=== PATIENT | male | born 1940 | race Caucasian/White ===

== ENCOUNTER 2024-06-29 11:49 | Outpatient (RCR) | payer OTHER, SELFPAY | END 2024-06-29 23:59 | disposition home or self-care (01) | LOC: RPT 11:49 | PROVIDERS: ATTENDING PHYSICIAN Internal Medicine | DX: M54.9 Dorsalgia, unspecified (principal); Z73.6 Limitation of activities due to disability | CPT/HCPCS: 97110; 97112; 97162; 97530 ==

== ENCOUNTER 2024-07-20 11:55 | Outpatient (RCR) | payer OTHER, SELFPAY | END 2024-07-20 14:14 | disposition home or self-care (01) | LOC: RPT 11:55 | PROVIDERS: ATTENDING PHYSICIAN Internal Medicine | DX: M54.9 Dorsalgia, unspecified (principal); Z73.6 Limitation of activities due to disability | CPT/HCPCS: 97110; 97112 ==

== ENCOUNTER 2024-11-04 08:10 | Inpatient (IN) | payer OTHER, SELFPAY ==
[2024-11-03 12:38] VITALS: BP 182/68
[2024-11-03 12:42] LABS: Glucose - Point of Care 331 mg/dl (70-99)
[2024-11-03 12:55] LABS: % Basophils 0.3 % (0-2); % Eosinophils 1.7 % (0-6); % Immature Granulocytes 0.5 % (0-0.5); % Neutrophils 80.5 % (42.2-75.2); Absolute Eosinophils 0.2 10^3/uL (0-0.7); Absolute Immature Granulocytes 0.1 10^3/uL (0-0.05); Absolute Monocytes 0.7 10^3/uL (0.1-0.6); Absolute Neutrophils 8.3 10^3/uL (1.4-6.5); Hematocrit 42.2 % (39.0-52.0); Hemoglobin 14.2 g/dL (13.0-18.0); Mean Corp Hgb Conc. 33.6 g/dL (33.0-37.0); Mean Corpuscular Hgb 32.9 pg (27.0-31.0); Mean Corpuscular Volume 97.9 fL (80.0-94.0); Mean Platelet Volume 11.5 fL (7.4-10.4); Nucleated Red Blood Cells % 0 % (-); Platelet Count 167 10^3/uL (130-400); Red Blood Cell Count 4.31 10^6/uL (4.70-6.10); Red Cell Dist. Width 12.8 % (11.5-14.5); White Blood Cell Count 10.3 10^3/uL (4.8-10.8)
[2024-11-03 13:07] LABS: ALT (SGPT) 20 U/L (0-50); AST (SGOT) 21 U/L (17-59); Albumin 4.2 g/dl (3.5-5.0); Alkaline Phosphatase 97 U/L (38-126); Blood Urea Nitrogen 32 mg/dl (9-20); Carbon Dioxide 27 mmol/L (22-30); Chloride 99 mmol/L (98-107); Glucose 303 mg/dl (70-99); Sodium 136 mmol/L (135-145); Total Bilirubin 1.1 mg/dl (0.2-1.3); Total Protein 6.8 g/dl (6.3-8.2); eGFR > 60.00
[2024-11-03 14:05] VITALS: BMI 28.8
--- NOTE | 2024-11-03 14:10 | ED.GENMED ---
History of Present Illness
General
Chief Complaint: Change in Mental Status
Source: patient and spouse
Exam Limitations: none
Time Seen by Provider: 11/03/24 14:04
History of Present Illness
History of Present Illness:
See MDM
Past History
Past History
ED Past Medical History: Arrthythmia, Cancer (Squamous cell skin cancer abdominal wall), CHF, GERD, HTN, Hypercholesterolemia, IDDM and Other (Gallstone pancreatitis April 2018)
ED Past Surgical History: Cardiac (Heart valve replacement 1992), Cholecystectomy (Laparoscopic cholecystectomy 04/14/2018.), Orthopedic and Other (Squamous cell skin cancer removal right upper abdominal wall May 18 2018)
Social History
Tobacco: Non-smoker
Alcohol: None (Rare)
Drug: None
Personal:
Living: with family
Family History
Family History: Other (Noncontributory)
Phy Exam
Physical Exam
Physical Exam:
See MDM
Scores
NIH Stroke Score
Level of Consciousness: 0 - Alert
LOC Questions: 0-Answers both correctly
LOC Commands: 0-Performs both correctly
Best Horizontal Gaze: 0-Normal
Visual Estrada: 0=Normal, no visual loss
Facial Palsy: 0=Normal, symmetrical
Motor - Right Arm: 0=No drift 10 seconds
Motor - Left Arm: 0=No drift 10 seconds
Motor - Right Le-No drift 5 seconds
Motor - Left Le-No drift 5 seconds
Limb Ataxia: 0-Absent
Sensation: 0-Normal
Best Language: 0-No aphasia
Dysarthria: 0-Normal
Extinction and Inattention: 0-No abnormality
Total Score:: 0
Course
Orders/Labs/Results
Orders:
Orders
11/03/24 12:[address] [CT Head W/o Iv Contrast] Urgent
Comment:
Reason For Exam: confusion for days
11/03/24 12:47
Complete Blood Count/With Diff Urgent
Comprehensive Metabolic Panel Urgent
11/03/24 14:08
0.9% Sodium Chloride 1000 ml [Nss] 1,000 ml IV BOLUS
Insulin Aspart [NOVOLOG vial] 5 units SC NOW STA
11/03/24 14:28
Urinalysis Reflex To Culture Urgent
Date Specimen was Collected: 11/03/24
Time Specimen was Collected: 14:14
Urine Microscopic Reflex Cult Urgent
Abnormal Lab Results
11/03/24 11/03/24 11/03/24
12:40 12:47 14:28
RBC 4.31 L 10^6/uL
(4.70-6.10)
MCV 97.9 H fL
(80.0-94.0)
MCH 32.9 H pg
(27.0-31.0)
MPV 11.5 H fL
(7.4-10.4)
Abs Immat Gran (auto) 0.1 H 10^3/uL
(0-0.05)
Absolute Neuts (auto) 8.3 H 10^3/uL
(1.4-6.5)
Absolute Lymphs (auto) 1.0 L 10^3/uL
(1.2-3.4)
Absolute Monos (auto) 0.7 H 10^3/uL
(0.1-0.6)
Neutrophils % 80.5 H %
(42.2-75.2)
Lymphocytes % 10.0 L %
(20.5-51.1)
BUN 32 H mg/dl
(9-20)
Glucose 303 H mg/dl
(70-99)
Ur Occult Blood Reflex 1+ A
(Negative)
Urine Glucose 1+ A
(Negative)
Urine Albumin (Reflex) 3+ A
(Neg - Trace)
POC Glucose 331 H mg/dl
(70-99)
11/03/24 12:47
11/03/24 12:47
Vital Signs
Initial and Last Documented VS:
Initial Vital Signs
Temp Pulse Resp BP Pulse Ox
98.5 F 63 18 182/68 98
11/03/24 12:38 11/03/24 12:38 11/03/24 12:38 11/03/24 12:38 11/03/24 12:38
Last Documented Vital Signs
Temp Pulse Resp BP Pulse Ox
98.5 F 63 18 182/68 98
11/03/24 12:38 11/03/24 12:38 11/03/24 12:38 11/03/24 12:38 11/03/24 12:38
MDM/Problems Addressed
Differential Diagnosis Includes:
HPI and MDM Narrative:
83-year-old male presenting for evaluation of confusion. His significant other is at bedside. Patient states he forgot how to take his insulin. Because of this, he has not had any insulin over the past 2 days. He does complain of increased
urination. Denies headache, chest pain or fevers. On exam, he is clinically dry. Will ultimately have to admit based on the fact that he is unable to reliably take his insulin. Blood work done prior to my evaluation. He is hyperglycemic but no
evidence of DKA. Urinalysis pending. IV fluids started. Since on exam
Physical exam
General: Lying in bed comfortably
HEENT: protecting airway. Dry mucous membranes
Neck: appears supple
CV: No evidence of cyanosis. Regular rate and rhythm
Resp: No accessory muscle use
Abd: Non-distended
Extremities: No deformities. Distal legs neurovascularly intact
Neuro: alert. Moving all 4 extremities without difficulty. No focal neurodeficits.
Psych: Normal affect
Skin: Intact
Problems Addressed including Acute and Chronic Conditions affecting care:
1. Confusion
Acuity: acute
Prognosis: stable
Details: CT head and urinalysis pending.
2. Hyperglycemia
Acuity: acute
Prognosis: stable
Details: In the setting of patient's inability to remember how to take his insulin. Will give dose of subcu insulin
Updates
Urinalysis negative for infection. CT negative for acute abnormality. Will admit for further IV fluids and diabetic teaching
Differential Diagnosis (but not limited to): Stroke, DKA, UTI
Testing considered: EKG
Drug therapy (if applicable): OTC meds, please see d/c instruction regarding Rx drugs
Amount and/or Complexity of Data Reviewed
Clinical info obtained from: Patient
External data reviewed: N/A
Labs I independently reviewed (but not limited to): Hyperglycemia
Radiology: The CT scan was personally and independently reviewed. In addition, official CT report reviewed.
Pulse Ox: not hypoxic
EKG independently reviewed: N/A
Security Management Specialist: Sinus rhythm
Critical Care: N/A
Risk of Complication:
Social Determinants of health: Good social support
Discussed with other providers: Hospitalist
Escalation of Care includes Admit/Obs: Given the confusion and inability to administer his own insulin, will admit for diabetic teaching and fluids
Occasional wrong word or 'sound a like' substitutions may have occurred due to the inherent limitations of voice recognition software. Read the chart carefully and recognize, using context, where substitutions have occurred.
*Critical Care Note
Total Time (30-74mins, 75-104mins- exclusive of procedures): Not Applicable
ED Attending Note
-
Portions of this chart may have been created with voice recognition software.� Occasional wrong word or��sound alike� substitutions may have occurred due to the inherent limitations of voice recognition software.
Discharge Plan
Departure
Patient Disposition: Admit
Date of Disposition: 11/03/24
Time of Disposition: 14:54
Admit to: Med/Surg
Presentation/result/management discussed w/ accepting MD/DO: Hospitalist
Discharge Problem:
Acute confusion, Acute hyperglycemia
Prescriptions:
No Action
multivitamin Tablet
1 tab PO DAILY
latanoprost 0.005 % Drops
1 drp OPHTHALMIC (EYE) QPM
carvedilol 25 mg Tablet
25 mg PO BID
atorvastatin 20 mg Tablet
20 mg PO DAILY
amiodarone 200 mg Tablet
100 mg PO MOWEFR
amiodarone 200 mg Tablet
200 mg PO SUTUTHSA
psyllium Packet
1 packet PO DAILYPRN PRN (Reason: constipation)
nitroglycerin [Nitrostat] 0.4 mg Tablet, Sublingual
0.4 mg SUBLINGUAL [id number] PRN (Reason: chest pain)
Systane (PF) 0.4-0.3 % Dropperette
1 drp ophthalmic (eye) PRN PRN (Reason: dry eye)
coenzyme Q10 [Co Q-10] 200 mg Capsule
200 mg PO DAILY
omega 0-vzk-idv-fish oil [Fish Oil] 1,000 mg (120 mg-180 mg) Capsule
1 cap PO BID
Anoro Ellipta 62.5-25 mcg/actuation Blister With Device
1 inh INHALATION R DAILY
furosemide 40 mg Tablet
40 mg PO BID@0800,1600
aspirin 81 mg Tablet,Delayed Release (Dr/Ec)
81 mg PO DAILY
methimazole 5 mg tablet
2.5 mg PO DAILY
albuterol sulfate 90 mcg/actuation Hfa Aerosol Inhaler
2 puff INHALATION R Q4HPRN PRN (Reason: sob/wheezing)
fluticasone propionate [Flonase] 50 mcg/actuation [place],Suspension
1 spray INTRANASAL DAILY
repaglinide 1 mg tablet
1 mg PO AC
insulin glargine [Lantus Solostar U-100 Insulin] 100 unit/mL (3 mL) insulin pen
18 unit SC HS
Referrals:
Patrick Garcia DO [Family Provider] -
Interventions
Interventions:
*Risk Screen - Suicide Last Done: 11/03/24 12:38
*General Assessment Last Done: 11/03/24 12:38
*Neglect/Abuse Screening Last Done: 11/03/24 12:38
*ED COVID-19 Vaccine History Last Done: 11/03/24 12:38
Discharge Date and Time
Print Language: DANISH
[2024-11-03] MEDS: NOVOLOG vial 5 UNITS SC (14:18)
[2024-11-03] MEDS: NSS 1000 IV (14:20)
[2024-11-03 14:38] LABS: Urine Albumin 3+ (Neg - Trace); Urine Bilirubin Negative (Negative); Urine Character Clear (Clear); Urine Color Yellow; Urine Glucose 1+ (Negative); Urine Ketone Negative (Negative); Urine Leukocyte Negative (Negative); Urine Nitrite Negative (Negative); Urine Occult Blood 1+ (Negative); Urine Urobilinogen Negative (Neg - 1+)
--- NOTE | 2024-11-03 14:40 | PHANOTE ---
Addendum entered by Bhavani Sanchez 11/04/24 08:22:
following up on a med rec, patient does not know his medication, spouse did not bring in med list. called home phone on file, spouse picked up and read me the medication bottles but did not have the answer to all my questions
Original Note:
Med Rec Note:
Pt does not know medications off hand, pt's states list was left at home and medications are not known. Home med compiled from [facility] and Dr Miller. Left unconfirmed.
[2024-11-03 15:39] LABS: Urine Bacteria Few (Negative); Urine Mucus Moderate; Urine White Cell 0-2 /HPF (0-5)
--- NOTE | 2024-11-03 15:42 | HPS.HSE ---
Addendum entered and electronically signed by Travon Huynh MD 11/03/24 23:23:
Patient became short of breath later. Chest x-ray showed mild congestive heart failure. 40 IV Lasix given. Cardiology consulted.
Addendum entered and electronically signed by Travon Huynh MD 11/03/24 18:24:
Patient had 26 beats of Vtach asymptomatic.
Original Note:
Family Physician
-
Family Physician: Patrick Garcia
Chief Complaint
-
memory loss
History of Present Illness
55-year-old male past medical history of aortic stenosis status post bioprosthetic AVR, atrial fibrillation, sick sinus syndrome with permanent pacemaker, hypertension, diabetes, presenting with forgetting how to take his insulin over the past 2
days. As per he told the that he forgot how to take the insulin and she brought him to the emergency room due to concern for hyperglycemia. She did not check his blood sugar at home.
She states that she did not notice any other memory impairment. He has been feeling well and remembering everything else. No headache, blurry vision. His speech is is chronically a little bit slurred but she noticed that he was having a bit more
difficulty. He was also having difficulty ambulating and sort of shuffling over the past 2 days. But she denies any tendency towards 1 side.
No fevers or chills, upper respiratory symptoms, nausea vomiting or diarrhea. For the past month he has been having sudden urges to urinate but no dysuria. No history of enlarged prostate.
Patient is supposed to have MRI of the spine to evaluate ongoing back pain but they could not get an appointment until February.
He does not smoke or drink alcohol.
Medical History
Past Medical History
Past Medical History: Reports Other (aortic stenosis status post bioprosthetic AVR, atrial fibrillation, sick sinus syndrome with permanent pacemaker, hypertension, diabetes)
Past Surgical History: Reports Other ( Cardiac (Heart valve replacement 1992), Cholecystectomy (Laparoscopic cholecystectomy 04/14/2018.), Orthopedic and Other (Squamous cell skin cancer removal right upper abdominal wall May 18 2018))
Social History
Tobacco: Non-smoker
Alcohol: None
Drug: None
Family History
Family History: Not pertinent
Allergies / Home Medications
Allergies reflects when Allergies were last updated in [facility].
Home Medications with original date entered in [facility]
Allergy/Medication List:
Allergies
Allergy/AdvReac Type Severity Reaction Status Date / Time
merbromin Allergy TOPICAL-JUANIS Verified 05/20/23 10:42
[From Mercurochrome] H
Home Medications
amiodarone 200 mg tablet 100 mg PO MOWEFR Arrhythmia 05/18/22
amiodarone 200 mg tablet 200 mg PO SUTUTHSA Arrhythmia 05/18/22
atorvastatin 20 mg tablet 20 mg PO DAILY High cholesterol 05/18/22
carvedilol 25 mg tablet 25 mg PO BID Blood pressure 05/18/22
coenzyme Q10 200 mg capsule (Co Q-10) 200 mg PO DAILY Supplement 05/18/22
latanoprost 0.005 % eye drops 1 drp ophthalmic (eye) QPM Eye condition 05/18/22
multivitamin 1 tab PO DAILY Supplement 05/18/22
nitroglycerin 0.4 mg sublingual tablet (Nitrostat) 0.4 mg sublingual [id number] PRN chest pain 05/18/22
omega 2-ibi-xaf-fish oil 1,000 mg (120 mg-180 mg) capsule (Fish Oil) 1 cap PO BID Supplement 05/18/22
peg 400-propylene glycol (PF) 0.4 %-0.3 % eye drops in a dropperette (Systane (PF)) 1 drp ophthalmic (eye) PRN PRN dry eye 05/18/22
psyllium 1 packet PO DAILYPRN PRN constipation 05/18/22
umeclidinium 62.5 mcg-vilanterol 25 mcg/actuation powdr for inhalation (Anoro Ellipta) 1 inh inhalation R DAILY Lung/breathing issues 05/18/22
albuterol sulfate 90 mcg/actuation aerosol inhaler 2 puff inhalation R Q4HPRN PRN sob/wheezing 11/03/24
aspirin 81 mg tablet,delayed release 81 mg PO DAILY 11/03/24
fluticasone propionate 50 mcg/actuation nasal spray,suspension 1 spray intranasal DAILY 11/03/24
furosemide 40 mg tablet 40 mg PO BID@0800,1600 11/03/24
insulin glargine 100 unit/mL (3 mL) subcutaneous pen (Lantus Solostar U-100 Insulin) 18 unit SC HS 11/03/24
methimazole 5 mg tablet 2.5 mg PO DAILY 11/03/24
repaglinide 1 mg tablet 1 mg PO AC 11/03/24
Review of Systems
-
History Source: Patient
A 12 point ROS was completed and negative except as noted: Yes
Constitutional: Reports No Symptoms
EENT: Reports No Symptoms
Respiratory: Reports No Symptoms
Cardiac: Reports No Symptoms
Abdomen/GI: Reports No Symptoms
: Reports No Symptoms
Musculoskeletal: Reports No Symptoms
Skin: Reports No Symptoms
Neurological: Reports No Symptoms
Endocrine: Reports No Symptoms
Hematologic/Lymphatic: Reports No Symptoms
Psych: Reports No Symptoms
Physical Exam
Vital Signs
Vital Signs
Temp Pulse Resp BP Pulse Ox
98.5 F 63 18 182/68 98
11/03/24 12:38 11/03/24 12:38 11/03/24 12:38 11/03/24 12:38 11/03/24 12:38
Physical Exam
General: Well Developed, Well Nourished and No Apparent Distress
HEENT: NormoCephalic, Moist mucous membranes and Atraumatic
Respiratory: Clear
Cardiac: S1/S2 and Regular Rhythm; No Murmur or Rub
GI: Soft, Non Tender, Non Distended and Normal Bowel Sounds; No Organomegaly
Rectal: Deferred by Provider
Musculoskeletal: No Clubbing, No Cyanosis and No Edema
Skin: No Rash
Neuro: Nonfocal/grossly intact
Laboratory Results
-
11/03/24 12:47
11/03/24 12:47
Laboratory Results
Total Bilirubin 1.1 mg/dl (0.2-1.3) 11/03/24 12:47
AST 21 U/L (17-59) 11/03/24 12:47
ALT 20 U/L (0-50) 11/03/24 12:47
Alkaline Phosphatase 97 U/L (38-126) 11/03/24 12:47
Data Reviewed
-
Lab Data: Labs Reviewed by me
Old Records: Reviewed
Impression/Plan
-
IMPRESSION:
PLAN:
# Hyperglycemia secondary to Lantus noncompliant for 2 days due to memory impairment
Type 2 diabetes
-Currently on Lantus 15 units at night
-IV fluids given
-Given 5 of NovoLog
-Blood sugar 300s
-Resume Lantus 15 units
-Insulin sliding scale
# Acute memory loss
-There was some nystagmus with leftward gaze
-Apart from some mild speech difficulty no other focal neurological deficits so feel this is more metabolic in nature perhaps superimposed on developing dementia
-Urinalysis unremarkable
-Check TSH, B12
-Check MRI brain
#Uncontrolled hypertension
#Essential hypertension
-As needed hydralazine
#Chronic back pain
-Patient scheduled for MRI of spine in February
Aortic stenosis status post bioprosthetic AVR
Atrial fibrillation
-Continue amiodarone
Sick sinus syndrome with permanent pacemaker
Full code
DVT prophylaxis�SCDs
Diabetic diet
[2024-11-03 15:56] LABS: Glucose - Point of Care 161 mg/dl (70-99)
[2024-11-03 16:04] VITALS: BP 153/70
[2024-11-03 16:58] VITALS: BP 172/78
[2024-11-03 17:00] VITALS: BMI 31.2
[2024-11-03 17:05] LABS: Glucose - Point of Care 117 mg/dl (70-99)
[2024-11-03] MEDS: NOVOLOG FLEXPEN-LOW RESISTANCE SC (17:07)
[2024-11-03 17:53] LABS: TSH Reflex To Free T4 2.33 uIU/ml (0.47-4.68)
--- NOTE | 2024-11-03 18:09 | TRANSFER ---
Pt admitted to 4W from ED, ambulated from stretcher to bed with x1 assist and walker. Pt AAOx3, denying any complaints at this time. Plan of care reviewed, call guzman within reach.
[2024-11-03 18:13] LABS: Vitamin B12 676 pg/ml (239-931)
[2024-11-03] MEDS: APRESOLINE 5 MG IV (18:32)
--- NOTE | 2024-11-03 18:39 | PTCARENOTE ---
Pt with 26-beat run of vtach, denies symptoms. BP 170/77, PRN hydralazine administered. notified. No further orders at this time.
[2024-11-03 19:05] VITALS: BP 134/81
[2024-11-03] MEDS: XOPENEX 1.25 MG INHALANT SOLUTION INH (19:57)
--- NOTE | 2024-11-03 20:02 | W.PN.UPDATE ---
Update Note
Progress Note Update
Patient is confused not able to conform his med list and is not able to confirm as well per nursing staff. Pharmacy confirmed some of the meds by the refill history through outpatient pharmacy.Meds reviewed with the admitted physician.
Pro BNP
chest x-ray
lasix
cardiology consult
[2024-11-03 20:12] LABS: Blood Urea Nitrogen 30 mg/dl (9-20); Calcium 9.9 mg/dl (8.4-10.2); Carbon Dioxide 24 mmol/L (22-30); Chloride 103 mmol/L (98-107); Estimated Creatinine Clearance 51 ml/min; Glucose 195 mg/dl (70-99); Magnesium 1.8 mg/dl (1.6-2.3); Potassium 4.8 mmol/L (3.5-5.1); Sodium 135 mmol/L (135-145); eGFR > 60.00
[2024-11-03] MEDS: COREG 25 MG PO (20:39)
[2024-11-03] MEDS: LIPITOR 20 MG PO (20:40)
[2024-11-03 20:49] LABS: NT-proBNP 26700 pg/ml
[2024-11-03 21:11] LABS: Glucose - Point of Care 219 mg/dl (70-99)
[2024-11-03] MEDS: LANTUS 0.18 UNITS SC (22:00)
[2024-11-03] MEDS: LASIX 40 MG IV (22:00)
[2024-11-03 23:03] VITALS: BP 136/52
[2024-11-04] VITALS (8 sets, daily range): BP systolic 120–163; BP diastolic 65–91; PULSE 61; O2SAT 96; BMI 30.5
[2024-11-04 07:44] LABS: Glucose - Point of Care 157 mg/dl (70-99)
--- NOTE | 2024-11-04 08:10 | CON.CAR ---
Addendum entered and electronically signed by Valentin Buck MD 11/04/24 09:46:
Patient seen and examined in collaboration with [employer]; agree with below.
-83-year-old male with chronic nonischemic cardiomyopathy (EF 40-45%), paroxysmal atrial fibrillation (not on systemic anticoagulation secondary to fall/bleeding risk), bioprosthetic AVR, permanent pacemaker implantation, chronic LBBB, COPD, and
diabetes admitted with change in mental status and was found to be in acute on chronic CHF exacerbation. Uncertain as to what patient's medication compliance is at home.
-The patient is still little confused, but lucid.
-Recommend Lasix 40 mg IV BID for now.
-Update echocardiogram.
-Interrogate pacemaker; has underlying LBBB cannot completely exclude slow VT (conservative management).
-Will resume amiodarone (uncertain as to whether patient is taking it at home).
-Continue Coreg 25 mg BID.
-Continue child monitor.
Original Note:
Consultation
Consultation Request
Date/Time Consultation Requested: 11/04/24314
Date/Time Consultation Performed: 11/04/24 0810
Requesting Provider: Amber Tracy NP
Performing Provider: Ingrid HOLLIS for Dr. Buck
Reason for Consultation: CHF
Medical History
-
Chief Complaint: confusion
History of Present Illness:
83 y/o male (follows with Dr. Gamez) with hypertension, PAF (not on OAC due to falls and bleeding), severe s/p bio AVR, severe pulmonary hypertension, SSS s/p pacemaker, JAVON on CPAP, dyslipidemia, obesity, GERD, NICM EF 40-45%, COPD, LBBB
and DM2 who is here for evaluation after he was noted to have confusion- forgot how to use his insulin per chart. We are consulted since he had SOB and CXR and BMP showed evidence for CHF- he was given IV lasix. Otherwise, he has episodes of
tachycardia with LBBB (known) - I suspect atrial tachycardia. He is no symptomatic with that rhythm and BP is stable. He is still confused to my assessment, though follows commands and answers questions. SVENO x 2. It is not clear to me that he has
been taking his medications- he tells me he only takes Lasix a few times a week. At last OV, he was on amiodarone and now he is not- he is not sure why. He does report worsened [place] over the past week, as well as LE edema.
Past Medical History
Past Medical History: Arrhythmias, CHF, COPD, GERD, HTN, Hypercholesterolemia, NIDDM and Valvular Disease
Social History
Living: Other (lives with significant other)
Family History
Family History: Reviewed & Not Pertinent
Allergies / Home Medications
Allergy/AdvReac Type Severity Reaction Status Date / Time
merbromin Allergy TOPICAL-JUANIS Verified 05/20/23 10:42
[From Mercurochrome] H
�Medication �Instructions �Recorded �Confirmed �Type
amiodarone 200 mg tablet 100 mg PO MOWEFR Arrhythmia 05/18/22 05/18/22 History
amiodarone 200 mg tablet 200 mg PO SUTUTHSA Arrhythmia 05/18/22 05/18/22 History
atorvastatin 20 mg tablet 20 mg PO DAILY High cholesterol 05/18/22 05/18/22 History
carvedilol 25 mg tablet 25 mg PO BID Blood pressure 05/18/22 05/18/22 History
coenzyme Q10 200 mg capsule (Co 200 mg PO DAILY Supplement 05/18/22 05/18/22 History
Q-10)
latanoprost 0.005 % eye drops 1 drp ophthalmic (eye) QPM Eye 05/18/22 05/18/22 History
condition
multivitamin 1 tab PO DAILY Supplement 05/18/22 05/18/22 History
nitroglycerin 0.4 mg sublingual 0.4 mg sublingual [id number] PRN 05/18/22 05/18/22 History
tablet (Nitrostat) chest pain
omega 2-tdp-irg-fish oil 1,000 mg 1 cap PO BID Supplement 05/18/22 05/18/22 History
(120 mg-180 mg) capsule (Fish Oil)
peg 400-propylene glycol (PF) 0.4 1 drp ophthalmic (eye) PRN PRN dry 05/18/22 05/18/22 History
%-0.3 % eye drops in a dropperette eye
(Systane (PF))
psyllium 1 packet PO DAILYPRN PRN 05/18/22 05/18/22 History
constipation
umeclidinium 62.5 mcg-vilanterol 1 inh inhalation R DAILY 05/18/22 05/18/22 History
25 mcg/actuation powdr for Lung/breathing issues
inhalation (Anoro Ellipta)
albuterol sulfate 90 mcg/actuation 2 puff inhalation R Q4HPRN PRN 11/03/24 History
aerosol inhaler sob/wheezing
aspirin 81 mg tablet,delayed 81 mg PO DAILY 11/03/24 History
release
fluticasone propionate 50 1 spray intranasal DAILY 11/03/24 History
mcg/actuation nasal
spray,suspension
furosemide 40 mg tablet 40 mg PO BID@0800,1600 11/03/24 History
insulin glargine 100 unit/mL (3 18 unit SC HS 11/03/24 History
mL) subcutaneous pen (Lantus
Solostar U-100 Insulin)
methimazole 5 mg tablet 2.5 mg PO DAILY 11/03/24 History
repaglinide 1 mg tablet 1 mg PO AC 11/03/24 History
Review of Systems
-
History Source: Patient and Other (and chart)
Constitutional: Other (confusion)
Respiratory: Trouble Breathing
Musculoskeletal: Edema
Physical Exam
Vital Signs
Temp Pulse Resp BP Pulse Ox
98.4 F 61 18 163/69 95
11/04/24 07:27 11/04/24 07:27 11/04/24 07:27 11/04/24 07:27 11/04/24 07:27
Lab Results
Troponin I 0.030 ng/ml 11/03/24 19:49
Gke-R-Yxmacltvhvf Pept 90668 pg/ml 11/03/24 19:49
Physical Exam
General: Well Developed, Well Nourished and No Apparent Distress
HEENT: Normocephalic and Anicteric
Respiratory: Crackles (b/l bases)
Cardiac: Regular Rhythm and Peripheral Edema (mild BLE edema)
Skin: Warm and Dry
Neuro: Awake, Alert and Oriented (x 2)
Psych: Calm
Impression / Plan
-
Confusion:
-work-up and management per primary team
Vifwr-lj-jmtivxo HFmEF:
-most recent echo as noted with EF 40-45% and severe pulm HTN (2021)- will update today
-patient with BNP 26,700, CXR with CHF, LE edema, rales to b/l lung bases, and [place] over past week. It sounds like he only takes lasix 40 mg a few times per week.
-IV Lasix, which requires intensive monitoring
-CHF education
-sodium/fluid restriction
-on Coreg as OP. Not on ACEI/MRA due to hyperkalemia and hx renal insufficiency. Jardiance listed on OP meds at last OV, but not here?
Bio AVR:
-update echo
PAF:
-was on amiodarone by previous OV, but not currently listed as a medicine- patient is not sure why he is not on this
-interrogate device
-continue Coreg
-not on OAC due to GIB and falls with injury per note, and he declined watchman w/u as OP
Tachycardia:
-in and out of tachycardia around 100 BPM. Patient with known LBBB. Likely AT.
-continue Coreg and monitor
-interrogate device- [employer] rep contacted
Pacemaker:
-stable on monitor- [employer] to interrogate
Data Reviewed
-
EKG: Tracing Personally Visualized and interpreted (WCT 112 BPM- will obtain repeat)
Radiology: Report Reviewed by me (CXR: Mild congestive heart failure.)
Medical Tests (Nuc Med, Echo etc): Report Reviewed by me (Echo 05/20/22: EF 40-45%, Global hypokinesis. Stage II DD. Mild mitral stenosis. Well seated, bioprosthetic aortic valve replacement. Mild aortic regurgitation. Severe pulmonary hypertension.)
Labs: Labs Reviewed by me
[2024-11-04] MEDS: TAPAZOLE 2.5 MG PO (08:21)
[2024-11-04] MEDS: COREG 25 MG PO (08:21)
[2024-11-04] MEDS: PRANDIN 1 MG PO ×3 (08:22→16:50)
[2024-11-04] MEDS: NOVOLOG FLEXPEN-LOW RESISTANCE 1 UNITS SC ×2 (08:43→12:04)
[2024-11-04 09:41] LABS: % Basophils 0.3 % (0-2); % Eosinophils 1.5 % (0-6); % Immature Granulocytes 0.5 % (0-0.5); % Lymphocytes 12.6 % (20.5-51.1); % Monocytes 7.8 % (1.7-9.3); % Neutrophils 77.3 % (42.2-75.2); Absolute Eosinophils 0.2 10^3/uL (0-0.7); Absolute Immature Granulocytes 0.1 10^3/uL (0-0.05); Absolute Lymphocytes 1.3 10^3/uL (1.2-3.4); Absolute Monocytes 0.8 10^3/uL (0.1-0.6); Absolute Neutrophils 7.7 10^3/uL (1.4-6.5); Hematocrit 41.6 % (39.0-52.0); Hemoglobin 13.7 g/dL (13.0-18.0); Mean Corp Hgb Conc. 32.9 g/dL (33.0-37.0); Mean Corpuscular Hgb 31.9 pg (27.0-31.0); Mean Platelet Volume 12.2 fL (7.4-10.4); Nucleated Red Blood Cells % 0 % (-); Platelet Count 183 10^3/uL (130-400); Red Blood Cell Count 4.29 10^6/uL (4.70-6.10); Red Cell Dist. Width 13.1 % (11.5-14.5); White Blood Cell Count 9.9 10^3/uL (4.8-10.8)
[2024-11-04] MEDS: LASIX 40 MG IV ×2 (09:47→16:50)
[2024-11-04] MEDS: PACERONE 400 MG PO (09:47)
[2024-11-04 10:21] LABS: ALT (SGPT) 19 U/L (0-50); AST (SGOT) 23 U/L (17-59); Alkaline Phosphatase 103 U/L (38-126); Blood Urea Nitrogen 33 mg/dl (9-20); Calcium 9.8 mg/dl (8.4-10.2); Carbon Dioxide 24 mmol/L (22-30); Chloride 102 mmol/L (98-107); Estimated Creatinine Clearance 46 ml/min; Glucose 145 mg/dl (70-99); Potassium 4.1 mmol/L (3.5-5.1); Sodium 136 mmol/L (135-145); Total Bilirubin 1.2 mg/dl (0.2-1.3); Total Protein 6.4 g/dl (6.3-8.2); eGFR > 60.00
[2024-11-04 11:31] LABS: Glucose - Point of Care 193 mg/dl (70-99)
[2024-11-04 13:50] LABS: Glycohemoglobin (HgbA1c) 7.2 % (4.0-5.6)
--- NOTE | 2024-11-04 14:11 | W.PN.HOSP.TC ---
Today's Communication/Plan
-
see outlined plan
Assessment / Plan
Assessment / Plan
Assessment:
TME
- likely in setting of acute CHF, hyperglycemia
- CT head negative. MRI Brain pending
- no infectious etiology found
- TSH, B12 normal
- monitor mental status for improvement
Acute on chronic HFmEF
- await updated Echo
- patient with BNP 26,700 and volume overload on exam/CXR
- continue IV Lasix BID - requires intensive monitoring of I/Os, weights, lytes
- Na/OFR
- continue Coreg. Not on ALANNAH/ARB due to hyperkalemia/renal insufficiency
Type 2 DM, uncontrolled due to noncompliance while confused
- continue Lantus 18 units + SSI
- hold Prandin
- A1c: 7.2%
Hx of Aortic stenosis status post bioprosthetic AVR
PAF
hx of SSS s/p PPM
Hx of LBBB
- interrogation
- continue Coreg/Amiodarone
Essential HTN
- continue Coreg
Chronic back pain
- Patient scheduled for MRI of spine in February
DVT ppx: SCDs
Code: Full
Anticipated Discharge: > 48 hours
Subjective/Interval History
-
Date of Service: November 04, 2024
resting comfortably
remains confused but less so per
no focal symptoms reported by patient/nursing
Objective Data
-
Labs:
Laboratory Results
11/04/24
06:40
WBC 9.9
Hgb 13.7
Hct 41.6
Plt Count 183
Sodium 136
Potassium 4.1
Chloride 102
Carbon Dioxide 24
BUN 33 H
Creatinine 1.1
Glucose 145 H
Calcium 9.8
Total Bilirubin 1.2
AST 23
ALT 19
Alkaline Phosphatase 103
Vital Signs:
Vital Signs
Temp Pulse Resp BP Pulse Ox
98.4 F 63 20 146/65 97
11/04/24 11:19 11/04/24 11:19 11/04/24 11:19 11/04/24 11:19 11/04/24 11:19
I&O
11/03/24 11/04/24 11/05/24
06:59 06:59 06:59
Intake Total 640 / 640
Output Total 1850 / 1850
Balance -1210 / -1210
Physical Exam
-
General: No Apparent Distress
HEENT: Normocephalic and Atraumatic
Respiratory: Crackles; Negative Wheezes
Cardiac: Regular Rhythm and S1/S2
Genito-urinary: No Costovertebral Tender
Musculoskeletal: Edema, Right Lower Extrem and Edema, Left Lower Extrem
Neuro: AO x 3
Psych: Calm and Confused (intermittently)
Data Reviewed
-
Total Time Spent with Patient (in minutes): 52
Labs: Labs Reviewed by me
--- NOTE | 2024-11-04 16:12 | CARDSERVLU ---
Echocardiogram with [facility] completed after protocol screening completed. Allergies verified.
Patent IV site: _Right wrist site clear (in patient)____
IV site flushed with 0.9% NaCl pre and post administration.
Diluted bolus method utilized to enhance visualization of ventricular brown.
Total volume given: _3___ mL
Patient tolerated all procedures well without complications.
--- NOTE | 2024-11-04 16:18 | CM ---
Pt seen bedside w/ significant other. Initial assessment completed. Pt admitted for memory loss.
Pt reports that he lives w/ significant other in a [facility]- 3 steps to enter from the front and 1 step to enter from garage.
No SNF/VN/PT hx
PT/OT recommending SNF at this time, pt unable to provide facilities at this time. CM to follow up and assist in SNF facilities and send referrals
Will need prior insurance auth
Plan: SNF; pending accepting facility and auth approval
[2024-11-04 16:41] LABS: Glucose - Point of Care 213 mg/dl (70-99)
[2024-11-04] MEDS: NOVOLOG FLEXPEN-LOW RESISTANCE 2 UNITS SC (16:51)
[2024-11-04] MEDS: LIPITOR 20 MG PO (16:52)
--- NOTE | 2024-11-04 20:42 | W.PN.UPDATE ---
Update Note
Progress Note Update
Code purple called.
Patient noted to be standing unsteady, agitated, at the door and not willing to go back to the room. RN reports patient was cursing and swinging at the staff. Verbally addressed to go back to bed as he is at risk of fall, patient cursed and stood
remain. Security and staff escorted patient to the floor. Patient continued to fight off the staff, restraints placed, Zyprexa IM 5mg ordered and given.
Zyprexa ineffective, patient continued to thrash and curse and trying to get out of bed. Patient denies any pain, voiding without difficulty.
HR 115-120 RR. BP 129/90, patient refused to take any PO medications. Metoprolol 2.5mg IV given now
Ativan o.5mg IV given now.
HR 70's BP 120/70's resting in bed at present.
[2024-11-04] MEDS: ZYPREXA 5 MG IM (20:49)
[2024-11-04] MEDS: STERILE WATER FOR INJECTION 2.1 ML IM (20:52)
[2024-11-04 21:07] LABS: Glucose - Point of Care 200 mg/dl (70-99)
[2024-11-04] MEDS: LANTUS 0.18 UNITS SC (21:09)
[2024-11-04] MEDS: PACERONE PO (22:36)
[2024-11-04] MEDS: COREG PO (22:36)
[2024-11-05] MEDS: ATIVAN 0.5 MG IV (00:02)
[2024-11-05] MEDS: NSS (PRESERVATIVE FREE) 0.25 ML IV (00:03)
[2024-11-05] MEDS: LOPRESSOR 2.5 MG IV ×4 (00:06→23:19)
--- NOTE | 2024-11-05 00:15 | PTCARENOTE ---
Pt restless, ambulated into doorway. Pt becoming combative towards staff. Code purple called. Security X3 assisted patient back to bed. SALES REPRESENTATIVE ADDING MACHINES at bedside, orders for restraints obtained and applied. Patient in bed yelling, kicking, and spitting. IM
Zyprexa ordered and administered. Pt remained agitated and combative, IV Ativan administered. Pt less agitated, HR sustaining in the 110s-120s. IV Lopressor ordered and administered. Pt resting in bed, no further agitated noted. Will continue with
current plan.
--- NOTE | 2024-11-05 00:26 | VATNOTE ---
UNABLE TO REMOVE LEAKING IV BENEATH R WRIST RESTRAINT. PT IN 4 PT RESTRAINTS AND SCREAMING OBSCENITIES, JERKING ALL EXTREMITES AND TOTALLY OUT OF CONTROL. WILL ATTEMPT TO REMOVE LEAKING IV AT A TIME PT IS MORE COOPERATIVE.PCN AWARE OF INTERVENTION
AND OUTCOME.
[2024-11-05 03:00] VITALS: BP 105/71
[2024-11-05 05:53] VITALS: BMI 30.2
[2024-11-05 07:36] VITALS: BP 165/72
[2024-11-05 08:06] LABS: Glucose - Point of Care 64 mg/dl (70-99)
[2024-11-05] MEDS: NOVOLOG FLEXPEN-LOW RESISTANCE SC ×2 (08:16→11:05)
[2024-11-05] MEDS: DEXTROSE 50% SYRINGE 12.5 GRAMS IV (08:23)
[2024-11-05] MEDS: PRANDIN PO ×2 (08:33→11:06)
[2024-11-05 08:46] LABS: Hemoglobin 14.4 g/dL (13.0-18.0); Mean Corp Hgb Conc. 34.3 g/dL (33.0-37.0); Mean Corpuscular Hgb 32.7 pg (27.0-31.0); Mean Corpuscular Volume 95.5 fL (80.0-94.0); Mean Platelet Volume 11.4 fL (7.4-10.4); Platelet Count 190 10^3/uL (130-400); White Blood Cell Count 10.3 10^3/uL (4.8-10.8)
[2024-11-05 08:51] LABS: Glucose - Point of Care 149 mg/dl (70-99)
[2024-11-05] MEDS: LASIX 40 MG IV ×2 (09:35→15:53)
[2024-11-05 09:57] LABS: Blood Urea Nitrogen 47 mg/dl (9-20); Calcium 9.7 mg/dl (8.4-10.2); Carbon Dioxide 26 mmol/L (22-30); Chloride 103 mmol/L (98-107); Estimated Creatinine Clearance 36 ml/min; Glucose 64 mg/dl (70-99); Potassium 3.8 mmol/L (3.5-5.1); Sodium 140 mmol/L (135-145); eGFR 50.18
--- NOTE | 2024-11-05 10:37 | W.PN.CD ---
Addendum entered and electronically signed by Valentin Buck MD 11/05/24 14:28:
Chart correction
The patient has:
Acute on chronic HFrEF.
Original Note:
Today's Communication / Plan
-
-Patient is in restraints and obtunded this a.m.; did not open eyes, unable to follow any commands.
-Patient will be managed conservatively from a cardiac standpoint; unable to take PO medications due to inability to follow commands.
-Will place on standing dose of Lasix 40 mg IV daily for now; transition to 40 mg PO daily (which should be his home regimen) once he is tolerating PO intake appropriately.
-Will place patient on a standing dose of IV Lopressor 2.5 mg Q6 (with hold parameters of heart rate less than 60 or SBP less than 100 mmHg); resume Coreg once tolerating PO intake.
-Cardiology will remain available on an as-needed basis.
Impression / Plan
-
Confusion:
-Patient was combative/agitated last evening; code purple called.
-Patient is in restraints and obtunded this a.m.; did not open eyes, unable to follow any commands.
-Continue work-up and management per primary team.
Shpdr-iw-dckgqnr HFmEF:
-Decline in EF to 25-30% (previously 40-45%).
-Patient will be managed conservatively from a cardiac standpoint; unable to take PO medications due to inability to follow commands.
-Will place on standing dose of Lasix 40 mg IV daily for now; transition to 40 mg PO daily (which should be his home regimen) once he is tolerating PO intake appropriately.
-Will place patient on a standing dose of IV Lopressor 2.5 mg Q6 (with hold parameters of heart rate less than 60 or SBP less than 100 mmHg); resume Coreg once tolerating PO intake.
-Further GDMT limited by renal sufficiency and patient noncompliance (was noncompliant with medications at home).
Bio AVR:
-Stable on echocardiogram.
PAF:
-Resume Amiodarone when tolerating PO intake.
-Management with beta-kimmy as above.
-Not on OAC due to GIB and falls with injury per note; declined watchman w/u as OP previously.
Tachycardia:
-in and out of tachycardia around 100 BPM. Patient with known LBBB. Likely AT.
-Management with beta-kimmy as above.
-interrogate device- [employer] rep contacted
Pacemaker:
-Stable device function on interrogation.
Physical Exam
Vital Signs/Labs
Vital Signs
Temp Pulse Resp BP Pulse Ox
98.5 F 61 18 165/72 95
11/05/24 07:36 11/05/24 07:36 11/05/24 07:36 11/05/24 07:36 11/05/24 07:36
11/04/24 11/05/24 11/06/24
06:59 06:59 06:59
Actual Weight 75.466 kg 74.928 kg
11/05/24 08:26
11/05/24 08:26
Magnesium 1.8 mg/dl (1.6-2.3) 11/03/24 19:42
11/03/24
19:49
Wjl-K-Xssbiwxwzdr Pept [id number]
LAB Results
11/03/24
19:49
Troponin I 0.030
Physical Exam
Constitutional: No acute distress and Confusion (Obtunded)
Cardiovascular: Pedal edema is absent, Rhythm/rate is irregular, Systolic murmur present (11/08) and S1S2 is normal
Respiratory: Respiratory effort normal and Rhonchi Present (Mild bibasilar)
GI: Soft
Neuro/Psych: Other (Obtunded)
Other: Skin (Warm, dry)
Data Reviewed
-
Date of Service: November 05, 2024
Labs: Labs Reviewed by me
[2024-11-05 11:05] VITALS: BP 179/73
[2024-11-05 11:05] LABS: Glucose - Point of Care 80 mg/dl (70-99)
--- NOTE | 2024-11-05 12:04 | W.PN.UPDATE ---
Update Note
Progress Note Update
attempted to see patient but he was sleeping. spoke to nursing reviewed chart. amiodarone cn cause agitation confusion. it was just started yesterday and the code purple occurred subsequently. texted to dr bedoya. will return to see patient later
today.
[2024-11-05 12:09] LABS: Glucose - Point of Care 89 mg/dl (70-99)
--- NOTE | 2024-11-05 12:55 | W.PN.HOSP.TC ---
Today's Communication/Plan
-
prn risperdal per psych
continue IV Lasix
monitor sugars
SNF when stable
Assessment / Plan
Assessment / Plan
Echo: Severely reduced left ventricular systolic function. Left ventricular ejection
fraction is 25-30% by Jimenez's method.
Global hypokinesis.
Stage III diastolic dysfunction suggestive of restrictive filling pattern and
increased filling pressures.
Dilated right ventricle with reduced systolic function.
Well-seated bioprosthetic aortic valve with mild to moderate valvular
regurgitation. Stable transvalvular gradients.
Compared to the prior echo on 05/20/2022, left ventricular systolic function has
declined from 40 to 45% to 25 to 30% on today's study. The right ventricle is
now dilated and hypokinetic. Mild to moderate valvular aortic regurgitation is
seen. PASP has decreased from 70 mmHg to 53 mmHg.
Assessment:
TME with agitation, sundowning with aggressive behaviors
Possible underlying dementia, possibly vascular dementia variant given CV history
- CT: Moderate diffuse cerebral and cerebellar volume loss. Moderate white matter leukoaraiosis in the frontal and parietal lobes.
- MRI pending.
- likely in setting of acute CHF, hyperglycemia, sundowning although chronic component possible
- no infectious etiology found
- TSH, B12 normal
- prn Risperdal per psych; avoid Haldol with prolonged QTcs
Acute on chronic HFrEF
- Echo as above
- patient with BNP 26,700 and volume overload on exam/CXR
- continue IV Lasix BID - requires intensive monitoring of I/Os, weights, lytes
- Na/OFR
- continue Coreg. Not on ALANNAH/ARB due to hyperkalemia/renal insufficiency
Type 2 DM, uncontrolled due to noncompliance while confused
- continue Lantus 18 units + SSI
- hold Prandin
- A1c: 7.2%
Hx of Aortic stenosis status post bioprosthetic AVR
PAF
hx of SSS s/p PPM
Hx of LBBB
- interrogation
- continue Coreg/Amiodarone
Essential HTN
- continue Coreg
Chronic back pain
- Patient scheduled for MRI of spine in February
DVT ppx: SCDs
Code: Full
Anticipated Discharge: > 48 hours
Subjective/Interval History
-
Date of Service: November 05, 2024
agitated behaviors overnight, requiring chemical/mechanical restraints
Objective Data
-
Labs:
Laboratory Results
11/05/24
08:26
WBC 10.3
Hgb 14.4
Hct 42.0
Plt Count 190
Sodium 140
Potassium 3.8
Chloride 103
Carbon Dioxide 26
BUN 47 H
Creatinine 1.4 H
Glucose 64 L
Calcium 9.7
Vital Signs:
Vital Signs
Temp Pulse Resp BP Pulse Ox
98.1 F 63 18 179/73 96
11/05/24 11:05 11/05/24 11:05 11/05/24 11:05 11/05/24 11:05 11/05/24 11:05
I&O
11/04/24 11/05/24 11/06/24
06:59 06:59 06:59
Intake Total 640 / 640 1080 / 1080
Output Total 1850 / 1850 375 / 375
Balance -1210 / -1210 705 / 705
Physical Exam
-
General: No Apparent Distress
HEENT: Normocephalic and Atraumatic
Respiratory: Negative Wheezes
Cardiac: Regular Rhythm and S1/S2
GI: Soft
Neuro: Awake
Psych: Calm and Confused
Data Reviewed
-
Total Time Spent with Patient (in minutes): 51
Labs: Labs Reviewed by me
--- NOTE | 2024-11-05 13:19 | PN.CDI ---
CDI
- -
CDI:
Physician Documentation Request
Admit Date: 11/04/24 08:10
Dear Cardiology,
Please review the following and provide your response in the progress notes.
Clinical Indicators:
- 1/3 Cardiology 'Eeuhe-zg-tulwqvq HFmEF'
- 'Decline in EF to 25-30% (previously 40-45%)'
- 1/2 Echo EF 25-30%
- Severely reduced left ventricular systolic function
- Stage III diastolic dysfunction
Please provide further specificity regarding the most likely type and acuity of CHF you are evaluating, treating or monitoring.
Acute on chronic HFrEF
Acute on chronic HFmrEF
Other (please specify)
Use of terms such as suspected, likely, concern for, or probable (associated with a specific diagnosis that is being evaluated, monitored, or treated as if it exists) are acceptable and can be coded in the inpatient setting, when documented at the
time of discharge.
Thank you,
Brandon Rajput RN
CDI Specialist
Please use your independent medical judgment in providing your response.
--- NOTE | 2024-11-05 13:28 | CON.MD ---
Consultation - Medical
-
patient seen chart reviewed discussed with nursing. the patient is an 83 year old male admitted with acute confusion. son and signficant other at bedside. son says about a week ago patient was in his usual state and son asked him some mental status
questions which he handled well. sig other reports he started to go downhill later in the week which she attributed to his blood sugar. he is at this moment a poor hisotorian. i had come to see him earlier today and could not rouse him. he is awake
now and answered a few questions but kept falling back asleep. i asked him if he recalled episode of agitation and he said essentially that people were upsetting him. he is oriented only to person. told me he was at home and it was 2021. he did tell
me xmas had just passed. the patient found to be in chf. blood sugar elevated at admit. of note patient was prescribed amiodarone yesterday which can albeit infrequently cause agitation in elderly. patient has no hx of psych illness or dementia.
past psych hx none
medical hx patient w many medical morbidities including chf niddm a fib he has a pacer hx bph ascvd gallbladder calculus s/p cholecystectomy aortic valve replacement rt endarterectomy oa hx thyrotoxicosis takes ptu gerd gout glaucoma sq cell
ca hld chronic back pain tsh b12 nl bun cr elevated at admit (?dehydration) head ct without acute changes cxr mild chf glucose this am low at 64 qtc 494
fh denied
substance abuse denied
social resides w supportive family
mse patient was sleepy. he could be roused by would drift off to sleep. oriented to person only. no evidence of psychosis unable to assess re affective illness insight judgment at this moment impaired
dx tme secondary to underlying medical illness likely some degree of dementia underlying
recommendations patient currently calm and cooperating. family aware of the code purple. recommended use of risperdal in tiny doses o.25 mg to start for severe agitation. explained black box warning to famliy and they are okay w its use. psych will
follow.. check folate. given high qtc would avoid iv haldol or other meds which prolong qtc.
[2024-11-05] MEDS: TAPAZOLE 2.5 MG PO (14:21)
[2024-11-05] MEDS: COREG 25 MG PO ×2 (14:21→21:14)
[2024-11-05] MEDS: PACERONE 400 MG PO ×2 (14:22→21:14)
--- NOTE | 2024-11-05 15:11 | CM ---
Chart reviewed for d/c planning. Pt has acute confusion and is presenting aggressive behaviors.
PT/OT recommending SNF at this time. Pt unable to provide options at this time due to confusion, will review w/ family.
Code purple called yesterday and today due to verbal and physical aggression. Pt currently on 4 pt restraints at this time for safety measures.
Psych following
Plan: SNF when medically stable
CM will cont to follow for d/c planning
[2024-11-05 15:18] VITALS: BP 148/63
[2024-11-05 16:14] LABS: Glucose - Point of Care 154 mg/dl (70-99)
[2024-11-05] MEDS: PRANDIN 1 MG PO (16:43)
[2024-11-05] MEDS: NOVOLOG FLEXPEN-LOW RESISTANCE 1 UNITS SC (16:43)
[2024-11-05] MEDS: LIPITOR 20 MG PO (17:15)
[2024-11-05 20:13] VITALS: BP 157/83
[2024-11-05 21:09] LABS: Glucose - Point of Care 172 mg/dl (70-99)
[2024-11-05] MEDS: RISPERDAL M-TAB (ORALLY DISINTEGRATING) 0.25 MG PO (21:15)
[2024-11-05] MEDS: LANTUS 0.18 UNITS SC (21:15)
[2024-11-05 22:55] VITALS: BP 168/82
[2024-11-06 03:10] LABS: Glucose - Point of Care 88 mg/dl (70-99)
[2024-11-06 03:54] VITALS: BP 149/79
[2024-11-06 04:49] VITALS: BMI 29.5
[2024-11-06] MEDS: LOPRESSOR 2.5 MG IV ×3 (06:05→18:17)
[2024-11-06 07:15] LABS: Glucose - Point of Care 67 mg/dl (70-99)
[2024-11-06 07:20] VITALS: BP 166/77
[2024-11-06] MEDS: NOVOLOG FLEXPEN-LOW RESISTANCE SC ×3 (07:25→18:16)
[2024-11-06 07:39] LABS: Glucose - Point of Care 88 mg/dl (70-99)
[2024-11-06 08:30] LABS: Hematocrit 48.2 % (39.0-52.0); Hemoglobin 16.1 g/dL (13.0-18.0); Mean Corp Hgb Conc. 33.4 g/dL (33.0-37.0); Mean Corpuscular Hgb 32.3 pg (27.0-31.0); Mean Corpuscular Volume 96.6 fL (80.0-94.0); Mean Platelet Volume 11.9 fL (7.4-10.4); Platelet Count 197 10^3/uL (130-400); Red Blood Cell Count 4.99 10^6/uL (4.70-6.10); Red Cell Dist. Width 13.1 % (11.5-14.5); White Blood Cell Count 10.7 10^3/uL (4.8-10.8)
[2024-11-06 08:42] LABS: Blood Urea Nitrogen 49 mg/dl (9-20); Calcium 9.4 mg/dl (8.4-10.2); Carbon Dioxide 30 mmol/L (22-30); Chloride 100 mmol/L (98-107); Estimated Creatinine Clearance 36 ml/min; Glucose 64 mg/dl (70-99); Potassium 3.6 mmol/L (3.5-5.1); Sodium 140 mmol/L (135-145); eGFR 50.18
[2024-11-06] MEDS: PRANDIN PO (08:44)
[2024-11-06] MEDS: PACERONE 400 MG PO ×2 (08:54→20:33)
[2024-11-06] MEDS: TAPAZOLE 2.5 MG PO (08:56)
[2024-11-06] MEDS: COREG 25 MG PO ×2 (08:57→20:33)
[2024-11-06] MEDS: LASIX 40 MG IV ×2 (08:57→16:17)
[2024-11-06 09:48] LABS: Folate > 20.0 ng/ml (2.76-20)
[2024-11-06 11:07] LABS: Glucose - Point of Care 111 mg/dl (70-99)
[2024-11-06 11:10] VITALS: BP 142/64
[2024-11-06] MEDS: PRANDIN 1 MG PO ×2 (11:49→18:16)
--- NOTE | 2024-11-06 12:31 | W.PN.HOSP.TC ---
Today's Communication/Plan
-
continue IV Lasix BID
Assessment / Plan
Assessment / Plan
Echo: Severely reduced left ventricular systolic function. Left ventricular ejection
fraction is 25-30% by Jimenez's method.
Global hypokinesis.
Stage III diastolic dysfunction suggestive of restrictive filling pattern and
increased filling pressures.
Dilated right ventricle with reduced systolic function.
Well-seated bioprosthetic aortic valve with mild to moderate valvular
regurgitation. Stable transvalvular gradients.
Compared to the prior echo on 05/20/2022, left ventricular systolic function has
declined from 40 to 45% to 25 to 30% on today's study. The right ventricle is
now dilated and hypokinetic. Mild to moderate valvular aortic regurgitation is
seen. PASP has decreased from 70 mmHg to 53 mmHg.
Assessment:
TME with agitation, sundowning with aggressive behaviors
Possible underlying dementia, possibly vascular dementia variant given CV history
- CT: Moderate diffuse cerebral and cerebellar volume loss. Moderate white matter leukoaraiosis in the frontal and parietal lobes.
- MRI pending.
- likely in setting of acute CHF, hyperglycemia, sundowning although chronic component possible
- no infectious etiology found
- TSH, B12 normal
- prn Risperdal per psych; avoid Haldol with prolonged QTcs
Acute on chronic HFrEF
- Echo as above
- patient with BNP 26,700 and volume overload on exam/CXR
- continue IV Lasix BID - requires intensive monitoring of I/Os, weights, lytes
- Na/OFR
- continue Coreg. Not on ALANNAH/ARB due to hyperkalemia/renal insufficiency
- CBC cards following
Type 2 DM, uncontrolled due to noncompliance while confused
- continue Lantus, decrease to 14 units + SSI
- hold Prandin
- A1c: 7.2%
Hx of Aortic stenosis status post bioprosthetic AVR
PAF
hx of SSS s/p PPM
Hx of LBBB
- continue Coreg/Amiodarone
Essential HTN
- continue Coreg
Chronic back pain
- Patient scheduled for MRI of spine in February
DVT ppx: SCDs
Code: Full
Anticipated Discharge: > 48 hours
Subjective/Interval History
-
Date of Service: November 06, 2024
denies any new complaints
Objective Data
-
Labs:
Laboratory Results
11/06/24
06:57
WBC 10.7
Hgb 16.1
Hct 48.2
Plt Count 197
Sodium 140
Potassium 3.6
Chloride 100
Carbon Dioxide 30
BUN 49 H
Creatinine 1.4 H
Glucose 64 L
Calcium 9.4
Vital Signs:
Vital Signs
Temp Pulse Resp BP Pulse Ox
98.2 F 61 22 142/64 95
11/06/24 11:10 11/06/24 11:10 11/06/24 11:10 11/06/24 11:10 11/06/24 11:10
I&O
11/05/24 11/06/24 11/07/24
06:59 06:59 06:59
Intake Total 1080 / 1080 840 / 840
Output Total 375 / 375
Balance 705 / 705 840 / 840
Physical Exam
-
General: No Apparent Distress
HEENT: Normocephalic and Atraumatic
Respiratory: Negative Wheezes
Cardiac: Regular Rhythm and S1/S2
GI: Soft
Genito-urinary: No Costovertebral Tender
Neuro: AO x 3
Hematologic / Lymphatic: No Lymphadenopathy
Psych: Calm
Data Reviewed
-
Total Time Spent with Patient (in minutes): 52
Labs: Labs Reviewed by me
[2024-11-06 15:15] VITALS: BP 152/70
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
[2024-11-06 17:53] LABS: Glucose - Point of Care 98 mg/dl (70-99)
[2024-11-06] MEDS: LIPITOR 20 MG PO (18:16)
[2024-11-06 19:00] VITALS: BP 143/59
[2024-11-06 21:50] LABS: Glucose - Point of Care 179 mg/dl (70-99)
[2024-11-06] MEDS: LANTUS 0.14 UNITS SC (22:05)
[2024-11-06 23:00] VITALS: BP 90/72
[2024-11-06] MEDS: LOPRESSOR IV (23:45)
[2024-11-07 02:55] LABS: Glucose - Point of Care 127 mg/dl (70-99)
[2024-11-07 03:00] VITALS: BP 154/60
[2024-11-07 06:00] VITALS: BMI 28.9
[2024-11-07] MEDS: LOPRESSOR 2.5 MG IV ×3 (06:07→23:05)
[2024-11-07 07:02] VITALS: BP 156/66
[2024-11-07 07:57] LABS: Glucose - Point of Care 106 mg/dl (70-99)
[2024-11-07 08:07] LABS: Hematocrit 47.6 % (39.0-52.0); Hemoglobin 15.9 g/dL (13.0-18.0); Mean Corp Hgb Conc. 33.4 g/dL (33.0-37.0); Mean Corpuscular Hgb 32.7 pg (27.0-31.0); Mean Corpuscular Volume 97.9 fL (80.0-94.0); Mean Platelet Volume 11.6 fL (7.4-10.4); Platelet Count 225 10^3/uL (130-400); Red Blood Cell Count 4.86 10^6/uL (4.70-6.10); White Blood Cell Count 13.6 10^3/uL (4.8-10.8)
[2024-11-07 08:39] LABS: Blood Urea Nitrogen 60 mg/dl (9-20); Calcium 9.4 mg/dl (8.4-10.2); Carbon Dioxide 30 mmol/L (22-30); Chloride 97 mmol/L (98-107); Estimated Creatinine Clearance 31 ml/min; Glucose 101 mg/dl (70-99); Magnesium 1.9 mg/dl (1.6-2.3); Potassium 3.8 mmol/L (3.5-5.1); Sodium 139 mmol/L (135-145); eGFR 42.75
[2024-11-07] MEDS: NOVOLOG FLEXPEN-LOW RESISTANCE SC ×3 (08:47→17:40)
[2024-11-07] MEDS: TAPAZOLE 2.5 MG PO (08:48)
[2024-11-07] MEDS: COREG 25 MG PO (08:49)
[2024-11-07] MEDS: PRANDIN 1 MG PO ×2 (08:49→12:55)
[2024-11-07] MEDS: PACERONE 400 MG PO (08:50)
[2024-11-07] MEDS: LASIX 40 MG IV (08:50)
--- NOTE | 2024-11-07 10:36 | CM ---
Chart reviewed. Pt presenting better and more cooperative. Pt w/ mild dementia per chart
Pt is off restraints at this time
PT/OT prev recommended SNF at d/c. Need updated PT evaluation
Spoke w/ pt and son, Pillo, at bedside. Discussed SNF recommendation, both agreeable. Per son, prefer [facility]. CM encouraged to explore more facilities to have more options if preferred does not have any availability. CM can
offer SNF list if needed. Pillo stated, he will discuss other facilities w/ his sister.
Referral to [facility] completed, await determination
Will need prior insurance auth
Plan: SNF; if cont to be therapy recommendation. Pending accepting facility and auth approval
[2024-11-07 11:05] VITALS: BP 136/53
[2024-11-07 12:33] LABS: Glucose - Point of Care 215 mg/dl (70-99)
[2024-11-07] MEDS: NOVOLOG FLEXPEN-LOW RESISTANCE 2 UNITS SC (12:56)
--- NOTE | 2024-11-07 13:24 | W.PN.HOSP.TC ---
Today's Communication/Plan
-
s/p AM diuretic, hold evening dose and monitor AM BMP
Assessment / Plan
Assessment / Plan
Echo: Severely reduced left ventricular systolic function. Left ventricular ejection fraction is 25-30% by Jimenez's method. Global hypokinesis. Stage III diastolic dysfunction suggestive of restrictive filling pattern and increased filling
pressures. Dilated right ventricle with reduced systolic function.
Well-seated bioprosthetic aortic valve with mild to moderate valvular regurgitation. Stable transvalvular gradients. Compared to the prior echo on 05/20/2022, left ventricular systolic function has declined from 40 to 45% to 25 to 30% on today's
study. The right ventricle is now dilated and hypokinetic. Mild to moderate valvular aortic regurgitation is seen. PASP has decreased from 70 mmHg to 53 mmHg.
Assessment:
TME with agitation, sundowning with aggressive behaviors
Possible underlying dementia, possibly vascular dementia variant given CV history
- CT: Moderate diffuse cerebral and cerebellar volume loss. Moderate white matter leukoaraiosis in the frontal and parietal lobes.
- MRI pending.
- likely in setting of acute CHF, hyperglycemia, sundowning although chronic component possible
- no infectious etiology found
- TSH, B12 normal
- prn Risperdal per psych; avoid Haldol with prolonged QTcs
Acute on chronic HFrEF
- Echo as above
- patient with BNP 26,700 and volume overload on exam/CXR
- s/p IV Lasix course; hold further doses pending AM BMP
- Na/OFR
- continue Coreg. Not on ALANNAH/ARB due to hyperkalemia/renal insufficiency
- CBC cards following
DYANA
- s/p IV Lasix course; hold further doses pending AM BMP
Type 2 DM, uncontrolled due to noncompliance while confused
- continue Lantus, decrease to 14 units + SSI
- hold Prandin
- A1c: 7.2%
Hx of Aortic stenosis status post bioprosthetic AVR
PAF
hx of SSS s/p PPM
Hx of LBBB
- continue Coreg/Amiodarone
Essential HTN
- continue Coreg
Chronic back pain
- Patient scheduled for MRI of spine in February
DVT ppx: SCDs
Code: Full
Anticipated Discharge: > 48 hours
Subjective/Interval History
-
Date of Service: November 07, 2024
periods of agitation overnight, slightly confused at times this morning
no other complaints
Objective Data
-
Labs:
Laboratory Results
11/07/24
06:18
WBC 13.6 H
Hgb 15.9
Hct 47.6
Plt Count 225
Sodium 139
Potassium 3.8
Chloride 97 L
Carbon Dioxide 30
BUN 60 H
Creatinine 1.6 H
Glucose 101 H
Calcium 9.4
Vital Signs:
Vital Signs
Temp Pulse Resp BP Pulse Ox
97.6 F 61 16 136/53 93
11/07/24 11:05 11/07/24 11:05 11/07/24 11:05 11/07/24 11:05 11/07/24 11:05
I&O
11/06/24 11/07/24 11/08/24
06:59 06:59 06:59
Intake Total 840 / 840 1440 / 1440
Balance 840 / 840 1440 / 1440
Physical Exam
-
General: No Apparent Distress
HEENT: Normocephalic and Atraumatic
Respiratory: Negative Wheezes
Cardiac: Regular Rhythm and S1/S2
GI: Soft
Genito-urinary: No Costovertebral Tender
Musculoskeletal: No Edema
Neuro: AO x 3
Hematologic / Lymphatic: No Lymphadenopathy
Psych: Calm
Data Reviewed
-
Total Time Spent with Patient (in minutes): 51
Labs: Labs Reviewed by me
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
[2024-11-07 15:04] VITALS: BP 140/69
[2024-11-07 15:11] LABS: Glucose - Point of Care 302 mg/dl (70-99)
[2024-11-07] MEDS: LIPITOR 20 MG PO (16:59)
[2024-11-07] MEDS: PRANDIN PO ×2 (16:59→17:40)
[2024-11-07] MEDS: LOPRESSOR IV (17:40)
--- NOTE | 2024-11-07 17:42 | PTCARENOTE ---
pt refusing all evening meds including insulin and iv lopressor. Pt's daughter at bedside and tried talking to him about taking them and is still refusing. Dr Combs made aware.
[2024-11-07 19:00] VITALS: BP 168/75
[2024-11-07] MEDS: PACERONE PO (20:29)
[2024-11-07] MEDS: COREG PO (20:29)
[2024-11-07 22:03] LABS: Glucose - Point of Care 178 mg/dl (70-99)
--- NOTE | 2024-11-07 22:14 | PTCARENOTE ---
Patient agitated and combative.. ripping off telemonitor and threatening to throw it. Cursing at staff. Attempting to get out of bed on own completely naked. redirection from multiple staff members not working. Order for bilateral wrist restraints
and 4 rails ordered applied. Able to fit two full fingers between patients arm and restraint. Patient refusing any oral medications. Offered oral beverage but declines most times.
[2024-11-07 22:45] VITALS: BP 145/55
[2024-11-07] MEDS: LANTUS 0.14 UNITS SC (23:04)
[2024-11-07] MEDS: TYLENOL 650 MG PO (23:16)
[2024-11-08] VITALS (7 sets, daily range): BP systolic 116–157; BP diastolic 47–71; BMI 29.1
[2024-11-08 00:06] LABS: Urine Albumin 2+ (Neg - Trace); Urine Bilirubin Negative (Negative); Urine Character Clear (Clear); Urine Color Yellow; Urine Glucose Negative (Negative); Urine Ketone Negative (Negative); Urine Leukocyte Negative (Negative); Urine Nitrite Negative (Negative); Urine Occult Blood Negative (Negative); Urine Urobilinogen Negative (Neg - 1+)
[2024-11-08 01:58] LABS: Urine Amorphous Seen; Urine Bacteria Few (Negative); Urine Red Blood Cell 0-2 /HPF (0-2); Urine White Cell 0-2 /HPF (0-5)
[2024-11-08 01:59] LABS: Urine Hyaline Cast 0-2 /LPF (0-2); Urine Squamous Cell 16-20 /LPF (Few)
--- NOTE | 2024-11-08 02:19 | PTCARENOTE ---
Patient continues with agitation and aggressive behavior and yelling at staff. Patient refusing all meds except tylenol for back pain. Attempting to bite staff when other meds attempted.
[2024-11-08] MEDS: LOPRESSOR 2.5 MG IV (06:18)
--- NOTE | 2024-11-08 06:35 | PTCARENOTE ---
Skin tear measuring 1.5 cm x .5 cm scant bloody drainage noted to left wrist upon q 2 hour restraint checks. Skin tear cleaned with NSS, clean dry dressing applied and wrist padded for protection. Limb restraint reapplied over padding. patient
tolerating placement of restraint well. patient educated on not pulling arms while in restraints to help prevent skin tears or injury. Patent ignored RN education.
[2024-11-08 07:25] LABS: Glucose - Point of Care 148 mg/dl (70-99)
[2024-11-08] MEDS: NOVOLOG FLEXPEN-LOW RESISTANCE SC ×3 (07:27→17:17)
[2024-11-08 08:40] LABS: Hematocrit 47.6 % (39.0-52.0); Hemoglobin 15.7 g/dL (13.0-18.0); Mean Corpuscular Hgb 32.6 pg (27.0-31.0); Mean Platelet Volume 11.6 fL (7.4-10.4); Platelet Count 222 10^3/uL (130-400); Red Blood Cell Count 4.81 10^6/uL (4.70-6.10)
[2024-11-08 09:06] LABS: Blood Urea Nitrogen 62 mg/dl (9-20); Calcium 9.6 mg/dl (8.4-10.2); Carbon Dioxide 35 mmol/L (22-30); Chloride 98 mmol/L (98-107); Estimated Creatinine Clearance 31 ml/min; Glucose 110 mg/dl (70-99); Potassium 3.9 mmol/L (3.5-5.1); Sodium 141 mmol/L (135-145); eGFR 42.75
[2024-11-08] MEDS: TAPAZOLE 2.5 MG PO (09:25)
[2024-11-08] MEDS: PACERONE 400 MG PO (09:25)
[2024-11-08] MEDS: PRANDIN 1 MG PO ×3 (09:27→17:17)
[2024-11-08] MEDS: COREG 25 MG PO ×2 (09:27→20:14)
--- NOTE | 2024-11-08 09:42 | W.PN.CD ---
Today's Communication / Plan
-
lasix on hold due to DYANA
-if Cr improved tomorrow, will resume lasix 40mg PO daily (was not taking previously)
Impression / Plan
-
Jogoq-ld-jevztwc HFrEF:
-Decline in EF to 25-30% (previously 40-45%). Medication non-compliance is an issue, and discussed with patient.
-Patient will be managed conservatively from a cardiac standpoint
-coreg 25mg bid has been resumed
-Further GDMT limited by renal sufficiency and patient noncompliance (not taking meds at home)
-lasix on hold due to DYANA
-if Cr improved tomorrow, will resume lasix 40mg PO daily (was not taking previously)
Bio AVR:
-Stable on echocardiogram.
Parox AFib:
-Resumed Amiodarone, AV paced on tele
-Not on OAC due to GIB and falls with injury per note; declined watchman w/u as OP previously.
Tachycardia:
-in and out of tachycardia around 100 BPM. Patient with known LBBB. Likely AT.
-none in last 24 hrs
Pacemaker:
-Stable device function on interrogation.
Physical Exam
Vital Signs/Labs
Vital Signs
Temp Pulse Resp BP Pulse Ox
97.4 F 61 18 151/53 95
11/08/24 07:15 11/08/24 07:15 11/08/24 07:15 11/08/24 09:25 11/08/24 07:15
11/07/24 11/08/24 11/09/24
06:59 06:59 06:59
Actual Weight 71.577 kg 72.15 kg
11/08/24 07:27
11/08/24 07:27
Magnesium 1.9 mg/dl (1.6-2.3) 11/07/24 06:18
11/03/24
19:49
Ait-B-Wbljwtudear Pept [id number]
Physical Exam
Constitutional: No acute distress and Comfortable
EENT: Moist mucous membranes
Cardiovascular: Rhythm & rate is regular, Pedal edema is absent, JVD pressure is normal and Systolic murmur present
Respiratory: Respiratory effort normal and Lungs clear to auscul.
Neuro/Psych: AO x 3
Data Reviewed
-
Date of Service: November 08, 2024
EKG: Other (Tele: AV paced 60)
Labs: Labs Reviewed by me
--- NOTE | 2024-11-08 10:18 | PTCARENOTE ---
took b/l wrist restraints off so pt could go to the bathroom at 0730. Pt doing well without restraints with family at bedside.
--- NOTE | 2024-11-08 10:46 | W.PN.HOSP.TC ---
Today's Communication/Plan
-
holding Lasix and monitor AM BMP
Amiodarone reduced
follow QTC with prn Risperdal
MRI brain
Assessment / Plan
Assessment / Plan
Echo: Severely reduced left ventricular systolic function. Left ventricular ejection fraction is 25-30% by Jimenez's method. Global hypokinesis. Stage III diastolic dysfunction suggestive of restrictive filling pattern and increased filling
pressures. Dilated right ventricle with reduced systolic function.
Well-seated bioprosthetic aortic valve with mild to moderate valvular regurgitation. Stable transvalvular gradients. Compared to the prior echo on 05/20/2022, left ventricular systolic function has declined from 40 to 45% to 25 to 30% on today's
study. The right ventricle is now dilated and hypokinetic. Mild to moderate valvular aortic regurgitation is seen. PASP has decreased from 70 mmHg to 53 mmHg.
Assessment:
TME with agitation, sundowning with aggressive behaviors
Possible underlying dementia, possibly vascular dementia variant given CV history
- CT: Moderate diffuse cerebral and cerebellar volume loss. Moderate white matter leukoaraiosis in the frontal and parietal lobes.
- MRI pending.
- likely in setting of acute CHF, hyperglycemia, sundowning although chronic component possible
- no infectious etiology found
- TSH, B12 normal
- prn Risperdal per psych; avoid Haldol with prolonged QTcs. follow EKGs. Encouraged nursing to evaluate for prn dose in 4-6pm window to prevent agitation in evening.
Acute on chronic HFrEF
- Echo as above
- patient with BNP 26,700 and volume overload on exam/CXR
- s/p IV Lasix course; follow BMP And consider PO diuretics tomorrow
- Na/OFR
- continue Coreg. Not on ALANNAH/ARB due to hyperkalemia/renal insufficiency
- CBC cards following
DYANA
- s/p IV Lasix course; hold further doses pending AM BMP
Type 2 DM, uncontrolled due to noncompliance while confused
- continue Lantus, decrease to 14 units + SSI
- hold Prandin
- A1c: 7.2%
Hx of Aortic stenosis status post bioprosthetic AVR
PAF
hx of SSS s/p PPM
Hx of LBBB
- continue Coreg/Amiodarone
Essential HTN
- continue Coreg
Chronic back pain
- Patient scheduled for MRI of spine in February
DVT ppx: SCDs
Code: Full
Anticipated Discharge: 24 - 48 hours
Subjective/Interval History
-
Date of Service: November 08, 2024
sun-downed last evening requiring restraints
denies any new complaints
Objective Data
-
Labs:
Laboratory Results
11/08/24
07:27
WBC 11.0 H
Hgb 15.7
Hct 47.6
Plt Count 222
Sodium 141
Potassium 3.9
Chloride 98
Carbon Dioxide 35 H
BUN 62 H
Creatinine 1.6 H
Glucose 110 H
Calcium 9.6
Vital Signs:
Vital Signs
Temp Pulse Resp BP Pulse Ox
97.4 F 61 18 151/53 95
11/08/24 07:15 11/08/24 07:15 11/08/24 07:15 11/08/24 09:25 11/08/24 07:15
I&O
11/07/24 11/08/24 11/09/24
06:59 06:59 06:59
Intake Total 1440 / 1440 600 / 600
Output Total 250 / 250
Balance 1440 / 1440 350 / 350
Physical Exam
-
General: No Apparent Distress
HEENT: Normocephalic and Atraumatic
Respiratory: Negative Wheezes
Cardiac: Regular Rhythm and S1/S2
GI: Soft
Musculoskeletal: No Edema
Neuro: AO x 3
Psych: Calm and Confused
Data Reviewed
-
Total Time Spent with Patient (in minutes): 41
Labs: Labs Reviewed by me
[2024-11-08 11:48] LABS: Glucose - Point of Care 139 mg/dl (70-99)
[2024-11-08] MEDS: TYLENOL 650 MG PO ×2 (12:22→21:28)
--- NOTE | 2024-11-08 14:28 | CM ---
CM spoke w/ son at bedside regarding SNF. Family's preferred ([facility]) does not have any available beds at this time. Family would like for [facility] to still be the first option. Additional options were shared. CM sent additional referrals to
[facility], and [facility]. CM will await responses
Will need insurance auth
Plan: SNF; pending accepting facility and auth
[2024-11-08] MEDS: RISPERDAL M-TAB (ORALLY DISINTEGRATING) 0.25 MG PO (14:34)
[2024-11-08] MEDS: LIPITOR 20 MG PO (17:17)
[2024-11-08 17:34] LABS: Glucose - Point of Care 212 mg/dl (70-99)
[2024-11-08 21:26] LABS: Glucose - Point of Care 252 mg/dl (70-99)
[2024-11-08] MEDS: LANTUS 0.14 UNITS SC (21:28)
[2024-11-09 03:32] VITALS: BP 138/55
[2024-11-09 06:00] VITALS: BMI 30.3
[2024-11-09 07:35] VITALS: BP 180/82
--- NOTE | 2024-11-09 07:49 | W.PN.CD ---
Today's Communication / Plan
-
resume lasix 40mg po daily if creatinine improved
discharge planning
Impression / Plan
-
Primary Cardiology: [facility]
Vqtcz-xq-pvejvqg HFrEF:
-Decline in EF to 25-30% (previously 40-45%). Medication non-compliance is an issue, and discussed with patient.
-Patient will be managed conservatively from a cardiac standpoint
-coreg 25mg bid has been resumed
-Further GDMT limited by renal sufficiency and patient noncompliance (not taking meds at home)
-on follow up I can hopefully add at least a low dose arb or acei, would first allow for renal recovery
-lasix on hold due to DYANA, but will need to be on a standing dose on discharge, he cannot be compliant with prn dosing
-if Cr improved today, resume lasix 40mg PO daily
-Let's call this his 'dry wt' 74.98 kg
Bio AVR:
-Stable on echocardiogram.
Parox AFib:
-Resumed Amiodarone, AV paced on tele
-Not on OAC due to GIB and falls with injury per note; declined watchman w/u as OP previously.
Tachycardia:
-in and out of tachycardia around 100 BPM. Patient with known LBBB. Likely AT.
-none further
Pacemaker:
-Stable device function on interrogation.
Subjective:
he denies sob, dizziness or cp.
Physical Exam
Vital Signs/Labs
Vital Signs
Temp Pulse Resp BP Pulse Ox
97.5 F 62 14 138/55 95
11/09/24 03:32 11/09/24 03:32 11/09/24 03:32 11/09/24 03:32 11/09/24 03:32
11/08/24 11/09/24 11/10/24
06:59 06:59 06:59
Actual Weight 72.15 kg 74.984 kg
11/08/24 07:27
Magnesium 1.9 mg/dl (1.6-2.3) 11/07/24 06:18
11/03/24
19:49
Hcl-V-Tqiupoiqmzj Pept [id number]
Physical Exam
Constitutional: No acute distress
Cardiovascular: Rhythm & rate is regular, Pedal edema is absent, JVD pressure is normal, Systolic murmur absent and Diastolic murmur absent
Respiratory: Respiratory effort normal, Lungs clear to auscul., Wheeze Absent, Crackles Absent and Rhonchi Absent
Neuro/Psych: AO x 3
Data Reviewed
-
Date of Service: November 09, 2024
Medical Decision Making: Review of Case with other Provider (Dr bedoya resume po lasix when cr stable, d/c planning)
[2024-11-09 07:58] LABS: Glucose - Point of Care 125 mg/dl (70-99)
[2024-11-09] MEDS: NOVOLOG FLEXPEN-LOW RESISTANCE SC (08:00)
[2024-11-09] MEDS: PACERONE 200 MG PO (08:09)
[2024-11-09] MEDS: COREG 25 MG PO ×2 (08:09→21:05)
[2024-11-09] MEDS: PRANDIN 1 MG PO ×3 (08:09→17:13)
[2024-11-09] MEDS: TAPAZOLE 2.5 MG PO (08:09)
[2024-11-09 09:30] LABS: Blood Urea Nitrogen 73 mg/dl (9-20); Calcium 9.7 mg/dl (8.4-10.2); Carbon Dioxide 29 mmol/L (22-30); Chloride 97 mmol/L (98-107); Estimated Creatinine Clearance 32 ml/min; Glucose 131 mg/dl (70-99); Potassium 4.1 mmol/L (3.5-5.1); Sodium 137 mmol/L (135-145); eGFR 42.75
[2024-11-09 11:44] LABS: Glucose - Point of Care 199 mg/dl (70-99)
[2024-11-09 11:51] VITALS: BP 149/53
[2024-11-09] MEDS: NOVOLOG FLEXPEN-LOW RESISTANCE 1 UNITS SC (12:08)
--- NOTE | 2024-11-09 13:14 | W.PN.HOSP.TC ---
Today's Communication/Plan
-
resume oral Lasix in 24 hours and monitor BMP
prn Risperdal, evaluate for dose between 6-8pm
Assessment / Plan
Assessment / Plan
Echo: Severely reduced left ventricular systolic function. Left ventricular ejection fraction is 25-30% by Jimenez's method. Global hypokinesis. Stage III diastolic dysfunction suggestive of restrictive filling pattern and increased filling
pressures. Dilated right ventricle with reduced systolic function.
Well-seated bioprosthetic aortic valve with mild to moderate valvular regurgitation. Stable transvalvular gradients. Compared to the prior echo on 05/20/2022, left ventricular systolic function has declined from 40 to 45% to 25 to 30% on today's
study. The right ventricle is now dilated and hypokinetic. Mild to moderate valvular aortic regurgitation is seen. PASP has decreased from 70 mmHg to 53 mmHg.
Assessment:
TME with agitation, sundowning with aggressive behaviors
Possible underlying dementia, possibly vascular dementia variant given CV history
- CT: Moderate diffuse cerebral and cerebellar volume loss. Moderate white matter leukoaraiosis in the frontal and parietal lobes.
- MRI: No evidence for acute to subacute infarction. No evidence for hemorrhage. Moderate atrophy. Mild to moderate T2 and FLAIR white matter hyperintensity, commonly seen with aging and usually attributed to small vessel ischemic disease.
- likely in setting of acute CHF, hyperglycemia, sundowning although chronic component possible
- no infectious etiology found
- TSH, B12 normal
- prn Risperdal per psych; avoid Haldol with prolonged QTcs. follow EKGs. Encouraged nursing to evaluate for prn dose in 6-8pm window to prevent agitation in evening.
Acute on chronic HFrEF
- Echo as above
- patient with BNP 26,700 and volume overload on exam/CXR
- s/p IV Lasix course; cr 1.6 stable x 3 days, d/w Cardiology and resume oral Lasix 40mg daily in AM. monitor BMP.
- Na/OFR
- continue Coreg. Not on ALANNAH/ARB due to hyperkalemia/renal insufficiency
- CBC cards following
DYANA
- s/p IV Lasix course; monitor BMP as oral Lasix resumes
Type 2 DM, uncontrolled due to noncompliance while confused
- continue Lantus, decrease to 14 units
- add Aspart 4 units
- SSI low dose
- hold Prandin
- A1c: 7.2%
Hx of Aortic stenosis status post bioprosthetic AVR
PAF
hx of SSS s/p PPM
Hx of LBBB
- continue Coreg/Amiodarone
Essential HTN
- continue Coreg
Chronic back pain
- Patient scheduled for MRI of spine in February
DVT ppx: SC Heparin
Code: Full
Anticipated Discharge: 24 - 48 hours
Subjective/Interval History
-
Date of Service: November 09, 2024
no acute overnight events, patient states he did not sleep from 11pm to 2am
Objective Data
-
Labs:
Laboratory Results
11/09/24
08:06
Sodium 137
Potassium 4.1
Chloride 97 L
Carbon Dioxide 29
BUN 73 H
Creatinine 1.6 H
Glucose 131 H
Calcium 9.7
Vital Signs:
Vital Signs
Temp Pulse Resp BP Pulse Ox
97.6 F 61 20 149/53 94
11/09/24 11:51 11/09/24 11:51 11/09/24 11:51 11/09/24 11:51 11/09/24 11:51
I&O
11/08/24 11/09/24 11/10/24
06:59 06:59 06:59
Intake Total 600 / 600 840 / 840
Output Total 250 / 250
Balance 350 / 350 840 / 840
Physical Exam
-
General: No Apparent Distress
HEENT: Normocephalic and Atraumatic
Respiratory: Negative Wheezes
Cardiac: Regular Rhythm and S1/S2
GI: Soft and Nontender
Genito-urinary: No Costovertebral Tender
Musculoskeletal: No Edema
Neuro: AO x 3
Psych: Calm
Data Reviewed
-
Total Time Spent with Patient (in minutes): 42
Labs: Labs Reviewed by me
--- NOTE | 2024-11-09 14:44 | CM ---
CM reviewed chart, spoke with [facility] unable to accept patient. [facility] to [facility]. Voicemail left for [facility] at [facility], awaiting response from [facility], will need insurance auth once facility found. CM
will continue to follow for all discharge planning needs.
Plan; SNF once facility found, will need insurance auth.
[2024-11-09 15:23] VITALS: BP 142/59
[2024-11-09 16:46] LABS: Glucose - Point of Care 222 mg/dl (70-99)
[2024-11-09] MEDS: LIPITOR 20 MG PO (17:13)
[2024-11-09] MEDS: NOVOLOG FLEXPEN-LOW RESISTANCE 2 UNITS SC (17:14)
[2024-11-09] MEDS: NOVOLOG FLEXPEN 4 UNITS SC (17:14)
[2024-11-09 19:30] VITALS: BP 143/62
[2024-11-09] MEDS: HEPARIN 5000 UNITS SC (21:06)
[2024-11-09] MEDS: TYLENOL 650 MG PO (21:07)
[2024-11-09] MEDS: RISPERDAL M-TAB (ORALLY DISINTEGRATING) 0.25 MG PO (21:14)
[2024-11-09 21:42] LABS: Glucose - Point of Care 217 mg/dl (70-99)
[2024-11-09] MEDS: LANTUS 0.14 UNITS SC (22:28)
[2024-11-09 23:29] VITALS: BP 144/59
[2024-11-10] VITALS (7 sets, daily range): BP systolic 135–178; BP diastolic 57–81; PULSE 61; O2SAT 95; BMI 29.6
[2024-11-10 07:19] LABS: Glucose - Point of Care 111 mg/dl (70-99)
[2024-11-10] MEDS: NOVOLOG FLEXPEN-LOW RESISTANCE SC ×2 (07:38→12:03)
[2024-11-10] MEDS: PRANDIN 1 MG PO ×3 (08:00→16:56)
[2024-11-10] MEDS: NOVOLOG FLEXPEN 4 UNITS SC ×3 (08:00→16:56)
[2024-11-10] MEDS: COREG 25 MG PO ×2 (08:00→20:24)
[2024-11-10] MEDS: TAPAZOLE 2.5 MG PO (08:00)
[2024-11-10] MEDS: PACERONE 200 MG PO (08:01)
[2024-11-10] MEDS: LASIX 40 MG PO (08:01)
[2024-11-10] MEDS: HEPARIN 5000 UNITS SC ×2 (08:01→20:24)
--- NOTE | 2024-11-10 08:24 | W.PN.CD ---
Today's Communication / Plan
-
awit am labs
if DYANA improved then resume oral lasix as outlined
will need follow up lasb as an outpatient
Impression / Plan
-
Primary Cardiology: [facility]
Eoglr-wr-dpgopox HFrEF:
-Decline in EF to 25-30% (previously 40-45%). Medication non-compliance is an issue, that has been noted in chart
-Patient will be managed conservatively from a cardiac standpoint
-coreg 25mg bid has been resumed
-Further GDMT limited by renal sufficiency and patient noncompliance (not taking meds at home)
-on follow up, primary cardiologists hopees to add at least a low dose arb or acei, would first allow for renal recovery
-lasix on hold due to DYANA, but will need to be on a standing dose on discharge, he cannot be compliant with prn dosing
-Awaiting AM labs . if Cr improved today, resume lasix 40mg PO daily
-Plan is to call 75kg dry weight
Bio AVR:
-Stable on echocardiogram.
Parox AFib:
-Resumed Amiodarone, AV paced on tele
-Not on OAC due to GIB and falls with injury per note; declined watchman w/u as OP previously.
Tachycardia:
-in and out of tachycardia around 100 BPM. Patient with known LBBB. Likely AT.
-none further
Pacemaker:
-Stable device function on interrogation.
Subjective:
he denies sob, dizziness or cp.
Physical Exam
Vital Signs/Labs
Vital Signs
Temp Pulse Resp BP Pulse Ox
97.9 F 61 18 168/73 95
11/10/24 07:30 11/10/24 07:30 11/10/24 07:30 11/10/24 07:30 11/10/24 07:30
11/09/24 11/10/24 11/11/24
06:59 06:59 06:59
Actual Weight 74.984 kg 73.255 kg
11/08/24 07:27
Magnesium 1.9 mg/dl (1.6-2.3) 11/07/24 06:18
11/03/24
19:49
Wwg-O-Ltwihhgxbkv Pept [id number]
Physical Exam
Constitutional: No acute distress
Cardiovascular: Rhythm & rate is regular
Respiratory: Wheeze Absent and Rhonchi Absent
GI: Soft
Neuro/Psych: Alert
Data Reviewed
-
Date of Service: November 10, 2024
Medical Decision Making: Reviewed Test Results
X-Ray/CT/US/MRI/NUC/PET: Report Reviewed by me
Medical Tests (PFT, Pathology etc): Report Reviewed by me
Labs: Labs Reviewed by me
[2024-11-10 08:35] LABS: Blood Urea Nitrogen 68 mg/dl (9-20); Calcium 9.7 mg/dl (8.4-10.2); Carbon Dioxide 28 mmol/L (22-30); Chloride 101 mmol/L (98-107); Estimated Creatinine Clearance 31 ml/min; Glucose 100 mg/dl (70-99); Sodium 138 mmol/L (135-145); eGFR 42.75
--- NOTE | 2024-11-10 11:40 | W.PN.HOSP.TC ---
Today's Communication/Plan
-
Discharge planning
Assessment / Plan
Assessment / Plan
Gen-AAOx3, NAD
HEENT-NC, AT, anicteric, clear oral mm
Neck-supple
CV-reg, no M, +S1/S2
Lungs-clear B/L
Abd-soft, NT, ND
Ext-no edema
Musculoskeletal-no cyanosis, clubbing
Skin-warm and dry
Neuro-grossly non-focal
Psych-calm, cooperative
Acute TME with agitation, sundowning with aggressive behaviors
Possible underlying dementia, possibly vascular dementia variant given CV history
- CT: Moderate diffuse cerebral and cerebellar volume loss. Moderate white matter leukoaraiosis in the frontal and parietal lobes.
- MRI: No evidence for acute to subacute infarction. No evidence for hemorrhage. Moderate atrophy. Mild to moderate T2 and FLAIR white matter hyperintensity, commonly seen with aging and usually attributed to small vessel ischemic disease.
- likely in setting of acute CHF, hyperglycemia, sundowning although chronic component possible
- no infectious etiology found
- TSH, B12 normal
- prn Risperdal per psych; avoid Haldol with prolonged QTcs. follow EKGs. Encouraged nursing to evaluate for prn dose in 6-8pm window to prevent agitation in evening.
Acute on chronic HFrEF
- Echo as above
- patient with BNP 26,700 and volume overload on exam/CXR
- s/p IV Lasix course; cr 1.6 stable x 3 days, d/w Cardiology and resume oral Lasix 40mg daily in AM. monitor BMP.
- Na/OFR
- continue Coreg. Not on LAANNAH/ARB due to hyperkalemia/renal insufficiency
- CBC cards following
DYANA
- s/p IV Lasix course; monitor BMP as oral Lasix resumes. Creatinine stable at 1.6. Received a dose of oral Lasix this morning but now on hold per cardiology.
Type 2 DM, uncontrolled due to noncompliance while confused. Glucoses improving. 100 this morning.
- continue Lantus, decrease to 14 units
- add Aspart 4 units
- SSI low dose
- hold Prandin
- A1c: 7.2%
Hx of Aortic stenosis status post bioprosthetic AVR
PAF
hx of SSS s/p PPM
Hx of LBBB
- continue Coreg/Amiodarone
Essential HTN
- continue Coreg
Chronic back pain
- Patient scheduled for MRI of spine in February
DVT ppx: SC Heparin
Code: Full
Dispo -awaiting SNF placement.
Anticipated Discharge: Within 24 hours
Subjective/Interval History
-
Date of Service: November 10, 2024
Patient seen and examined. No complaints.
Objective Data
-
Labs:
Laboratory Results
11/10/24
06:59
Sodium 138
Potassium 4.0
Chloride 101
Carbon Dioxide 28
BUN 68 H
Creatinine 1.6 H
Glucose 100 H
Calcium 9.7
Vital Signs:
Vital Signs
Temp Pulse Resp BP Pulse Ox
97.9 F 61 18 168/73 95
11/10/24 07:30 11/10/24 07:30 11/10/24 07:30 11/10/24 07:30 11/10/24 07:30
I&O
11/09/24 11/10/24 11/11/24
06:59 06:59 06:59
Intake Total 840 / 840 1200 / 1200
Output Total 350 / 350
Balance 840 / 840 850 / 850
Review of Systems
-
History Source: Patient
All other systems: Reviewed and negative
[2024-11-10 11:55] LABS: Glucose - Point of Care 132 mg/dl (70-99)
--- NOTE | 2024-11-10 13:07 | CM ---
Addendum entered by Neville Landeros 11/10/24 16:09:
Spoke w/ pt's daughter who identified [facility] as additional SNF to explore. CM sent referral via [facility], awaiting determination
Per [facility], will review referral and let CM know if pt can be accepted and/or if there are available beds for poss tomorrow.
Addendum entered by Neville Landeros 11/10/24 16:03:
Spoke w/ pt's spouse who stated she is also pt's POA. Spouse says she can bring in POA paperwork. Pt shared she hasn't been in the planning process as pt's children are primarily discussing d/c plan. CM discussed at this time, pt is being
recommended for skilled rehab and his children have been exploring facilities. Spouse agreeable to rehab and is also asking about alf planning as pt needs more support in the home. CM discussed the option of having some caregivers in the home
or some aides to assist in the home during the week. Spouse stated a more longer term plan is for her and pt to move into a facility. CM encouraged spouse to discuss alf planning w/ pt's children.
At this time, CM stated the d/c plan from the hospital is rehab once an accepting facility is found. CM encouraged spouse to speak w/ pt's children about home support (caregivers/aides) prior to pt d/c from rehab. CM stated there is a SW at rehab to
further assist.
Original Note:
CM spoke w/ pt's daughter in continuation to locate SNF facility. CM discussed prev referred facilities [facility] are unable to accept.
[facility] not made a determination at this time. CM discussed exploring more options w/ daughter. Daughter agreeable to explore facilities in [facility]. As requested, CM sent SNF list to daughter to review. CM will await more
options from family to send additional referrals.
Pt has been calm and no longer needing restraints per chart and nursing.
Will need insurance auth
Plan: SNF; pending accepting facility and auth
[2024-11-10] MEDS: NSS 250 IV (15:11)
[2024-11-10 16:54] LABS: Glucose - Point of Care 255 mg/dl (70-99)
[2024-11-10] MEDS: LIPITOR 20 MG PO (16:56)
[2024-11-10] MEDS: NOVOLOG FLEXPEN-LOW RESISTANCE 3 UNITS SC (16:57)
[2024-11-10] MEDS: RISPERDAL M-TAB (ORALLY DISINTEGRATING) 0.25 MG PO (18:23)
[2024-11-10] MEDS: TYLENOL 650 MG PO (20:25)
[2024-11-10 22:17] LABS: Glucose - Point of Care 214 mg/dl (70-99)
[2024-11-10] MEDS: LANTUS 0.14 UNITS SC (22:24)
[2024-11-11] VITALS (9 sets, daily range): BP systolic 136–175; BP diastolic 52–85; BMI 29.7
[2024-11-11] MEDS: COREG 25 MG PO ×2 (07:43→19:44)
[2024-11-11] MEDS: PRANDIN 1 MG PO ×3 (07:43→17:20)
[2024-11-11] MEDS: HEPARIN 5000 UNITS SC ×2 (07:44→19:45)
[2024-11-11] MEDS: TAPAZOLE 2.5 MG PO (07:44)
[2024-11-11] MEDS: PACERONE 200 MG PO (07:44)
[2024-11-11] MEDS: NOVOLOG FLEXPEN-LOW RESISTANCE SC ×2 (07:46→11:42)
[2024-11-11] MEDS: NOVOLOG FLEXPEN 4 UNITS SC ×3 (07:47→17:25)
[2024-11-11 07:48] LABS: Glucose - Point of Care 116 mg/dl (70-99)
--- NOTE | 2024-11-11 08:47 | W.PN.CD ---
Today's Communication / Plan
-
ok for discharge
resume furosemid if cr improved or wt 75kg. Start 40mg daily
Impression / Plan
-
LATE ENTRY, PATIENT SEEN AND EXAMINED AT 9:05AM ON 11/11/24
Primary Cardiology: [facility]
Fpsqe-nt-mjepaqs HFrEF:
-Decline in EF to 25-30% (previously 40-45%). Medication non-compliance is an issue, that has been noted in chart
-Patient will be managed conservatively from a cardiac standpoint
-coreg 25mg bid has been resumed
-Further GDMT limited by renal sufficiency and patient noncompliance (not taking meds at home)
-on follow up, primary cardiologists hopees to add at least a low dose arb or acei, would first allow for renal recovery
-will need to be on a standing dose on discharge, he cannot be compliant with prn dosing
-will likely need to accept some azotemia for euvolemia
-Awaiting AM labs . if Cr improved today, resume lasix 40mg PO daily.
-Plan is to call 75kg dry weight--resume lasix at this weight at SNF if still 1.6
Bio AVR:
-Stable on echocardiogram.
Parox AFib:
-Resumed Amiodarone, AV paced on tele
-Not on OAC due to GIB and falls with injury per note; declined watchman w/u as OP previously.
Tachycardia:
-in and out of tachycardia around 100 BPM. Patient with known LBBB. Likely AT.
-none further
Pacemaker:
-Stable device function on interrogation.
Subjective:
he denies sob, dizziness or cp.
Physical Exam
Vital Signs/Labs
Vital Signs
Temp Pulse Resp BP Pulse Ox
97.3 F 61 18 163/70 96
11/11/24 03:25 11/11/24 07:44 11/11/24 03:25 11/11/24 07:44 11/11/24 03:25
11/10/24 11/11/24 11/12/24
06:59 06:59 06:59
Actual Weight 73.255 kg 73.652 kg
11/08/24 07:27
Magnesium 1.9 mg/dl (1.6-2.3) 11/07/24 06:18
11/03/24
19:49
Yph-Z-Ocqwefhogwy Pept [id number]
Physical Exam
Constitutional: No acute distress
Cardiovascular: Rhythm & rate is regular, Pedal edema is absent, JVD pressure is normal and Systolic murmur absent
Respiratory: Respiratory effort normal, Lungs clear to auscul., Wheeze Absent and Crackles Absent
Data Reviewed
-
Date of Service: November 11, 2024
Medical Decision Making: Review of Case with other Provider (d/w Dr Powell plan for furosemide)
[2024-11-11 09:08] LABS: Blood Urea Nitrogen 69 mg/dl (9-20); Carbon Dioxide 29 mmol/L (22-30); Chloride 100 mmol/L (98-107); Estimated Creatinine Clearance 31 ml/min; Glucose 135 mg/dl (70-99); Potassium 4.3 mmol/L (3.5-5.1); Sodium 138 mmol/L (135-145); eGFR 42.75
--- NOTE | 2024-11-11 11:03 | W.PN.HOSP.TC ---
Today's Communication/Plan
-
Resume Lasix
Discharge planning
Assessment / Plan
Assessment / Plan
Gen-AAOx3, NAD
HEENT-NC, AT, anicteric, clear oral mm
Neck-supple
CV-reg, no M, +S1/S2
Lungs-clear B/L
Abd-soft, NT, ND
Ext-no edema
Musculoskeletal-no cyanosis, clubbing
Skin-warm and dry
Neuro-grossly non-focal
Psych-calm, cooperative
Acute TME with agitation, sundowning with aggressive behaviors
Possible underlying dementia, possibly vascular dementia variant given CV history
- CT: Moderate diffuse cerebral and cerebellar volume loss. Moderate white matter leukoaraiosis in the frontal and parietal lobes.
- MRI: No evidence for acute to subacute infarction. No evidence for hemorrhage. Moderate atrophy. Mild to moderate T2 and FLAIR white matter hyperintensity, commonly seen with aging and usually attributed to small vessel ischemic disease.
- likely in setting of acute CHF, hyperglycemia, sundowning although chronic component possible
- no infectious etiology found
- TSH, B12 normal
- prn Risperdal per psych; avoid Haldol with prolonged QTcs. follow EKGs. Encouraged nursing to evaluate for prn dose in 6-8pm window to prevent agitation in evening.
Acute on chronic HFrEF
- Echo as above
- patient with BNP 26,700 and volume overload on exam/CXR
-Resume Lasix today.
- Na/OFR
- continue Coreg. Not on ALANNAH/ARB due to hyperkalemia/renal insufficiency
- CBC cards following
DYANA
- s/p IV Lasix course; monitor BMP as oral Lasix resumes. Creatinine stable at 1.6. Can resume Lasix today, discussed with cardiology. Monitor renal function as outpatient.
Type 2 DM, uncontrolled due to noncompliance while confused. Glucoses improving. 116 this morning.
- continue Lantus, decrease to 14 units
- add Aspart 4 units
- SSI low dose
- hold Prandin
- A1c: 7.2%
Hx of Aortic stenosis status post bioprosthetic AVR
PAF
hx of SSS s/p PPM
Hx of LBBB
- continue Coreg/Amiodarone
Essential HTN
- continue Coreg
Chronic back pain
- Patient scheduled for MRI of spine in February
DVT ppx: SC Heparin
Code: Full
Dispo -awaiting SNF placement. Medically stable for discharge. Updated daughter at the bedside.
Anticipated Discharge: Today
Subjective/Interval History
-
Date of Service: November 11, 2024
Patient seen and examined. No complaints.
Objective Data
-
Labs:
Laboratory Results
11/11/24
07:04
Sodium 138
Potassium 4.3
Chloride 100
Carbon Dioxide 29
BUN 69 H
Creatinine 1.6 H
Glucose 135 H
Calcium 10.0
Vital Signs:
Vital Signs
Temp Pulse Resp BP Pulse Ox
97.3 F 61 18 163/70 96
11/11/24 03:25 11/11/24 07:44 11/11/24 03:25 11/11/24 07:44 11/11/24 03:25
I&O
11/10/24 11/11/24 11/12/24
06:59 06:59 06:59
Intake Total 1200 / 1200 960 / 960
Output Total 350 / 350 330 / 330
Balance 850 / 850 630 / 630
Review of Systems
-
History Source: Patient
All other systems: Reviewed and negative
[2024-11-11 11:43] LABS: Glucose - Point of Care 117 mg/dl (70-99)
--- NOTE | 2024-11-11 12:14 | CM ---
[facility] to assess pt for poss admission today. Family agreeable to [facility] if can offer pt a bed.
CM received email from pt's spouse w/ POA paperwork. CM forwarded documents to Temi Quinteros to scan into pt's chart.
CM spoke w/ pt's daughter regarding fpc planning w/ spouse as concerns were raised about pt's children not including her in plans for pt.
Per daughter, pt's spouse has been well informed of planning for pt. Pt's son talks to her every day and goes to her home she shares w/ pt to check on her. Daughter stated it has been months of she, her brother and spouse exploring and touring
assisted living facilities for them both. Daughter stated there is underlying dementia w/ spouse so she will not recall conversations or decisions discussed as a family. Daughter stated spouse is forgetful and she and pt are unable to care for
themselves let alone each other at this point. Daughter is a hospice nurse and have been present in d/c planning for pt and fpc planning for pt and spouse.
Plan: SNF; [facility] to assess for poss admission. Will need auth
[2024-11-11] MEDS: LIPITOR 20 MG PO (17:20)
[2024-11-11] MEDS: NOVOLOG FLEXPEN-LOW RESISTANCE 3 UNITS SC (17:26)
[2024-11-11 17:28] LABS: Glucose - Point of Care 274 mg/dl (70-99)
[2024-11-11] MEDS: RISPERDAL M-TAB (ORALLY DISINTEGRATING) 0.25 MG PO (19:48)
[2024-11-11 20:59] LABS: Glucose - Point of Care 169 mg/dl (70-99)
[2024-11-11] MEDS: LANTUS 0.14 UNITS SC (21:38)
[2024-11-12 03:27] VITALS: BP 140/53
[2024-11-12 06:00] VITALS: BMI 29.6
[2024-11-12 07:42] LABS: Glucose - Point of Care 83 mg/dl (70-99)
[2024-11-12] MEDS: NOVOLOG FLEXPEN-LOW RESISTANCE SC ×2 (08:00→12:11)
[2024-11-12] MEDS: NOVOLOG FLEXPEN 4 UNITS SC ×2 (08:04→12:12)
[2024-11-12] MEDS: PRANDIN 1 MG PO (08:06)
[2024-11-12] MEDS: LASIX 40 MG PO (08:06)
[2024-11-12] MEDS: TAPAZOLE 2.5 MG PO (08:07)
[2024-11-12] MEDS: PACERONE 200 MG PO (08:07)
[2024-11-12] MEDS: COREG 25 MG PO (08:07)
[2024-11-12 08:10] VITALS: BP 149/61
[2024-11-12] MEDS: HEPARIN 5000 UNITS SC (08:12)
[2024-11-12 09:06] LABS: Blood Urea Nitrogen 58 mg/dl (9-20); Calcium 9.6 mg/dl (8.4-10.2); Carbon Dioxide 28 mmol/L (22-30); Chloride 101 mmol/L (98-107); Estimated Creatinine Clearance 33 ml/min; Glucose 78 mg/dl (70-99); Potassium 4.3 mmol/L (3.5-5.1); Sodium 139 mmol/L (135-145); eGFR 46.19
--- NOTE | 2024-11-12 10:35 | W.DS.TRANS ---
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
-
Discharge Instructions:
Discharge Diagnosis/Procedures Congestive heart failure, acute kidney injury,
acute TME
Diet Diabetic, Carb Controlled,2 Gram Sodium,Restrict
fluids to 48 oz
Activity As tolerated,With assistance
Driving Restrictions No driving
Bathing Restrictions None
Blood Work BMP in 1 week
Instructions:
Stand-Alone Forms:
Changes to Home Medications: No
Discharge Medications:
DC Medications w/original date entered in [employer]
atorvastatin 20 mg tablet 20 mg PO DAILY High cholesterol 05/18/22
carvedilol 25 mg tablet 25 mg PO BID Blood pressure 05/18/22
latanoprost 0.005 % eye drops 1 drp ophthalmic (eye) QPM Eye condition 05/18/22
umeclidinium 62.5 mcg-vilanterol 25 mcg/actuation powdr for inhalation (Anoro Ellipta) 1 inh inhalation R DAILY Lung/breathing issues 05/18/22
aspirin 81 mg tablet,delayed release 81 mg PO DAILY Blood Clot Prevention/Tx 11/03/24
methimazole 5 mg tablet 2.5 mg PO DAILY Thyroid 11/03/24
repaglinide 1 mg tablet 1 mg PO AC Diabetes 11/03/24
Insulin Glargine Lantus [Lantus] 14 units As Directed mls/hr SC HS 11/12/24
amiodarone 200 mg tablet 200 mg PO DAILY #0 tabs 11/12/24
furosemide 40 mg tablet 40 mg PO DAILY #0 tabs 11/12/24
insulin aspart U-100 100 unit/mL (3 mL) subcutaneous pen 4 unit (0.04 mL) SC AC #0 mL 11/12/24
nitroglycerin 0.4 mg sublingual tablet 0.4 mg sublingual [id number] PRN chest pain #0 tabs 11/12/24
risperidone 0.5 mg disintegrating tablet 0.25 mg (1/2 x 0.5 mg) PO [id number] PRN agitation severe #0 tabs 11/12/24
Home Medication Changes
Pending Results: No
--- NOTE | 2024-11-12 10:44 | W.PN.HOSP.TC ---
Today's Communication/Plan
-
Discharge
Assessment / Plan
Assessment / Plan
Gen-AAOx3, NAD
HEENT-NC, AT, anicteric, clear oral mm
Neck-supple
CV-reg, no M, +S1/S2
Lungs-clear B/L
Abd-soft, NT, ND
Ext-no edema
Musculoskeletal-no cyanosis, clubbing
Skin-warm and dry
Neuro-grossly non-focal
Psych-calm, cooperative
Acute TME with agitation, sundowning with aggressive behaviors
Possible underlying dementia, possibly vascular dementia variant given CV history
- CT: Moderate diffuse cerebral and cerebellar volume loss. Moderate white matter leukoaraiosis in the frontal and parietal lobes.
- MRI: No evidence for acute to subacute infarction. No evidence for hemorrhage. Moderate atrophy. Mild to moderate T2 and FLAIR white matter hyperintensity, commonly seen with aging and usually attributed to small vessel ischemic disease.
- likely in setting of acute CHF, hyperglycemia, sundowning although chronic component possible
- no infectious etiology found
- TSH, B12 normal
- prn Risperdal per psych; avoid Haldol with prolonged QTcs. follow EKGs. Encouraged nursing to evaluate for prn dose in 6-8pm window to prevent agitation in evening.
Acute on chronic HFrEF
- Echo as above
- patient with BNP 26,700 and volume overload on exam/CXR
-Resume Lasix today.
- Na/OFR
- continue Coreg. Not on ALANNAH/ARB due to hyperkalemia/renal insufficiency
- CBC cards following
DYANA - Creatinine stable at 1.5. Continue Lasix. Monitor renal function as outpatient.
Type 2 DM, uncontrolled due to noncompliance while confused. Glucoses improving. 78 this morning.
- continue Lantus, aspart
- SSI low dose
- hold Prandin
- A1c: 7.2%
Hx of Aortic stenosis status post bioprosthetic AVR
PAF
hx of SSS s/p PPM
Hx of LBBB
- continue Coreg/Amiodarone
Essential HTN
- continue Coreg
Chronic back pain
- Patient scheduled for MRI of spine in February
DVT ppx: SC Heparin
Code: Full
Dispo -awaiting SNF placement today.
32 minutes spent in discharge process.
Anticipated Discharge: Today
Subjective/Interval History
-
Date of Service: November 12, 2024
Patient seen and examined. No complaints.
Objective Data
-
Labs:
Laboratory Results
11/12/24
06:54
Sodium 139
Potassium 4.3
Chloride 101
Carbon Dioxide 28
BUN 58 H
Creatinine 1.5 H
Glucose 78
Calcium 9.6
Vital Signs:
Vital Signs
Temp Pulse Resp BP Pulse Ox
97.5 F 60 16 149/61 96
11/12/24 08:10 11/12/24 08:10 11/12/24 08:10 11/12/24 08:10 11/12/24 08:10
I&O
11/11/24 11/12/24 11/13/24
06:59 06:59 06:59
Intake Total 960 / 960
Output Total 330 / 330 400 / 400
Balance 630 / 630 -400 / -400
Review of Systems
-
History Source: Patient
All other systems: Reviewed and negative
[2024-11-12 11:00] VITALS: BP 118/58
[2024-11-12 11:01] VITALS: BP 148/58
--- NOTE | 2024-11-12 11:14 | CM ---
[facility] able to accept pt today. Hospitalist agreeable to d/c.
CM called [id number], initiated auth w/ Jero.
Auth approved beginning today, 11/12 w/ NRD 11/16. Facility to call [phone] for review.
Auth ref # [id number]. Updated Matt/admissions w/ auth info
Per pt's daughter, family will transport pt to facility at d/c
IMM reviewed, copy in chart
[facility]
Report: [phone]

Plan: [facility]. Family will transport
[2024-11-12 12:10] LABS: Glucose - Point of Care 134 mg/dl (70-99)
[2024-11-12] MEDS: TYLENOL 650 MG PO (12:15)
[2024-11-12 12:19] VITALS: BP 118/58
== END 2024-11-12 13:39 | DRG 291 ==
LOC: 4 WEST ACU 08:10
PROVIDERS: Emergency Medicine; Internal Medicine; Nurse Practitioner Family; ADMITTING PHYSICIAN Hospitalist; ATTENDING PHYSICIAN Hospitalist; EMERGENCY PHYSICIAN Student in an Organized Health Care Education/Training Program; FAMILY PHYSICIAN Internal Medicine; OTHER PHYSICIAN Internal Medicine; OTHER PHYSICIAN Psychiatry & Neurology Psychiatry
PROC: 4A02XFZ Measurement of Cardiac Rhythm, External Approach (ICD-10-PCS; 2024-11-04)
DX: I11.0 Hypertensive heart disease with heart failure (principal); G92.8 Other toxic encephalopathy; I50.23 Acute on chronic systolic (congestive) heart failure; I47.20 Ventricular tachycardia, unspecified; F05 Delirium due to known physiological condition; N17.9 Acute kidney failure, unspecified; I42.8 Other cardiomyopathies; E11.65 Type 2 diabetes mellitus with hyperglycemia; E78.00 Pure hypercholesterolemia, unspecified; K21.9 Gastro-esophageal reflux disease without esophagitis; R41.3 Other amnesia; I48.0 Paroxysmal atrial fibrillation; R47.81 Slurred speech; R26.2 Difficulty in walking, not elsewhere classified; H55.00 Unspecified nystagmus; I44.7 Left bundle-branch block, unspecified; J44.9 Chronic obstructive pulmonary disease, unspecified; I27.20 Pulmonary hypertension, unspecified; F01.A0 Vascular dementia, mild, without behavioral disturbance, psychotic disturbance, mood disturbance, and anxiety; I35.1 Nonrheumatic aortic (valve) insufficiency; G89.29 Other chronic pain; M54.9 Dorsalgia, unspecified; Z90.49 Acquired absence of other specified parts of digestive tract; Z79.82 Long term (current) use of aspirin; Z79.51 Long term (current) use of inhaled steroids; Z79.4 Long term (current) use of insulin; Z85.828 Personal history of other malignant neoplasm of skin; Z95.3 Presence of xenogenic heart valve; Z95.0 Presence of cardiac pacemaker; Z88.8 Allergy status to other drugs, medicaments and biological substances; Z91.148 Patient's other noncompliance with medication regimen for other reason; Z79.84 Long term (current) use of oral hypoglycemic drugs; Z78.1 Physical restraint status
CPT/HCPCS: 70450; 70551; 71045; 80048; 80053; 81003; 81015; 82607; 82746; 82962; 83036; 83735; 83880; 84443; 84484; 85025; 85027; 93005; 93306; 94640; 96360; 96361; 96372; 97110; 97116; 97163; 97167; 97530; 99284; J2358; Q9950

== ENCOUNTER 2025-08-11 04:30 | Inpatient (IN) | payer OTHER, SELFPAY ==
[2025-08-10 21:16] VITALS: BP 97/49
[2025-08-10 21:50] LABS: Hematocrit 43.8 % (39.0-52.0); Hemoglobin 13.9 g/dL (13.0-18.0); Mean Corp Hgb Conc. 31.7 g/dL (33.0-37.0); Mean Corpuscular Volume 94.2 fL (80.0-94.0); Nucleated Red Blood Cells % 0 % (-); Platelet Count 167 10^3/uL (130-400); Red Cell Dist. Width 15.4 % (11.5-14.5)
[2025-08-10 22:10] LABS: ALT (SGPT) 138 U/L (0-50); AST (SGOT) 155 U/L (17-59); Albumin 4.0 g/dl (3.5-5.0); Alkaline Phosphatase 116 U/L (38-126); Blood Urea Nitrogen 58 mg/dl (9-20); Calcium 10.1 mg/dl (8.4-10.2); Carbon Dioxide 33 mmol/L (22-30); Chloride 99 mmol/L (98-107); Glucose 180 mg/dl (70-99); Potassium 4.5 mmol/L (3.5-5.1); Sodium 136 mmol/L (135-145); Total Protein 7.0 g/dl (6.3-8.2); eGFR 26.12
[2025-08-11] VITALS (19 sets, daily range): BP systolic 97–134; BP diastolic 47–107; BMI 24.2; BMI 23.2
--- NOTE | 2025-08-11 02:54 | ED.GENMED ---
History of Present Illness
General
Chief Complaint: Skin Problem
Source: patient, family (Daughter at bedside) and previous hospital records (Hospitalization November 2024 for similar complaint of acute confusion. Treated for acute CHF. Toxic metabolic encephalopathy.)
Exam Limitations: clinical condition and dementia
Time Seen by Provider: 08/11/25 01:10
Nursing documentation reviewed up to this point in time: agreed with
History of Present Illness
History of Present Illness:
This is an 84-year-old gentleman with a history of CHF, A-fib, hypertension, hyperlipidemia, pacemaker, bioprosthetic aortic valve replacement, GERD, diabetes, chronic kidney disease and COPD.
He presents with his family who are concerned with acute confusion as well as concern with chronic right lateral foot wound that initially began in April of this year., Worsening over the past week. Started on Bactrim 4 to 5 days ago, no
improvement with worsening pain, redness and onset of confusion which family states is generally accompanied with an infectious process.
He was previously hospitalized here in November with confusion related to acute on chronic CHF. Medications were adjusted. A neurology assessment and MRI ruled out a stroke and there was indication for potential onset of dementia.
In April he suffered a fall with right femur fracture required surgical intervention at [facility]. During that hospitalization he experienced acute kidney failure, initially contemplated dialysis but later recovered.
1 month ago, he had an episode of confusion and was evaluated at [facility] and found to have urinary retention, necessitating Montejo catheter placement. There was no sign of pneumonia nor urinary tract infection based on cultures.
Catheter was removed and he was started on Flomax. Daughter states he has had no difficulty urinating since then.
He remains at home, currently receiving home care nursing services.
Acute confusion today, similar episodes as in the past but he has not had a fever. Son noted very mild brief cough today.
His appetite has been fair. No nausea nor vomiting. He has had no chest pain or abdominal pain. No diarrhea or constipation.
Unclear as to patient's baseline creatinine since hospitalization in April but daughter believes creatinine generally runs around 2.
He has history of diabetes, had been insulin requiring as well as oral medications. All of his diabetes medications have since been discontinued. Currently diet controlled.
Past History
Past History
ED Past Medical History: Arrthythmia (Atrial fibrillation), Cancer (Squamous cell skin cancer abdominal wall), CHF, GERD, HTN, Hypercholesterolemia, NIDDM, Renal failure and Other (Gallstone pancreatitis April 2018)
ED Past Surgical History: Cardiac (Bioprosthetic aortic heart valve replacement 1992; pacemaker), Cholecystectomy (Laparoscopic cholecystectomy 04/14/2018.), Orthopedic (Right femur fracture repair April 2025, left knee surgery) and Other (Squamous
cell skin cancer removal right upper abdominal wall May 18 2018)
Social History
Tobacco: Non-smoker
Alcohol: None (Rare)
Drug: None
Personal:
Living: with family
Employment: Retired
Family History
Family History: Other (Noncontributory)
Phy Exam
Physical Exam
Physical Exam:
GENERAL: 84-year-old gentleman appears his stated age, awake, minimally drowsy, oriented x 1. Follows simple commands. Overall appears in no acute distress. No cough appreciated during exam.
EYE: pupils equal and reactive. anicteric
NECK: Supple, nontender, no meningismus, no significant adenopathy.
ENT: posterior pharynx is clear, oral mucosa is mildly dry. No rhinorrhea.
CARDIAC: Regular rate and rhythm. no murmur.
LUNGS: no acute respiratory distress, fine bibasilar rales otherwise clear to auscultation.
ABDOMEN: Soft, nondistended, without focal tenderness, no r/g, no cvat. normoactive BS.
NEUROLOGICAL: Awake, minimally drowsy, oriented x 1, no focal neuro deficits.
SKIN: Warm and dry, normal color, fair turgor. There is a 2.5 cm circular superficial ulcerated wound right lateral foot with scant yellowish drainage, moderate local surrounding erythema and moderate local tenderness to palpation. No lymphangitis.
MUSCULOSKELETAL: No C/C/E. peripheral pulses are full and equal b/l.
PSYCH: Normal and appropriate interaction.
Sepsis
Sepsis Screening
Sepsis Assessment: Sepsis Ruled Out
Sepsis Screen
Sepsis Screen: Sepsis Ruled Out
Date: 08/11/25
Time: 03:13
Course
Orders/Labs/Results
Orders:
Orders
08/10/25 21:20
Electrocardiogram (*1) Urgent
Reason for Study: Other
Other Reason for Exam: Possible Sepsis
EKG- Treatment ONCE
08/10/25 21:41
Complete Blood Count/With Diff Urgent
Comprehensive Metabolic Panel Urgent
Lactic Acid Urgent
NT-proBNP Urgent
Comment: ADD ON/RUN ON SERUM
Blood Culture Urgent
RONALD Source: Blood/Venous
Specimen Description:
08/11/25 01:32
Foot, Right 3 View [CR Foot - Right Min 3 Views] Urgent
Comment:
Reason For Exam: chronic wound R lat foot-now painful, red
08/11/25 01:33
CT Head W/o Iv Contrast Urgent
Comment:
Reason For Exam: acute confusion, hx similar sporadic episodes
08/11/25 01:34
Bladder Scan- Treatment ONCE
Urinalysis Reflex To Culture Urgent
CR Chest - 2 Views Urgent
Comment:
Reason For Exam: [place], confusion, occasional cough today
08/11/25 01:36
Add On- LAB Urgent
Tests Added?: BNP
08/11/25 02:03
Wound Culture [Wound/Abscess/Other Culture] Urgent
RONALD Source: Foot
Specimen Description: Right
Date Specimen was Collected: 08/11/25
Time Specimen was Collected: 01:46
Comment: Ulcerated wound right lateral foot
Abnormal Lab Results
08/10/25
21:41
RBC 4.65 L 10^6/uL
(4.70-6.10)
MCV 94.2 H fL
(80.0-94.0)
MCHC 31.7 L g/dL
(33.0-37.0)
RDW 15.4 H %
(11.5-14.5)
MPV 10.9 H fL
(7.4-10.4)
Abs Immat Gran (auto) 0.1 H 10^3/uL
(0-0.05)
Absolute Lymphs (auto) 1.1 L 10^3/uL
(1.2-3.4)
Absolute Monos (auto) 0.7 H 10^3/uL
(0.1-0.6)
Immature Gran % 0.6 H %
(0-0.5)
Lymphocytes % 13.8 L %
(20.5-51.1)
Carbon Dioxide 33 H mmol/L
(22-30)
BUN 58 H mg/dl
(9-20)
Creatinine 2.4 H mg/dL
(0.7-1.3)
Glucose 180 H mg/dl
(70-99)
AST 155 H U/L
(17-59)
ALT 138 H U/L
(0-50)
08/10/25 21:41
08/10/25 21:41
Vital Signs
Initial and Last Documented VS:
Initial Vital Signs
Temp Pulse Resp BP Pulse Ox
98.2 F 63 16 97/49 95
08/10/25 21:16 08/10/25 21:16 08/10/25 21:16 08/10/25 21:16 08/10/25 21:16
Last Documented Vital Signs
Temp Pulse Resp BP Pulse Ox
98.2 F 63 16 97/49 95
08/10/25 21:16 08/10/25 21:16 08/10/25 21:16 08/10/25 21:16 08/10/25 21:16
MDM/Problems Addressed
Differential Diagnosis Includes:
Differential diagnosis includes, in no particular order and is not limited to:
Wound infection
Heart failure exacerbation
Urinary tract infection
Renal impairment/acute on chronic kidney disease
Progression of dementia
Drug-induced confusion
Respiratory infection
Stroke or TIA
Electrolyte abnormality
Depression or psychiatric condition affecting cognition
MDM/Problems Addressed:
Worsening foot wound
Increased confusion
New onset cough
Elevated creatinine levels
Urinary retention with recent catheterization April of this year
Patient is afebrile and no reported fever.
Labs thus far reveal normal CBC, normal lactic acid.
Creatinine elevated at 2.4, has trended up from previous in November of 1.5. BUN of 58, similar to previous. At this point unclear as to his new baseline since hospitalization in April.
LFTs are moderately elevated with normal T. bili, normal alkaline phosphatase. Concern for potential passive congestion of the liver, potential CHF. Abdomen is soft without appreciable tenderness thus common bile duct stone/cholangitis are
unlikely.
Will check x-ray right foot, wound culture right foot, will check BNP as well as chest x-ray
Will check CT of the head.
With acute confusion, worsening right foot pain and redness despite outpatient antibiotics, patient has failed outpatient antibiotic treatment and thus will require acute hospitalization for IV antibiotics and further evaluation of confusion, kidney
failure, respiratory/cardiac status�potential for acute on chronic CHF.
At this point no indication of sepsis.
Chronic conditions affecting care: DM, HTN, Cardiomyopathy, Neurological disorder (Prior episodes of toxic metabolic encephalopathy), Kidney disease and Other (History of femur fracture, chronic wound right lateral foot)
*Radiology
Radiology exam reviewed: preliminary read by ED provider (Right foot x-ray shows superficial ulcer lateral right foot, lateral to the proximal fifth metatarsal. No evidence of osteomyelitis. Chest x-ray shows cardiomegaly, mild interstitial
fullness somewhat more pronounced than previous film November 2024)
*Pulse Oximetry
SaO2: 95
Oxygen Mode of Delivery: Room air
Patient hypoxic: no
*EKG
Interpreted by ED Provider?: Yes
Comparison EKG: no changes (Unchanged from previous November 2024)
Heart Rate: 60
Rate: normal
Rhythm: ventricular paced
*Embedded Software Programmer Interpretation
Rate: normal
Rhythm: ventricular paced
*Critical Care Note
Total Time (30-74mins, 75-104mins- exclusive of procedures): Not Applicable
Update Note
Update Note:
03:15
Right foot x-ray shows no definitive evidence of osteomyelitis.
Chest x-ray shows cardiomegaly, mild increased interstitial markings bilaterally, somewhat more pronounced than previous film in November.
BNP is markedly elevated at 17,700. But this is actually improved from previous in November at 26,[address] of the head.
Will initiate IV antibiotics and admit to hospitalist service.
ED Attending Note
-
Portions of this chart may have been created with voice recognition software.� Occasional wrong word or��sound alike� substitutions may have occurred due to the inherent limitations of voice recognition software.
Discharge Plan
Departure
Patient Disposition: Admit
Date of Disposition: 08/11/25
Time of Disposition: 03:15
Admit to: Med/Surg
Admit to doctor: Xavi
Presentation/result/management discussed w/ accepting MD/DO: Hospitalist
Condition: Fair
Discharge Problem:
Diabetic right foot wound with celluliti, Acute kidney injury superimposed on chronic kidney disease, Toxic metabolic encephalopathy, Hypertensive heart disease with heart failure
Prescriptions:
No Action
latanoprost 0.005 % Drops
1 drp OPHTHALMIC (EYE) QPM
carvedilol 25 mg Tablet
25 mg PO BID
atorvastatin 20 mg Tablet
20 mg PO DAILY
umeclidinium-vilanterol [Anoro Ellipta] 62.5-25 mcg/actuation Blister With Device
1 inh INHALATION R DAILY
aspirin 81 mg Tablet,Delayed Release (Dr/Ec)
81 mg PO DAILY
methimazole 5 mg tablet
2.5 mg PO DAILY
furosemide 40 mg Tablet
40 mg PO DAILY Qty: 0 0RF
amiodarone 200 mg Tablet
200 mg PO DAILY Qty: 0 0RF
nitroglycerin 0.4 mg Tablet, Sublingual
0.4 mg sublingual [id number] PRN (Reason: chest pain) Qty: 0 0RF
risperidone 0.5 mg Tablet,Disintegrating
0.25 mg PO [id number] PRN (Reason: agitation severe) Qty: 0 0RF
tamsulosin [Flomax] 0.4 mg Capsule
0.4 mg PO DAILY
gabapentin 100 mg Capsule
200 mg PO TID
Referrals:
Antoine Naylor DPM [Family Provider, Podiatry]
Interventions
Interventions:
*Risk Screen - Suicide Last Done: 08/10/25 21:16
*General Assessment Last Done: 08/11/25 00:51
*Neglect/Abuse Screening Last Done: 08/10/25 21:16
*ED- Fall Risk Assessment Last Done: 08/11/25 00:51
*ED COVID-19 Vaccine History Last Done: 08/11/25 00:51
*ED Influenza Vaccine History Last Done: 08/11/25 00:51
ED-Skin Assessment Last Done: 08/11/25 00:52
Discharge Date and Time
Print Language: AMHARIC
--- NOTE | 2025-08-11 03:25 | HPS.HSE ---
Family Physician
-
Family Physician: Antoine Naylor
Chief Complaint
-
Foot pain
History of Present Illness
This is a 84-year-old male with past medical history significant for hypertension, paroxysmal atrial fibrillation, CKD stage III, aortic stenosis s/p bioprosthetic AVR, CHFrEF, BPH, dementia, who presents to the emergency department with worsening
wound over the lateral aspect of the right foot.
Family reported that patient has had the wound for several months now. They have been treating it with dressings at home. However since Friday the patient developed increasing redness and drainage from that site. They were seen by a physician
and they started Bactrim. They brought the patient in today because he had increasing drainage and pain at the site. He has had no fevers or chills. He also had become more confused compared to baseline. They report that he has had usual oral
intake up until prior to just come to the emergency department where he had nothing to eat all day. Patient reports decreased appetite and increased somnolence the day of admission. Urinalysis abnormal output. He denies any increased lower
extremity edema. He denies any orthopnea or PND. Family reports that he has a slight increased wheezing compared to his baseline and he has been on his usual diuretic regimen.
In the Emergency Department, patient was afebrile, blood pressure was 97/49 with a pulse rate of 63, oxygen saturation of 95% on room air. ECG shows AV paced rhythm at a rate of 60.
CBC was complete unremarkable. Electrolytes was stable. BUN/creatinine shows elevation in creatinine to 2.4 from baseline of 1.5, glucose was 180. BNP was elevated at 17,700.
CT of the head shows no acute interval changes. Chest x-ray shows mild interstitial pulmonary edema. X-ray of the foot shows no foreign objects, fluid or gas collection.
Medical History
Past Medical History
Past Medical History: Reports Other (aortic stenosis status post bioprosthetic AVR, atrial fibrillation, sick sinus syndrome with permanent pacemaker, hypertension, diabetes)
Past Surgical History: Reports Other ( Cardiac (Heart valve replacement 1992), Cholecystectomy (Laparoscopic cholecystectomy 04/14/2018.), Orthopedic and Other (Squamous cell skin cancer removal right upper abdominal wall May 18 2018))
Social History
Tobacco: Former Smoker
Alcohol: Occasional (rarely)
Drug: None
Living: With Family
Family History
Family History: Not pertinent
Allergies / Home Medications
Allergies reflects when Allergies were last updated in [facility].
Home Medications with original date entered in [facility]
Allergy/Medication List:
Allergies
Allergy/AdvReac Type Severity Reaction Status Date / Time
merbromin (From Allergy TOPICAL-JUANIS Verified 08/10/25 21:16
Mercurochrome) H
Home Medications
atorvastatin 20 mg tablet 20 mg PO DAILY High cholesterol 05/18/22
carvedilol 25 mg tablet 25 mg PO BID Blood pressure 05/18/22
latanoprost 0.005 % eye drops 1 drp ophthalmic (eye) QPM Eye condition 05/18/22
umeclidinium 62.5 mcg-vilanterol 25 mcg/actuation powdr for inhalation (Anoro Ellipta) 1 inh inhalation R DAILY Lung/breathing issues 05/18/22
aspirin 81 mg tablet,delayed release 81 mg PO DAILY Blood Clot Prevention/Tx 11/03/24
methimazole 5 mg tablet 2.5 mg PO DAILY Thyroid 11/03/24
amiodarone 200 mg tablet 200 mg PO DAILY #0 tabs 11/12/24
furosemide 40 mg tablet 40 mg PO DAILY #0 tabs 11/12/24
nitroglycerin 0.4 mg sublingual tablet 0.4 mg sublingual [id number] PRN chest pain #0 tabs 11/12/24
risperidone 0.5 mg disintegrating tablet 0.25 mg (1/2 x 0.5 mg) PO [id number] PRN agitation severe #0 tabs 11/12/24
gabapentin 100 mg capsule 200 mg PO TID 08/11/25
tamsulosin 0.4 mg capsule (Flomax) 0.4 mg PO DAILY 08/11/25
Review of Systems
-
History Source: Patient and Family
A 12 point ROS was completed and negative except as noted: Yes
Constitutional: Reports No Symptoms
EENT: Reports No Symptoms
Respiratory: Reports Other (occasional wheezing)
Cardiac: Reports No Symptoms
Abdomen/GI: Reports No Symptoms
: Reports No Symptoms
Musculoskeletal: Reports Other (foot pain)
Skin: Reports No Symptoms
Neurological: Reports No Symptoms
Endocrine: Reports No Symptoms
Hematologic/Lymphatic: Reports No Symptoms
Psych: Reports No Symptoms
Physical Exam
Vital Signs
Vital Signs
Temp Pulse Resp BP Pulse Ox
98.2 F 63 16 97/49 95
08/10/25 21:16 08/10/25 21:16 08/10/25 21:16 08/10/25 21:16 08/11/25 02:57
Physical Exam
General: Well Developed, Well Nourished and No Apparent Distress
HEENT: NormoCephalic, Atraumatic, PERRLA, [place] Conjunctivae and Other (dry MM)
Respiratory: Clear
Cardiac: S1/S2 and Regular Rhythm; No Murmur or Rub
GI: Soft, Non Tender, Non Distended and Normal Bowel Sounds; No Organomegaly
Rectal: Deferred by Provider
Musculoskeletal: No Clubbing, No Cyanosis and Edema, Right Lower Extremity (trace pedal edema)
Skin: Lesions (ulceration on the lateral aspect of the right foot, no drainage. There is trace surrounding edema and mild erythema. Slightly tender to palpation)
Neuro: Nonfocal/grossly intact and Tremors; No Slurred Speech or Facial Droop
Hematologic/Lymphatic: No Lymphadenopathy
Psych: Calm
Laboratory Results
-
08/10/25 21:41
08/10/25 21:41
Laboratory Results
Lactic Acid 0.9 mmol/L (0.7-2.0) 08/10/25 21:41
Total Bilirubin 0.8 mg/dl (0.2-1.3) 08/10/25 21:41
AST 155 U/L (17-59) H 08/10/25 21:41
ALT 138 U/L (0-50) H 08/10/25 21:41
Alkaline Phosphatase 116 U/L (38-126) 08/10/25 21:41
Data Reviewed
-
Diagnostic Radiology: Image Personally Visualized and interpreted
Medical Tests (Nuc Med, Echo, EKG etc): Image Personally Visualized and interpreted
Lab Data: Labs Reviewed by me
Old Records: Reviewed
Impression/Plan
-
IMPRESSION:
85-year-old past medical history significant for CHFrEF of 30%, s/p bioprosthetic aortic valve, paroxysmal atrial fibrillation, status post pacemaker, BPH, hypertension, hyperlipidemia, emphysema, buz-cgnaxqt-zotctjdoi diabetes presenting with
worsening right lower extremity foot wound, toxic metabolic encephalopathy and DYANA with possibly mild CHF exacerbation
PLAN:
Wound infection - Diabetic foot ulcer. Failed outpatient abx. Unlikely vascular. Wet but no current exudate. No signficant surrounding cellulitis. WBC normal. No fever. No other signs of systemic infection except mild confusion.
- admit to inpatient telemetry for now
- blood culture
- wound culture sent
- check esr, msra screen
- IV vancomycin for now
- ID consult
- podiatry consult
Confusion - Acute on chronic dementia thought secondary to wound infection but no systemic signs. Similar presentation in november with CHF exacerbation.
- check covid, u/a
- treat infection as above
DYANA - Cr 2.4. Bl 1.5. has 250 ml in bladder before void. Denies urinary symptoms. Recently on bactrim x 4 days. Appears euvolemic but BP seems lower than usual baseline.
- possible interstitial nephritis - bactrim held
- hold iv fluids for now
- check urine Na, creatinine and u/a
- treat infection
- renal u/s
- nephrology consult
CHF - haziness to chest xray. 95% on RA with no crackles or wheezes. Trace pedal/ankle edema on the right foot only. Dry MM. Weight 66Kg down from 73 on last discharge. Besides xray and chronically elevated BNP, no evidence of volume overload.
BNP reduced compared to november.
- hold lasix for now
- hold fluids
- continued GDMT as tolerated with carvedilol, continue aspirin/statin
- cardiology consult
- daily weights and i/os
- diet as tolerated for now
AFIB
- continue carrvedilol
- not on ac
Hypertheryoid
- check tsh
- continue methimazole
DM II - Not currenlty requiring any therapy
- diabetic diet and monitor daily chemistries for now
DVT PPX - heparin sq
Code status - Full Code
[2025-08-11] MEDS: UNASYN IV (04:06)
[2025-08-11] MEDS: VANCOCIN 530 MG IV (04:07)
[2025-08-11 05:30] LABS: COVID-19 Antigen Negative (Negative)
[2025-08-11 06:37] LABS: Hematocrit 37.1 % (39.0-52.0); Hemoglobin 11.8 g/dL (13.0-18.0); Mean Corp Hgb Conc. 31.8 g/dL (33.0-37.0); Mean Corpuscular Volume 94.2 fL (80.0-94.0); Platelet Count 162 10^3/uL (130-400); Red Cell Dist. Width 15.4 % (11.5-14.5)
[2025-08-11 07:07] LABS: Blood Urea Nitrogen 62 mg/dl (9-20); Calcium 9.8 mg/dl (8.4-10.2); Carbon Dioxide 30 mmol/L (22-30); Chloride 102 mmol/L (98-107); Estimated Creatinine Clearance 22 ml/min; Glucose 94 mg/dl (70-99); Magnesium 1.9 mg/dl (1.6-2.3); Potassium 4.2 mmol/L (3.5-5.1); Sodium 138 mmol/L (135-145); eGFR 28.99
[2025-08-11 07:08] LABS: C-Reactive Protein < 5.00 mg/L (0.0-10.00)
[2025-08-11] MEDS: ASPIR LOW (ENTERIC COATED) 81 MG PO (09:05)
[2025-08-11] MEDS: FLOMAX 0.4 MG PO (09:06)
[2025-08-11] MEDS: NEURONTIN 200 MG PO (09:06)
[2025-08-11] MEDS: LIPITOR 20 MG PO (09:06)
[2025-08-11] MEDS: TAPAZOLE 2.5 MG PO (09:07)
[2025-08-11] MEDS: HEPARIN 5000 UNITS SC ×2 (09:10→20:54)
[2025-08-11] MEDS: PACERONE 200 MG PO (09:11)
[2025-08-11] MEDS: COREG 25 MG PO ×2 (09:12→20:54)
--- NOTE | 2025-08-11 09:24 | CON.ID ---
Consultation
-
Date/Time Consultation Requested: August 11, 2025 [id number]
Date/Time Consultation Performed: August 11, [id number]
Requesting Provider: Dr. Hurley
Performing Provider: Dr. Carolina Cavazos
Reason for Consultation: Foot wound
Chief Complaint / Past History
Chief Complaint
Worsening foot wound and pain
History of Present Illness
84-year-old male with history of diabetes mellitus, CKD 3, atrial fibrillation, pacemaker placement, bio�AVR, heart failure with reduced EF who presented to the ED on August 10 due to worsening right foot pain. He reports he developed the right
foot wound several months ago. He is unsure how the wound developed while he had been taking care of it. He has not seen podiatry. However over the past few days, foot became more swollen, with redness. The wound also has been getting larger.
Patient complains of significant right foot pain for the past 3 days. No fevers or chills. Appetite poor. Positive nonproductive cough. No chest pain. No nausea vomiting abdominal pain or diarrhea. No urine symptoms. By report, In ED Foot
XRAY: Possible cortical destruction at the base of the fifth metatarsal.
Past History
Additional Past Medical History:
Diabetes mellitus
Hypertension
Dementia
COPD
CKD 3
Paroxysmal atrial fibrillation
Aortic stenosis status post bioprosthetic aortic valve replacement
Pacemaker placement (2019)
HFrEF
BPH
Cholecystectomy
Squamous cell carcinoma excision from right upper abdominal wall
R CEA
Allergy History:
merbromin (From Mercurochrome) Allergy (Verified 08/10/25 21:16)
TOPICAL-RASH
Medications Reviewed: Yes
Current Antibiotics:
Vancomycin
Social History
Tobacco: Former Smoker
Alcohol: None
Drug: None
Living: With Family
Family History
Family History: Not Pertinent
Review of Systems
Review of Systems
General: Change in Appetite; Negative Fever or Chills
HEENT: Negative Sinus Problems or Headache
Cardiovascular: Negative Chest Pain
Respiratory: Cough; Negative Sputum Production
Gasteroenterology: Negative Nausea, Vomiting or Diarrhea
Genital / Urological: Negative Dysuria or Flank Pain
Endocrine: Weakness
All systems: All other systems were reviewed and were negative
Vital Signs
Temp Pulse Resp BP Pulse Ox
98.2 F 64 16 123/61 94
08/10/25 21:16 08/11/25 09:12 08/10/25 21:16 08/11/25 09:12 08/11/25 04:03
Physical Exam
Physical Exam
Constitutional: Chronically Ill
Eyes: No Conjunctival Hemorrhage and Sclera Anicteric
Cardiovascular: Regular Rate, S1/S2 and Other (LCW PPM no erythema)
Pulmonary: Clear
Gastrointestinal: Soft, Non Tender, Non Distended and Normal Bowel Sounds
Extremities: Edema (R foot pedal edema), Erythema (Right forefoot minimal erythema with warm) and Pulses (nonpalpable B foot)
Wound: Other (Right foot lateral 5th metatarsal approx 0.6 cm wound with dry eschar, tender)
Neurological: Awake
Lab / Diagnostic Study Results
08/11/25 06:15
08/11/25 06:15
Abs Immat Gran (auto) 0.1 10^3/uL (0-0.05) H 08/10/25 21:41
Absolute Neuts (auto) 6.0 10^3/uL (1.4-6.5) 08/10/25 21:41
Absolute Lymphs (auto) 1.1 10^3/uL (1.2-3.4) L 08/10/25 21:41
Absolute Monos (auto) 0.7 10^3/uL (0.1-0.6) H 08/10/25 21:41
Absolute Basos (auto) 0.0 10^3/uL (0-0.2) 08/10/25 21:41
Immature Gran % 0.6 % (0-0.5) H 08/10/25 21:41
Neutrophils % 74.2 % (42.2-75.2) 08/10/25 21:41
Lymphocytes % 13.8 % (20.5-51.1) L 08/10/25 21:41
Monocytes % 8.4 % (1.7-9.3) 08/10/25 21:41
Eosinophils % 2.5 % (0-6) 08/10/25 21:41
Basophils % 0.5 % (0-2) 08/10/25 21:41
ESR 13 mm/hour (0-20) 08/11/25 06:15
Lactic Acid 0.9 mmol/L (0.7-2.0) 08/10/25 21:41
C-Reactive Protein < 5.00 mg/L (0.0-10.00) 08/11/25 06:15
Microbiology Results
Micro:
08/11/25 02:03 Wound Culture - Pending
Foot - Right Gram Stain - Pending
08/10/25 21:41 Blood Culture - Pending
Blood/Venous
08/11/25 CXR: Mild cardiomegaly. Mild pulmonary edema. Linear opacity at the posterior lung base, suggestive of scarring or subsegmental atelectasis.
08/11/25 Foot XRAY: Possible cortical destruction at the base of the fifth metatarsal, with overlying soft tissue wound. Findings are suggestive of osteomyelitis, although MRI would be a more sensitive and specific test
Assessment / Plan
# Right foot cellulitis
# Right foot non-healing wound
# DYANA on CKD3
# DM
-Foot xray suspicious for osteo
- Ordered BLE arterial duplex with KATIE
- Recommend MRI if PPM compatible
- Podiatry eval pending.
- DC Vancomycin
- Start cefazolin.
Conditions present on admission:
Diabetes mellitus
Hypertension
Dementia
COPD
CKD 3
Paroxysmal atrial fibrillation
Aortic stenosis status post bioprosthetic aortic valve replacement
Pacemaker placement (2019)
HFrEF
BPH
Cholecystectomy
Squamous cell carcinoma excision from right upper abdominal wall
R CEA
[2025-08-11] MEDS: STRIVERDI RESPIMAT 2 PUFF INH (10:19)
[2025-08-11] MEDS: SPIRIVA RESPIMAT 2.5 MCG 2 PUFF INH (10:20)
--- NOTE | 2025-08-11 11:32 | W.PN.HOSP.TC ---
Today's Communication/Plan
-
Antibiotics. ID and podiatry eval.
Assessment / Plan
Assessment / Plan
Physical exam:
General: Acutely on chronically ill
HEENT: Normocephalic, Atraumatic and Moist Mucous Membranes
Respiratory: Clear to Auscultation; Negative Wheezes, Rales or Rhonchi
Cardiac: Regular Rhythm and S1/S2
GI: Soft, Nontender and Nondistended
Musculoskeletal: Right foot lateral wound with dry eschar and erythema present. No Clubbing, No Cyanosis and No Edema
Neuro: Lethargic but arousable to verbal stimuli
A/P:
Wound infection - Diabetic foot ulcer. Failed outpatient abx. Unlikely vascular. Wet but no current exudate. No signficant surrounding cellulitis. WBC normal. No fever. No other signs of systemic infection except mild confusion.
- admit to inpatient telemetry for now
- blood culture
- wound culture sent
- check esr, msra screen
- IV vancomycin changed to IV cefazolin
- ID consult
- podiatry consult
Confusion - Acute on chronic dementia thought secondary to wound infection but no systemic signs. Similar presentation in november with CHF exacerbation.
- check covid, u/a
- treat infection as above
DYANA - Cr 2.4. Bl 1.5. has 250 ml in bladder before void. Denies urinary symptoms. Recently on bactrim x 4 days. Appears euvolemic but BP seems lower than usual baseline.
- possible interstitial nephritis - bactrim held
- hold iv fluids for now
- check urine Na, creatinine and u/a
- treat infection
- renal u/s
- nephrology consult
CHF - haziness to chest xray. 95% on RA with no crackles or wheezes. Trace pedal/ankle edema on the right foot only. Dry MM. Weight 66Kg down from 73 on last discharge. Besides xray and chronically elevated BNP, no evidence of volume overload.
BNP reduced compared to november.
- hold lasix for now
- hold fluids
- continued GDMT as tolerated with carvedilol, continue aspirin/statin
- daily weights and i/os
- diet as tolerated for now
AFIB
- continue carrvedilol
- not on ac
Hypertheryoid
- check tsh
- continue methimazole
DM II - Not currenlty requiring any therapy
- diabetic diet and monitor daily chemistries for now
DVT PPX - heparin sq
Code status - Full Code
Anticipated Discharge: > 48 hours
Subjective/Interval History
-
Date of Service: August 11, 2025
Afebrile. No new complaint
Objective Data
-
Labs:
Laboratory Results
08/11/25
06:15
WBC 7.9
Hgb 11.8 L
Hct 37.1 L
Plt Count 162
Sodium 138
Potassium 4.2
Chloride 102
Carbon Dioxide 30
BUN 62 H
Creatinine 2.2 H
Glucose 94
Calcium 9.8
Vital Signs:
Vital Signs
Temp Pulse Resp BP Pulse Ox
98.2 F 60 16 123/61 92
08/10/25 21:16 08/11/25 10:21 08/11/25 10:21 08/11/25 09:12 08/11/25 10:21
--- NOTE | 2025-08-11 11:48 | CARDSERVLU ---
Echocardiogram with Lumason completed after protocol screening completed. Allergies verified.
Patent IV site: __left AC___
IV site flushed with 0.9% NaCl pre and post administration.
Diluted bolus method utilized to enhance visualization of ventricular brown.
Total volume given: __3.5__ mL
Patient tolerated all procedures well without complications.
--- NOTE | 2025-08-11 13:56 | W.CON.NEPH ---
Consultation
-
Date/Time Consultation Requested: 08/11/25 0539
Date/Time Consultation Performed: 08/11/25 1430
Requesting Provider: Jose Hurley MD
Performing Provider: Jeannie Leung
Reason for Consultation: DYANA
Medical History
-
Chief Complaint: Foot pain
History of Present Illness:
84-year-old male with past medical history significant for hypertension on coreg, hyperthyroidism on Methimazole, paroxysmal atrial fibrillation, CKD stage III baseline cr 1.5, aortic stenosis s/p bioprosthetic AVR, CHFrEF on lasix, BPH on flomax,
dementia, who presents to the emergency department with worsening wound over the lateral aspect of the right foot on 08/11. Family noted patient has had the wound for several months now. since Friday the patient developed increasing redness and
drainage and started on Bactrim by his doctor. Family brought patient in last night because he had increasing drainage and pain at the site. He had no fevers or chills. He also had become more confused compared to baseline. Hispo intake has been
poor for last 2days.
In ER he noted soft BP in 90s. creatinine high at 2.4 from baseline of 1.5. BNP was elevated at 17,700. Chest x-ray shows mild interstitial pulmonary edema. Foot Xray shows possible OM 5th metatarsal. Nephrology consulted for DYANA.
According to the daughter pt had recent admit at [facility] 1m ago and his cr peak was at 2.8 and improved to 2 at d/c. He is very lethargic todya and unable to provide history. Most of the history is through from chart and daughter.
Past Medical History
aortic stenosis status post bioprosthetic AVR, atrial fibrillation, sick sinus syndrome with permanent pacemaker, hypertension, diabetes
Past Surgical History: Other (Cardiac (Heart valve replacement 1992), Cholecystectomy (Laparoscopic cholecystectomy 04/14/2018.), (Squamous cell skin cancer removal right upper abdominal wall May 18 2018))
Social History
Tobacco: Former Smoker
Alcohol: Occasional
Drug: None
Living: With Family
Family History
Family History: Not Pertinent
Allergies / Home Medications
Allergy/AdvReac Type Severity Reaction Status Date / Time
merbromin (From Allergy TOPICAL-JUANIS Verified 08/10/25 21:16
Mercurochrome) H
�Medication �Instructions �Recorded �Confirmed �Type
atorvastatin 20 mg tablet 20 mg PO DAILY High cholesterol 05/18/22 08/11/25 History
carvedilol 25 mg tablet 25 mg PO BID Blood pressure 05/18/22 08/11/25 History
latanoprost 0.005 % eye drops 1 drp ophthalmic (eye) QPM Eye 05/18/22 08/11/25 History
condition
umeclidinium 62.5 mcg-vilanterol 1 inh inhalation R DAILY 05/18/22 08/11/25 History
25 mcg/actuation powdr for Lung/breathing issues
inhalation (Anoro Ellipta)
aspirin 81 mg tablet,delayed 81 mg PO DAILY Blood Clot 11/03/24 08/11/25 History
release Prevention/Tx
methimazole 5 mg tablet 2.5 mg PO DAILY Thyroid 11/03/24 08/11/25 History
amiodarone 200 mg tablet 200 mg PO DAILY #0 tabs 11/12/24 08/11/25 Rx
furosemide 40 mg tablet 40 mg PO DAILY #0 tabs 11/12/24 08/11/25 Rx
nitroglycerin 0.4 mg sublingual 0.4 mg sublingual [id number] PRN 11/12/24 08/11/25 Rx
tablet chest pain #0 tabs
risperidone 0.5 mg disintegrating 0.25 mg (1/2 x 0.5 mg) PO [id number] 11/12/24 08/11/25 Rx
tablet PRN agitation severe #0 tabs
gabapentin 100 mg capsule 200 mg PO TID 08/11/25 08/11/25 History
tamsulosin 0.4 mg capsule (Flomax) 0.4 mg PO DAILY 08/11/25 08/11/25 History
Review of Systems
-
Unable to obtain full review of systems at this time due to: Dementia and Acuity
Physical Exam
Vital Signs
Vital Signs
Temp Pulse Resp BP Pulse Ox
98.2 F 61 16 121/52 92
08/10/25 21:16 08/11/25 12:15 08/11/25 10:21 08/11/25 12:00 08/11/25 12:00
Lab Results
WBC 7.9 10^3/uL (4.8-10.8) 08/11/25 06:15
RBC 3.94 10^6/uL (4.70-6.10) L 08/11/25 06:15
Hgb 11.8 g/dL (13.0-18.0) L 08/11/25 06:15
Hct 37.1 % (39.0-52.0) L 08/11/25 06:15
Plt Count 162 10^3/uL (130-400) 08/11/25 06:15
Sodium 138 mmol/L (135-145) 08/11/25 06:15
Potassium 4.2 mmol/L (3.5-5.1) 08/11/25 06:15
Chloride 102 mmol/L (98-107) 08/11/25 06:15
Carbon Dioxide 30 mmol/L (22-30) 08/11/25 06:15
BUN 62 mg/dl (9-20) H 08/11/25 06:15
Creatinine 2.2 mg/dL (0.7-1.3) H 08/11/25 06:15
eGFR 28.99 08/11/25 06:15
Glucose 94 mg/dl (70-99) 08/11/25 06:15
Calcium 9.8 mg/dl (8.4-10.2) 08/11/25 06:15
Xmt-B-Nidgheecrcy Pept 09714 pg/ml 08/10/25 21:41
Albumin 4.0 g/dl (3.5-5.0) 08/10/25 21:41
Physical Exam
General: No Distress and Nontoxic
HEENT: Anicteric and Facial Symmetry
Respiratory: Normal Excursion, Nonlabored Respirations and Other (coarse BS)
Cardiac: S1/S2 and Regular Rate/Rhythm
Breast: Deferred by me
Abdomen: Soft, Nontender and Nondistended
Musculoskeletal: Edema (right leg, small wound lateral foot with erythema)
Skin: No Rash
Neuro: Nonfocal/Grossly Intact (unable to assess with AMS)
Psych: Other (unable to assess with AMS)
Data Reviewed
-
Labs: Labs Reviewed by me, Discussed with Nurse and Discussed with Family
Assessment/Plan
-
IMP:
Right foot cellulitis, possible OM right 5th toe
Confusion -TME possible
DYANA with CKD 3-baseline cr1.5-1.6
CHF
AFIB
Hyperthyroid
DM II
BPH
Plan:
A/w foot wound concern of infection, was on bactrim [employer]
DYANA-possible med effect and prerenal, note recent DYANA 1m ago cr was ~2
check urine studies, bladder scan 264cc
renal US non acute, monitor UOP
BP stable
avoid nephrotoxins and hypotension
ok to hold lasix as he seem to be stable resp status
BNP is high and CXR noted
abx per ID, likely need MRI
d/w daughter at bedside
d/w nursing
[2025-08-11] MEDS: ANCEF 5 IV ×2 (14:22→22:55)
--- NOTE | 2025-08-11 17:24 | CM ---
CM reviewed chart and spoke with pat and his dtr Kimi at bedside in ED
Moved to a new house in January 2025
Address : [address] [facility] [address]
ED Registra updated his address
phone number updated
pt cell [phone]
Kimi dtr cell [phone]
Lives with 2 sons at home in a [address] ramp installed
1st floor set up with BR access
DME: w/c walker, shower chair, commode, raised toilet, grapbars
right foot lateral ulcer for 6 months with worsening symptoms last 2 weeks
Prior level of function: Pt needs assistance with all ADLs
Able to pivot with walker and assistance
Dtr spends most of her time with pt and lives a few blocks away
PCP: Patrick Carter ED Registra updated
Pharmacy [facility] ED Registra updated
Has RX plan
Was current with [facility] prior to admission and the liaison spoke with EODUARD Motley
Hx of SNF
11/2024 [facility]
04/2025 s/p right hip fx [facility] home
07/28 [facility] inpt for UTI and urinary retention
CM will follow up for any dcp needs
[2025-08-11] MEDS: XALATAN OPHTHALMIC SOLUTION 1 DROP BOTH EYES (17:34)
--- NOTE | 2025-08-11 18:37 | CON.MD ---
Consultation - Medical
-
CC: Worsening right foot wound and pain
History of Present Illness:
This is an 84-year-old male with history of diabetes mellitus, CKD 3, atrial fibrillation, pacemaker placement, bio�AVR, heart failure with reduced EF who presented to the ED with worsening right foot pain. His daughter is an RN and presents with
him and states the right foot wound developed during a hospitalization several months ago. He has not seen podiatry or any wound care specialists. His daughter states over the past few days foot became more swollen and red with increased odor.
The wound also has been getting larger. Patient complains of significant right foot pain for the past 3 days. No fevers or chills. Overall, appetite poor. No nausea, vomiting or diarrhea.
Past History
Additional Past Medical History:
Diabetes mellitus
Hypertension
Dementia
COPD
CKD 3
Paroxysmal atrial fibrillation
Aortic stenosis status post bioprosthetic aortic valve replacement
Pacemaker placement (2019)
HFrEF
BPH
Cholecystectomy
Squamous cell carcinoma excision from right upper abdominal wall
R CEA
Allergy History:
merbromin (From Portapure) Allergy (Verified 08/10/25 21:16)
Medications Reviewed: Yes
Current Antibiotics:
Vancomycin
Social History
Tobacco: Former Smoker
Alcohol: None
Drug: None
Living: With Family
Family History
Family History: Not Pertinent
Review of Systems
Review of Systems
General: Change in Appetite; Negative Fever or Chills
HEENT: Negative Sinus Problems or Headache
Cardiovascular: Negative Chest Pain
Respiratory: Cough; Negative Sputum Production
Gasteroenterology: Negative Nausea, Vomiting or Diarrhea
Genital / Urological: Negative Dysuria or Flank Pain
Endocrine: Weakness
All systems: All other systems were reviewed and were negative
Vital Signs
Temp Pulse Resp BP Pulse Ox
98.2 F 64 16 123/61 94
08/10/25 21:16 08/11/25 09:12 08/10/25 21:16 08/11/25 09:12 08/11/25 04:03
Physical Exam
Physical Exam
General Appearance: Chronically Ill, pleasantly confused and forgetful
LE focused exam:
Vascular DPA 2/4, [employer] feeble but palpable + rubor to toes, feet warm and dry, absent digital hair, poor skin texture and turgor
Derm: Necrotic, unstageable wound right 5th met tuberosity with scant drainage expressed, +local erythema and edema to the periwound + malodor, no ascending cellulitis or lymphangitis to the RLE. No bone is exposed.
MSK: Hammertoes 1-5 B/L, pes cavus NWB B/L asif other gross deformity, +pain right lateral foot
Neuro: ambulatory dysfunction, confused/forgetful, protective sensation diminished but not absent
Lab / Diagnostic Study Results:
08/11/25 06:15
Abs Immat Gran (auto) 0.1 10^3/uL (0-0.05) H 08/10/25 21:41
Absolute Neuts (auto) 6.0 10^3/uL (1.4-6.5) 08/10/25 21:41
Absolute Lymphs (auto) 1.1 10^3/uL (1.2-3.4) L 08/10/25 21:41
Absolute Monos (auto) 0.7 10^3/uL (0.1-0.6) H 08/10/25 21:41
Absolute Basos (auto) 0.0 10^3/uL (0-0.2) 08/10/25 21:41
Immature Gran % 0.6 % (0-0.5) H 08/10/25 21:41
Neutrophils % 74.2 % (42.2-75.2) 08/10/25 21:41
Lymphocytes % 13.8 % (20.5-51.1) L 08/10/25 21:41
Monocytes % 8.4 % (1.7-9.3) 08/10/25 21:41
Eosinophils % 2.5 % (0-6) 08/10/25 21:41
Basophils % 0.5 % (0-2) 08/10/25 21:41
ESR 13 mm/hour (0-20) 08/11/25 06:15
Lactic Acid 0.9 mmol/L (0.7-2.0) 08/10/25 21:41
C-Reactive Protein < 5.00 mg/L (0.0-10.00) 08/11/25 06:15
Microbiology Results
Micro:
08/11/25 02:03 Wound Culture - Pending
Foot - Right Gram Stain - Pending
08/10/25 21:41 Blood Culture - Pending
Blood/Venous
08/11/25 CXR: Mild cardiomegaly. Mild pulmonary edema. Linear opacity at the posterior lung base, suggestive of scarring or subsegmental atelectasis.
08/11/25 Foot XRAY: Possible cortical destruction at the base of the fifth metatarsal, with overlying soft tissue wound. Findings are suggestive of osteomyelitis, although MRI would be a more sensitive and specific test
Assessment / Plan:
# 1 Right foot cellulitis-IV ABT per ID
# 2 Unstageable chronic Right foot wound
-Begin local wound care. Orders on chart
# 3 DM2 with PAD- arterial studies pending
# 4 Possible OM right 5th metatarsal base
-Foot xray suspicious for osteo, MRI w/o contrast if unable to have w/contrast as result of DYANA/CKD 3
- If + OM recommend IV abt penitentiary as opposed to surgical cure as result of location and liklihood of resultant clubfoot deformity if PB tendon is detached from tubercle (tendon transfer likely to fail as result of osteopenic changes to
bone)
Will follow with you
Consultation
-
Date/Time Consultation Requested: 08/11/2025 @1008
Date/Time Consultation Performed: 08/11/2025 @6181
Requesting Provider: Dr. Hurley
Performing Provider: GEORGE Hansen DPM
Reason for Consultation: RIght foot infection/ possible OM
--- NOTE | 2025-08-11 22:00 | PTCARENOTE ---
Recieved Pt. from ED. Pt. pulled over to bed. Bed Alarm in place. Pt. oriented to unit and call guzman within reach. Pt. care ongoing
[2025-08-11 22:19] LABS: Glucose - Point of Care 133 mg/dl (70-99)
[2025-08-11] MEDS: BACTROBAN 2% OINTMENT 1 APPLIC TOPICAL (22:54)
[2025-08-12 03:16] VITALS: BP 125/82
[2025-08-12] MEDS: ANCEF 5 IV ×3 (05:04→22:02)
[2025-08-12 06:00] VITALS: BMI 24.3
[2025-08-12 07:21] LABS: Glucose - Point of Care 89 mg/dl (70-99)
[2025-08-12 07:30] VITALS: BP 132/53
[2025-08-12] MEDS: SPIRIVA RESPIMAT 2.5 MCG 2 PUFF INH (08:08)
[2025-08-12] MEDS: STRIVERDI RESPIMAT 2 PUFF INH (08:08)
[2025-08-12 08:24] LABS: Hematocrit 39.6 % (39.0-52.0); Hemoglobin 12.6 g/dL (13.0-18.0); Mean Corp Hgb Conc. 31.8 g/dL (33.0-37.0); Mean Corpuscular Volume 96.8 fL (80.0-94.0); Nucleated Red Blood Cells % 0 % (-); Platelet Count 153 10^3/uL (130-400); Red Cell Dist. Width 15.4 % (11.5-14.5)
[2025-08-12 08:55] LABS: Blood Urea Nitrogen 54 mg/dl (9-20); Calcium 10.0 mg/dl (8.4-10.2); Carbon Dioxide 30 mmol/L (22-30); Chloride 103 mmol/L (98-107); Estimated Creatinine Clearance 24 ml/min; Glucose 90 mg/dl (70-99); Potassium 4.4 mmol/L (3.5-5.1); Sodium 139 mmol/L (135-145); eGFR 32.51
[2025-08-12 08:58] LABS: C-Reactive Protein 9.20 mg/L (0.0-10.00)
[2025-08-12] MEDS: LIPITOR 20 MG PO (10:00)
[2025-08-12] MEDS: COREG 25 MG PO ×2 (10:00→19:38)
[2025-08-12] MEDS: TAPAZOLE 2.5 MG PO (10:01)
[2025-08-12] MEDS: NEURONTIN 200 MG PO (10:01)
[2025-08-12] MEDS: ASPIR LOW (ENTERIC COATED) 81 MG PO (10:01)
[2025-08-12] MEDS: PACERONE 200 MG PO (10:02)
[2025-08-12] MEDS: FLOMAX 0.4 MG PO (10:02)
[2025-08-12] MEDS: HEPARIN 5000 UNITS SC ×2 (10:03→19:39)
[2025-08-12] MEDS: BACTROBAN 2% OINTMENT 1 APPLIC TOPICAL ×2 (10:19→19:38)
[2025-08-12 11:21] VITALS: BP 137/46
[2025-08-12 11:53] LABS: Glucose - Point of Care 134 mg/dl (70-99)
--- NOTE | 2025-08-12 12:26 | W.PN.HOSP.TC ---
Addendum entered and electronically signed by Jeramie Wilson MD 08/12/25 18:22:
Metabolic encephalopathy due to wound infection.
Original Note:
Today's Communication/Plan
-
Antibiotics. Vascular surgery eval. MRI foot
Assessment / Plan
Assessment / Plan
Physical exam:
General: Acutely on chronically ill
HEENT: Normocephalic, Atraumatic and Moist Mucous Membranes
Respiratory: Clear to Auscultation; Negative Wheezes, Rales or Rhonchi
Cardiac: Regular Rhythm and S1/S2
GI: Soft, Nontender and Nondistended
Musculoskeletal: Right foot lateral wound with dry eschar and erythema present. No Clubbing, No Cyanosis and No Edema
Neuro: Alert and awake, disoriented, no neurological deficits but generalized weakness
A/P:
Wound infection - Diabetic foot ulcer. Failed outpatient abx. Cellulitis of right foot with necrotic wound on the right lateral foot.
- Podiatry input appreciated and as a result of Achilles tightness podiatry recommend close observance of heels and recommended Prevalon boots but no surgical intervention due to location close to the tendon.
-Plan for MRI of foot for further evaluation
-Vascular surgery evaluation per ID recommendation given abnormal arterial Dopplers.
- Follow-up blood culture and wound culture
- Continue IV cefazolin
- ID on consult and appreciated input
- Discussed with daughter today, Kimi--> updated plan of care and evaluations pending as vascular surgeon needs to see him and also MRI and monitoring labs. We also broached the subject of CODE STATUS and she understand his prognosis is guarded but
they want to pursue continued aggressive medical treatment and wants to remain full code.
Confusion - Acute on chronic dementia thought secondary to wound infection but no systemic signs. Similar presentation in november with CHF exacerbation.
- Family does states that he has been diagnosed with dementia. Family thinks it is 'vascular dementia'. With this hospitalization understandably his mentation might get worse so we will monitor closely.
- treat infection as above
DYANA - Cr 2.4. Bl 1.5. has 250 ml in bladder before void. Denies urinary symptoms. Recently on bactrim x 4 days. Appears euvolemic but BP seems lower than usual baseline.
- possible interstitial nephritis - bactrim held
- hold iv fluids for now
- check urine Na, creatinine and u/a
- treat infection
- renal u/s
- nephrology consult
CHF - haziness to chest xray. 95% on RA with no crackles or wheezes. Trace pedal/ankle edema on the right foot only. Dry MM. Weight 66Kg down from 73 on last discharge. Besides xray and chronically elevated BNP, no evidence of volume overload.
BNP reduced compared to november.
- hold lasix for now
- hold fluids
- continued GDMT as tolerated with carvedilol, continue aspirin/statin
- daily weights and i/os
- diet as tolerated for now
AFIB
- continue carrvedilol
- not on ac
Hypertheryoid
- check tsh
- continue methimazole
DM II - Not currenlty requiring any therapy
- diabetic diet and monitor daily chemistries for now
DVT PPX - heparin sq
Code status - Full Code
Total time spent on today's encounter was 52 minutes which included time spent in counseling the patient/family regarding diagnosis and treatment plan as listed above, goals of care, and symptom management. Case was discussed with nursing staff,
specialists, and care coordinators/case management. All labs and imaging personally reviewed by me. Remainder the time spent in detailed review of previous records, lab data, imaging, and other medical provider documentation.
Anticipated Discharge: > 48 hours
Subjective/Interval History
-
Date of Service: August 12, 2025
Patient denies nausea vomiting or diarrhea. No chest pain or shortness of breath. Afebrile
Objective Data
-
Labs:
Laboratory Results
08/12/25 08/12/25
07:45 07:46
WBC 7.3
Hgb 12.6 L
Hct 39.6
Plt Count 153
Sodium 139
Potassium 4.4
Chloride 103
Carbon Dioxide 30
BUN 54 H
Creatinine 2.0 H
Glucose 90
Calcium 10.0
Vital Signs:
Vital Signs
Temp Pulse Resp BP Pulse Ox
97.8 F 61 18 137/46 97
08/12/25 11:21 08/12/25 11:21 08/12/25 11:21 08/12/25 11:21 08/12/25 11:21
--- NOTE | 2025-08-12 12:35 | W.PN.NEPH.PH ---
Today's Communication / Plan
-
follow BMP
Assessment/Plan
-
IMP:
Right foot cellulitis, possible OM right 5th toe
Confusion -TME possible
DYANA with CKD 3-baseline cr1.5-1.6
CHF
AFIB
Hyperthyroid
DM II
BPH
Plan:
follow BMP
hold on urine studies to avoid straight cath
follow bladder scan
holding lasix for now
-
-
Date of Service: August 12, 2025
CC / HPI / ROS
-
Chief Complaint:
DYANA
History of Present Illness:
DYANA/Cr down to 2
BP stable
on ancef for R foot cellulitis
Review of Systems:
no CP/SOB
Labs
-
Labs:
WBC 7.3 10^3/uL (4.8-10.8) 08/12/25 07:46
RBC 4.09 10^6/uL (4.70-6.10) L 08/12/25 07:46
Hgb 12.6 g/dL (13.0-18.0) L 08/12/25 07:46
Hct 39.6 % (39.0-52.0) 08/12/25 07:46
Plt Count 153 10^3/uL (130-400) 08/12/25 07:46
Sodium 139 mmol/L (135-145) 08/12/25 07:45
Potassium 4.4 mmol/L (3.5-5.1) 08/12/25 07:45
Chloride 103 mmol/L (98-107) 08/12/25 07:45
Carbon Dioxide 30 mmol/L (22-30) 08/12/25 07:45
BUN 54 mg/dl (9-20) H 08/12/25 07:45
Creatinine 2.0 mg/dL (0.7-1.3) H 08/12/25 07:45
eGFR 32.51 08/12/25 07:45
Glucose 90 mg/dl (70-99) 08/12/25 07:45
Calcium 10.0 mg/dl (8.4-10.2) 08/12/25 07:45
Ahz-I-Yrqsgtujyyu Pept 63414 pg/ml 08/12/25 07:46
Albumin 4.0 g/dl (3.5-5.0) 08/10/25 21:41
Physical Exam
-
Vital Signs:
Vital Signs
Temp Pulse Resp BP Pulse Ox
97.8 F 61 18 137/46 97
08/12/25 11:21 08/12/25 11:21 08/12/25 11:21 08/12/25 11:21 08/12/25 11:21
Cardiovascular:: Regular rate and rhythm
Respiratory:: Bilateral: CTA
Lung Excursion:: Normal
Abdomen:: Nontender and Soft
Bowel Sounds:: Normal
Extremity Edema:: None: Bilateral:
--- NOTE | 2025-08-12 13:55 | CM ---
Chart reviewed and patient would benefit from PT/OT to assist with discharge planning, patient is current with [facility]. Referral sent in [facility].
[facility]
[phone]
--- NOTE | 2025-08-12 14:01 | W.PN.ID1 ---
Date of Service
Date of Service: August 12, 2025
Today's Communication
Consult Vascular.
Continue cefazolin.
Assessment / Plan
# Right foot cellulitis, improving
# Right foot non-healing wound
# DYANA on CKD3
# DM
-Arterial duplex: Popliteal artery velocity elevation and velocity ratio suggestive of >75% stenosis.
-Foot xray suspicious for osteo.
-MRI pending
- Podiatry does not recommend surgical intervention due to location of wound.
- Consult placed to Vascular or PAD.
- Continue cefazolin (d2).
Conditions present on admission:
Diabetes mellitus
Hypertension
Dementia
COPD
CKD 3
Paroxysmal atrial fibrillation
Aortic stenosis status post bioprosthetic aortic valve replacement
Pacemaker placement (2018)
HFrEF
BPH
Cholecystectomy
Squamous cell carcinoma excision from right upper abdominal wall
R CEA
Chief Complaint
-: Cellulitis and Other (foot wound)
Subjective / Review of Systems
Foot still painful
Vital Signs / Physical Exam
Vital Signs
Vital Signs
Temp Pulse Resp BP Pulse Ox
97.8 F 61 18 137/46 97
08/12/25 11:21 08/12/25 11:21 08/12/25 11:21 08/12/25 11:21 08/12/25 11:21
Physical Exam
Constitutional: Chronically Ill
Cardiovascular: Regular Rate and S1/S2
Pulmonary: Clear
Gastrointestinal: Soft, Non Tender, Non Distended and Normal Bowel Sounds
Extremities: Edema (Right foot edema resolving) and Erythema (Right forefoot erythema decreased)
Objective Data
Lab Data
Lab Results
08/12/25 07:46
08/12/25 07:45
ESR 17 mm/hour (0-20) 08/12/25 07:46
Estimated Creat Clear 24 ml/min 08/12/25 07:45
Lactic Acid 0.9 mmol/L (0.7-2.0) 08/10/25 21:41
Total Bilirubin 0.8 mg/dl (0.2-1.3) 08/10/25 21:41
AST 155 U/L (17-59) H 08/10/25 21:41
ALT 138 U/L (0-50) H 08/10/25 21:41
Alkaline Phosphatase 116 U/L (38-126) 08/10/25 21:41
C-Reactive Protein 9.20 mg/L (0.0-10.00) 08/12/25 07:46
Most recent labs reviewed.
Micro Results:
08/11/25 02:03 Wound Culture - Preliminary
Foot - Right Gram negative bacilli
Staphylococcus aureus
Gram Stain - Preliminary
08/10/25 21:41 Blood Culture - Preliminary
Blood/Venous No Growth in 24 hours- Final report to follow
08/11/25 CXR: Mild cardiomegaly. Mild pulmonary edema. Linear opacity at the posterior lung base, suggestive of scarring or subsegmental atelectasis.
08/11/25 Foot XRAY: Possible cortical destruction at the base of the fifth metatarsal, with overlying soft tissue wound. Findings are suggestive of osteomyelitis, although MRI would be a more sensitive and specific test
--- NOTE | 2025-08-12 14:49 | PN.CDI ---
CDI
- -
CDI:
Physician Documentation Request
Admit Date: 08/11/25 04:30
Dear Doctor Steve,
Patient admitted with diabetic foot ulcer.
08/11 PN, 'Confusion - Acute on chronic dementia thought secondary to wound infection but no systemic signs.... treat infection as above.'
Based on the above, could you clarify in the Progress Notes and Discharge Summary which, if any of the following, is the most likely etiology of the confusion:
Metabolic encephalopathy due to wound infection
Toxic metabolic encephalopathy due to wound infection
Acute on chronic dementia only
Other
Use of terms such as suspected, likely, concern for, or probable (associated with a specific diagnosis that is being evaluated, monitored, or treated as if it exists) are acceptable and can be coded in the inpatient setting, when documented at the
time of discharge.
Thank you,
Magdalena OLIVERAN,RN,CCDS
CDI Specialist
Available via [place]
Please use your independent medical judgment in providing your response.
--- NOTE | 2025-08-12 15:42 | W.PN.POD ---
Today's Communication
Today's Communication
Wound was re evaluated. As result of achilles tightness I recommend close observance of heels. Also rec Prevalon boots B/L. Pt states he has, but does not want to wear them.
RE osteomyelitis: MRI pending today
--> Wound will likely require ST debridement (and bone cx if MRI + OM), however, is not a candidate for resection of infected bone as result of location and tendon attachment and we will await vascular surgery input regarding PAD (>75%
stenosis Pop artery) RLE
Following closely
Assessment / Plan
-
DM2 with PAD- PAD w.arteriocclusive disease
Gait dysfunction
Necrotic, unstageable wound right lateral foot (5th met tubercle)
Cellulitis right foot- improving on IVABT
Osteomyelitis right foot - .
Subjective
Chief Complaint
Right foot wound and infection
Subjective
Pt seen with legs hanging off of bed (he is about to go to MRI soon) he sates the foot is 'touchy'
Objective
Temp Pulse Resp BP Pulse Ox
97.8 F 61 18 137/46 97
08/12/25 11:21 08/12/25 11:21 08/12/25 11:21 08/12/25 11:21 08/12/25 11:21
08/12/25 07:46
08/12/25 07:45
Vital Signs and Lab results were reviewed.
Arterial study: IMPRESSION:
1. Technically limited study secondary to patient motion and inability to remain still. Ankle and toe brachial indices, therefore, unable to be measured.
2. Right lower extremity: Multiphasic waveforms in the common femoral, profunda femoral, and proximal superficial femoral arteries. Transition to monophasic waveforms in the mid superficial femoral artery. Mild velocity elevation in mid
superficial femoral artery, but velocity ratio suggestive of less than 50% stenosis. Popliteal artery velocity elevation and velocity ratio suggestive of >75% stenosis.
3. Left lower extremity: Monophasic waveforms throughout lower extremity arteries suggestive of aorto-iliac (inflow) disease. No velocity elevation to suggest any significant stenosis in the infrainguinal arteries.
Inspection: Cellulitis (decreased), Inflammation (present right foot) and Ulcer (right lateral foot with malodor and necrosis)
Review of Systems
Review of Systems
Review of Systems: No Fever (denies), No Chills (denies) and No Nausea
Physical Exam
Physical Exam
General: No Apparent Distress, Conversant and Other (confused/forgetful- pleasant)
Musculoskeletal: No Clubbing and Other (contracted/tight achilles/posterior calves B/L with cavus foot deformity and digital deformities B/L feet)
Skin: Pressure Ulcer - Stage IV (Necrotic/unstageable)
Neuro: Protective Sensation Diminished and Other
Vascular: Pedal Hair Absent, Skin Temperature Warm to Cool and Other (+rubor to toes)
Dorsalis Pedis: Diminished
Posterior Tibialis: Absent
[2025-08-12 15:47] VITALS: BP 151/57
[2025-08-12 17:34] LABS: Glucose - Point of Care 148 mg/dl (70-99)
[2025-08-12] MEDS: XALATAN OPHTHALMIC SOLUTION 1 DROP BOTH EYES (18:10)
[2025-08-12 19:00] VITALS: BP 139/52
--- NOTE | 2025-08-12 19:02 | CON.VAS ---
Consultation
Consultation Request
Requesting Provider: Propato/Hospitalist
Performing Provider: Nikia
Reason for Consultation: PAD/CLTI
Medical History
-
Chief Complaint: CLTI
History of Present Illness:
Asked to see this 84-year-old male for right lateral foot wound
84 years old
Multiple medical problems
Developed a right lateral foot wound and small toe ulcer on the right
Evaluated by podiatry
Vascular studies performed which I personally reviewed.
Patient also with CKD and acute kidney injury. Nephrology is following
Allergies / Home Medications
Allergy/AdvReac Type Severity Reaction Status Date / Time
merbromin (From Allergy TOPICAL-JUANIS Verified 08/10/25 21:16
Mercurochrome) H
�Medication �Instructions �Recorded �Confirmed �Type
atorvastatin 20 mg tablet 20 mg PO DAILY High cholesterol 05/18/22 08/11/25 History
carvedilol 25 mg tablet 25 mg PO BID Blood pressure 05/18/22 08/11/25 History
latanoprost 0.005 % eye drops 1 drp ophthalmic (eye) QPM Eye 05/18/22 08/11/25 History
condition
umeclidinium 62.5 mcg-vilanterol 1 inh inhalation R DAILY 05/18/22 08/11/25 History
25 mcg/actuation powdr for Lung/breathing issues
inhalation (Anoro Ellipta)
aspirin 81 mg tablet,delayed 81 mg PO DAILY Blood Clot 11/03/24 08/11/25 History
release Prevention/Tx
methimazole 5 mg tablet 2.5 mg PO DAILY Thyroid 11/03/24 08/11/25 History
amiodarone 200 mg tablet 200 mg PO DAILY #0 tabs 11/12/24 08/11/25 Rx
furosemide 40 mg tablet 40 mg PO DAILY #0 tabs 11/12/24 08/11/25 Rx
nitroglycerin 0.4 mg sublingual 0.4 mg sublingual [id number] PRN 11/12/24 08/11/25 Rx
tablet chest pain #0 tabs
risperidone 0.5 mg disintegrating 0.25 mg (1/2 x 0.5 mg) PO [id number] 11/12/24 08/11/25 Rx
tablet PRN agitation severe #0 tabs
gabapentin 100 mg capsule 200 mg PO TID Neurological 08/11/25 08/11/25 History
Condition
tamsulosin 0.4 mg capsule (Flomax) 0.4 mg PO DAILY Urinary Issue 08/11/25 08/11/25 History
Physical Exam
Vital Signs
Temp Pulse Resp BP Pulse Ox
97.3 F 62 18 151/57 95
08/12/25 15:47 08/12/25 15:47 08/12/25 15:47 08/12/25 15:47 08/12/25 15:47
Lab Results
08/12/25 07:46
08/12/25 07:45
Uxl-K-Avavfpjdtsx Pept 82920 pg/ml 08/12/25 07:46
Physical Exam
General: Other (NAD, frail elderly male. Non labored breathing. Alert. Non palp right pedal pulses. Palp fem pulse. Right lateral foot wound along 5th metatarsal. Dry eschar covering. No drainage or odor. Small toe ulcer. )
Assessment / Plan
-
Chronic limb threatening ischemia manifested by nonhealing right lateral foot wound. Abnormal vascular lab studies. Acute kidney injury superimposed on chronic kidney disease.
I am recommending a lower extremity arteriogram with possible endovascular intervention. Timing of this will depend on discussion with family, clinical trajectory and improvement in kidney function. Technical aspects of the procedure were
discussed with him. Benefits and rationale for this approach were discussed with him. Operative risks were discussed with him including but not limited to arterial access site injury, bleeding, contrast nephropathy, infection, distal embolization,
inability to successfully complete the endovascular intervention and the need for additional procedures. Will follow along with you. Angio hopefully at some point next week. I will discuss this with his daughter Kimi who is POA.
Call with questions/concerns
[id number]
[facility]
Data Reviewed
-
Ultrasound: Image Personally Visualized and interpreted, Report Reviewed by me, Discussed with Physician and Discussed with Patient
Labs: Labs Reviewed by me
[2025-08-12] MEDS: DILAUDID 0.25 MG IV (20:19)
[2025-08-12 21:27] LABS: Glucose - Point of Care 159 mg/dl (70-99)
[2025-08-12 23:00] VITALS: BP 136/55
[2025-08-13 03:00] VITALS: BP 130/50
[2025-08-13] MEDS: ANCEF 5 IV (05:08)
[2025-08-13 06:00] VITALS: BMI 23.3
[2025-08-13 07:00] VITALS: BP 149/53
[2025-08-13 07:33] LABS: Hematocrit 39.1 % (39.0-52.0); Hemoglobin 12.5 g/dL (13.0-18.0); Mean Corp Hgb Conc. 32.0 g/dL (33.0-37.0); Mean Corpuscular Volume 94.4 fL (80.0-94.0); Platelet Count 156 10^3/uL (130-400); Red Cell Dist. Width 15.8 % (11.5-14.5)
[2025-08-13] MEDS: STRIVERDI RESPIMAT 2 PUFF INH (07:51)
[2025-08-13] MEDS: SPIRIVA RESPIMAT 2.5 MCG 2 PUFF INH (07:51)
[2025-08-13 08:01] LABS: Blood Urea Nitrogen 46 mg/dl (9-20); Calcium 10.2 mg/dl (8.4-10.2); Carbon Dioxide 28 mmol/L (22-30); Chloride 106 mmol/L (98-107); Estimated Creatinine Clearance 30 ml/min; Glucose 99 mg/dl (70-99); Potassium 4.1 mmol/L (3.5-5.1); Sodium 140 mmol/L (135-145); eGFR 42.49
[2025-08-13] MEDS: COREG 25 MG PO ×2 (08:53→20:06)
[2025-08-13] MEDS: LIPITOR 20 MG PO (08:53)
[2025-08-13] MEDS: ASPIR LOW (ENTERIC COATED) 81 MG PO (08:53)
[2025-08-13] MEDS: NEURONTIN 200 MG PO (08:53)
[2025-08-13] MEDS: FLOMAX 0.4 MG PO (08:53)
[2025-08-13] MEDS: PACERONE 200 MG PO (08:53)
[2025-08-13] MEDS: HEPARIN 5000 UNITS SC ×2 (08:53→20:07)
[2025-08-13] MEDS: TAPAZOLE 2.5 MG PO (08:53)
[2025-08-13] MEDS: BACTROBAN 2% OINTMENT 1 APPLIC TOPICAL (08:54)
[2025-08-13 11:00] VITALS: BP 130/47
--- NOTE | 2025-08-13 11:20 | W.PN.HOSP.TC ---
Today's Communication/Plan
-
Arteriogram planning. Cardio eval. ID and podiatry reeval
Assessment / Plan
Assessment / Plan
Physical exam:
General: Acutely on chronically ill
HEENT: Normocephalic, Atraumatic and Moist Mucous Membranes
Respiratory: Clear to Auscultation; Negative Wheezes, Rales or Rhonchi
Cardiac: Regular Rhythm and S1/S2
GI: Soft, Nontender and Nondistended
Musculoskeletal: Right foot lateral wound with dry eschar and erythema present. No Clubbing, No Cyanosis and No Edema
Neuro: Alert and awake, disoriented, no neurological deficits but generalized weakness
A/P:
Wound infection - Diabetic foot ulcer. Failed outpatient abx. Cellulitis of right foot with necrotic wound on the right lateral foot.
- Podiatry input appreciated and as a result of Achilles tightness podiatry recommend close observance of heels and recommended Prevalon boots but no surgical intervention due to location close to the tendon.
-Plan for MRI of foot for further evaluation
-Vascular surgery evaluation per ID recommendation given abnormal arterial Dopplers.
- Follow-up blood culture and wound culture
- Continue IV cefazolin
- ID on consult and appreciated input
- Discussed with daughter today, Kimi--> updated plan of care and evaluations pending as vascular surgeon needs to see him and also MRI and monitoring labs. We also broached the subject of CODE STATUS and she understand his prognosis is guarded but
they want to pursue continued aggressive medical treatment and wants to remain full code.
08/13:
ID recommends to hold off on antibiotics to increase yield on cultures intraoperatively
MRI suspicion for osteomyelitis
Superficial cultures growing Staph aureus MSSA and gram-negative bacilli but that would not be as accurate as bone cultures.
Blood cultures sterile so far
Discussed with daughter yesterday
Cardiology consulted for preop and heart failure eval
Podiatry and vascular following
Vascular planning to do arteriogram this upcoming week
Confusion - Acute on chronic dementia thought secondary to wound infection but no systemic signs. Similar presentation in november with CHF exacerbation.
- Family does states that he has been diagnosed with dementia. Family thinks it is 'vascular dementia'. With this hospitalization understandably his mentation might get worse so we will monitor closely.
- treat infection as above
08/13:
Appears to be close to his baseline
Continue to monitor mental status
DYANA - Cr 2.4. Bl 1.5. has 250 ml in bladder before void. Denies urinary symptoms. Recently on bactrim x 4 days. Appears euvolemic but BP seems lower than usual baseline.
- possible interstitial nephritis - bactrim held
- hold iv fluids for now
- check urine Na, creatinine and u/a
- treat infection
- renal u/s
- nephrology consult
08/13:
Creatinine improving
Today creatinine 1.6 down from 2.0 yesterday and 2.4 peak previously
CHF - haziness to chest xray. 95% on RA with no crackles or wheezes. Trace pedal/ankle edema on the right foot only. Dry MM. Weight 66Kg down from 73 on last discharge. Besides xray and chronically elevated BNP, no evidence of volume overload.
BNP reduced compared to november.
- hold lasix for now
- hold fluids
- continued GDMT as tolerated with carvedilol, continue aspirin/statin
- daily weights and i/os
- diet as tolerated for now
08/13:
Cardio eval
Continue holding diuretics
AFIB
- continue carrvedilol
- not on ac
Hypertheryoid
- check tsh
- continue methimazole
DM II - Not currenlty requiring any therapy
- diabetic diet and monitor daily chemistries for now
DVT PPX - heparin sq
Code status - Full Code
Total time spent on today's encounter was 52 minutes which included time spent in counseling the patient/family regarding diagnosis and treatment plan as listed above, goals of care, and symptom management. Case was discussed with nursing staff,
specialists, and care coordinators/case management. All labs and imaging personally reviewed by me. Remainder the time spent in detailed review of previous records, lab data, imaging, and other medical provider documentation.
Anticipated Discharge: > 48 hours
Subjective/Interval History
-
Date of Service: August 13, 2025
No chest pain or shortness of breath. Afebrile
Objective Data
-
Labs:
Laboratory Results
08/13/25
06:34
WBC 8.0
Hgb 12.5 L
Hct 39.1
Plt Count 156
Sodium 140
Potassium 4.1
Chloride 106
Carbon Dioxide 28
BUN 46 H
Creatinine 1.6 H
Glucose 99
Calcium 10.2
Vital Signs:
Vital Signs
Temp Pulse Resp BP Pulse Ox
98.6 F 16 16 149/53 96
08/13/25 07:00 08/13/25 07:55 08/13/25 07:00 08/13/25 07:00 08/13/25 07:00
I&O
08/12/25 08/13/25 08/14/25
06:59 06:59 06:59
Intake Total 600 / 600
Output Total 400 / 400
Balance 200 / 200
--- NOTE | 2025-08-13 11:32 | W.PN.ID1 ---
Date of Service
Date of Service: August 13, 2025
Today's Communication
Hold abx cefazolin to increase intra-op cx yield
Assessment / Plan
# Right foot osteo, 5th metatarsal
# Right foot non-healing wound, 5th metatarsal
# PAD
# DYANA on CKD3
# DM
-MRI + osteo
- Podiatry planning for wound debridement, bone cx
- Vascular planning for arteriogram.
- Pt hemodynamically stable, hold abx cefazolin (d3) to increase intra-op cx yield.
Conditions present on admission:
Diabetes mellitus
Hypertension
Dementia
COPD
CKD 3
Paroxysmal atrial fibrillation
Aortic stenosis status post bioprosthetic aortic valve replacement
Pacemaker placement (2018)
HFrEF
BPH
Cholecystectomy
Squamous cell carcinoma excision from right upper abdominal wall
R CEA
Chief Complaint
-: Cellulitis and Other (foot wound)
Subjective / Review of Systems
Foot pain same.
Vital Signs / Physical Exam
Vital Signs
Vital Signs
Temp Pulse Resp BP Pulse Ox
98.6 F 16 16 149/53 96
08/13/25 07:00 08/13/25 07:55 08/13/25 07:00 08/13/25 07:00 08/13/25 07:00
Physical Exam
Constitutional: Chronically Ill
Cardiovascular: Regular Rate and S1/S2
Pulmonary: Clear
Gastrointestinal: Soft, Non Tender, Non Distended and Normal Bowel Sounds
Extremities: Negative Edema (Right foot edema resolving) or Erythema (Right forefoot erythema decreased)
Wound: Other (right lateral foot wound necrosis)
Neurological: AO x 3
Objective Data
Lab Data
Lab Results
08/13/25 06:34
08/13/25 06:34
ESR 17 mm/hour (0-20) 08/12/25 07:46
Estimated Creat Clear 30 ml/min 08/13/25 06:34
Lactic Acid 0.9 mmol/L (0.7-2.0) 08/10/25 21:41
Total Bilirubin 0.8 mg/dl (0.2-1.3) 08/10/25 21:41
AST 155 U/L (17-59) H 08/10/25 21:41
ALT 138 U/L (0-50) H 08/10/25 21:41
Alkaline Phosphatase 116 U/L (38-126) 08/10/25 21:41
C-Reactive Protein 9.20 mg/L (0.0-10.00) 08/12/25 07:46
Most recent labs reviewed.
Micro Results:
08/11/25 02:03 Wound Culture - Preliminary
Foot - Right S aureus-Methicillin Sensitive
Gram negative bacilli
Gram Stain - Preliminary
08/10/25 21:41 Blood Culture - Preliminary
Blood/Venous No Growth in 48 hours- Final report to follow
08/12/25 MRI R foot: Nonenhancing soft tissue tract extending off the plantar and lateral aspect of the base of the fifth metatarsal bone, compatible with the given history of necrotic wound in this region. There is mild enhancement of the marrow of
the base of the fifth metatarsal bone adjacent to this soft tissue tract, suspicious for osteomyelitis.
08/11/25 CXR: Mild cardiomegaly. Mild pulmonary edema. Linear opacity at the posterior lung base, suggestive of scarring or subsegmental atelectasis.
08/11/25 Foot XRAY: Possible cortical destruction at the base of the fifth metatarsal, with overlying soft tissue wound. Findings are suggestive of osteomyelitis, although MRI would be a more sensitive and specific test
MRI: Report Reviewed
--- NOTE | 2025-08-13 11:32 | W.PN.POD ---
Today's Communication
Today's Communication
Osteomyelitis right foot - MRI suspicious for OM, will continue IV abt and wound care- new orders written, will begin santyl ointment.
Continue to offload and protect. After Agram will determin need for debridement of the wound as well as bone cx
Assessment / Plan
-
DM2 with PAD- PAD w/arteriocclusive disease -Dr Montejo following, recommends Agram once renal status improved
Gait dysfunction
Necrotic, unstageable wound right lateral foot (5th met tubercle)
Cellulitis right foot- improving on IV ABT
Osteomyelitis right foot - MRI suspicious for OM, will continue IV abt and wound care- new orders written. Continue to offload and protect.
Subjective
Chief Complaint
right foot wound/cellulitis
Objective
Temp Pulse Resp BP Pulse Ox
98.6 F 16 16 149/53 96
08/13/25 07:00 08/13/25 07:55 08/13/25 07:00 08/13/25 07:00 08/13/25 07:00
08/13/25 06:34
08/13/25 06:34
Vital Signs and Lab results were reviewed.
MRI 08/12/2025
IMPRESSION: Nonenhancing soft tissue tract extending off the plantar and lateral aspect of the base of the fifth metatarsal bone, compatible with the given history of necrotic wound in this region.
There is mild enhancement of the marrow of the base of the fifth metatarsal bone adjacent to this soft tissue tract, suspicious for osteomyelitis.
No evidence for abscess.
Review of Systems
Review of Systems
Review of Systems: No Fever, No Chills and No Nausea
Physical Exam
Physical Exam
General: No Apparent Distress
Skin: Pressure Ulcer - Stage IV and Necrotic (unstageable + malodor cellulitis improved)
Neuro: Protective Sensation Diminished and Other (confused/forgetful)
Vascular: Pedal Hair Absent and Skin Temperature Warm to Cool
Dorsalis Pedis: Diminished
Posterior Tibialis: Absent
--- NOTE | 2025-08-13 11:54 | CM ---
manager land reached out to patient's daughter, Kimi and offered her skilled placement and she declines skilled placement per Kimi patient's daughter she wants home with visiting nurses.
James
[phone]
--- NOTE | 2025-08-13 12:30 | W.PN.NEPH.PH ---
Today's Communication / Plan
-
follow BMP
Assessment/Plan
-
IMP:
Right foot cellulitis, possible OM right 5th toe
Confusion -TME possible
DYANA with CKD 3-baseline cr1.5-1.6
CHF
AFIB
Hyperthyroid
DM II
BPH
Plan:
follow BMP
holding lasix for now, can restart on dc
continue intermittent PVR
-
-
Date of Service: August 13, 2025
CC / HPI / ROS
-
Chief Complaint:
DYANA
History of Present Illness:
DYANA/Cr down to 1.6
BP stable
on ancef for R foot cellulitis
Review of Systems:
no CP/SOB
Labs
-
Labs:
WBC 8.0 10^3/uL (4.8-10.8) 08/13/25 06:34
RBC 4.14 10^6/uL (4.70-6.10) L 08/13/25 06:34
Hgb 12.5 g/dL (13.0-18.0) L 08/13/25 06:34
Hct 39.1 % (39.0-52.0) 08/13/25 06:34
Plt Count 156 10^3/uL (130-400) 08/13/25 06:34
Sodium 140 mmol/L (135-145) 08/13/25 06:34
Potassium 4.1 mmol/L (3.5-5.1) 08/13/25 06:34
Chloride 106 mmol/L (98-107) 08/13/25 06:34
Carbon Dioxide 28 mmol/L (22-30) 08/13/25 06:34
BUN 46 mg/dl (9-20) H 08/13/25 06:34
Creatinine 1.6 mg/dL (0.7-1.3) H 08/13/25 06:34
eGFR 42.49 08/13/25 06:34
Glucose 99 mg/dl (70-99) 08/13/25 06:34
Calcium 10.2 mg/dl (8.4-10.2) 08/13/25 06:34
Ksw-H-Omnoighbwfs Pept 52246 pg/ml 08/12/25 07:46
Albumin 4.0 g/dl (3.5-5.0) 08/10/25 21:41
Physical Exam
-
Vital Signs:
Vital Signs
Temp Pulse Resp BP Pulse Ox
98.6 F 62 18 130/47 93
08/13/25 11:00 08/13/25 11:00 08/13/25 11:00 08/13/25 11:00 08/13/25 11:00
Cardiovascular:: Regular rate and rhythm
Respiratory:: Bilateral: Coarse
Lung Excursion:: Normal
Abdomen:: Nontender and Soft
Bowel Sounds:: Normal
Extremity Edema:: None: Bilateral:
[2025-08-13 15:00] VITALS: BP 140/65
--- NOTE | 2025-08-13 16:17 | CON.CAR ---
Consultation
Consultation Request
Date/Time Consultation Requested: 08/13/25
Date/Time Consultation Performed: 08/13/25
Requesting Provider: Dr Wilson
Performing Provider: Dr Gamez
Reason for Consultation: preop ?chf
Medical History
-
Chief Complaint: preop
History of Present Illness:
84 y/o male (follows with Dr. Gamez) with hypertension, PAF (not on OAC due to falls and bleeding, refuses Watchman), severe s/p bio AVR, severe pulmonary hypertension, SSS s/p pacemaker, JAVON on CPAP, dyslipidemia, obesity, GERD, NICM EF
40-45%, COPD, LBBB and DM2 and fall in April with a comminuted displaced right intertrochanter femoral fracture and is now fully dependant and in wheelchair. He lives with family. He has also had brief decline in EF to 25-30% then up to 40-45%.
He presented for evaluation of nonhealing wounds. Now, there is concern for poor wound healing and OM.
Of note, his son Scottie is at the bedside and adds to the history. I noted his weight loss and he reports his father eats very little. He is laying flat in the bed without any complaint of chest pain or sob. LE edema is improved.
Past Medical History
Past Medical History: Arrhythmias, CHF, COPD, GERD, HTN, Hypercholesterolemia, NIDDM and Valvular Disease
Social History
Tobacco: Non-Smoker
Alcohol: None
Drug: None
Living: Other (lives with family)
Family History
Family History: Reviewed & Not Pertinent
Allergies / Home Medications
Allergy/AdvReac Type Severity Reaction Status Date / Time
merbromin (From Allergy TOPICAL-JUANIS Verified 08/10/25 21:16
Mercurochrome) H
�Medication �Instructions �Recorded �Confirmed �Type
atorvastatin 20 mg tablet 20 mg PO DAILY High cholesterol 05/18/22 08/11/25 History
carvedilol 25 mg tablet 25 mg PO BID Blood pressure 05/18/22 08/11/25 History
latanoprost 0.005 % eye drops 1 drp ophthalmic (eye) QPM Eye 05/18/22 08/11/25 History
condition
umeclidinium 62.5 mcg-vilanterol 1 inh inhalation R DAILY 05/18/22 08/11/25 History
25 mcg/actuation powdr for Lung/breathing issues
inhalation (Anoro Ellipta)
aspirin 81 mg tablet,delayed 81 mg PO DAILY Blood Clot 11/03/24 08/11/25 History
release Prevention/Tx
methimazole 5 mg tablet 2.5 mg PO DAILY Thyroid 11/03/24 08/11/25 History
amiodarone 200 mg tablet 200 mg PO DAILY #0 tabs 11/12/24 08/11/25 Rx
furosemide 40 mg tablet 40 mg PO DAILY #0 tabs 11/12/24 08/11/25 Rx
nitroglycerin 0.4 mg sublingual 0.4 mg sublingual [id number] PRN 11/12/24 08/11/25 Rx
tablet chest pain #0 tabs
risperidone 0.5 mg disintegrating 0.25 mg (1/2 x 0.5 mg) PO [id number] 11/12/24 08/11/25 Rx
tablet PRN agitation severe #0 tabs
gabapentin 100 mg capsule 200 mg PO TID Neurological 08/11/25 08/11/25 History
Condition
tamsulosin 0.4 mg capsule (Flomax) 0.4 mg PO DAILY Urinary Issue 08/11/25 08/11/25 History
Review of Systems
-
All other systems: Negative unless noted
Physical Exam
Vital Signs
Temp Pulse Resp BP Pulse Ox
97.8 F 66 18 140/65 93
08/13/25 15:00 08/13/25 15:00 08/13/25 15:00 08/13/25 15:00 08/13/25 15:00
Lab Results
08/13/25 06:34
08/13/25 06:34
Sni-V-Rgacywqnlzz Pept 49595 pg/ml 08/12/25 07:46
Physical Exam
General: Well Developed and Well Nourished
HEENT: Normocephalic
Respiratory: Clear; Negative Wheezes, Crackles or Rhonchi
Cardiac: S1/S2, Regular Rhythm and Irregular Rhythm; Negative Murmur, Rub or Peripheral Edema
Neuro: AO x 3
Impression / Plan
-
Chronic limb threatening ischemia manifested by nonhealing right lateral foot wound
-He is euvolemic, cr improved. He has poor functional status and would be elevated but not prohibitive risk for any/all procedures.
-vascular planning arteriogram and possible intervention
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
-Podiatry and ID followin on IV Abx
-plan for possible debridement and bone cx after vascular eval
DYANA:
--He is euvolemic, cr improved. He has poor functional status and would be elevated but not prohibitive risk for any/all procedures.
-creatinine high at 2.4 from baseline of 1.5.
-Despite elevated BNP was elevated at 17,700. Chest x-ray shows mild interstitial pulmonary edema, this improved with holding diuretic
-nephrology following
HFmrEF:chronic
wt down 21 lbs since November
-echo improved this hospitalization to recovered EF, RV normalized
GDMT:
bb:Coreg 25 bid
SGLT2i He felt dizzy on Jardiance.�
ACEI/ARB/ARNI: as opHyperkalemia despite retrial of ACEI.�
MRA: will avoid with dyana can reconsider in the future
Atrial fibrillation is paroxysmal: In NSR on Amiodarone and bb
-no DOAC due to GIB and falls, not interested in watchman
Biprosthectic AVR: moderate ar
HLD: tolerating daily�
COPD: follows with Dr Proctor
TTE 08/11/25
1. Normal biventricular size and systolic function. LVEF 55% by visual assessment.
2. Well-seated bioprosthetic aortic valve with a mean gradient of 5 mmHg. Moderate aortic regurgitation seen.
3. Mild mitral stenosis.
4. Compared to the prior on 11/04/24, the LVEF has improved from 25 to 30% to normal on today's study. Right ventricular size and function after being dilated and hypokinetic.
Data Reviewed
-
EKG: Tracing Personally Visualized and interpreted (av pacing)
[2025-08-13] MEDS: XALATAN OPHTHALMIC SOLUTION 1 DROP BOTH EYES (18:14)
[2025-08-13] MEDS: SANTYL OINTMENT 1 APPLIC TOPICAL (18:14)
[2025-08-13 23:37] VITALS: BP 98/50
[2025-08-14 05:23] VITALS: BMI 22.5
[2025-08-14 07:00] VITALS: BP 155/61
[2025-08-14] MEDS: STRIVERDI RESPIMAT 2 PUFF INH (07:36)
[2025-08-14] MEDS: SPIRIVA RESPIMAT 2.5 MCG 2 PUFF INH (07:37)
[2025-08-14 08:22] LABS: Hematocrit 39.4 % (39.0-52.0); Hemoglobin 12.5 g/dL (13.0-18.0); Mean Corp Hgb Conc. 31.7 g/dL (33.0-37.0); Mean Corpuscular Volume 94.9 fL (80.0-94.0); Nucleated Red Blood Cells % 0 % (-); Platelet Count 158 10^3/uL (130-400); Red Cell Dist. Width 15.9 % (11.5-14.5)
[2025-08-14] MEDS: SANTYL OINTMENT 1 APPLIC TOPICAL (08:41)
[2025-08-14] MEDS: HEPARIN 5000 UNITS SC ×2 (08:42→20:03)
[2025-08-14] MEDS: NEURONTIN 200 MG PO (08:42)
[2025-08-14] MEDS: TAPAZOLE 2.5 MG PO (08:42)
[2025-08-14] MEDS: LIPITOR 20 MG PO (08:42)
[2025-08-14] MEDS: PACERONE 200 MG PO (08:42)
[2025-08-14] MEDS: ASPIR LOW (ENTERIC COATED) 81 MG PO (08:42)
[2025-08-14] MEDS: COREG 25 MG PO ×2 (08:43→20:04)
[2025-08-14] MEDS: FLOMAX 0.4 MG PO (08:43)
[2025-08-14 08:49] LABS: Blood Urea Nitrogen 40 mg/dl (9-20); Calcium 10.2 mg/dl (8.4-10.2); Carbon Dioxide 28 mmol/L (22-30); Chloride 108 mmol/L (98-107); Estimated Creatinine Clearance 32 ml/min; Glucose 78 mg/dl (70-99); Potassium 3.7 mmol/L (3.5-5.1); Sodium 142 mmol/L (135-145); eGFR 45.91
--- NOTE | 2025-08-14 10:05 | W.PN.POD ---
Today's Communication
Today's Communication
Will continue santyl ointment to the right foot wound daily. Once revasc performed will reassess. There is possibility he needs a wound debridement w/bone cx and vac placement post revasc. Will continue to follow
Assessment / Plan
-
DM2 with PAD- PAD w/arteriocclusive disease -Dr Montejo following, recommends Agram once renal status improved
Gait dysfunction
Necrotic, unstageable wound right lateral foot (5th met tubercle)
Cellulitis right foot- improving on IV ABT
Osteomyelitis right foot - MRI suspicious for OM, will continue IV abt and wound care- new orders written. Continue to offload and protect.
Subjective
Chief Complaint
right foot cellulitis/poss OM 5th met tuberosity
Subjective
Pt resting comfortable this am
Objective
Temp Pulse Resp BP Pulse Ox
98 F 60 16 155/61 94
08/14/25 07:00 08/14/25 08:50 08/14/25 08:50 08/14/25 07:00 08/14/25 08:50
08/14/25 06:20
08/14/25 06:20
Vital Signs and Lab results were reviewed.
Inspection: Cellulitis (improved), Inflammation (persists but is improved), Ulcer (now 50/50 fibronecrotic) and Infection
Review of Systems
Review of Systems
Review of Systems: No Fever, No Chills and No Nausea
Physical Exam
Physical Exam
General: Comfortable
Musculoskeletal: No Cyanosis
Skin: Pressure Ulcer - Stage IV and Necrotic (less necrotic today, stringy fibrinous tissue to wound bed and less malodor)
Neuro: Protective Sensation Diminished
Vascular: Skin Temperature Warm to Cool
Dorsalis Pedis: Diminished
Posterior Tibialis: Diminished
[2025-08-14 11:00] VITALS: BP 146/59
--- NOTE | 2025-08-14 14:04 | W.PN.NEPH.PH ---
Today's Communication / Plan
-
follow BMP
Assessment/Plan
-
IMP:
Right foot cellulitis, possible OM right 5th toe
Confusion -TME possible
DYANA with CKD 3-baseline cr1.5-1.6
CHF
AFIB
Hyperthyroid
DM II
BPH
Plan:
follow BMP
holding lasix for now, can restart on dc
continue intermittent PVR
increase flomax
-
-
Date of Service: August 14, 2025
CC / HPI / ROS
-
Chief Complaint:
DYANA
History of Present Illness:
DYANA/Cr down to 1.5
BP stable high
on ancef for R foot cellulitis
requries straight cath for retention
Review of Systems:
no CP/SOB
Labs
-
Labs:
WBC 6.9 10^3/uL (4.8-10.8) 08/14/25 06:20
RBC 4.15 10^6/uL (4.70-6.10) L 08/14/25 06:20
Hgb 12.5 g/dL (13.0-18.0) L 08/14/25 06:20
Hct 39.4 % (39.0-52.0) 08/14/25 06:20
Plt Count 158 10^3/uL (130-400) 08/14/25 06:20
Sodium 142 mmol/L (135-145) 08/14/25 06:20
Potassium 3.7 mmol/L (3.5-5.1) 08/14/25 06:20
Chloride 108 mmol/L (98-107) H 08/14/25 06:20
Carbon Dioxide 28 mmol/L (22-30) 08/14/25 06:20
BUN 40 mg/dl (9-20) H 08/14/25 06:20
Creatinine 1.5 mg/dL (0.7-1.3) H 08/14/25 06:20
eGFR 45.91 08/14/25 06:20
Glucose 78 mg/dl (70-99) 08/14/25 06:20
Calcium 10.2 mg/dl (8.4-10.2) 08/14/25 06:20
Qfx-I-Qxfpqhbtbof Pept 68501 pg/ml 08/12/25 07:46
Albumin 4.0 g/dl (3.5-5.0) 08/10/25 21:41
Physical Exam
-
Vital Signs:
Vital Signs
Temp Pulse Resp BP Pulse Ox
98 F 88 18 146/59 95
08/14/25 11:00 08/14/25 11:00 08/14/25 11:00 08/14/25 11:00 08/14/25 11:00
Cardiovascular:: Regular rate and rhythm
Respiratory:: Bilateral: Coarse
Lung Excursion:: Normal
Abdomen:: Nontender and Soft
Bowel Sounds:: Normal
Extremity Edema:: None: Bilateral:
--- NOTE | 2025-08-14 14:39 | W.PN.HOSP.TC ---
Today's Communication/Plan
-
Plan for arteriogram.
Assessment / Plan
Assessment / Plan
Physical exam:
General: Acutely on chronically ill
HEENT: Normocephalic, Atraumatic and Moist Mucous Membranes
Respiratory: Clear to Auscultation; Negative Wheezes, Rales or Rhonchi
Cardiac: Regular Rhythm and S1/S2
GI: Soft, Nontender and Nondistended
Musculoskeletal: Right foot lateral wound with dry eschar and erythema present. No Clubbing, No Cyanosis and No Edema
Neuro: Alert and awake, disoriented, no neurological deficits but generalized weakness
A/P:
Right foot cellulitis, concerns for osteomyelitis right fifth metatarsal:
Holding on antibiotics to increase yield on bone cultures if able to obtain and then will restart antibiotics.
ID input appreciated
Podiatry following
Reviewed MRI foot
Vascular surgery planning to do arteriogram this coming week with possible endovascular intervention if required.
Appreciated cardiology consult for preop eval and they are okay with procedure/surgery as indicated.
Updated daughter prior, Kimi
Acute confusional state:
Multifactorial with primarily delirium and underlying dementia
CT head unremarkable for acute findings upon admission
Continue to monitor mental status
DYANA:
Creatinine improving, today creatinine 1.5
Holding diuretics and can restart down the road
Avoid nephrotoxic
Nephrology on consult
Continue to monitor renal function in a.m.
COPD:
Not bronchospasm
Continue on Spiriva and Striverdi
Chronic HFrEF:
Continue GDMT with beta-blockers
Holding diuretics and cardiology okay for now
Paroxysmal A-fib:
Continue rate control, carvedilol 25 mg p.o. twice a day
Continue antiarrhythmics, amiodarone 200 mg p.o. daily
Not on anticoagulation due to GI bleed and falls and patient and family apparently not interested in Watchman procedure
Continue cardiac monitoring
Cardiology input appreciated
Diabetes mellitus type 2:
Diabetic diet
Insulin sliding scale
Aortic regurgitation, moderate:
History of bioprosthetic AVR
Hyperlipidemia:
Continue home statin, atorvastatin 20 m p.o. daily
Hypothyroidism:
Continue methimazole 2.5 mg p.o. daily
BPH:
Continue Flomax 0.8 mg p.o. daily
DVT prophylaxis:
Heparin SQ
CODE STATUS:
Full code
Total time spent on today's encounter was 52 minutes which included time spent in counseling the patient/family regarding diagnosis and treatment plan as listed above, goals of care, and symptom management. Case was discussed with nursing staff,
specialists, and care coordinators/case management. All labs and imaging personally reviewed by me. Remainder the time spent in detailed review of previous records, lab data, imaging, and other medical provider documentation.
Anticipated Discharge: > 48 hours
Subjective/Interval History
-
Date of Service: August 14, 2025
Patient denies any chest pain or shortness of breath. Afebrile
Objective Data
-
Labs:
Laboratory Results
08/14/25
06:20
WBC 6.9
Hgb 12.5 L
Hct 39.4
Plt Count 158
Sodium 142
Potassium 3.7
Chloride 108 H
Carbon Dioxide 28
BUN 40 H
Creatinine 1.5 H
Glucose 78
Calcium 10.2
Vital Signs:
Vital Signs
Temp Pulse Resp BP Pulse Ox
98 F 88 18 146/59 95
08/14/25 11:00 08/14/25 11:00 08/14/25 11:00 08/14/25 11:00 08/14/25 11:00
I&O
08/13/25 08/14/25 08/15/25
06:59 06:59 06:59
Intake Total 600 / 600
Output Total 400 / 400 500 / 500
Balance 200 / 200 -500 / -500
--- NOTE | 2025-08-14 16:21 | W.PN.CD ---
Today's Communication / Plan
-
continue current medications
will follow peripherally
Impression / Plan
-
Chronic limb threatening ischemia manifested by nonhealing right lateral foot wound
-He is euvolemic, cr improved. He has poor functional status and would be elevated but not prohibitive risk for any/all procedures.
-vascular planning arteriogram and possible intervention
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
-Podiatry and ID followin on IV Abx
-plan for possible debridement and bone cx after vascular eval
DYANA:
--He is euvolemic, cr improved. He has poor functional status and would be elevated but not prohibitive risk for any/all procedures.
-creatinine high at 2.4 from baseline of 1.5 holding steady
-Despite elevated BNP was elevated at 17,700. Chest x-ray shows mild interstitial pulmonary edema, this improved with holding diuretic
-nephrology following
HFmrEF:chronic
wt down 21 lbs since November
-echo improved this hospitalization to recovered EF, RV normalized
GDMT:
bb:Coreg 25 bid
SGLT2i He felt dizzy on Jardiance.�
ACEI/ARB/ARNI: as opHyperkalemia despite retrial of ACEI.�
MRA: will avoid with dyana can reconsider in the future
Atrial fibrillation is paroxysmal: In NSR on Amiodarone and bb
-no DOAC due to GIB and falls, not interested in watchman
Biprosthectic AVR: moderate ar
HLD: tolerating daily�
COPD: follows with Dr Proctor
TTE 08/11/25
1. Normal biventricular size and systolic function. LVEF 55% by visual assessment.
2. Well-seated bioprosthetic aortic valve with a mean gradient of 5 mmHg. Moderate aortic regurgitation seen.
3. Mild mitral stenosis.
4. Compared to the prior on 11/04/24, the LVEF has improved from 25 to 30% to normal on today's study. Right ventricular size and function after being dilated and hypokinetic.
Physical Exam
Vital Signs/Labs
Vital Signs
Temp Pulse Resp BP Pulse Ox
98 F 88 18 146/59 95
08/14/25 11:00 08/14/25 11:00 08/14/25 11:00 08/14/25 11:00 08/14/25 11:00
08/13/25 08/14/25 08/15/25
06:59 06:59 06:59
Actual Weight 140 lb 5 oz 135 lb 2 oz
08/14/25 06:20
08/14/25 06:20
Magnesium 1.9 mg/dl (1.6-2.3) 08/11/25 06:15
08/10/25 08/12/25
21:41 07:46
Umq-Z-Cjukbgzirvx Pept [id number]
Physical Exam
Constitutional: No acute distress
Cardiovascular: Rhythm & rate is regular, Pedal edema is absent, JVD pressure is normal, Systolic murmur absent and Diastolic murmur absent
Respiratory: Respiratory effort normal, Lungs clear to auscul., Wheeze Absent, Crackles Absent and Rhonchi Absent
Neuro/Psych: AO x 3
Data Reviewed
-
Date of Service: August 14, 2025
[2025-08-14 16:31] LABS: Glucose - Point of Care 179 mg/dl (70-99)
[2025-08-14] MEDS: NOVOLOG FLEXPEN-LOW RESISTANCE 1 UNITS SC (16:51)
[2025-08-14] MEDS: XALATAN OPHTHALMIC SOLUTION 1 DROP BOTH EYES (16:52)
[2025-08-14 20:59] LABS: Glucose - Point of Care 159 mg/dl (70-99)
[2025-08-14 23:30] VITALS: BP 138/54
[2025-08-15 05:26] VITALS: BMI 22.8
[2025-08-15 06:59] LABS: Hematocrit 39.8 % (39.0-52.0); Hemoglobin 12.9 g/dL (13.0-18.0); Mean Corp Hgb Conc. 32.4 g/dL (33.0-37.0); Mean Corpuscular Volume 96.4 fL (80.0-94.0); Platelet Count 154 10^3/uL (130-400); Red Cell Dist. Width 15.6 % (11.5-14.5)
[2025-08-15 07:00] VITALS: BP 135/56
[2025-08-15 07:05] LABS: Glucose - Point of Care 108 mg/dl (70-99)
[2025-08-15 07:08] LABS: Blood Urea Nitrogen 37 mg/dl (9-20); Calcium 10.0 mg/dl (8.4-10.2); Carbon Dioxide 28 mmol/L (22-30); Chloride 107 mmol/L (98-107); Estimated Creatinine Clearance 37 ml/min; Glucose 109 mg/dl (70-99); Potassium 3.7 mmol/L (3.5-5.1); Sodium 138 mmol/L (135-145); eGFR 54.51
[2025-08-15] MEDS: SPIRIVA RESPIMAT 2.5 MCG 2 PUFF INH (07:52)
[2025-08-15] MEDS: STRIVERDI RESPIMAT 2 PUFF INH (07:52)
[2025-08-15] MEDS: NOVOLOG FLEXPEN-LOW RESISTANCE SC (07:54)
[2025-08-15] MEDS: LIPITOR 20 MG PO (07:55)
[2025-08-15] MEDS: NEURONTIN 200 MG PO (07:55)
[2025-08-15] MEDS: ASPIR LOW (ENTERIC COATED) 81 MG PO (07:55)
[2025-08-15] MEDS: PACERONE 200 MG PO (07:56)
[2025-08-15] MEDS: TAPAZOLE 2.5 MG PO (07:56)
[2025-08-15] MEDS: COREG 25 MG PO ×2 (07:56→20:20)
[2025-08-15] MEDS: SANTYL OINTMENT 1 APPLIC TOPICAL (07:57)
[2025-08-15] MEDS: FLOMAX 0.8 MG PO (07:57)
[2025-08-15] MEDS: HEPARIN 5000 UNITS SC ×2 (07:58→20:20)
[2025-08-15 11:41] LABS: Glucose - Point of Care 158 mg/dl (70-99)
[2025-08-15] MEDS: NOVOLOG FLEXPEN-LOW RESISTANCE 1 UNITS SC (12:17)
--- NOTE | 2025-08-15 12:28 | W.PN.ID1 ---
Date of Service
Date of Service: August 15, 2025
Today's Communication
hold abx to increase intra-op cx yield.
Assessment / Plan
# Right foot osteo, 5th metatarsal
# Right foot non-healing wound, 5th metatarsal
# PAD
# DYANA on CKD3, improving
# DM
-MRI + osteo
- Vascular planning for arteriogram.
- Podiatry planning for wound debridement, bone cx after vascular intervention
- Vascular planning for arteriogram.
- Pt hemodynamically stable, hold abx to increase intra-op cx yield.
Conditions present on admission:
Diabetes mellitus
Hypertension
Dementia
COPD
CKD 3
Paroxysmal atrial fibrillation
Aortic stenosis status post bioprosthetic aortic valve replacement
Pacemaker placement (2018)
HFrEF
BPH
Cholecystectomy
Squamous cell carcinoma excision from right upper abdominal wall
R CEA
Chief Complaint
-: Cellulitis and Other (foot wound)
Subjective / Review of Systems
Foot pain better.
Vital Signs / Physical Exam
Vital Signs
Vital Signs
Temp Pulse Resp BP Pulse Ox
98.0 F 60 14 135/56 97
08/15/25 07:00 08/15/25 07:55 08/15/25 07:55 08/15/25 07:00 08/15/25 07:55
Physical Exam
Constitutional: Chronically Ill
Cardiovascular: Regular Rate and S1/S2
Pulmonary: Clear
Gastrointestinal: Soft, Non Tender, Non Distended and Normal Bowel Sounds
Extremities: Negative Edema (Right foot edema resolving) or Erythema (Right forefoot erythema decreased)
Wound: Other (right lateral foot wound necrosis)
Neurological: AO x 3
Objective Data
Lab Data
Lab Results
08/15/25 06:20
08/15/25 06:20
ESR 17 mm/hour (0-20) 08/12/25 07:46
Estimated Creat Clear 37 ml/min 08/15/25 06:20
Lactic Acid 0.9 mmol/L (0.7-2.0) 08/10/25 21:41
Total Bilirubin 0.8 mg/dl (0.2-1.3) 08/10/25 21:41
AST 155 U/L (17-59) H 08/10/25 21:41
ALT 138 U/L (0-50) H 08/10/25 21:41
Alkaline Phosphatase 116 U/L (38-126) 08/10/25 21:41
C-Reactive Protein 9.20 mg/L (0.0-10.00) 08/12/25 07:46
Most recent labs reviewed.
Micro Results:
08/10/25 21:41 Blood Culture - Preliminary
Blood/Venous No Growth in 4 days- Final report to follow
08/11/25 02:03 Wound Culture - Final
Foot - Right Klebsiella pneumoniae-ESBL
S aureus-Methicillin Sensitive
Enterococcus faecalis
Gram Stain - Final
08/12/25 MRI R foot: Nonenhancing soft tissue tract extending off the plantar and lateral aspect of the base of the fifth metatarsal bone, compatible with the given history of necrotic wound in this region. There is mild enhancement of the marrow of
the base of the fifth metatarsal bone adjacent to this soft tissue tract, suspicious for osteomyelitis.
08/11/25 CXR: Mild cardiomegaly. Mild pulmonary edema. Linear opacity at the posterior lung base, suggestive of scarring or subsegmental atelectasis.
08/11/25 Foot XRAY: Possible cortical destruction at the base of the fifth metatarsal, with overlying soft tissue wound. Findings are suggestive of osteomyelitis, although MRI would be a more sensitive and specific test
--- NOTE | 2025-08-15 13:02 | CM ---
CM reviewed chart, patient seen bedside.
Plan for arteriogram.
Podiatry following.
Patient decline SNF- plan home with [facility].
CM will continue to follow for all d/c planning needs.
Plan; home with [facility] once stable, family support
[place]
--- NOTE | 2025-08-15 13:07 | W.PN.HOSP.TC ---
Today's Communication/Plan
-
Continue with the current treatments
PT OT consult
Continue with wound care
For arteriogram tomorrow likely
Assessment / Plan
Assessment / Plan
A/P:
Right foot cellulitis, concerns for osteomyelitis right fifth metatarsal:
Holding on antibiotics to increase yield on bone cultures if able to obtain and then will restart antibiotics.
MRI of the foot reviewed.
ID, podiatry, vascular surgery following
Vascular surgery planning to do arteriogram this coming week with possible endovascular intervention if required.
Appreciated cardiology consult for preop eval and they are okay with procedure/surgery as indicated.
Acute confusional state:
Multifactorial with primarily delirium and underlying dementia
Resolved
CT head unremarkable for acute findings upon admission
Continue to monitor mental status
DYANA on chronic kidney disease stage III:
Creatinine improving, today creatinine 1.3. Baseline creatinine 1.5-1.6
Holding diuretics and can restart down the road
Avoid nephrotoxic
Nephrology following
Continue to monitor renal function
COPD:
Not bronchospasm
Continue on Spiriva and Striverdi
Chronic HFrEF:
Continue GDMT with beta-blockers
Holding diuretics and cardiology following
Paroxysmal A-fib:
Continue rate control, carvedilol 25 mg p.o. twice a day
Continue antiarrhythmics, amiodarone 200 mg p.o. daily
Not on anticoagulation due to GI bleed and falls and patient and family apparently not interested in Watchman procedure
Continue cardiac monitoring
Cardiology input appreciated
Diabetes mellitus type 2:
Diabetic diet
Insulin sliding scale
Aortic regurgitation, moderate:
History of bioprosthetic AVR
Hyperlipidemia:
Continue home statin, atorvastatin 20 m p.o. daily
Hypothyroidism:
Continue methimazole 2.5 mg p.o. daily
BPH:
Continue Flomax 0.8 mg p.o. daily
DVT prophylaxis:
Heparin SQ
CODE STATUS:
Full code
Discussed with vascular-plan for arteriogram tomorrow noted. Cleared by nephrology
Total time spent on today's encounter was 52 minutes which included time spent in counseling the patient/family regarding diagnosis and treatment plan as listed above, goals of care, and symptom management. Case was discussed with nursing staff,
specialists, and care coordinators/case management. All labs and imaging personally reviewed by me. Remainder the time spent in detailed review of previous records, lab data, imaging, and other medical provider documentation.
Anticipated Discharge: > 48 hours
Subjective/Interval History
-
Date of Service: August 15, 2025
Pain from right foot is okay.
No fever or chills.
Denies any nausea vomiting.
Denies any shortness of breath. No chest pain.
Objective Data
-
Labs:
Laboratory Results
08/15/25
06:20
WBC 6.8
Hgb 12.9 L
Hct 39.8
Plt Count 154
Sodium 138
Potassium 3.7
Chloride 107
Carbon Dioxide 28
BUN 37 H
Creatinine 1.3
Glucose 109 H
Calcium 10.0
Vital Signs:
Vital Signs
Temp Pulse Resp BP Pulse Ox
98.0 F 60 14 135/56 97
08/15/25 07:00 08/15/25 07:55 08/15/25 07:55 08/15/25 07:00 08/15/25 07:55
I&O
08/14/25 08/15/25 08/16/25
06:59 06:59 06:59
Intake Total 300 / 300
Output Total 500 / 500
Balance -500 / -500 300 / 300
Physical Exam
-
General: Comfortable
HEENT: Moist Mucous Membranes
Respiratory: Clear to Auscultation and Non Labored Respirations; Negative Accessory Resp Muscle Use
Cardiac: Regular Rhythm and S1/S2; Negative Tachycardic
GI: Soft and Nontender
Neuro: AO x 3
Data Reviewed
-
Labs: Labs Reviewed by me
--- NOTE | 2025-08-15 14:53 | W.PN.NEPH.PH ---
Today's Communication / Plan
-
AM labs
Okay to proceed with angio
Assessment/Plan
-
IMP:
Right foot cellulitis, possible OM right 5th toe
Confusion -TME possible
DYANA with CKD 3-baseline cr1.5-1.6
CHF
AFIB
Hyperthyroid
DM II
BPH
Plan:
follow BMP
holding lasix for now, can restart on dc
continue intermittent PVR
flomax
Creatinine down to 1.3.
Okay to proceed with angio discussed with son at bedside
-
-
Date of Service: August 15, 2025
CC / HPI / ROS
-
Chief Complaint:
DYANA
History of Present Illness:
DYANA/Cr down to 1.5
BP stable high
on ancef for R foot cellulitis
requries straight cath for retention
Review of Systems:
no CP/SOB
Labs
-
Labs:
WBC 6.8 10^3/uL (4.8-10.8) 08/15/25 06:20
RBC 4.13 10^6/uL (4.70-6.10) L 08/15/25 06:20
Hgb 12.9 g/dL (13.0-18.0) L 08/15/25 06:20
Hct 39.8 % (39.0-52.0) 08/15/25 06:20
Plt Count 154 10^3/uL (130-400) 08/15/25 06:20
Sodium 138 mmol/L (135-145) 08/15/25 06:20
Potassium 3.7 mmol/L (3.5-5.1) 08/15/25 06:20
Chloride 107 mmol/L (98-107) 08/15/25 06:20
Carbon Dioxide 28 mmol/L (22-30) 08/15/25 06:20
BUN 37 mg/dl (9-20) H 08/15/25 06:20
Creatinine 1.3 mg/dL (0.7-1.3) 08/15/25 06:20
eGFR 54.51 08/15/25 06:20
Glucose 109 mg/dl (70-99) H 08/15/25 06:20
Calcium 10.0 mg/dl (8.4-10.2) 08/15/25 06:20
Xfc-B-Syarivmumhd Pept [id number] pg/ml 08/12/25 07:46
Albumin 4.0 g/dl (3.5-5.0) 08/10/25 21:41
Physical Exam
-
Vital Signs:
Vital Signs
Temp Pulse Resp BP Pulse Ox
98.0 F 60 14 135/56 97
08/15/25 07:00 08/15/25 07:55 08/15/25 07:55 08/15/25 07:00 08/15/25 07:55
Cardiovascular:: Regular rate and rhythm
Respiratory:: Bilateral: Coarse
Lung Excursion:: Normal
Abdomen:: Nontender and Soft
Bowel Sounds:: Normal
Extremity Edema:: None: Bilateral:
[2025-08-15 15:13] VITALS: BP 124/51
[2025-08-15 16:24] VITALS: BP 123/53; BP 131/60; PULSE 60; O2SAT 96
[2025-08-15 16:53] LABS: Glucose - Point of Care 295 mg/dl (70-99)
[2025-08-15] MEDS: NOVOLOG FLEXPEN-LOW RESISTANCE 3 UNITS SC (17:06)
[2025-08-15] MEDS: XALATAN OPHTHALMIC SOLUTION 1 DROP BOTH EYES (17:30)
--- NOTE | 2025-08-15 17:30 | W.PN.POD ---
Today's Communication
Today's Communication
Continue offloading right foot and heels B/L
Will add vashe compress to wound care orders
Continue santyl oint daily
Following for possible need for surgical debridement and bone cultures
Assessment / Plan
-
DM2 with PAD- PAD w/arteriocclusive disease -Dr Montejo following, Agram possible tomorrow
Necrotic, unstageable wound right lateral foot (5th met tubercle)
Cellulitis right foot- improving on IV ABT
Osteomyelitis right foot - MRI suspicious for OM, will continue IV abt and wound care-w/santyl ointment to the wound Continue to offload and protect.
Subjective
Chief Complaint
right foot cellulitis/poss OM 5th met tuberosity
Subjective
Pt sitting up in chair in NAD
Objective
Temp Pulse Resp BP Pulse Ox
98.2 F 61 20 124/51 95
08/15/25 15:13 08/15/25 15:13 08/15/25 15:13 08/15/25 15:13 08/15/25 15:13
08/15/25 06:20
08/15/25 06:20
Vital Signs and Lab results were reviewed.
Inspection: Cellulitis (improved), Inflammation (persists but is improved), Ulcer (now 50/50 fibronecrotic) and Infection (+malodor right lateral foot wound)
Review of Systems
Review of Systems
Review of Systems: No Fever, No Chills and No Headache
Physical Exam
Physical Exam
General: No Apparent Distress
Musculoskeletal: No Clubbing
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
Neuro: Awake, Alert and Protective Sensation Diminished
Vascular: Capillary Refill Delayed, Pedal Hair Absent and Skin Temperature Warm to Cool
Dorsalis Pedis: Diminished
Posterior Tibialis: Absent
[2025-08-15 21:21] LABS: Glucose - Point of Care 226 mg/dl (70-99)
[2025-08-15 23:30] VITALS: BP 131/51
[2025-08-16 05:13] VITALS: BMI 23.0
[2025-08-16 06:05] LABS: Glucose - Point of Care 106 mg/dl (70-99)
[2025-08-16] MEDS: NOVOLOG FLEXPEN-LOW RESISTANCE SC ×3 (06:46→17:19)
[2025-08-16] MEDS: SANTYL OINTMENT 1 APPLIC TOPICAL (06:47)
[2025-08-16 07:10] VITALS: BP 139/61
[2025-08-16 07:49] VITALS: BMI 23.0
[2025-08-16] MEDS: COREG 25 MG PO ×2 (08:00→20:31)
[2025-08-16] MEDS: HEPARIN 5000 UNITS SC ×2 (08:00→20:32)
[2025-08-16] MEDS: ASPIR LOW (ENTERIC COATED) 81 MG PO (08:00)
[2025-08-16] MEDS: NEURONTIN 200 MG PO (08:00)
[2025-08-16] MEDS: FLOMAX 0.8 MG PO (08:00)
[2025-08-16] MEDS: PACERONE 200 MG PO (08:00)
[2025-08-16] MEDS: TAPAZOLE 2.5 MG PO (08:01)
[2025-08-16] MEDS: LIPITOR 20 MG PO (08:02)
[2025-08-16 08:57] LABS: Blood Urea Nitrogen 36 mg/dl (9-20); Calcium 9.7 mg/dl (8.4-10.2); Carbon Dioxide 28 mmol/L (22-30); Chloride 104 mmol/L (98-107); Estimated Creatinine Clearance 35 ml/min; Glucose 109 mg/dl (70-99); Potassium 3.8 mmol/L (3.5-5.1); Sodium 135 mmol/L (135-145); eGFR 49.87
--- NOTE | 2025-08-16 10:48 | W.PN.ID1 ---
Date of Service
Date of Service: August 16, 2025
Today's Communication
Awaiting arteriogram.
Observe off abx.
Assessment / Plan
# Right foot osteo, 5th metatarsal
# Right foot non-healing wound, 5th metatarsal
# PAD
# DYANA on CKD3, improving
# DM
-MRI + osteo
- Vascular planning for arteriogram.
- Podiatry planning for wound debridement, bone cx after vascular intervention
- Pt hemodynamically stable, holding abx to increase intra-op cx yield.
Conditions present on admission:
Diabetes mellitus
Hypertension
Dementia
COPD
CKD 3
Paroxysmal atrial fibrillation
Aortic stenosis status post bioprosthetic aortic valve replacement
Pacemaker placement (2018)
HFrEF
BPH
Cholecystectomy
Squamous cell carcinoma excision from right upper abdominal wall
R CEA
Chief Complaint
-: Cellulitis and Other (foot wound)
Subjective / Review of Systems
Foot pain stable.
Vital Signs / Physical Exam
Vital Signs
Vital Signs
Temp Pulse Resp BP Pulse Ox
97.9 F 61 18 139/61 97
08/16/25 07:10 08/16/25 07:10 08/16/25 07:10 08/16/25 07:10 08/16/25 07:55
Physical Exam
Constitutional: Chronically Ill
Cardiovascular: Regular Rate and S1/S2
Pulmonary: Clear
Gastrointestinal: Soft, Non Tender, Non Distended and Normal Bowel Sounds
Extremities: Negative Edema (Right foot edema resolving) or Erythema (Right forefoot erythema decreased)
Wound: Other (right lateral foot wound necrosis)
Neurological: AO x 3
Objective Data
Lab Data
Lab Results
08/15/25 06:20
08/16/25 07:18
ESR 17 mm/hour (0-20) 08/12/25 07:46
Estimated Creat Clear 35 ml/min 08/16/25 07:18
Lactic Acid 0.9 mmol/L (0.7-2.0) 08/10/25 21:41
Total Bilirubin 0.8 mg/dl (0.2-1.3) 08/10/25 21:41
AST 155 U/L (17-59) H 08/10/25 21:41
ALT 138 U/L (0-50) H 08/10/25 21:41
Alkaline Phosphatase 116 U/L (38-126) 08/10/25 21:41
C-Reactive Protein 9.20 mg/L (0.0-10.00) 08/12/25 07:46
Most recent labs reviewed.
Micro Results:
08/10/25 21:41 Blood Culture - Final
Blood/Venous No Growth - Final Report
08/11/25 02:03 Wound Culture - Final
Foot - Right Klebsiella pneumoniae-ESBL
S aureus-Methicillin Sensitive
Enterococcus faecalis
Gram Stain - Final
08/12/25 MRI R foot: Nonenhancing soft tissue tract extending off the plantar and lateral aspect of the base of the fifth metatarsal bone, compatible with the given history of necrotic wound in this region. There is mild enhancement of the marrow of
the base of the fifth metatarsal bone adjacent to this soft tissue tract, suspicious for osteomyelitis.
08/11/25 CXR: Mild cardiomegaly. Mild pulmonary edema. Linear opacity at the posterior lung base, suggestive of scarring or subsegmental atelectasis.
08/11/25 Foot XRAY: Possible cortical destruction at the base of the fifth metatarsal, with overlying soft tissue wound. Findings are suggestive of osteomyelitis, although MRI would be a more sensitive and specific test
[2025-08-16] MEDS: SPIRIVA RESPIMAT 2.5 MCG 2 PUFF INH (11:17)
[2025-08-16] MEDS: STRIVERDI RESPIMAT 2 PUFF INH (11:17)
--- NOTE | 2025-08-16 11:57 | W.PN.HOSP.TC ---
Today's Communication/Plan
-
Await arteriogram
CW wound care of right foot ulcer
Assessment / Plan
Assessment / Plan
A/P:
Right foot cellulitis, concerns for osteomyelitis right fifth metatarsal:
Holding on antibiotics to increase yield on bone cultures if able to obtain and then will restart antibiotics.
MRI of the foot reviewed.
ID, podiatry, vascular surgery following
Vascular surgery planning to do arteriogram -tentatively plan for this Friday
Appreciated cardiology consult for preop eval and they are okay with procedure/surgery as indicated.
Acute confusional state:
Multifactorial with primarily delirium and underlying dementia
Resolved
CT head unremarkable for acute findings upon admission
Continue to monitor mental status
DYANA on chronic kidney disease stage III:
Creatinine improving, today creatinine 1.4. Baseline creatinine 1.5-1.6
Holding diuretics and can restart down the road
Avoid nephrotoxic
Nephrology following
Continue to monitor renal function
COPD:
Not bronchospasm
Continue on Spiriva and Striverdi
Chronic HFrEF:
Continue GDMT with beta-blockers
Holding diuretics and cardiology following
Paroxysmal A-fib:
Continue rate control, carvedilol 25 mg p.o. twice a day
Continue antiarrhythmics, amiodarone 200 mg p.o. daily
Not on anticoagulation due to GI bleed and falls and patient and family apparently not interested in Watchman procedure
Continue cardiac monitoring
Cardiology input appreciated
Diabetes mellitus type 2:
Diabetic diet
Insulin sliding scale
Aortic regurgitation, moderate:
History of bioprosthetic AVR
Hyperlipidemia:
Continue home statin, atorvastatin 20 m p.o. daily
Hypothyroidism:
Continue methimazole 2.5 mg p.o. daily
BPH:
Continue Flomax 0.8 mg p.o. daily
DVT prophylaxis:
Heparin SQ
CODE STATUS:
Full code
Discussed with vascular team and family at bedside
Anticipated Discharge: > 48 hours
Subjective/Interval History
-
Date of Service: August 16, 2025
Denies pain from the right foot. No fever or chills.
Denies any chest pain or shortness of breath.
Objective Data
-
Labs:
Laboratory Results
08/16/25
07:18
Sodium 135
Potassium 3.8
Chloride 104
Carbon Dioxide 28
BUN 36 H
Creatinine 1.4 H
Glucose 109 H
Calcium 9.7
Vital Signs:
Vital Signs
Temp Pulse Resp BP Pulse Ox
97.9 F 61 18 139/61 97
08/16/25 07:10 08/16/25 07:10 08/16/25 07:10 08/16/25 07:10 08/16/25 07:55
I&O
08/15/25 08/16/25 08/17/25
06:59 06:59 06:59
Intake Total 300 / 300 980 / 980
Balance 300 / 300 980 / 980
Physical Exam
-
General: Comfortable
Respiratory: Non Labored Respirations; Negative Accessory Resp Muscle Use
Cardiac: Regular Rhythm and S1/S2; Negative Tachycardic
Neuro: AO x 3
Psych: Calm; Negative Confused or Agitated
Data Reviewed
-
Labs: Labs Reviewed by me
--- NOTE | 2025-08-16 12:02 | W.PN.NEPH.PH ---
Today's Communication / Plan
-
AM labs
Assessment/Plan
-
IMP:
Right foot cellulitis, possible OM right 5th toe
Confusion -TME possible
DYANA with CKD 3-baseline cr1.5-1.6
CHF
AFIB
Hyperthyroid
DM II
BPH
Plan:
follow BMP
holding lasix for now, can restart on dc
continue intermittent PVR
flomax
Creatinine down to 1.4
Okay to proceed with angio discussed with son at bedside
-
-
Date of Service: August 16, 2025
CC / HPI / ROS
-
Chief Complaint:
DYANA
History of Present Illness:
DYANA/Cr down to 1.5
BP stable high
on ancef for R foot cellulitis
requries straight cath for retention
Review of Systems:
no CP/SOB
Labs
-
Labs:
WBC 6.8 10^3/uL (4.8-10.8) 08/15/25 06:20
RBC 4.13 10^6/uL (4.70-6.10) L 08/15/25 06:20
Hgb 12.9 g/dL (13.0-18.0) L 08/15/25 06:20
Hct 39.8 % (39.0-52.0) 08/15/25 06:20
Plt Count 154 10^3/uL (130-400) 08/15/25 06:20
Sodium 135 mmol/L (135-145) 08/16/25 07:18
Potassium 3.8 mmol/L (3.5-5.1) 08/16/25 07:18
Chloride 104 mmol/L (98-107) 08/16/25 07:18
Carbon Dioxide 28 mmol/L (22-30) 08/16/25 07:18
BUN 36 mg/dl (9-20) H 08/16/25 07:18
Creatinine 1.4 mg/dL (0.7-1.3) H 08/16/25 07:18
eGFR 49.87 08/16/25 07:18
Glucose 109 mg/dl (70-99) H 08/16/25 07:18
Calcium 9.7 mg/dl (8.4-10.2) 08/16/25 07:18
Yib-L-Nxfzeqwbyma Pept 21911 pg/ml 08/12/25 07:46
Albumin 4.0 g/dl (3.5-5.0) 08/10/25 21:41
Physical Exam
-
Vital Signs:
Vital Signs
Temp Pulse Resp BP Pulse Ox
97.9 F 61 18 139/61 97
08/16/25 07:10 08/16/25 07:10 08/16/25 07:10 08/16/25 07:10 08/16/25 07:55
Cardiovascular:: Regular rate and rhythm
Respiratory:: Bilateral: Coarse
Lung Excursion:: Normal
Abdomen:: Nontender and Soft
Bowel Sounds:: Normal
Extremity Edema:: None: Bilateral:
[2025-08-16 12:03] LABS: Glucose - Point of Care 121 mg/dl (70-99)
--- NOTE | 2025-08-16 14:25 | CM ---
CM reviewed chart, patient seen bedside.
Plan for arteriogram, tentative for Friday.
Per ID- observe off antibiotics.
Continue wound care.
Care ongoing.
Plan; home with [facility], family support, when stable
[2025-08-16 15:19] VITALS: BP 133/55; PULSE 62; O2SAT 97
[2025-08-16 15:34] VITALS: BP 133/55
[2025-08-16 17:07] LABS: Glucose - Point of Care 145 mg/dl (70-99)
[2025-08-16] MEDS: XALATAN OPHTHALMIC SOLUTION 1 DROP BOTH EYES (17:21)
[2025-08-16 20:51] LABS: Glucose - Point of Care 218 mg/dl (70-99)
[2025-08-16 23:30] VITALS: BP 129/55
[2025-08-17 06:00] VITALS: BMI 23.5
[2025-08-17 07:05] VITALS: BP 130/54
[2025-08-17 07:13] LABS: Glucose - Point of Care 130 mg/dl (70-99)
[2025-08-17] MEDS: SPIRIVA RESPIMAT 2.5 MCG 2 PUFF INH (07:54)
[2025-08-17] MEDS: STRIVERDI RESPIMAT 2 PUFF INH (07:54)
[2025-08-17] MEDS: NOVOLOG FLEXPEN-LOW RESISTANCE SC (07:58)
[2025-08-17] MEDS: FLOMAX 0.8 MG PO (07:59)
[2025-08-17] MEDS: ASPIR LOW (ENTERIC COATED) 81 MG PO (07:59)
[2025-08-17] MEDS: LIPITOR 20 MG PO (07:59)
[2025-08-17] MEDS: NEURONTIN 200 MG PO (08:00)
[2025-08-17] MEDS: TAPAZOLE 2.5 MG PO (08:00)
[2025-08-17] MEDS: PACERONE 200 MG PO (08:01)
[2025-08-17] MEDS: HEPARIN 5000 UNITS SC ×2 (08:01→21:02)
[2025-08-17] MEDS: SANTYL OINTMENT 1 APPLIC TOPICAL (08:05)
[2025-08-17] MEDS: COREG 25 MG PO ×2 (08:05→21:02)
--- NOTE | 2025-08-17 12:02 | W.PN.HOSP.TC ---
Today's Communication/Plan
-
Arteriogram on Friday
Continue the current medical treatments
Assessment / Plan
Assessment / Plan
A/P:
Right foot cellulitis, concerns for osteomyelitis right fifth metatarsal:
Holding on antibiotics to increase yield on bone cultures if able to obtain and then will restart antibiotics.
MRI of the foot reviewed.
ID, podiatry, vascular surgery following
Vascular surgery planning to do arteriogram -tentatively plan for this Friday
Appreciated cardiology consult for preop eval and they are okay with procedure/surgery as indicated.
Acute confusional state:
Multifactorial with primarily delirium and underlying dementia
Resolved
CT head unremarkable for acute findings upon admission
Continue to monitor mental status
DYANA on chronic kidney disease stage III:
Creatinine improving, creatinine 1.4. Baseline creatinine 1.5-1.6
Holding diuretics and can restart after DC
Avoid nephrotoxic
Nephrology following
Continue to monitor renal function
COPD:
Not bronchospasm
Continue on Spiriva and Striverdi
Chronic HFrEF:
Continue GDMT with beta-blockers
Holding diuretics and cardiology following
Paroxysmal A-fib:
Continue rate control, carvedilol 25 mg p.o. twice a day
Continue antiarrhythmics, amiodarone 200 mg p.o. daily
Not on anticoagulation due to GI bleed and falls and patient and family apparently not interested in Watchman procedure
Continue cardiac monitoring
Cardiology input appreciated
Diabetes mellitus type 2:
Diabetic diet
Insulin sliding scale
Aortic regurgitation, moderate:
History of bioprosthetic AVR
Hyperlipidemia:
Continue home statin, atorvastatin 20 m p.o. daily
Hypothyroidism:
Continue methimazole 2.5 mg p.o. daily
BPH:
Continue Flomax 0.8 mg p.o. daily
DVT prophylaxis:
Heparin SQ
CODE STATUS:
Full code
Anticipated Discharge: > 48 hours
Subjective/Interval History
-
Date of Service: August 17, 2025
Voices no specific complaints.
Pain from the right foot controlled.
Denies any fever or chills.
No nausea vomiting.
Denies any shortness of breath or chest pain.
Objective Data
-
Vital Signs:
Vital Signs
Temp Pulse Resp BP Pulse Ox
97.8 F 64 16 130/54 97
08/17/25 07:05 08/17/25 07:59 08/17/25 07:59 08/17/25 07:05 08/17/25 08:00
I&O
08/16/25 08/17/25 08/18/25
06:59 06:59 06:59
Intake Total 980 / 980
Output Total 200 / 200
Balance 980 / 980 -200 / -200
Physical Exam
-
General: No Apparent Distress
HEENT: Moist Mucous Membranes
Respiratory: Clear to Auscultation and Non Labored Respirations; Negative Accessory Resp Muscle Use
Cardiac: Regular Rhythm and S1/S2; Negative Tachycardic
GI: Soft
Neuro: AO x 3
Psych: Calm
[2025-08-17 12:17] LABS: Glucose - Point of Care 159 mg/dl (70-99)
[2025-08-17] MEDS: NOVOLOG FLEXPEN-LOW RESISTANCE 1 UNITS SC (12:56)
--- NOTE | 2025-08-17 13:57 | W.PN.POD ---
Today's Communication
Today's Communication
Continue offloading and wound care for now, if able I may be able to biopsy and take bone cx Friday (following angio if possible) if not will add on for Fri/friday next week
Wound redressed today. Will follow post angio
Assessment / Plan
-
DM2 with PAD- PAD w/arteriocclusive disease -Dr Montejo following, Agram possibly Friday
Necrotic, unstageable wound right lateral foot (5th met tubercle)
Cellulitis right foot- improving on IV ABT
Osteomyelitis right foot - MRI suspicious for OM, will continue IV abt and wound care-w/santyl ointment to the wound Continue to offload and protect.
Subjective
Chief Complaint
right foot wound,possible OM 5th met base
Subjective
Pt seen sitting up in bed, eating w/assistance
Objective
Temp Pulse Resp BP Pulse Ox
97.8 F 64 16 130/54 97
08/17/25 07:05 08/17/25 07:59 08/17/25 07:59 08/17/25 07:05 08/17/25 08:00
08/15/25 06:20
08/16/25 07:18
Vital Signs and Lab results were reviewed.
Inspection: Cellulitis (improved right foot) and Ulcer (lateral right foot - remains fibronecrotic with no viable tissue noted, no tunneling or undermining, bone is not exposed, decreased malodor, no purulence)
Review of Systems
Review of Systems
Review of Systems: No Fever, No Chills, No Nausea and No Diarrhea
Physical Exam
Physical Exam
General: No Apparent Distress and Appears Chronically Ill
Musculoskeletal: No Clubbing
Skin: Pressure Ulcer - Stage IV (right foot as described above)
Neuro: Awake, Alert and Protective Sensation Diminished
Vascular: Capillary Refill Delayed, Pedal Hair Absent and Skin Temperature Warm to Cool
Dorsalis Pedis: Diminished
Posterior Tibialis: Absent
--- NOTE | 2025-08-17 14:38 | W.PN.NEPH.PH ---
Today's Communication / Plan
-
follow labs
Assessment/Plan
-
IMP:
Right foot cellulitis, possible OM right 5th toe
Confusion -TME possible
DYANA with CKD 3-baseline cr1.5-1.6
CHF
AFIB
Hyperthyroid
DM II
BPH
Plan:
stable renal function at baseline , no labs today
follow BMP
holding lasix for now, can restart on dc
continue intermittent PVR
flomax
Okay to proceed with angio -noted friday
ok for prophylactic iVF
-
-
Date of Service: August 17, 2025
CC / HPI / ROS
-
Chief Complaint:
DYANA
History of Present Illness:
DYANA/Cr down to 1.4, no labs today
BP stable
on ancef for R foot cellulitis
Review of Systems:
no CP/SOB
Labs
-
Labs:
WBC 6.8 10^3/uL (4.8-10.8) 08/15/25 06:20
RBC 4.13 10^6/uL (4.70-6.10) L 08/15/25 06:20
Hgb 12.9 g/dL (13.0-18.0) L 08/15/25 06:20
Hct 39.8 % (39.0-52.0) 08/15/25 06:20
Plt Count 154 10^3/uL (130-400) 08/15/25 06:20
Sodium 135 mmol/L (135-145) 08/16/25 07:18
Potassium 3.8 mmol/L (3.5-5.1) 08/16/25 07:18
Chloride 104 mmol/L (98-107) 08/16/25 07:18
Carbon Dioxide 28 mmol/L (22-30) 08/16/25 07:18
BUN 36 mg/dl (9-20) H 08/16/25 07:18
Creatinine 1.4 mg/dL (0.7-1.3) H 08/16/25 07:18
eGFR 49.87 08/16/25 07:18
Glucose 109 mg/dl (70-99) H 08/16/25 07:18
Calcium 9.7 mg/dl (8.4-10.2) 08/16/25 07:18
Gxs-L-Ftlyhybqjwx Pept 67933 pg/ml 08/12/25 07:46
Albumin 4.0 g/dl (3.5-5.0) 08/10/25 21:41
Physical Exam
-
Vital Signs:
Vital Signs
Temp Pulse Resp BP Pulse Ox
97.8 F 64 16 130/54 97
08/17/25 07:05 08/17/25 07:59 08/17/25 07:59 08/17/25 07:05 08/17/25 08:00
Cardiovascular:: Regular rate and rhythm
Respiratory:: Bilateral: CTA
Lung Excursion:: Normal
Abdomen:: Nontender and Soft
Bowel Sounds:: Normal
Extremity Edema:: None: Bilateral:
Montejo Catheter: No
[2025-08-17 15:00] VITALS: BP 117/51
[2025-08-17 17:22] LABS: Glucose - Point of Care 212 mg/dl (70-99)
[2025-08-17] MEDS: NOVOLOG FLEXPEN-LOW RESISTANCE 2 UNITS SC (17:33)
[2025-08-17] MEDS: XALATAN OPHTHALMIC SOLUTION 1 DROP BOTH EYES (17:34)
[2025-08-17 21:04] LABS: Glucose - Point of Care 186 mg/dl (70-99)
[2025-08-17 23:00] VITALS: BP 138/56
[2025-08-18] MEDS: ULTRAM 25 MG PO (01:52)
[2025-08-18 05:46] VITALS: BMI 23.7
[2025-08-18 07:00] VITALS: BP 143/61
[2025-08-18 07:09] LABS: Glucose - Point of Care 141 mg/dl (70-99)
[2025-08-18] MEDS: SPIRIVA RESPIMAT 2.5 MCG 2 PUFF INH (07:38)
[2025-08-18] MEDS: STRIVERDI RESPIMAT 2 PUFF INH (07:39)
[2025-08-18] MEDS: NOVOLOG FLEXPEN-LOW RESISTANCE SC (07:53)
[2025-08-18] MEDS: SANTYL OINTMENT 1 APPLIC TOPICAL (07:54)
[2025-08-18] MEDS: LIPITOR 20 MG PO (07:55)
[2025-08-18] MEDS: FLOMAX 0.8 MG PO (07:55)
[2025-08-18] MEDS: TAPAZOLE 2.5 MG PO (07:55)
[2025-08-18] MEDS: PACERONE 200 MG PO (07:55)
[2025-08-18] MEDS: ASPIR LOW (ENTERIC COATED) 81 MG PO (07:55)
[2025-08-18] MEDS: NEURONTIN 200 MG PO (07:55)
[2025-08-18] MEDS: COREG 25 MG PO ×2 (07:56→19:35)
[2025-08-18] MEDS: HEPARIN 5000 UNITS SC ×2 (07:56→19:35)
--- NOTE | 2025-08-18 09:39 | CM ---
Addendum entered by Pretty Lai 08/18/25 12:54:
Per ID- patient will require 6 weeks IV antibiotics.
Original Note:
CM reviewed chart, left VM for patients daughter, Kimi, to discuss therapy recommendations of SNF, patient currently Max Ax2.
Plan for Arteriogram tomorrow.
Podiatry following.
Patient current with [facility].
Care ongoing, will continue to follow.
Plan; Arteriogram tomorrow, continue to discuss SNF with family.
[2025-08-18 10:52] LABS: Blood Urea Nitrogen 36 mg/dl (9-20); Calcium 9.5 mg/dl (8.4-10.2); Carbon Dioxide 25 mmol/L (22-30); Chloride 106 mmol/L (98-107); Estimated Creatinine Clearance 32 ml/min; Glucose 128 mg/dl (70-99); Potassium 4.0 mmol/L (3.5-5.1); Sodium 135 mmol/L (135-145); eGFR 45.91
[2025-08-18 11:48] LABS: Glucose - Point of Care 216 mg/dl (70-99)
[2025-08-18] MEDS: NOVOLOG FLEXPEN-LOW RESISTANCE 2 UNITS SC (12:13)
--- NOTE | 2025-08-18 13:03 | W.PN.HOSP.TC ---
Today's Communication/Plan
-
Angiogram Friday with Vascular +/- bone biopsy/cx from Podiatry (vs M/)
Assessment / Plan
Assessment / Plan
Assessment:
RLE cellulitis
RLE ulcer
- MRI: Nonenhancing soft tissue tract extending off the plantar and lateral aspect of the base of the fifth metatarsal bone, compatible with the given history of necrotic wound in this region. There is mild enhancement of the marrow of the base of
the fifth metatarsal bone adjacent to this soft tissue tract, suspicious for osteomyelitis.
- Podiatry following: Continue offloading and wound care for now
- may proceed with bone biopsy/bone culture Friday vs Friday pending OR time
- ID following: observing off Abx
- Vascular following; for angiogram tomorrow
- Cardiac pre-op clearance granted by Cardiology
Acute confusional state
- Multifactorial with primarily delirium and underlying dementia
- CT head unremarkable for acute findings upon admission
- continue to monitor mental status
DYANA on chronic kidney disease stage III:
- Creatinine improving, creatinine 1.4. Baseline creatinine 1.5-1.6
- Holding diuretics and can restart after DC
- Avoid nephrotoxic
- Nephrology following
- continue to monitor renal function
COPD:
- no active flare
- continue on Spiriva and Striverdi
Chronic HFrEF
- continue GDMT with beta-blockers
- holding diuretics and cardiology following
Paroxysmal A-fib:
- continue Amiodarone/Coreg
- not on anticoagulation due to GI bleed and falls and patient and family apparently not interested in Watchman procedure
- continue cardiac monitoring
- cardiology input appreciated
Diabetes mellitus type 2
- continue Diabetic diet
- continue sliding scale
Aortic regurgitation, moderate
History of bioprosthetic AVR
Hyperlipidemia
- statin
Hyperthyroidism
- continue methimazole
BPH
- continue Flomax
DVT prophylaxis: SC Heparin
Code: Full
Anticipated Discharge: > 48 hours
Subjective/Interval History
-
Date of Service: August 18, 2025
resting comfortably, no complaints at present
Objective Data
-
Labs:
Laboratory Results
08/18/25
10:06
Sodium 135
Potassium 4.0
Chloride 106
Carbon Dioxide 25
BUN 36 H
Creatinine 1.5 H
Glucose 128 H
Calcium 9.5
Vital Signs:
Vital Signs
Temp Pulse Resp BP Pulse Ox
97.3 F 60 16 143/61 96
08/18/25 07:00 08/18/25 07:47 08/18/25 07:47 08/18/25 07:00 08/18/25 07:47
I&O
08/17/25 08/18/25 08/19/25
06:59 06:59 06:59
Intake Total 600 / 600
Output Total 200 / 200
Balance 400 / 400
Physical Exam
-
General: No Apparent Distress
HEENT: Normocephalic and Atraumatic
Respiratory: Negative Wheezes
Cardiac: Regular Rhythm and S1/S2
GI: Soft and Nontender
Skin: Other (RLE cellulitis. Necrotic, unstageable wound right lateral foot (5th met tubercle))
Neuro: AO x 3
Psych: Calm
Data Reviewed
-
Total Time Spent with Patient (in minutes): 45
Labs: Labs Reviewed by me
--- NOTE | 2025-08-18 13:54 | W.PN.NEPH.PH ---
Today's Communication / Plan
-
follow labs
IVF for angio
Assessment/Plan
-
IMP:
Right foot cellulitis, possible OM right 5th toe
Confusion -TME possible
DYANA with CKD 3-baseline cr1.5-1.6
CHF
AFIB
Hyperthyroid
DM II
BPH
Plan:
stable renal function at baseline
holding lasix for now, can restart on dc
continue intermittent PVR and flomax
Okay to proceed with angio friday
ok for prophylactic iVF -ordered
-
-
Date of Service: August 18, 2025
CC / HPI / ROS
-
Chief Complaint:
DYANA
History of Present Illness:
DYANA/Cr stable at 1.5,
BP stable
on ancef for R foot cellulitis
Review of Systems:
no CP/SOB
pain in right foot
Labs
-
Labs:
WBC 6.8 10^3/uL (4.8-10.8) 08/15/25 06:20
RBC 4.13 10^6/uL (4.70-6.10) L 08/15/25 06:20
Hgb 12.9 g/dL (13.0-18.0) L 08/15/25 06:20
Hct 39.8 % (39.0-52.0) 08/15/25 06:20
Plt Count 154 10^3/uL (130-400) 08/15/25 06:20
Sodium 135 mmol/L (135-145) 08/18/25 10:06
Potassium 4.0 mmol/L (3.5-5.1) 08/18/25 10:06
Chloride 106 mmol/L (98-107) 08/18/25 10:06
Carbon Dioxide 25 mmol/L (22-30) 08/18/25 10:06
BUN 36 mg/dl (9-20) H 08/18/25 10:06
Creatinine 1.5 mg/dL (0.7-1.3) H 08/18/25 10:06
eGFR 45.91 08/18/25 10:06
Glucose 128 mg/dl (70-99) H 08/18/25 10:06
Calcium 9.5 mg/dl (8.4-10.2) 08/18/25 10:06
Fti-C-Hizczqirrfs Pept 83183 pg/ml 08/12/25 07:46
Albumin 4.0 g/dl (3.5-5.0) 08/10/25 21:41
Physical Exam
-
Vital Signs:
Vital Signs
Temp Pulse Resp BP Pulse Ox
97.3 F 60 16 143/61 96
08/18/25 07:00 08/18/25 07:47 08/18/25 07:47 08/18/25 07:00 08/18/25 07:47
Cardiovascular:: Regular rate and rhythm
Respiratory:: Bilateral: CTA
Lung Excursion:: Normal
Abdomen:: Nontender and Soft
Bowel Sounds:: Normal
Extremity Edema:: None: Bilateral:
Montejo Catheter: No
[2025-08-18 15:37] VITALS: BP 122/54
[2025-08-18 16:37] LABS: Glucose - Point of Care 168 mg/dl (70-99)
[2025-08-18] MEDS: NOVOLOG FLEXPEN-LOW RESISTANCE 1 UNITS SC (17:03)
[2025-08-18] MEDS: XALATAN OPHTHALMIC SOLUTION 1 DROP BOTH EYES (17:03)
--- NOTE | 2025-08-18 17:25 | W.PN.ID1 ---
Date of Service
Date of Service: August 18, 2025
Today's Communication
- When OR cx data available will set up for 6 weeks of IV abx.
Assessment / Plan
# Right foot osteo, 5th metatarsal
# Right foot non-healing wound, 5th metatarsal
# PAD
# DYANA on CKD3, improving
# DM
-MRI + osteo
- for arteriogram on 08/18.
- Podiatry planning for wound debridement, bone/tissue cx either 08/18 or early next week
- Pt hemodynamically stable, observing off abx to increase intra-op cx yield.
- When OR cx data available will set up for 6 weeks of IV abx.
Conditions present on admission:
Diabetes mellitus
Hypertension
Dementia
COPD
CKD 3
Paroxysmal atrial fibrillation
Aortic stenosis status post bioprosthetic aortic valve replacement
Pacemaker placement (2018)
HFrEF
BPH
Cholecystectomy
Squamous cell carcinoma excision from right upper abdominal wall
R CEA
Chief Complaint
-: Cellulitis and Other (foot wound)
Subjective / Review of Systems
Foot pain stable
Vital Signs / Physical Exam
Vital Signs
Vital Signs
Temp Pulse Resp BP Pulse Ox
98.1 F 61 18 122/54 96
08/18/25 15:37 08/18/25 15:37 08/18/25 15:37 08/18/25 15:37 08/18/25 15:37
Physical Exam
Constitutional: Chronically Ill
Cardiovascular: Regular Rate and S1/S2
Pulmonary: Clear
Gastrointestinal: Soft, Non Tender, Non Distended and Normal Bowel Sounds
Extremities: Negative Edema (Right foot edema resolving) or Erythema (Right forefoot erythema decreased)
Wound: Other (right lateral foot wound necrosis)
Neurological: AO x 3
Objective Data
Lab Data
Lab Results
08/15/25 06:20
08/18/25 10:06
ESR 17 mm/hour (0-20) 08/12/25 07:46
Estimated Creat Clear 32 ml/min 08/18/25 10:06
Lactic Acid 0.9 mmol/L (0.7-2.0) 08/10/25 21:41
Total Bilirubin 0.8 mg/dl (0.2-1.3) 08/10/25 21:41
AST 155 U/L (17-59) H 08/10/25 21:41
ALT 138 U/L (0-50) H 08/10/25 21:41
Alkaline Phosphatase 116 U/L (38-126) 08/10/25 21:41
C-Reactive Protein 9.20 mg/L (0.0-10.00) 08/12/25 07:46
Most recent labs reviewed.
Micro Results:
08/10/25 21:41 Blood Culture - Final
Blood/Venous No Growth - Final Report
08/11/25 02:03 Wound Culture - Final
Foot - Right Klebsiella pneumoniae-ESBL
S aureus-Methicillin Sensitive
Enterococcus faecalis
Gram Stain - Final
08/12/25 MRI R foot: Nonenhancing soft tissue tract extending off the plantar and lateral aspect of the base of the fifth metatarsal bone, compatible with the given history of necrotic wound in this region. There is mild enhancement of the marrow of
the base of the fifth metatarsal bone adjacent to this soft tissue tract, suspicious for osteomyelitis.
08/11/25 CXR: Mild cardiomegaly. Mild pulmonary edema. Linear opacity at the posterior lung base, suggestive of scarring or subsegmental atelectasis.
08/11/25 Foot XRAY: Possible cortical destruction at the base of the fifth metatarsal, with overlying soft tissue wound. Findings are suggestive of osteomyelitis, although MRI would be a more sensitive and specific test
[2025-08-18 21:49] LABS: Glucose - Point of Care 224 mg/dl (70-99)
[2025-08-18 23:31] VITALS: BP 178/71
[2025-08-18 23:55] VITALS: BP 141/60
[2025-08-19] VITALS (18 sets, daily range): BP systolic 91–139; BP diastolic 39–62; BMI 23.7
[2025-08-19 07:32] LABS: Hematocrit 38.0 % (39.0-52.0); Hemoglobin 12.2 g/dL (13.0-18.0); Mean Corp Hgb Conc. 32.1 g/dL (33.0-37.0); Mean Corpuscular Volume 96.0 fL (80.0-94.0); Platelet Count 157 10^3/uL (130-400); Red Cell Dist. Width 15.7 % (11.5-14.5)
[2025-08-19] MEDS: SPIRIVA RESPIMAT 2.5 MCG 2 PUFF INH (07:46)
[2025-08-19] MEDS: STRIVERDI RESPIMAT 2 PUFF INH (07:46)
[2025-08-19 07:52] LABS: Blood Urea Nitrogen 35 mg/dl (9-20); Calcium 9.9 mg/dl (8.4-10.2); Carbon Dioxide 27 mmol/L (22-30); Chloride 107 mmol/L (98-107); Estimated Creatinine Clearance 35 ml/min; Glucose 133 mg/dl (70-99); Potassium 4.1 mmol/L (3.5-5.1); Sodium 136 mmol/L (135-145); eGFR 49.87
--- NOTE | 2025-08-19 08:03 | W.PN.CD ---
Today's Communication / Plan
-
elevated but acceptable risk for surgery.
will follow peripherally. please call with questions.
Impression / Plan
-
Chronic limb threatening ischemia manifested by nonhealing right lateral foot wound
-He is euvolemic, cr improved. He has poor functional status and would be elevated but not prohibitive risk for any/all procedures.
-vascular planning arteriogram and possible intervention
-continue ASA and statin
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
-Podiatry and ID following on IV Abx
-plan for possible debridement and bone cx after vascular eval
HFmrEF:chronic
wt down 21 lbs since November
-echo improved this hospitalization to recovered EF, RV normalized
GDMT:
bb:Coreg 25 bid
SGLT2i He felt dizzy on Jardiance.�
ACEI/ARB/ARNI: as op Hyperkalemia despite retrial of ACEI.�
MRA: will avoid with h/o hyperK can reconsider in the future
Atrial fibrillation is paroxysmal: In NSR on Amiodarone and bb
-no DOAC due to GIB and falls, not interested in watchman
CKD
Biprosthectic AVR: moderate ar
HLD: tolerating daily�
COPD: follows with Dr Proctor
TTE 08/11/25
1. Normal biventricular size and systolic function. LVEF 55% by visual assessment.
2. Well-seated bioprosthetic aortic valve with a mean gradient of 5 mmHg. Moderate aortic regurgitation seen.
3. Mild mitral stenosis.
4. Compared to the prior on 11/04/24, the LVEF has improved from 25 to 30% to normal on today's study. Right ventricular size and function after being dilated and hypokinetic.
Physical Exam
Vital Signs/Labs
Vital Signs
Temp Pulse Resp BP Pulse Ox
97.6 F 61 16 141/60 96
08/18/25 23:31 08/19/25 07:49 08/19/25 07:49 08/18/25 23:55 08/19/25 07:49
08/18/25 08/19/25 08/20/25
06:59 06:59 06:59
Actual Weight 142 lb 3 oz 142 lb 7 oz
08/19/25 06:46
08/19/25 06:46
Magnesium 1.9 mg/dl (1.6-2.3) 08/11/25 06:15
08/10/25 08/12/25
21:41 07:46
Kit-B-Jgkgbqkczmk Pept [id number]
Physical Exam
Constitutional: No acute distress and Comfortable
Cardiovascular: Rhythm & rate is regular and Pedal edema is absent
Respiratory: Respiratory effort normal and Lungs clear to auscul.
Data Reviewed
-
Date of Service: August 19, 2025
Medical Decision Making: Reviewed Test Results, Test Interpretation and Review of Case with other Provider
EKG: Tracing Personally Visualized and interpreted
Echo: Report Reviewed by me
Labs: Labs Reviewed by me
[2025-08-19] MEDS: NEURONTIN 200 MG PO (08:08)
[2025-08-19] MEDS: TAPAZOLE 2.5 MG PO (08:08)
[2025-08-19] MEDS: PACERONE 200 MG PO (08:08)
[2025-08-19] MEDS: FLOMAX 0.8 MG PO (08:08)
[2025-08-19] MEDS: ASPIR LOW (ENTERIC COATED) 81 MG PO (08:08)
[2025-08-19] MEDS: LIPITOR 20 MG PO (08:09)
[2025-08-19] MEDS: HEPARIN 5000 UNITS SC ×2 (08:09→21:32)
[2025-08-19] MEDS: COREG 25 MG PO ×2 (08:10→21:02)
[2025-08-19] MEDS: SANTYL OINTMENT 1 APPLIC TOPICAL (08:10)
[2025-08-19 08:12] LABS: Glucose - Point of Care 114 mg/dl (70-99)
[2025-08-19] MEDS: NOVOLOG FLEXPEN-LOW RESISTANCE SC ×3 (08:12→18:38)
--- NOTE | 2025-08-19 11:43 | W.PN.ID1 ---
Date of Service
Date of Service: August 19, 2025
Today's Communication
Continue with local wound care. Await further studies and eventual biopsy.
Assessment / Plan
# Right foot osteo, 5th metatarsal
# Right foot non-healing wound, 5th metatarsal
# PAD
# DYANA on CKD3, improving
# DM
-MRI + osteo
- Await arteriogram.
- Podiatry planning for wound debridement, bone/tissue cx either 08/19 or early next week
- Pt hemodynamically stable, observing off abx to increase intra-op cx yield.
- When OR cx data available will set up for 6 weeks of IV abx.
Conditions present on admission:
Diabetes mellitus
Hypertension
Dementia
COPD
CKD 3
Paroxysmal atrial fibrillation
Aortic stenosis status post bioprosthetic aortic valve replacement
Pacemaker placement (2018)
HFrEF
BPH
Cholecystectomy
Squamous cell carcinoma excision from right upper abdominal wall
R CEA
Chief Complaint
-: Cellulitis and Other (foot wound)
Subjective / Review of Systems
Review of Systems: No Fever and No Chills
Vital Signs / Physical Exam
Vital Signs
Vital Signs
Temp Pulse Resp BP Pulse Ox
97.9 F 61 16 135/57 96
08/19/25 07:29 08/19/25 07:49 08/19/25 07:49 08/19/25 07:29 08/19/25 07:49
Physical Exam
Constitutional: Chronically Ill
Cardiovascular: Regular Rate and S1/S2
Pulmonary: Clear
Gastrointestinal: Soft, Non Tender, Non Distended and Normal Bowel Sounds
Extremities: Negative Edema (Right foot edema resolving) or Erythema (Right forefoot erythema decreased)
Wound: Other (right lateral foot wound with necrosis)
Neurological: AO x 3
Objective Data
Lab Data
Lab Results
08/19/25 06:46
08/19/25 06:46
ESR 17 mm/hour (0-20) 08/12/25 07:46
Estimated Creat Clear 35 ml/min 08/19/25 06:46
Lactic Acid 0.9 mmol/L (0.7-2.0) 08/10/25 21:41
Total Bilirubin 0.8 mg/dl (0.2-1.3) 08/10/25 21:41
AST 155 U/L (17-59) H 08/10/25 21:41
ALT 138 U/L (0-50) H 08/10/25 21:41
Alkaline Phosphatase 116 U/L (38-126) 08/10/25 21:41
C-Reactive Protein 9.20 mg/L (0.0-10.00) 08/12/25 07:46
Most recent labs reviewed.
Micro Results:
08/10/25 21:41 Blood Culture - Final
Blood/Venous No Growth - Final Report
08/11/25 02:03 Wound Culture - Final
Foot - Right Klebsiella pneumoniae-ESBL
S aureus-Methicillin Sensitive
Enterococcus faecalis
Gram Stain - Final
Imaging:
08/12/25 MRI R foot: Nonenhancing soft tissue tract extending off the plantar and lateral aspect of the base of the fifth metatarsal bone, compatible with the given history of necrotic wound in this region. There is mild enhancement of the marrow of
the base of the fifth metatarsal bone adjacent to this soft tissue tract, suspicious for osteomyelitis.
08/11/25 CXR: Mild cardiomegaly. Mild pulmonary edema. Linear opacity at the posterior lung base, suggestive of scarring or subsegmental atelectasis.
08/11/25 Foot XRAY: Possible cortical destruction at the base of the fifth metatarsal, with overlying soft tissue wound. Findings are suggestive of osteomyelitis, although MRI would be a more sensitive and specific test
--- NOTE | 2025-08-19 11:48 | W.PN.NEPH.PH ---
Today's Communication / Plan
-
IV fluids
Assessment/Plan
-
IMP:
Right foot cellulitis, possible OM right 5th toe
Confusion -TME possible
DYANA with CKD 3-baseline cr1.5-1.6
CHF
AFIB
Hyperthyroid
DM II
BPH
Plan:
stable renal function at baseline
holding lasix for now, can restart on dc
continue intermittent PVR and flomax
Pending angiogram
-
-
Date of Service: August 19, 2025
CC / HPI / ROS
-
Chief Complaint:
DYANA
History of Present Illness:
DYANA/Cr stable at 1.5,
BP stable
on ancef for R foot cellulitis
Review of Systems:
no CP/SOB
pain in right foot
Labs
-
Labs:
WBC 6.8 10^3/uL (4.8-10.8) 08/19/25 06:46
RBC 3.96 10^6/uL (4.70-6.10) L 08/19/25 06:46
Hgb 12.2 g/dL (13.0-18.0) L 08/19/25 06:46
Hct 38.0 % (39.0-52.0) L 08/19/25 06:46
Plt Count 157 10^3/uL (130-400) 08/19/25 06:46
Sodium 136 mmol/L (135-145) 08/19/25 06:46
Potassium 4.1 mmol/L (3.5-5.1) 08/19/25 06:46
Chloride 107 mmol/L (98-107) 08/19/25 06:46
Carbon Dioxide 27 mmol/L (22-30) 08/19/25 06:46
BUN 35 mg/dl (9-20) H 08/19/25 06:46
Creatinine 1.4 mg/dL (0.7-1.3) H 08/19/25 06:46
eGFR 49.87 08/19/25 06:46
Glucose 133 mg/dl (70-99) H 08/19/25 06:46
Calcium 9.9 mg/dl (8.4-10.2) 08/19/25 06:46
Upv-C-Vsffbjoujhg Pept 48096 pg/ml 08/12/25 07:46
Albumin 4.0 g/dl (3.5-5.0) 08/10/25 21:41
Physical Exam
-
Vital Signs:
Vital Signs
Temp Pulse Resp BP Pulse Ox
97.9 F 61 16 135/57 96
08/19/25 07:29 08/19/25 07:49 08/19/25 07:49 08/19/25 07:29 08/19/25 07:49
Cardiovascular:: Regular rate and rhythm
Respiratory:: Bilateral: CTA
Lung Excursion:: Normal
Abdomen:: Nontender and Soft
Bowel Sounds:: Normal
Extremity Edema:: None: Bilateral:
Montejo Catheter: No
--- NOTE | 2025-08-19 12:21 | W.SUR.PREOP ---
Pre-Operative Surgical Note
-
I have examined this patient prior to the performance of the scheduled procedure.
The patient's condition is unchanged from the time of the current History and
Physical and the patient is able to undergo the scheduled procedure.
Spoke to his daughter Kimi over the phone
Explained the plan for today's arteriogram and possible endovascular intervention
Technical aspects explained to her
Benefits/rationale for this approach explained to her
Operative risks explained including but not limited to bleeding, access site injury, contrast nephropathy, distal embolization, inability to successfully complete endovascular intervention and the need for additional procedures
She agrees to proceed
[id number]
Vascular Surgery
[2025-08-19 12:26] LABS: Glucose - Point of Care 120 mg/dl (70-99)
--- NOTE | 2025-08-19 12:50 | W.PN.HOSP.TC ---
Today's Communication/Plan
-
Angiogram today with Vascular +/- bone biopsy/cx from Podiatry (vs M/Tu)
Assessment / Plan
Assessment / Plan
Assessment:
RLE cellulitis
RLE ulcer
- MRI: Nonenhancing soft tissue tract extending off the plantar and lateral aspect of the base of the fifth metatarsal bone, compatible with the given history of necrotic wound in this region. There is mild enhancement of the marrow of the base of
the fifth metatarsal bone adjacent to this soft tissue tract, suspicious for osteomyelitis.
- Podiatry following: Continue offloading and wound care for now
- bone biopsy/bone culture Friday vs Friday pending OR time
- ID following: observing off Abx
- Vascular following; for angiogram today
- Cardiac pre-op clearance granted by Cardiology
Acute confusional state
- Multifactorial with primarily delirium and underlying dementia
- CT head unremarkable for acute findings upon admission
- continue to monitor mental status
DYANA on chronic kidney disease stage III:
- Creatinine improving, creatinine 1.4. Baseline creatinine 1.5-1.6
- Holding diuretics and can restart after DC
- Avoid nephrotoxic
- Nephrology following
- continue to monitor renal function
COPD:
- no active flare
- continue on Spiriva and Striverdi
Chronic HFrEF
- continue GDMT with beta-blockers
- holding diuretics and cardiology following
Paroxysmal A-fib:
- continue Amiodarone/Coreg
- not on anticoagulation due to GI bleed and falls and patient and family apparently not interested in Watchman procedure
- continue cardiac monitoring
- cardiology input appreciated
Diabetes mellitus type 2
- continue Diabetic diet
- continue sliding scale
Aortic regurgitation, moderate
History of bioprosthetic AVR
Hyperlipidemia
- statin
Hyperthyroidism
- continue methimazole
BPH
- continue Flomax
DVT prophylaxis: SC Heparin
Code: Full
Anticipated Discharge: > 48 hours
Subjective/Interval History
-
Date of Service: August 19, 2025
no new complaints except R foot pain
Objective Data
-
Labs:
Laboratory Results
08/19/25
06:46
WBC 6.8
Hgb 12.2 L
Hct 38.0 L
Plt Count 157
Sodium 136
Potassium 4.1
Chloride 107
Carbon Dioxide 27
BUN 35 H
Creatinine 1.4 H
Glucose 133 H
Calcium 9.9
Vital Signs:
Vital Signs
Temp Pulse Resp BP Pulse Ox
97.9 F 61 16 135/57 96
08/19/25 07:29 08/19/25 07:49 08/19/25 07:49 08/19/25 07:29 08/19/25 07:49
I&O
08/18/25 08/19/25 08/20/25
06:59 06:59 06:59
Intake Total 600 / 600 240 / 240
Output Total 200 / 200
Balance 400 / 400 240 / 240
Physical Exam
-
General: No Apparent Distress
HEENT: Normocephalic and Atraumatic
Respiratory: Negative Wheezes
Cardiac: Regular Rhythm and S1/S2
GI: Soft and Nontender
Musculoskeletal: No Edema and Other (RLE cellulitis. Necrotic, unstageable wound right lateral foot (5th met tubercle)
Neuro: AO x 3
Psych: Calm
Data Reviewed
-
Total Time Spent with Patient (in minutes): 41
Labs: Labs Reviewed by me
--- NOTE | 2025-08-19 14:04 | PTCARENOTE ---
Pt ordered sodium bicarb to start one hour before procedure. Medication unable to scan in JAN, attempt to call pharmacy. Per pharmacy, ok to start medication following unit protocol. Spoke to nurse in slab tripper, medication ok to start before
procedure. will continue to monitor.
[2025-08-19 16:27] LABS: ACT-LR - POC 274 Seconds (116-155)
--- NOTE | 2025-08-19 16:41 | CM ---
Patient family at bedside. Patient family would like to have [facility] referral if possible when patient is medically appropriate for SNF. CM will continue to follow for discharge planning needs.
Plan; SNF; [facility] if possible
--- NOTE | 2025-08-19 18:30 | W.SUR.POST ---
Surgical Immediate Post Op
Note
Pre Op Diagnosis: Chronic pressure ulcer stage 4 w/possible osteomyelitis right foot
Post Op Diagnosis: same
Procedure Performed: Excisional debridement of the right lateral foot with bone biopsy 5th metatarsal
Primary Surgeon: Cee Vital
Secondary Surgeons: N/A
Anesthesia: GETA
Estimated Blood Loss: 2 mL
Fluids: NA
Drains/Shunts: NA
Specimens/Cultures: Bone 5th metatarsal right foot
Doppler/Duplex/Angio (Y/N): Y performed prior w/Dr Montejo
Complications: None
Operative Findings: see Op note- bone noted to be very soft.
--- NOTE | 2025-08-19 18:34 | OR.RPT ---
Operative Report
Operative Report
Date of Operation: 08/19/2025
Pre Op Diagnosis: Limb threatening ischemia, right lower extremity with nonhealing right lateral foot wound and second toe wound
Post Op Diagnosis: Limb threatening ischemia, right lower extremity with nonhealing right lateral foot wound and second toe wound
Procedure:
1. Intravascular lithotripsy to right popliteal artery and superficial femoral artery (6 mm x 80 mm E8 shockwave)
2. Drug-coated balloon angioplasty of right popliteal and superficial femoral artery (6 mm x 300 mm Lutonix)
3. Balloon angioplasty and stenting of right popliteal artery and distal superficial femoral artery (overlapping Bard life stents-6 mm x 170 mm distal; 6 mm x 150 mm proximal)
4. Diagnostic aortobiiliac arteriogram
5. Diagnostic right lower extremity arteriogram
6. Ultrasound-guided percutaneous access to the left common femoral artery
7. Ultrasound-guided percutaneous retrograde pedal access to the right anterior tibial artery
Surgeon: Patrick Montejo III, MD
Regional Clinical Director: Barrie Carbajal MD PGY2
Anesthesia: Sedation with local
Complications: None
Estimated Blood Loss: 50 cc
History and Indications for Procedure: 84-year-old male with chronic limb threatening ischemia to the right lower extremity manifested by a nonhealing right lateral foot wound and associated infection along with a second toe wound.
Procedure in Detail: Pillo Gomez was correctly identified and placed supine on the operating table. After adequate induction of anesthesia the bilateral groins were prepped and draped in the usual sterile fashion. A timeout was performed with the
nursing and anesthesia staff confirming the patient's identity as well as the nature and laterality of the procedure.
The left common femoral artery was identified under ultrasound guidance. The artery was patent. The superior and inferior aspects of the femoral head were identified with radiographic guidance and marked at the skin level. The proposed puncture site
was infiltrated with local anesthesia. Under ultrasound guidance we accessed the left common femoral artery with a micropuncture needle and upsized to a 5 Fr sheath over a Relative.aison wire. The wire and a [employer] hook flush catheter were advanced into
the distal abdominal aorta and a diagnostic aorto-biiliac arteriogram was performed:
AORTO-ILIAC ARTERIOGRAM:
Aorta: Calcified. Patent. No significant stenosis identified.
Right common iliac artery: Severe tortuosity. Calcified. No signficant stenosis.
Right external iliac artery: Severe tortuosity. Calcified. No signficant stenosis
Left common iliac artery: Severe tortuosity. Calcified. No signficant stenosis
Left external iliac artery: Severe tortuosity. Calcified. No signficant stenosis
Under roadmap guidance using a Glidewire and the [employer] catheter we selected the right common iliac artery followed by the external iliac artery and then the common femoral artery. A catheter was tracked up and over the aortic bifurcation
and placed in the common femoral artery. Due to the extreme tortuosity this was very difficult. A diagnostic right lower extremity arteriogram was then performed which demonstrated the following:
RIGHT LOWER EXTREMITY:
Common femoral artery: Patent no significant stenosis identified
Profunda femoral artery: Patent
Superficial femoral artery: Calcified plaque throughout. Densely calcified occlusive disease identified in the distal superficial femoral and extending into the popliteal artery behind the knee
Popliteal artery: Densely calcified occlusive plaque above and behind the knee. Below knee segment patent
Anterior tibial artery: patent
Tibioperoneal trunk: patent
Peroneal artery: patent
Posterior tibial artery: patent
ENDOVASCULAR INTERVENTION: Systemic heparin was administered. Exchanged out for a 6 Fr 45 cm sheath over a short floppy tip Amplatz wire. Selected the superficial femoral artery under roadmap guidance. The superficial femoral artery was crossed from
up and over with a Quickcross catheter and stiff Glidewire. This was extremely difficult due to the lack of push ability from the aortoiliac tortuosity. We could not make additional progress through the calcified occlusive disease in the distal
superficial femoral artery and popliteal artery. I therefore decided to approach this from a retrograde pedal access approach. The right foot and ankle was prepped and draped. Under ultrasound guidance I identified the posterior tibial artery at
the ankle. This was circumferentially calcified. I made an additional attempt under ultrasound guidance to access the posterior tibial artery however could not obtain needle access to the lumen of the posterior tibial but rather only pushed the
artery away with the needle tip. I then abandon this approach and imaged the anterior tibial artery at the ankle. Under ultrasound guidance I was able to obtain successful retrograde pedal artery access to the anterior tibial artery at the ankle.
A 4 [place] sheath was placed. Radial artery cocktail was administered through the sheath. I confirmed that we were within the anterior tibial artery. I then used a 0.014 Glidewire advantage and 0.014 quick cross catheter to navigate retrograde
through the anterior tibial artery and popliteal artery. I was able to successfully cross the calcified popliteal artery and distal superficial femoral artery occlusive disease with this approach. Using a snare from the up and over sheath I snared
the 0.014 wire and obtained pedal-femoral body floss wire access. I then exchanged out for a grand slam wire. I then predilated the calcified occlusive disease with a 4 mm angioplasty balloon which was advanced retrograde from the pedal artery
access site. I then navigated a intravascular lithotripsy balloon from an up and over approach with great difficulty and treated the disease with this device.
Due to the severely calcified nature of the superficial femoral artery and popliteal artery disease and in an effort to modify the calcium to achieve maximum luminal gain with endovascular intervention I elected to proceed with intravascular
lithotripsy. A 6 mm x 80 mm Shockwave balloon was advanced across the superficial femoral artery and popliteal artery under roadmap guidance. The IVL balloon was positioned behind the knee initially. Alternating rounds of lithotripsy pulse
delivery at sub-nominal pressure and angioplasty at nominal pressure was performed across the stenosis. In between rounds of pulse delivery and angioplasty the balloon was deflated and repositioned under roadmap guidance. The entire length of the
popliteal artery and superficial femoral artery was treated with the Shockwave balloon. All 400 pulses were delivered.
Subsequent arteriogram demonstrated a significant improvement with better flow and obvious luminal gain. Significant bulky calcified disease remained due to the density of the calcified plaque. I then elected to stent this area. I brought into
position a 6 mm x 300 mm Lutonix drug-coated balloon. This was centered on the popliteal artery and superficial femoral artery disease. The area was treated with a drug-coated angioplasty balloon. I then followed this with overlapping bare-metal
stents. Under roadmap guidance I brought the initial stent into position from an up and over approach which was a 6 mm x 170 mm Bard Life Stent. This was positioned and deployed in the desired location. I then extended this proximal with a 6 mm x
150 mm Life Stent. The stents were then profiled with a 6 mm angioplasty balloon.
COMPLETION ARTERIOGRAM: Patent right LINE MAINTAINER SECTION, SFA and popliteal artery with improved flow compared to pre-treatment. Patent stents. Extrinsic compression from densely calcified plaque contributes to some residual stenosis in the popliteal artery and
stent. Patent AT, peroneal and PT. Overall improved compared to pre-treatment.
Satisfied with this result we concluded the procedure. The sheath tip was pulled back into the left external iliac artery. Protamine was administered.
I then turned the case over to Dr. Vital to perform the foot debridement and bone biopsy which will be dictated separately..
At the conclusion of the case the ankle sheath and femoral sheath were pulled and direct manual pressure was held over the puncture sites. Hemostasis was achieved and sterile dressings applied.
The patient tolerated the procedure well and was taken to the recovery area in stable condition.
Attestation: I was present and responsible for the entire procedure.
Signed:
Patrick Montejo III, MD
Vascular Surgery
[facility]
--- NOTE | 2025-08-19 18:36 | W.IMMPOSTOP ---
Surgical Immed Post Op Note
-
Primary Surgeon: Nikia
Pre-op Diagnosis: CLTI
Post-op Diagnosis: CLTI
Procedure Performed: RLE angiogram, IVL sfa/pop, captain room service/stent SFA/pop (left fem access and retrograde pedal access right foot)
Anesthesia Type: Sedation/local
Specimen / Cultures: None
Estimated Blood Loss: 50 cc
Complications: None
Operative Findings: Patent SFA/pop stents on completion angio.
[2025-08-19] MEDS: PLAVIX 300 MG PO (19:53)
[2025-08-19 20:08] LABS: Glucose - Point of Care 205 mg/dl (70-99)
--- NOTE | 2025-08-19 20:45 | PTCARENOTE ---
Pt received from PACU back to rm [id number].
[2025-08-19] MEDS: PROTONIX 40 MG PO (20:54)
[2025-08-19] MEDS: XALATAN OPHTHALMIC SOLUTION 1 DROP BOTH EYES (21:04)
[2025-08-19] MEDS: ULTRAM 25 MG PO (21:07)
[2025-08-19 21:26] LABS: Glucose - Point of Care 201 mg/dl (70-99)
[2025-08-20 03:35] VITALS: BP 144/57
[2025-08-20 07:04] LABS: Hematocrit 36.1 % (39.0-52.0); Hemoglobin 11.5 g/dL (13.0-18.0); Mean Corp Hgb Conc. 31.9 g/dL (33.0-37.0); Mean Corpuscular Volume 95.5 fL (80.0-94.0); Platelet Count 170 10^3/uL (130-400); Red Cell Dist. Width 16.2 % (11.5-14.5)
[2025-08-20 07:34] VITALS: BP 137/51
[2025-08-20 07:34] LABS: Blood Urea Nitrogen 35 mg/dl (9-20); Calcium 8.9 mg/dl (8.4-10.2); Carbon Dioxide 27 mmol/L (22-30); Chloride 105 mmol/L (98-107); Estimated Creatinine Clearance 41 ml/min; Glucose 187 mg/dl (70-99); Potassium 5.0 mmol/L (3.5-5.1); Sodium 135 mmol/L (135-145); eGFR > 60.00
[2025-08-20] MEDS: STRIVERDI RESPIMAT 2 PUFF INH (07:43)
[2025-08-20] MEDS: SPIRIVA RESPIMAT 2.5 MCG 2 PUFF INH (07:43)
[2025-08-20] MEDS: FLOMAX 0.8 MG PO (07:59)
[2025-08-20] MEDS: ASPIR LOW (ENTERIC COATED) 81 MG PO (07:59)
[2025-08-20] MEDS: PLAVIX 75 MG PO (08:00)
[2025-08-20] MEDS: LIPITOR 20 MG PO (08:00)
[2025-08-20] MEDS: NEURONTIN 200 MG PO (08:00)
[2025-08-20] MEDS: COREG 25 MG PO ×2 (08:00→20:22)
[2025-08-20] MEDS: PROTONIX 40 MG PO (08:00)
[2025-08-20] MEDS: TAPAZOLE 2.5 MG PO (08:00)
[2025-08-20] MEDS: LEXAPRO 20 MG PO (08:00)
[2025-08-20] MEDS: PACERONE 200 MG PO (08:01)
[2025-08-20] MEDS: HEPARIN 5000 UNITS SC ×2 (08:02→20:22)
[2025-08-20] MEDS: SANTYL OINTMENT 1 APPLIC TOPICAL (08:02)
--- NOTE | 2025-08-20 08:16 | W.PN.VS ---
Today's Communication / Plan
-
Discussed with Dr. Francois
Assessment/Plan
-
Postop day 1 RLE angiogram, IVL sfa/pop, port captain/stent SFA/pop (left fem access and retrograde pedal access right foot)
Plan:
Continue aspirin and Plavix at discharge
Okay for discharge from vascular standpoint our office will call the patient with his follow-up appointment
Subjective Data
-
Date of Service: August 20, 2025
Patient seen at bedside this a.m. resting comfortably in bed. No events overnight. Groin site stable.
Objective Data
-
Vital Signs
Temp Pulse Resp BP Pulse Ox
97.7 F 63 16 144/57 97
08/20/25 03:35 08/20/25 08:01 08/20/25 07:46 08/20/25 03:35 08/20/25 07:46
Intake and Output
08/19/25 08/20/25 08/21/25
06:59 06:59 06:59
Intake Total 240 / 240 330 / 330
Output Total 500 / 500
Balance 240 / 240 -170 / -170
Intake:
Oral fluids 240 / 240 180 / 180
IV fluids (Total) 150 / 150
NSS 150 / 150
Output:
Urine, Montejo 500 / 500
Other:
How many times incontinent 1 2
MODERATE amount urine
How many times incontinent 2 1
SATURATED amount urine
Lab Results
08/20/25 06:45
08/20/25 06:45
Calcium 8.9 mg/dl (8.4-10.2) 08/20/25 06:45
Magnesium 1.9 mg/dl (1.6-2.3) 08/11/25 06:15
Total Bilirubin 0.8 mg/dl (0.2-1.3) 08/10/25:41
AST 155 U/L (17-59) H 08/10/25:41
ALT 138 U/L (0-50) H 08/10/25:41
Alkaline Phosphatase 116 U/L (38-126) 08/10/25:41
Total Protein 7.0 g/dl (6.3-8.2) 08/10/25:
Albumin 4.0 g/dl (3.5-5.0) 08/10/25 21:41
Physical Exam
-
Awake and alert
No tachypnea on 2 L
No tachycardia
Abdomen soft and nontender
Groin site clean, dry, intact, soft, flat
Foot site wrapped in surgical dressing
[2025-08-20 08:24] LABS: Glucose - Point of Care 177 mg/dl (70-99)
[2025-08-20] MEDS: NOVOLOG FLEXPEN-LOW RESISTANCE 1 UNITS SC ×2 (09:39→17:08)
--- NOTE | 2025-08-20 10:44 | W.PN.NEPH.PH ---
Today's Communication / Plan
-
AM labs
Assessment/Plan
-
IMP:
Right foot cellulitis, possible OM right 5th toe
Confusion -TME possible
DYANA with CKD 3-baseline cr1.5-1.6
CHF
AFIB
Hyperthyroid
DM II
BPH
Plan:
stable renal function at baseline
holding lasix for now, can restart on dc
Status post right lower extremity bypass 08/19
Creatinine stable 1.2
AM lab
-
-
Date of Service: August 20, 2025
CC / HPI / ROS
-
Chief Complaint:
DYANA
History of Present Illness:
DYANA/Cr stable at 1. 1.2
BP stable
Antibiotic
Review of Systems:
no CP/SOB
Labs
-
Labs:
WBC 6.8 10^3/uL (4.8-10.8) 08/20/25 06:45
RBC 3.78 10^6/uL (4.70-6.10) L 08/20/25 06:45
Hgb 11.5 g/dL (13.0-18.0) L 08/20/25 06:45
Hct 36.1 % (39.0-52.0) L 08/20/25 06:45
Plt Count 170 10^3/uL (130-400) 08/20/25 06:45
Sodium 135 mmol/L (135-145) 08/20/25 06:45
Potassium 5.0 mmol/L (3.5-5.1) 08/20/25 06:45
Chloride 105 mmol/L (98-107) 08/20/25 06:45
Carbon Dioxide 27 mmol/L (22-30) 08/20/25 06:45
BUN 35 mg/dl (9-20) H 08/20/25 06:45
Creatinine 1.2 mg/dL (0.7-1.3) 08/20/25 06:45
eGFR > 60.00 08/20/25 06:45
Glucose 187 mg/dl (70-99) H 08/20/25 06:45
Calcium 8.9 mg/dl (8.4-10.2) 08/20/25 06:45
How-J-Unuwsnozdrt Pept 43575 pg/ml 08/12/25 07:46
Albumin 4.0 g/dl (3.5-5.0) 08/10/25 21:41
Physical Exam
-
Vital Signs:
Vital Signs
Temp Pulse Resp BP Pulse Ox
97.6 F 63 16 137/51 97
08/20/25 07:34 08/20/25 08:01 08/20/25 07:46 08/20/25 07:34 08/20/25 07:46
Cardiovascular:: Regular rate and rhythm
Respiratory:: Bilateral: CTA
Lung Excursion:: Normal
Abdomen:: Nontender and Soft
Bowel Sounds:: Normal
Extremity Edema:: None: Bilateral:
Montejo Catheter: No
[2025-08-20 12:16] LABS: Glucose - Point of Care 190 mg/dl (70-99)
--- NOTE | 2025-08-20 13:23 | W.PN.HOSP.TC ---
Today's Communication/Plan
-
Continue the topical wound care for the right foot
Follow bone culture
Assessment / Plan
Assessment / Plan
Assessment:
RLE cellulitis
RLE ulcer
PAD right leg
- MRI: Nonenhancing soft tissue tract extending off the plantar and lateral aspect of the base of the fifth metatarsal bone, compatible with the given history of necrotic wound in this region. There is mild enhancement of the marrow of the base of
the fifth metatarsal bone adjacent to this soft tissue tract, suspicious for osteomyelitis.
- s/p RLE angiogram, IVL sfa/pop, captain waiter/waitress/stent SFA/pop (left fem access and retrograde pedal access right foot) 08/19
- Full-thickness excisional debridement of right lateral foot ulcer with bone culture 08/19
- Follow wound culture and start on antibiotics. ID following
Acute confusional state
- Multifactorial with primarily delirium and underlying dementia
- CT head unremarkable for acute findings upon admission
- continue to monitor mental status
DYANA on chronic kidney disease stage III:
- Creatinine improving, creatinine 1.2. Baseline creatinine 1.5-1.6
- Holding diuretics and can restart after DC
- Avoid nephrotoxic
- Nephrology following
- continue to monitor renal function
COPD:
- no active flare
- continue on Spiriva and Striverdi
Chronic HFrEF
- continue GDMT with beta-blockers
- holding diuretics and cardiology following
Paroxysmal A-fib:
- continue Amiodarone/Coreg
- not on anticoagulation due to GI bleed and falls and patient and family apparently not interested in Watchman procedure
- continue cardiac monitoring
- cardiology input appreciated
Diabetes mellitus type 2
- continue Diabetic diet
- continue sliding scale
Aortic regurgitation, moderate
History of bioprosthetic AVR
Hyperlipidemia
- statin
Hyperthyroidism
- continue methimazole
BPH
- continue Flomax
DVT prophylaxis: SC Heparin
Code: Full
Anticipated Discharge: > 48 hours
Subjective/Interval History
-
Date of Service: August 20, 2025
Voicing no specific complaints. Denies much of pain from the right foot. No fever or chills.
No shortness of breath. No chest pain.
No overnight events.
Objective Data
-
Labs:
Laboratory Results
08/20/25
06:45
WBC 6.8
Hgb 11.5 L
Hct 36.1 L
Plt Count 170
Sodium 135
Potassium 5.0
Chloride 105
Carbon Dioxide 27
BUN 35 H
Creatinine 1.2
Glucose 187 H
Calcium 8.9
Vital Signs:
Vital Signs
Temp Pulse Resp BP Pulse Ox
97.6 F 63 16 137/51 97
08/20/25 07:34 08/20/25 08:01 08/20/25 07:46 08/20/25 07:34 08/20/25 08:00
I&O
08/19/25 08/20/25 08/21/25
06:59 06:59 06:59
Intake Total 240 / 240 330 / 330
Output Total 500 / 500
Balance 240 / 240 -170 / -170
Physical Exam
-
General: No Apparent Distress
Respiratory: Non Labored Respirations; Negative Accessory Resp Muscle Use
Cardiac: Regular Rhythm and S1/S2; Negative Tachycardic
Neuro: Awake, Alert and Oriented
Psych: Calm
Data Reviewed
-
Labs: Labs Reviewed by me
[2025-08-20 15:34] VITALS: BP 120/47
[2025-08-20] MEDS: NOVOLOG FLEXPEN-LOW RESISTANCE SC (15:57)
--- NOTE | 2025-08-20 16:31 | W.PN.POD ---
Today's Communication
Today's Communication
POD #1 S/p excisional debridement right foot wound and bone bx
S/P Re vasc RLE - Vascular/ Dr Montejo following
Wound tright foot was cleansed and redressed. Pt is not freely moving and is at relatively high risk for decubiti --rec offloading at all times, Prevalon boots B/L and when removed alternate with pillow elevation
Cont tegaderm foam to heels,and santyl oint to wound right foot
Final bone cx pending - This area of the foot is not amenable to surgical cure /resection of bone, therefore will need jail IV abt once final cx resulted.
Assessment / Plan
-
DM2 with PAD- PAD w/arteriocclusive disease -Dr Montejo following, Agram possibly Friday
Necrotic, unstageable wound right lateral foot (5th met tubercle)
Cellulitis right foot- improving on IV ABT
Osteomyelitis right foot - MRI suspicious for OM, will continue IV abt and wound care-w/santyl ointment to the wound Continue to offload and protect.
Subjective
Chief Complaint
cellulitis/osteomyelitis right foot
Subjective
Pt is resting, in NAD POD #! S/P revasc RLE and debridement w/bone biopsy
Objective
Temp Pulse Resp BP Pulse Ox
98.0 F 61 16 120/47 91
08/20/25 15:34 08/20/25 15:34 08/20/25 15:34 08/20/25 15:34 08/20/25 15:34
08/20/25 06:45
08/20/25 06:45
Vital Signs and Lab results were reviewed.
RUN DATE: 08/20/25 [facility] *LIVE* PAGE 1
RUN TIME: 1635 Specimen Inquiry
PATIENT: JARRETT ILNK LOC: [address] [place] [address] U #: [id number]
AGE/SX: 84/M Race: WHITE ROOM: 421 RE08/11/[address]: Faizan Kulkarni MD : 1940 BED: 01 DIS:
STATUS: ADM IN TLOC:
SPEC #: [id number] MARY: 08/19/25 STATUS: RES REQ #: [id number]
RECD: 08/19/[address]: Berenice Vital DPM
SOURCE: FOOT ENTR: 08/19/25-[address]: Xavi URBINA,Jose
SPDESC: Right Dileep Combs MD
Patrick Montejo III, MD
Jeannie Alejandre MD
Alicia Gamez MD
Carolina Cavazos MD
Patrick Garcia DO
ORDERED: Tissue Culture
QUERIES: Date Specimen was Collected 08/19/25
Time Specimen was Collected 1821
Procedure Result Verified
Tissue Culture
Pending
Gram Stain Preliminary 08/20/25-140
Few WBC
No Organisms Seen
Inspection: Cellulitis (none) and Ulcer
Review of Systems
Review of Systems
Review of Systems: No Fever, No Chills, No Nausea and No Diarrhea
Physical Exam
Physical Exam
General: No Apparent Distress and Appears Chronically Ill
Musculoskeletal: No Clubbing and No Cyanosis
Skin: Warm, Dry and Pressure Ulcer - Stage IV (no odor or cellulitis, dry pink wound bed, no active bleeding)
Neuro: Awake, Protective Sensation Diminished and Other (LE's weak B/L )
Vascular: Skin Temperature Warm to Warm
Dorsalis Pedis: Intact
Posterior Tibialis: Diminished
[2025-08-20 16:36] LABS: Glucose - Point of Care 158 mg/dl (70-99)
[2025-08-20] MEDS: XALATAN OPHTHALMIC SOLUTION 1 DROP BOTH EYES (17:08)
[2025-08-20] MEDS: ULTRAM 25 MG PO (20:18)
[2025-08-20 21:20] LABS: Glucose - Point of Care 280 mg/dl (70-99)
[2025-08-20 23:20] VITALS: BP 134/53
[2025-08-21 05:13] VITALS: BMI 24.4
[2025-08-21 06:34] LABS: Hematocrit 34.6 % (39.0-52.0); Hemoglobin 10.8 g/dL (13.0-18.0); Mean Corp Hgb Conc. 31.2 g/dL (33.0-37.0); Mean Corpuscular Volume 97.2 fL (80.0-94.0); Platelet Count 166 10^3/uL (130-400); Red Cell Dist. Width 16.1 % (11.5-14.5)
[2025-08-21 07:02] LABS: Blood Urea Nitrogen 47 mg/dl (9-20); Calcium 8.9 mg/dl (8.4-10.2); Carbon Dioxide 28 mmol/L (22-30); Chloride 103 mmol/L (98-107); Estimated Creatinine Clearance 29 ml/min; Glucose 130 mg/dl (70-99); Potassium 4.7 mmol/L (3.5-5.1); Sodium 134 mmol/L (135-145); eGFR 39.51
[2025-08-21 07:38] LABS: Glucose - Point of Care 132 mg/dl (70-99)
[2025-08-21] MEDS: STRIVERDI RESPIMAT 2 PUFF INH (07:44)
[2025-08-21] MEDS: SPIRIVA RESPIMAT 2.5 MCG 2 PUFF INH (07:44)
[2025-08-21 08:00] VITALS: BP 131/54
[2025-08-21] MEDS: NOVOLOG FLEXPEN-LOW RESISTANCE SC (09:15)
[2025-08-21] MEDS: COREG 25 MG PO ×2 (09:16→20:30)
[2025-08-21] MEDS: FLOMAX 0.8 MG PO (09:16)
[2025-08-21] MEDS: NEURONTIN 200 MG PO (09:16)
[2025-08-21] MEDS: TAPAZOLE 2.5 MG PO (09:16)
[2025-08-21] MEDS: LEXAPRO 20 MG PO (09:16)
[2025-08-21] MEDS: PACERONE 200 MG PO (09:16)
[2025-08-21] MEDS: ASPIR LOW (ENTERIC COATED) 81 MG PO (09:16)
[2025-08-21] MEDS: PROTONIX 40 MG PO (09:17)
[2025-08-21] MEDS: SANTYL OINTMENT 1 APPLIC TOPICAL (09:17)
[2025-08-21] MEDS: PLAVIX 75 MG PO (09:17)
[2025-08-21] MEDS: HEPARIN 5000 UNITS SC ×2 (09:17→20:30)
[2025-08-21] MEDS: LIPITOR 20 MG PO (09:17)
--- NOTE | 2025-08-21 11:36 | W.PN.CD ---
Today's Communication / Plan
-
Doing well post op.
Continue ASA, Plavix, atorvastatin, coreg, amiodarone at current doses.
No additional cardiac recs.
please call us with questions
Impression / Plan
-
s/p RLE angiogram, IVL sfa/pop, captain room service/stent SFA/pop (left fem access and retrograde pedal access right foot)
-no cardiac complications
-cont ASA/Plavix
-cont statin
HFmrEF: improved
wt down 21 lbs since November
-echo improved this hospitalization to EF 55%, RV normalized
GDMT:
bb:Coreg 25 bid
SGLT2i He felt dizzy on Jardiance.�
ACEI/ARB/ARNI: Hyperkalemia
MRA: will avoid with h/o hyperK can reconsider in the future
Atrial fibrillation is paroxysmal: In NSR on Amiodarone and bb
-no DOAC due to GIB and falls, not interested in watchman
CKD
Biprosthectic AVR: moderate AR
HLD: tolerating daily�
COPD: follows with Dr Proctor
TTE 08/11/25
1. Normal biventricular size and systolic function. LVEF 55% by visual assessment.
2. Well-seated bioprosthetic aortic valve with a mean gradient of 5 mmHg. Moderate aortic regurgitation seen.
3. Mild mitral stenosis.
4. Compared to the prior on 11/04/24, the LVEF has improved from 25 to 30% to normal on today's study. Right ventricular size and function after being dilated and hypokinetic.
Physical Exam
Vital Signs/Labs
Vital Signs
Temp Pulse Resp BP Pulse Ox
97.8 F 60 19 131/54 94
08/21/25 08:00 08/21/25 08:00 08/21/25 08:00 08/21/25 08:00 08/21/25 08:00
08/20/25 08/21/25 08/22/25
06:59 06:59 06:59
Actual Weight 66.395 kg
08/21/25 06:09
08/21/25 06:09
Magnesium 1.9 mg/dl (1.6-2.3) 08/11/25 06:15
08/10/25 08/12/25
21:41 07:46
Xla-V-Tionblonhka Pept [id number]
Physical Exam
Constitutional: No acute distress and Comfortable
EENT: Moist mucous membranes
Cardiovascular: Rhythm & rate is regular, JVD pressure is normal, Systolic murmur absent and Diastolic murmur present
Respiratory: Respiratory effort normal and Lungs clear to auscul.
Neuro/Psych: AO x 3
Data Reviewed
-
Date of Service: August 21, 2025
Labs: Labs Reviewed by me
--- NOTE | 2025-08-21 11:58 | W.PN.HOSP.TC ---
Today's Communication/Plan
-
Check bladder scan and follow creatinine
Assessment / Plan
Assessment / Plan
Assessment:
RLE cellulitis
RLE ulcer
PAD right leg
- MRI: Nonenhancing soft tissue tract extending off the plantar and lateral aspect of the base of the fifth metatarsal bone, compatible with the given history of necrotic wound in this region. There is mild enhancement of the marrow of the base of
the fifth metatarsal bone adjacent to this soft tissue tract, suspicious for osteomyelitis.
- s/p RLE angiogram, IVL sfa/pop, uniform force captain/stent SFA/pop (left fem access and retrograde pedal access right foot) 08/19
- Full-thickness excisional debridement of right lateral foot ulcer with bone culture 08/19
- Follow wound culture and start on antibiotics. ID following
Acute confusional state
- Multifactorial with primarily delirium and underlying dementia
- CT head unremarkable for acute findings upon admission
- continue to monitor mental status
DYANA on chronic kidney disease stage III:
- Creatinine improved to 1.2 but now bumped up to 1.7. Could be post operative/contrast administration. Baseline creatinine 1.5-1.6
- Holding diuretics and can restart after DC
- Avoid nephrotoxic
- Nephrology following
- continue to monitor renal function
- Check bladder scan and follow-up creatinine
COPD:
- no active flare
- continue on Spiriva and Striverdi
Chronic HFrEF
- continue GDMT with beta-blockers
- holding diuretics and cardiology following
Paroxysmal A-fib:
- continue Amiodarone/Coreg
- not on anticoagulation due to GI bleed and falls and patient and family apparently not interested in Watchman procedure
- continue cardiac monitoring
- cardiology input appreciated
Diabetes mellitus type 2
- continue Diabetic diet
- continue sliding scale
Aortic regurgitation, moderate
History of bioprosthetic AVR
Hyperlipidemia
- statin
Hyperthyroidism
- continue methimazole
BPH
- continue Flomax
DVT prophylaxis: SC Heparin
Code: Full
Anticipated Discharge: > 48 hours
Subjective/Interval History
-
Date of Service: August 21, 2025
Feels ok.
Denies much of pain from right foot.
Denies fever chills.
Denies nausea vomiting.
Denies shortness of breath.
Objective Data
-
Labs:
Laboratory Results
08/21/25
06:09
WBC 8.1
Hgb 10.8 L
Hct 34.6 L
Plt Count 166
Sodium 134 L
Potassium 4.7
Chloride 103
Carbon Dioxide 28
BUN 47 H
Creatinine 1.7 H
Glucose 130 H
Calcium 8.9
Vital Signs:
Vital Signs
Temp Pulse Resp BP Pulse Ox
97.8 F 60 19 131/54 94
08/21/25 08:00 08/21/25 08:00 08/21/25 08:00 08/21/25 08:00 08/21/25 08:00
I&O
08/20/25 08/21/25 08/22/25
06:59 06:59 06:59
Intake Total 330 / 330 120 / 120
Output Total 500 / 500
Balance -170 / -170 120 / 120
Physical Exam
-
General: Comfortable
Respiratory: Non Labored Respirations; Negative Accessory Resp Muscle Use
Cardiac: Regular Rhythm and S1/S2; Negative Tachycardic
Neuro: Awake, Alert and Oriented
Psych: Calm
Data Reviewed
-
Labs: Labs Reviewed by me
[2025-08-21 12:44] LABS: Glucose - Point of Care 393 mg/dl (70-99)
[2025-08-21 12:46] LABS: Glucose - Point of Care 179 mg/dl (70-99)
[2025-08-21] MEDS: NOVOLOG FLEXPEN-LOW RESISTANCE 1 UNITS SC (12:54)
--- NOTE | 2025-08-21 13:55 | CM ---
CM reviewed chart, left for patients daughter Kimi.
Patient will require IV antibiotics upon d.c, therapy recommending SNF.
Per previous message from daughter, patient has been to [facility] SNF in past, would be interested in returning for SNF if necessary, referral placed in [facility].
CM will continue to follow for all d/c planning needs.
Plan; Referral to [facility], if family agreeable to SNF, will need auth, will require IV antibiotics.
--- NOTE | 2025-08-21 15:32 | W.PN.NEPH.PH ---
Today's Communication / Plan
-
AM labs and bladder scan
Assessment/Plan
-
IMP:
Right foot cellulitis, possible OM right 5th toe
Confusion -TME possible
DYANA with CKD 3-baseline cr1.5-1.6
CHF
AFIB
Hyperthyroid
DM II
BPH
Plan:
holding lasix for now, can restart on dc
Status post right lower extremity bypass 08/19
Creatinine jumped from 1.2-1.7 baseline is 1.5�1.6.= Possible contrast though the 1.2 is likely an outlier
Will continue to trend
Bladder scan ordered
AM lab
-
-
Date of Service: August 21, 2025
CC / HPI / ROS
-
Chief Complaint:
DYANA
History of Present Illness:
DYANA/Cr
BP stable
Antibiotic
Review of Systems:
no CP/SOB
Labs
-
Labs:
WBC 8.1 10^3/uL (4.8-10.8) 08/21/25 06:09
RBC 3.56 10^6/uL (4.70-6.10) L 08/21/25 06:09
Hgb 10.8 g/dL (13.0-18.0) L 08/21/25 06:09
Hct 34.6 % (39.0-52.0) L 08/21/25 06:09
Plt Count 166 10^3/uL (130-400) 08/21/25 06:09
Sodium 134 mmol/L (135-145) L 08/21/25 06:09
Potassium 4.7 mmol/L (3.5-5.1) 08/21/25 06:09
Chloride 103 mmol/L (98-107) 08/21/25 06:09
Carbon Dioxide 28 mmol/L (22-30) 08/21/25 06:09
BUN 47 mg/dl (9-20) H 08/21/25 06:09
Creatinine 1.7 mg/dL (0.7-1.3) H 08/21/25 06:09
eGFR 39.51 08/21/25 06:09
Glucose 130 mg/dl (70-99) H 08/21/25 06:09
Calcium 8.9 mg/dl (8.4-10.2) 08/21/25 06:09
Smd-P-Ceupdbznmgd Pept 93335 pg/ml 08/12/25 07:46
Albumin 4.0 g/dl (3.5-5.0) 08/10/25 21:41
Physical Exam
-
Vital Signs:
Vital Signs
Temp Pulse Resp BP Pulse Ox
97.8 F 60 19 131/54 94
08/21/25 08:00 08/21/25 08:00 08/21/25 08:00 08/21/25 08:00 08/21/25 08:00
Cardiovascular:: Regular rate and rhythm
Respiratory:: Bilateral: CTA
Lung Excursion:: Normal
Abdomen:: Nontender and Soft
Bowel Sounds:: Normal
Extremity Edema:: None: Bilateral:
Montejo Catheter: No
[2025-08-21 16:00] VITALS: BP 123/48
[2025-08-21 16:25] LABS: Glucose - Point of Care 224 mg/dl (70-99)
[2025-08-21] MEDS: NOVOLOG FLEXPEN-LOW RESISTANCE 2 UNITS SC (17:04)
[2025-08-21] MEDS: XALATAN OPHTHALMIC SOLUTION 1 DROP BOTH EYES (17:05)
[2025-08-21 20:28] VITALS: BP 117/50
[2025-08-21 21:17] LABS: Glucose - Point of Care 305 mg/dl (70-99)
[2025-08-21 23:33] VITALS: BP 109/48
[2025-08-22 04:01] VITALS: BMI 24.9
[2025-08-22] MEDS: ULTRAM 25 MG PO ×2 (05:31→12:00)
--- NOTE | 2025-08-22 06:57 | W.PN.UPDATE ---
Update Note
Progress Note Update
-Called at bedside to eval the patient for possible chest crackle and to reassess RT foot as the patient complained of pain. BP 109/48, hr 59, RR 18, Temp 98.2, SPO2 93% RA.
-On exam, patient on RA with NAD. Denies cough or sob, no wheezing or crackle noted during the exam.
-RLE with no swelling, patient denies pain during the exam, no changes with the neurovascular assessment (including pulse, capillary refill and temperature).
Staff advised to monitor and report any changes. Currently patient is followed by [facility] and vascular services.
[2025-08-22 07:08] LABS: Glucose - Point of Care 167 mg/dl (70-99)
[2025-08-22 07:30] VITALS: BP 131/50
[2025-08-22] MEDS: STRIVERDI RESPIMAT 2 PUFF INH (07:43)
[2025-08-22] MEDS: SPIRIVA RESPIMAT 2.5 MCG 2 PUFF INH (07:43)
[2025-08-22 08:12] LABS: Hematocrit 35.8 % (39.0-52.0); Hemoglobin 10.9 g/dL (13.0-18.0); Mean Corp Hgb Conc. 30.4 g/dL (33.0-37.0); Mean Corpuscular Volume 99.7 fL (80.0-94.0); Platelet Count 156 10^3/uL (130-400); Red Cell Dist. Width 15.9 % (11.5-14.5)
[2025-08-22 08:54] LABS: Blood Urea Nitrogen 51 mg/dl (9-20); Calcium 8.9 mg/dl (8.4-10.2); Carbon Dioxide 27 mmol/L (22-30); Chloride 101 mmol/L (98-107); Estimated Creatinine Clearance 24 ml/min; Glucose 152 mg/dl (70-99); Potassium 5.0 mmol/L (3.5-5.1); Sodium 131 mmol/L (135-145); eGFR 32.51
[2025-08-22] MEDS: COREG 25 MG PO ×2 (09:16→20:38)
[2025-08-22] MEDS: LEXAPRO 20 MG PO (09:16)
[2025-08-22] MEDS: PACERONE 200 MG PO (09:16)
[2025-08-22] MEDS: PROTONIX 40 MG PO (09:16)
[2025-08-22] MEDS: FLOMAX 0.8 MG PO (09:17)
[2025-08-22] MEDS: NEURONTIN 200 MG PO (09:17)
[2025-08-22] MEDS: TAPAZOLE 2.5 MG PO (09:17)
[2025-08-22] MEDS: ASPIR LOW (ENTERIC COATED) 81 MG PO (09:17)
[2025-08-22] MEDS: LIPITOR 20 MG PO (09:18)
[2025-08-22] MEDS: PLAVIX 75 MG PO (09:18)
[2025-08-22] MEDS: NOVOLOG FLEXPEN-LOW RESISTANCE 1 UNITS SC ×2 (09:18→17:49)
[2025-08-22] MEDS: HEPARIN 5000 UNITS SC (09:18)
--- NOTE | 2025-08-22 11:04 | W.PN.NEPH.PH ---
Today's Communication / Plan
-
Postvoid bladder scan reviewed
Echocardiogram reviewed
Follow-up BMP in am
ordered daily weiaghts
Assessment/Plan
-
IMP:
Right foot cellulitis, possible OM right 5th toe
Confusion -TME possible
DYANA with CKD 3-baseline cr1.5-1.6
CHF
AFIB
Hyperthyroid
DM II
BPH
Plan:
DYANA worsening with creatinine up to 2
Check postvoid bladder scan which showed minimal urine residual
Echocardiogram reviewed showed normal biventricular size and function
Status post right lower extremity bypass 08/19
Creatinine jumped from 1.2-1.7 baseline is 1.5�1.6.= Possible contrast though the 1.2 is likely an outlier
Will continue to trend
Hemodynamically stable
If creatinine continues to deteriorate we will place Montejo catheter
AM lab
-
-
Date of Service: August 22, 2025
CC / HPI / ROS
-
Chief Complaint:
DYANA
History of Present Illness:
DYANA worsening with creatinine up to 2
BP stable
Review of Systems:
no CP/SOB
Urine output not recorded
Labs
-
Labs:
WBC 7.7 10^3/uL (4.8-10.8) 08/22/25 07:50
RBC 3.59 10^6/uL (4.70-6.10) L 08/22/25 07:50
Hgb 10.9 g/dL (13.0-18.0) L 08/22/25 07:50
Hct 35.8 % (39.0-52.0) L 08/22/25 07:50
Plt Count 156 10^3/uL (130-400) 08/22/25 07:50
Sodium 131 mmol/L (135-145) L 10/20/25 07:50
Potassium 5.0 mmol/L (3.5-5.1) 08/22/25 07:50
Chloride 101 mmol/L (98-107) 08/22/25 07:50
Carbon Dioxide 27 mmol/L (22-30) 08/22/25 07:50
BUN 51 mg/dl (9-20) H 08/22/25 07:50
Creatinine 2.0 mg/dL (0.7-1.3) H 08/22/25 07:50
eGFR 32.51 08/22/25 07:50
Glucose 152 mg/dl (70-99) H 08/22/25 07:50
Calcium 8.9 mg/dl (8.4-10.2) 08/22/25 07:50
Owf-Y-Dyffsqefqig Pept 56667 pg/ml 08/12/25 07:46
Albumin 4.0 g/dl (3.5-5.0) 08/10/25 21:41
Physical Exam
-
Vital Signs:
Vital Signs
Temp Pulse Resp BP Pulse Ox
98.0 F 61 18 131/50 93
08/22/25 07:30 08/22/25 07:45 08/22/25 07:45 08/22/25 07:30 08/22/25 07:45
Cardiovascular:: Regular rate and rhythm
Respiratory:: Bilateral: CTA
Lung Excursion:: Normal
Abdomen:: Nontender and Soft
Bowel Sounds:: Normal
Extremity Edema:: None: Bilateral:
Montejo Catheter: No
[2025-08-22] MEDS: SANTYL OINTMENT 1 APPLIC TOPICAL (11:59)
[2025-08-22 12:26] LABS: Glucose - Point of Care 206 mg/dl (70-99)
[2025-08-22] MEDS: NOVOLOG FLEXPEN-LOW RESISTANCE 2 UNITS SC (12:57)
--- NOTE | 2025-08-22 13:58 | W.PN.HOSP.TC ---
Today's Communication/Plan
-
monitor BMP in AM
follow ID recs for Abx
PT/OT
Assessment / Plan
Assessment / Plan
Assessment:
RLE cellulitis
RLE ulcer
PAD right leg
- MRI: Nonenhancing soft tissue tract extending off the plantar and lateral aspect of the base of the fifth metatarsal bone, compatible with the given history of necrotic wound in this region. There is mild enhancement of the marrow of the base of
the fifth metatarsal bone adjacent to this soft tissue tract, suspicious for osteomyelitis.
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
- Full-thickness excisional debridement of right lateral foot ulcer with bone culture 08/19/25
- Follow wound culture and start on antibiotics per ID
Acute confusional state
- Multifactorial with primarily delirium and underlying dementia
- CT head unremarkable for acute findings upon admission
- continue to monitor mental status
DYANA on chronic kidney disease stage III:
- Creatinine improved to 1.2 but now bumped up to 2.0. Could be post operative/contrast administration. Baseline creatinine 1.5-1.6
- Holding diuretics and can restart after DC
- Avoid nephrotoxic
- Nephrology following
- continue to monitor renal function
- Check bladder scan and follow-up creatinine; may need Montejo
COPD:
- no active flare
- continue on Spiriva and Striverdi
Chronic HFrEF
- continue GDMT with beta-blockers
- holding diuretics and cardiology following
Paroxysmal A-fib:
- continue Amiodarone/Coreg
- not on anticoagulation due to GI bleed and falls and patient and family apparently not interested in Watchman procedure
- continue cardiac monitoring
- cardiology input appreciated
Diabetes mellitus type 2
- continue Diabetic diet
- continue sliding scale
Aortic regurgitation, moderate
History of bioprosthetic AVR
Hyperlipidemia
- statin
Hyperthyroidism
- continue methimazole
BPH
- continue Flomax
Hyponatremia
- monitor BMP
DVT prophylaxis: SC Heparin
Code: Full
Anticipated Discharge: > 48 hours
Subjective/Interval History
-
Date of Service: August 22, 2025
no complaints at present
R foot pain improving
Cr 2.0
Objective Data
-
Labs:
Laboratory Results
08/22/25
07:50
WBC 7.7
Hgb 10.9 L
Hct 35.8 L
Plt Count 156
Sodium 131 L
Potassium 5.0
Chloride 101
Carbon Dioxide 27
BUN 51 H
Creatinine 2.0 H
Glucose 152 H
Calcium 8.9
Vital Signs:
Vital Signs
Temp Pulse Resp BP Pulse Ox
98.0 F 61 18 131/50 93
08/22/25 07:30 08/22/25 07:45 08/22/25 07:45 08/22/25 07:30 08/22/25 07:45
I&O
08/21/25 08/22/25 08/23/25
06:59 06:59 06:59
Intake Total 120 / 120
Balance 120 / 120
Physical Exam
-
General: No Apparent Distress
HEENT: Normocephalic and Atraumatic
Respiratory: Negative Wheezes
Cardiac: Regular Rhythm and S1/S2
GI: Soft
Neuro: AO x 3
Psych: Calm
Data Reviewed
-
Total Time Spent with Patient (in minutes): 45
Labs: Labs Reviewed by me
--- NOTE | 2025-08-22 14:40 | W.PN.ID1 ---
Date of Service
Date of Service: August 22, 2025
Today's Communication
Begin cefazolin.
Assessment / Plan
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
# Right foot non-healing wound, 5th metatarsal
- s/p debridement
# PAD
# DYANA on CKD3, improving
# DM
- MRI + osteo
- S/P wound debridement, bone/tissue cx (08/19)
- Cx with S. aures; sensitivities pending. Prior wound culture with MSSA.
- Will begin cefazolin.
Conditions present on admission:
Diabetes mellitus
Hypertension
Dementia
COPD
CKD 3
Paroxysmal atrial fibrillation
Aortic stenosis status post bioprosthetic aortic valve replacement
Pacemaker placement (2018)
HFrEF
BPH
Cholecystectomy
Squamous cell carcinoma excision from right upper abdominal wall
R CEA
Chief Complaint
-: Cellulitis and Other (foot wound)
Subjective / Review of Systems
Review of Systems: No Fever and No Chills
Vital Signs / Physical Exam
Vital Signs
Vital Signs
Temp Pulse Resp BP Pulse Ox
98.0 F 61 18 131/50 93
08/22/25 07:30 08/22/25 07:45 08/22/25 07:45 08/22/25 07:30 08/22/25 07:45
Physical Exam
Constitutional: Chronically Ill
Cardiovascular: Regular Rate and S1/S2
Pulmonary: Clear
Gastrointestinal: Soft, Non Tender, Non Distended and Normal Bowel Sounds
Extremities: Negative Edema (Right foot edema resolving) or Erythema (Right forefoot erythema decreased)
Wound: Other (right lateral foot wound with necrosis)
Neurological: AO x 3
Objective Data
Lab Data
Lab Results
08/22/25 07:50
08/22/25 07:50
ESR 17 mm/hour (0-20) 08/12/25 07:46
Estimated Creat Clear 24 ml/min 08/22/25 07:50
Lactic Acid 0.9 mmol/L (0.7-2.0) 08/10/25 21:41
Total Bilirubin 0.8 mg/dl (0.2-1.3) 08/10/25 21:41
AST 155 U/L (17-59) H 08/10/25 21:41
ALT 138 U/L (0-50) H 08/10/25 21:41
Alkaline Phosphatase 116 U/L (38-126) 08/10/25 21:41
C-Reactive Protein 9.20 mg/L (0.0-10.00) 08/12/25 07:46
Most recent labs reviewed.
Micro Results:
08/19/25 18:25 Tissue Culture - Preliminary
Foot - Right Staphylococcus aureus
Gram Stain - Preliminary
08/19/25 18:25 Anaerobic Culture - Preliminary
Foot - Right Culture pending. Anaerobic cultures are examined after 3
days incubation. Additional information to follow.
08/10/25 21:41 Blood Culture - Final
Blood/Venous No Growth - Final Report
08/11/25 02:03 Wound Culture - Final
Foot - Right Klebsiella pneumoniae-ESBL
S aureus-Methicillin Sensitive
Enterococcus faecalis
Gram Stain - Final
Imaging:
08/12/25 MRI R foot: Nonenhancing soft tissue tract extending off the plantar and lateral aspect of the base of the fifth metatarsal bone, compatible with the given history of necrotic wound in this region. There is mild enhancement of the marrow of
the base of the fifth metatarsal bone adjacent to this soft tissue tract, suspicious for osteomyelitis.
08/11/25 CXR: Mild cardiomegaly. Mild pulmonary edema. Linear opacity at the posterior lung base, suggestive of scarring or subsegmental atelectasis.
10/9/25 Foot XRAY: Possible cortical destruction at the base of the fifth metatarsal, with overlying soft tissue wound. Findings are suggestive of osteomyelitis, although MRI would be a more sensitive and specific test
[2025-08-22 15:00] VITALS: BP 123/51
[2025-08-22] MEDS: ANCEF 5 IV (16:22)
--- NOTE | 2025-08-22 16:32 | CM ---
On IV antibiotics May need [facility] antibiotic after dc.
Requested postop PT OT orders.
Will need updated PT OT eval .
Check if [facility] has a bed. May need more SNF referrals.
PLAN Locate SNF obtained auth
[2025-08-22 16:52] LABS: Glucose - Point of Care 181 mg/dl (70-99)
--- NOTE | 2025-08-22 17:19 | PTCARENOTE ---
Patient getting sub-q Heparin this AM. Puncture site in ABD noted to be oozing blood throughout day, gown changed x2. Patient also noted to be incontinent of bloody urine. Dr. Combs and Dr. Galeana notified. Heparin placed on hold, saavedra catheter
placed, and urine sample sent to lab.
[2025-08-22 17:25] LABS: Urine Character Bloody (Clear)
[2025-08-22 17:31] LABS: Urine Squamous Cell 0-2 /LPF (Few)
[2025-08-22 17:32] LABS: Urine Red Blood Cell >100 /HPF (0-2); Urine White Cell 80-90 /HPF (0-5)
[2025-08-22] MEDS: XALATAN OPHTHALMIC SOLUTION 1 DROP BOTH EYES (17:48)
[2025-08-22 21:31] LABS: Glucose - Point of Care 242 mg/dl (70-99)
[2025-08-22 23:39] VITALS: BP 122/54
[2025-08-23] MEDS: ANCEF 5 IV ×4 (00:10→23:05)
[2025-08-23 06:00] VITALS: BMI 24.8
[2025-08-23 07:00] VITALS: BP 122/55
[2025-08-23] MEDS: STRIVERDI RESPIMAT 2 PUFF INH (07:15)
[2025-08-23] MEDS: SPIRIVA RESPIMAT 2.5 MCG 2 PUFF INH (07:15)
[2025-08-23] MEDS: NOVOLOG FLEXPEN-LOW RESISTANCE 2 UNITS SC ×3 (08:10→16:51)
[2025-08-23] MEDS: LIPITOR PO ×2 (08:11→08:15)
[2025-08-23] MEDS: PACERONE PO ×2 (08:11→08:15)
[2025-08-23] MEDS: TAPAZOLE PO ×2 (08:11→08:15)
[2025-08-23] MEDS: COLACE PO ×2 (08:11→08:15)
[2025-08-23] MEDS: LEXAPRO PO ×2 (08:12→08:15)
[2025-08-23] MEDS: NEURONTIN PO ×2 (08:12→08:15)
[2025-08-23] MEDS: FLOMAX PO ×2 (08:12→08:15)
[2025-08-23] MEDS: SENOKOT PO ×2 (08:12→08:15)
[2025-08-23] MEDS: ASPIR LOW (ENTERIC COATED) PO ×2 (08:12→08:15)
[2025-08-23] MEDS: PROTONIX PO ×2 (08:12→08:15)
[2025-08-23] MEDS: COREG PO ×2 (08:12→08:15)
[2025-08-23] MEDS: PLAVIX PO ×2 (08:12→08:15)
[2025-08-23] MEDS: SANTYL OINTMENT 1 APPLIC TOPICAL (08:14)
--- NOTE | 2025-08-23 08:15 | PTCARENOTE ---
08/23- Attempted to administer morning medications as ordered. Patient is AAOX1, forgetful, confused and drowsy. He has slow speech. Attempted to administer medication with water one pill at a time, but patient pocketed pill in mouth and
swallowed the water without issue. Then attempted to put pills in applesauce, but he stated he doesn't like applesauce. His breakfast had yogurt, and patient loves yogurt. So this RN attempted to administer medications in the yogurt. Patient
again pocketed medications while swallowing the yogurt without issue. Patient refuses to swallow medication and spit them back out. Notified Physician. Patient is currently refusing all Oral morning medications.
[2025-08-23 08:25] LABS: Glucose - Point of Care 164 mg/dl (70-99)
[2025-08-23 08:56] LABS: Hematocrit 34.6 % (39.0-52.0); Hemoglobin 10.5 g/dL (13.0-18.0); Mean Corp Hgb Conc. 30.3 g/dL (33.0-37.0); Mean Corpuscular Volume 100.6 fL (80.0-94.0); Platelet Count 165 10^3/uL (130-400); Red Cell Dist. Width 15.9 % (11.5-14.5)
--- NOTE | 2025-08-23 09:34 | W.PN.HOSP.TC ---
Today's Communication/Plan
-
AM labs
continue Ancef pending cultures (OR, Urine), d/w ID
follow Nephrology recs
continue PT/OT
continue pain control
Assessment / Plan
Assessment / Plan
Assessment:
RLE cellulitis
RLE ulcer
PAD right leg
- MRI: Nonenhancing soft tissue tract extending off the plantar and lateral aspect of the base of the fifth metatarsal bone, compatible with the given history of necrotic wound in this region. There is mild enhancement of the marrow of the base of
the fifth metatarsal bone adjacent to this soft tissue tract, suspicious for osteomyelitis.
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
- Full-thickness excisional debridement of right lateral foot ulcer with bone culture 08/19/25
- Podiatry following; PT/OT (no activity restrictions)
- Follow wound culture
- continue Ancef per ID
Acute confusional state
- Multifactorial with primarily delirium and underlying dementia
- CT head unremarkable for acute findings upon admission
- possible UTI on UA obtained 08/22 - continue Ancef pending final cultures
DYANA on chronic kidney disease stage III:
- Creatinine improved to 1.2 but now bumped up to 2.0. Could be post operative/contrast administration. Baseline creatinine 1.5-1.6
- Holding diuretics and can restart after DC
- Avoid nephrotoxic
- Nephrology following
- continue to monitor renal function
- Montejo placed 08/22/25 by Nephrology
COPD:
- no active flare
- continue on Spiriva and Striverdi
Chronic HFrEF
- continue GDMT with beta-blockers
- holding diuretics and cardiology following
Paroxysmal A-fib
- continue Amiodarone/Coreg
- not on anticoagulation due to GI bleed and falls and patient and family apparently not interested in Watchman procedure
- continue cardiac monitoring
- cardiology input appreciated
Diabetes mellitus type 2
- continue Diabetic diet
- continue sliding scale
Aortic regurgitation, moderate
History of bioprosthetic AVR
Hyperlipidemia
- statin
Hyperthyroidism
- continue methimazole
BPH
- continue Flomax
Hyponatremia
- monitor BMP
DVT prophylaxis: SC Heparin
Code: Full
Anticipated Discharge: > 48 hours
Subjective/Interval History
-
Date of Service: August 23, 2025
periods of confusion
possibly UTI on UA
Montejo placed 08/22 by Nephrology
Objective Data
-
Labs:
Laboratory Results
08/23/25
08:07
WBC 7.8
Hgb 10.5 L
Hct 34.6 L
Plt Count 165
Sodium Pending
Potassium Pending
Chloride Pending
Carbon Dioxide Pending
BUN Pending
Creatinine Pending
Glucose Pending
Calcium Pending
Vital Signs:
Vital Signs
Temp Pulse Resp BP Pulse Ox
97.4 F 60 16 122/55 93
08/23/25 07:00 08/23/25 07:18 08/23/25 07:18 08/23/25 07:00 08/23/25 07:18
I&O
08/22/25 08/23/25 08/24/25
06:59 06:59 06:59
Intake Total 490 / 490
Output Total 250 / 250
Balance 240 / 240
Physical Exam
-
General: No Apparent Distress
HEENT: Normocephalic and Atraumatic
Respiratory: Negative Wheezes
Cardiac: Regular Rhythm and S1/S2
GI: Soft and Nontender
Genito-urinary: Montejo
Neuro: AO x 3
Psych: Calm and Confused
Data Reviewed
-
Total Time Spent with Patient (in minutes): 41
Labs: Labs Reviewed by me
[2025-08-23 09:35] LABS: Blood Urea Nitrogen 53 mg/dl (9-20); Calcium 8.8 mg/dl (8.4-10.2); Carbon Dioxide 25 mmol/L (22-30); Chloride 102 mmol/L (98-107); Estimated Creatinine Clearance 26 ml/min; Glucose 152 mg/dl (70-99); Potassium 4.5 mmol/L (3.5-5.1); Sodium 131 mmol/L (135-145); eGFR 34.57
--- NOTE | 2025-08-23 10:04 | W.PN.UPDATE ---
Update Note
Progress Note Update
RUN DATE: 08/23/25 [facility] *LIVE* PAGE 1
RUN TIME: 09 Specimen Inquiry
PATIENT: JARRETT LINK LOC: [address] [facility] U #: [id number]
AGE/SX: 84/M Race: WHITE ROOM: 421 RE08/11/[address]: Dileep Combs MD : [id number] BED: 01 DIS:
STATUS: ADM IN TLOC:
SPEC #: [id number] MARY: 08/19/25 STATUS: RES REQ #: [id number]
RECD: 08/19/25-[address]: Berenice Vital DPM
SOURCE: FOOT ENTR: 08/19/25-[address]: Jose Hurley MD
SPDESC: Right Dileep Combs MD
Patrick Montejo III, MD
Jeannie Alejandre MD
Alicia Gamez MD
Carolina Cavazos MD
Patrick Garcia DO
ORDERED: Tissue Culture
QUERIES: Date Specimen was Collected 08/19/25
Time Specimen was Collected 1821
Procedure Result Verified
Tissue Culture Preliminary 08/22/25-0948
Rare Presumptive Staphylococcus aureus
Called to [id number] on 08/22/25 at 0946 by [place] [id number]
Gram Stain Preliminary 08/20/25-1409
Few WBC
No Organisms Seen
Patient is POD #4 S/p debridement and bone bx- results of OR bone as above.
Further Surgical intervention is not planned or recommended at this time.
Antibiotics per ID
Pt may WBAT in post op shoe or grippy sock when OOB
Continue offloading when in bed and wound care with santyl ointment daily
--- NOTE | 2025-08-23 11:24 | CM ---
CM reviewed chart, reviewed with Hospitalist, likely for d/c end of week.
Updated information provided to [facility]- no beds anticipated for this week.
P/c to patients daughter, Kimi, to discuss additional facilities.
Daughter would like to review facilities- CM asked daughter to contact CM prior to end of day in order to send referrals, daughter agreeable.
Patient will require IV antibiotics at SNF.
Will require auth once bed found.
Plan; SNF when stable, will require auth. Family to look into additional facilities and update CM
--- NOTE | 2025-08-23 12:10 | PTOTSP ---
Dysphagia Evaluation:
Pt presents w/ chronic (dementia, COPD, GERD) and acute (suspect UTI, LOC, extended hospitalization) risk factors for aspiration/dysphagia. Given altered mental status, coughing w/ single/sequential sips via straw, and pocketing P.O. medications, an
instrumental swallow study is recommended to determine aspiration occurrence and most appropriate diet level. Continue recommendation of diet as WBC is WNL and 08/10 CXR was clear for PNA.
Recommendations:
1. IDDSI 6 Soft & Bite Size, Single cup-sip thins
2. Medications as best tolerated
3. FULL assistance/supervision w/ meals
4. Strategies: Single sips/small bites, slow rate, alternating liquid washes, LIMIT DISTRACTIONS (close door, TV off)
5. FEES assessment to objectively determine occurrence of aspiration and determine most appropriate diet level.
[2025-08-23 12:30] VITALS: BP 134/55; PULSE 61
[2025-08-23 12:33] LABS: Glucose - Point of Care 227 mg/dl (70-99)
--- NOTE | 2025-08-23 14:27 | W.PN.ID1 ---
Date of Service
Date of Service: August 23, 2025
Today's Communication
Continue antibiotics.
Assessment / Plan
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
# Right foot non-healing wound, 5th metatarsal
- s/p debridement
# PAD
# DYANA on CKD3, improving
# DM
- MRI : (+) osteo
- S/P wound debridement & bone/tissue cx (08/19)
- Cx with S. aures (MSSA)
- Continue with cefazolin.
- Urine with significant pyuria, although Montejo catheter in place, which may compromise culture results.
Conditions present on admission:
Diabetes mellitus
Hypertension
Dementia
COPD
CKD 3
Paroxysmal atrial fibrillation
Aortic stenosis status post bioprosthetic aortic valve replacement
Pacemaker placement (2018)
HFrEF
BPH
Cholecystectomy
Squamous cell carcinoma excision from right upper abdominal wall
R CEA
Chief Complaint
-: Cellulitis and Other (foot wound)
Subjective / Review of Systems
Review of Systems: No Fever and No Chills
Vital Signs / Physical Exam
Vital Signs
Vital Signs
Temp Pulse Resp BP Pulse Ox
97.4 F 60 16 122/55 98
08/23/25 07:00 08/23/25 07:18 08/23/25 07:18 08/23/25 07:00 08/23/25 08:10
Physical Exam
Constitutional: No Acute Distress and Comfortable
Eyes: Sclera Anicteric
Cardiovascular: Regular Rate and S1/S2
Pulmonary: Clear
Gastrointestinal: Soft, Non Tender, Non Distended and Normal Bowel Sounds
Extremities: Negative Edema (Right foot edema resolving) or Erythema (Right forefoot erythema decreased)
Wound: Other (right lateral foot wound with necrosis)
Neurological: AO x 3
Objective Data
Lab Data
Lab Results
08/23/25 08:07
08/23/25 08:07
ESR 17 mm/hour (0-20) 08/12/25 07:46
Estimated Creat Clear 26 ml/min 08/23/25 08:07
Lactic Acid 0.9 mmol/L (0.7-2.0) 08/10/25 21:41
Total Bilirubin 0.8 mg/dl (0.2-1.3) 08/10/25 21:41
AST 155 U/L (17-59) H 08/10/25 21:41
ALT 138 U/L (0-50) H 08/10/25 21:41
Alkaline Phosphatase 116 U/L (38-126) 08/10/25 21:41
C-Reactive Protein 9.20 mg/L (0.0-10.00) 08/12/25 07:46
Most recent labs reviewed.
Micro Results:
08/19/25 18:25 Anaerobic Culture - Preliminary
Foot - Right Culture pending. Anaerobic cultures are examined after 3
days incubation. Additional information to follow.
08/22/25 17:02 Urine Culture - Preliminary
Urine Gram negative bacilli
08/19/25 18:25 Tissue Culture - Preliminary
Foot - Right S aureus-Methicillin Sensitive
Gram Stain - Preliminary
08/10/25 21:41 Blood Culture - Final
Blood/Venous No Growth - Final Report
08/11/25 02:03 Wound Culture - Final
Foot - Right Klebsiella pneumoniae-ESBL
S aureus-Methicillin Sensitive
Enterococcus faecalis
Gram Stain - Final
Imaging:
08/12/25 MRI R foot: Nonenhancing soft tissue tract extending off the plantar and lateral aspect of the base of the fifth metatarsal bone, compatible with the given history of necrotic wound in this region. There is mild enhancement of the marrow of
the base of the fifth metatarsal bone adjacent to this soft tissue tract, suspicious for osteomyelitis.
08/11/25 CXR: Mild cardiomegaly. Mild pulmonary edema. Linear opacity at the posterior lung base, suggestive of scarring or subsegmental atelectasis.
08/11/25 Foot XRAY: Possible cortical destruction at the base of the fifth metatarsal, with overlying soft tissue wound. Findings are suggestive of osteomyelitis, although MRI would be a more sensitive and specific test
[2025-08-23 14:47] VITALS: BMI 24.8
[2025-08-23 14:48] VITALS: BP 182/145
--- NOTE | 2025-08-23 15:36 | W.PN.NEPH.PH ---
Today's Communication / Plan
-
Maintain Montejo catheter
Antibiotic for UTI
Creatinine with modest improvement down to 1.9
Hemodynamically stable
Assessment/Plan
-
IMP:
Right foot cellulitis, possible OM right 5th toe
Confusion -TME possible
DYANA with CKD 3-baseline cr1.5-1.6
CHF
AFIB
Hyperthyroid
DM II
BPH
Plan:
DYANA with modest improvement with creatinine down to 1.9 (likely related to intravascular lithotripsy of right popliteal artery and superficial femoral artery with PCI on 08/19/2025 of right lower extremity)
Montejo catheter placed last night due to gross incontinence and contaminated urine specimens only 250 cc of urine output
Gram-negative bacilli identified on urine culture now on Ancef for UTI
Echocardiogram reviewed showed normal biventricular size and function
Status post right lower extremity bypass 08/19
Hemodynamically stable
AM labs
Concern for rising white and decreasing urine output, therefore holding IV fluids at this time
-
-
Date of Service: August 23, 2025
CC / HPI / ROS
-
Chief Complaint:
DYANA
History of Present Illness:
DYANA with modest improvement with creatinine down to 1 point
BP stable
Now on Ancef for gram-negative bacilli UTI
Review of Systems:
no CP/SOB
Urine output 250 cc via Montejo catheter placed on 08/22/2025
Labs
-
Labs:
WBC 7.8 10^3/uL (4.8-10.8) 08/23/25 08:07
RBC 3.44 10^6/uL (4.70-6.10) L 08/23/25 08:07
Hgb 10.5 g/dL (13.0-18.0) L 08/23/25 08:07
Hct 34.6 % (39.0-52.0) L 08/23/25 08:07
Plt Count 165 10^3/uL (130-400) 08/23/25 08:07
Sodium 131 mmol/L (135-145) L 08/23/25 08:07
Potassium 4.5 mmol/L (3.5-5.1) 08/23/25 08:07
Chloride 102 mmol/L (98-107) 08/23/25 08:07
Carbon Dioxide 25 mmol/L (22-30) 08/23/25 08:07
BUN 53 mg/dl (9-20) H 08/23/25 08:07
Creatinine 1.9 mg/dL (0.7-1.3) H 08/23/25 08:07
eGFR 34.57 08/23/25 08:07
Glucose 152 mg/dl (70-99) H 08/23/25 08:07
Calcium 8.8 mg/dl (8.4-10.2) 08/23/25 08:07
Bpw-V-Crykxuhytfg Pept 63350 pg/ml 08/12/25 07:46
Albumin 4.0 g/dl (3.5-5.0) 08/10/25 21:41
Physical Exam
-
Vital Signs:
Vital Signs
Temp Pulse Resp BP Pulse Ox
98.2 F 63 16 182/145 95
08/23/25 14:48 08/23/25 14:48 08/23/25 14:48 08/23/25 14:48 08/23/25 14:48
Cardiovascular:: Regular rate and rhythm
Respiratory:: Bilateral: CTA
Lung Excursion:: Normal
Abdomen:: Nontender and Soft
Bowel Sounds:: Normal
Extremity Edema:: None: Bilateral:
Montejo Catheter: Yes
--- NOTE | 2025-08-23 16:31 | PTOTSP ---
FEES Note
Summary
Mild oral/pharyngeal dysphagia likely related to acute on chronic factors (i.e., acute delirium with prolonged hospitalization and possible UTI, dementia).
Recommendations
Oral Intake Recommendations: IDDSI 6 Soft/bite sized, Thin liquids via single cup sips with FULL supervision and assistance
Small single sips
No straws
Meds crushed in puree
Intervention Warranted: Yes
Goals: Instruct in compensations. Determine if/when solid advancement appropriate.
Recommendations for Next Level of Care: Yes
[2025-08-23 16:49] LABS: Glucose - Point of Care 210 mg/dl (70-99)
[2025-08-23] MEDS: XALATAN OPHTHALMIC SOLUTION 1 DROP BOTH EYES (16:52)
[2025-08-23] MEDS: ULTRAM 25 MG PO (19:19)
[2025-08-23] MEDS: COLACE 100 MG PO (19:20)
[2025-08-23] MEDS: COREG 25 MG PO (19:20)
[2025-08-23] MEDS: SENOKOT 8.6 MG PO (19:20)
[2025-08-23 22:17] LABS: Glucose - Point of Care 204 mg/dl (70-99)
[2025-08-23 23:13] VITALS: BP 159/68
--- NOTE | 2025-08-24 02:28 | DOWNTIME ---
There was a [employer] Operator Downtime on 08/24/2025 from 0100 to 08/24/2025 at 0215. Downtime documentation of patient's care, including medication administrations, has been reconciled in the electronic record per guidelines. Refer to the
patient's paper chart under the miscellaneous tab to see printed paper medication records and downtime forms.
[2025-08-24 05:55] VITALS: BMI 24.7
[2025-08-24 07:00] VITALS: BP 143/55
[2025-08-24 07:53] LABS: Hematocrit 33.5 % (39.0-52.0); Hemoglobin 10.6 g/dL (13.0-18.0); Mean Corp Hgb Conc. 31.6 g/dL (33.0-37.0); Mean Corpuscular Volume 98.8 fL (80.0-94.0); Platelet Count 165 10^3/uL (130-400); Red Cell Dist. Width 15.8 % (11.5-14.5)
[2025-08-24] MEDS: STRIVERDI RESPIMAT 2 PUFF INH (07:55)
[2025-08-24] MEDS: SPIRIVA RESPIMAT 2.5 MCG 2 PUFF INH (07:55)
[2025-08-24 08:16] LABS: Glucose - Point of Care 150 mg/dl (70-99)
[2025-08-24 08:58] LABS: Blood Urea Nitrogen 52 mg/dl (9-20); Calcium 8.9 mg/dl (8.4-10.2); Carbon Dioxide 26 mmol/L (22-30); Chloride 102 mmol/L (98-107); Estimated Creatinine Clearance 24 ml/min; Glucose 134 mg/dl (70-99); Potassium 4.2 mmol/L (3.5-5.1); Sodium 133 mmol/L (135-145); eGFR 32.51
[2025-08-24] MEDS: NOVOLOG FLEXPEN-LOW RESISTANCE 1 UNITS SC ×3 (09:38→16:54)
[2025-08-24] MEDS: ANCEF 5 IV (09:38)
[2025-08-24] MEDS: PACERONE 200 MG PO (09:39)
[2025-08-24] MEDS: LIPITOR 20 MG PO (09:39)
[2025-08-24] MEDS: FLOMAX 0.8 MG PO (09:39)
[2025-08-24] MEDS: TAPAZOLE 2.5 MG PO (09:40)
[2025-08-24] MEDS: COREG 25 MG PO ×2 (09:40→20:43)
[2025-08-24] MEDS: LEXAPRO 20 MG PO (09:41)
[2025-08-24] MEDS: SENOKOT 8.6 MG PO ×2 (09:41→20:29)
[2025-08-24] MEDS: PROTONIX 40 MG PO (09:42)
[2025-08-24] MEDS: SANTYL OINTMENT 1 APPLIC TOPICAL (09:42)
[2025-08-24] MEDS: NEURONTIN 200 MG PO (09:42)
[2025-08-24] MEDS: ASPIR LOW (ENTERIC COATED) 81 MG PO (09:42)
[2025-08-24] MEDS: PLAVIX 75 MG PO (09:42)
[2025-08-24] MEDS: COLACE 100 MG PO (09:42)
[2025-08-24] MEDS: INVANZ 55 MG IV (10:02)
--- NOTE | 2025-08-24 11:38 | W.PN.ID1 ---
Date of Service
Date of Service: August 24, 2025
Today's Communication
Continue antibiotics. See below�
Assessment / Plan
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
# Right foot non-healing wound, 5th metatarsal
- s/p debridement
# PAD
# DYANA on CKD3, improving
# DM
- MRI : (+) osteo
- S/P wound debridement & bone/tissue cx (08/19)
- Foot Cx with S. aures (MSSA)
- Urine culture now with ESBL E. coli.
- Transition to ertapenem x 14 days. Thereafter, transition back to cefazolin to complete a 6-week course of therapy.
- Given underlying PAD, patient remains at risk for limb loss.
Conditions present on admission:
Diabetes mellitus
Hypertension
Dementia
COPD
CKD 3
Paroxysmal atrial fibrillation
Aortic stenosis status post bioprosthetic aortic valve replacement
Pacemaker placement (2018)
HFrEF
BPH
Cholecystectomy
Squamous cell carcinoma excision from right upper abdominal wall
R CEA
Chief Complaint
-: UTI, Cellulitis and Other (foot wound)
Subjective / Review of Systems
Review of Systems: No Fever and No Chills
Vital Signs / Physical Exam
Vital Signs
Vital Signs
Temp Pulse Resp BP Pulse Ox
97.5 F 60 16 143/55 93
08/24/25 07:00 08/24/25 07:57 08/24/25 07:57 08/24/25 07:00 08/24/25 07:57
Physical Exam
Constitutional: No Acute Distress and Comfortable
Eyes: Sclera Anicteric
Cardiovascular: Regular Rate and S1/S2
Pulmonary: Clear
Gastrointestinal: Soft, Non Tender, Non Distended and Normal Bowel Sounds
Extremities: Negative Edema (Right foot edema resolving) or Erythema (Right forefoot erythema decreased)
Wound: Other (right lateral foot wound dressed. Minimal drainage.)
Psychological: Calm
Objective Data
Lab Data
Lab Results
08/24/25 07:37
08/24/25 07:37
ESR 17 mm/hour (0-20) 08/12/25 07:46
Estimated Creat Clear 24 ml/min 08/24/25 07:37
Lactic Acid 0.9 mmol/L (0.7-2.0) 08/10/25 21:41
Total Bilirubin 0.8 mg/dl (0.2-1.3) 08/10/25 21:41
AST 155 U/L (17-59) H 08/10/25 21:41
ALT 138 U/L (0-50) H 08/10/25 21:41
Alkaline Phosphatase 116 U/L (38-126) 08/10/25 21:41
C-Reactive Protein 9.20 mg/L (0.0-10.00) 08/12/25 07:46
Most recent labs reviewed.
Micro Results:
08/22/25 17:02 Urine Culture - Final
Urine Klebsiella pneumoniae-ESBL
08/19/25 18:25 Anaerobic Culture - Preliminary
Foot - Right Culture pending. Anaerobic cultures are examined after 3
days incubation. Additional information to follow.
08/19/25 18:25 Tissue Culture - Preliminary
Foot - Right S aureus-Methicillin Sensitive
Gram Stain - Preliminary
08/10/25 21:41 Blood Culture - Final
Blood/Venous No Growth - Final Report
08/11/25 02:03 Wound Culture - Final
Foot - Right Klebsiella pneumoniae-ESBL
S aureus-Methicillin Sensitive
Enterococcus faecalis
Gram Stain - Final
Imaging:
08/12/25 MRI R foot: Nonenhancing soft tissue tract extending off the plantar and lateral aspect of the base of the fifth metatarsal bone, compatible with the given history of necrotic wound in this region. There is mild enhancement of the marrow of
the base of the fifth metatarsal bone adjacent to this soft tissue tract, suspicious for osteomyelitis.
08/11/25 CXR: Mild cardiomegaly. Mild pulmonary edema. Linear opacity at the posterior lung base, suggestive of scarring or subsegmental atelectasis.
08/11/25 Foot XRAY: Possible cortical destruction at the base of the fifth metatarsal, with overlying soft tissue wound. Findings are suggestive of osteomyelitis, although MRI would be a more sensitive and specific test
Care Review
Plan reviewed with: Physician (Hospitalist)
--- NOTE | 2025-08-24 11:41 | CM ---
CM reviewed chart, patient seen bedside asleep.
VM left for patients daughter, Kimi, to discuss additional SNF options.
Patient will require auth for SNF.
Will require IV antibiotics at SNF.
CM will continue to follow.
Plan; SNF, pending accepting facility, will require auth
[2025-08-24 12:30] LABS: Glucose - Point of Care 160 mg/dl (70-99)
--- NOTE | 2025-08-24 13:53 | W.PN.NEPH.PH ---
Today's Communication / Plan
-
Start normal saline
Assessment/Plan
-
IMP:
Right foot cellulitis, possible OM right 5th toe
Confusion -TME possible
DYANA with CKD 3-baseline cr1.5-1.6
CHF
AFIB
Hyperthyroid
DM II
BPH
Plan:
DYANA with modest improvement with creatinine down to 2(likely related to intravascular lithotripsy of right popliteal artery and superficial femoral artery with PCI on 08/19/2025 of right lower extremity)
Montejo catheter placed last night due to gross incontinence and contaminated urine specimens only 250 cc of urine output
E. coli UTI antibiotics escalated per ID
Echocardiogram reviewed showed normal biventricular size and function
Status post right lower extremity bypass 08/19
Hemodynamically stable
Patient examines dry we will start him on normal saline primary team aware
-
-
Date of Service: August 24, 2025
CC / HPI / ROS
-
Chief Complaint:
DYANA
History of Present Illness:
YDANA with modest improvement with creatinine down to 1 point
BP stable
Now on Ancef for gram-negative bacilli UTI
Review of Systems:
no CP/SOB
Montejo cath
550 out
Labs
-
Labs:
WBC 7.8 10^3/uL (4.8-10.8) 08/24/25 07:37
RBC 3.39 10^6/uL (4.70-6.10) L 08/24/25 07:37
Hgb 10.6 g/dL (13.0-18.0) L 08/24/25 07:37
Hct 33.5 % (39.0-52.0) L 08/24/25 07:37
Plt Count 165 10^3/uL (130-400) 08/24/25 07:37
Sodium 133 mmol/L (135-145) L 08/24/25 07:37
Potassium 4.2 mmol/L (3.5-5.1) 08/24/25 07:37
Chloride 102 mmol/L (98-107) 08/24/25 07:37
Carbon Dioxide 26 mmol/L (22-30) 08/24/25 07:37
BUN 52 mg/dl (9-20) H 08/24/25 07:37
Creatinine 2.0 mg/dL (0.7-1.3) H 08/24/25 07:37
eGFR 32.51 08/24/25 07:37
Glucose 134 mg/dl (70-99) H 08/24/25 07:37
Calcium 8.9 mg/dl (8.4-10.2) 08/24/25 07:37
Ggt-W-Xidbkvffyfy Pept 08239 pg/ml 08/12/25 07:46
Albumin 4.0 g/dl (3.5-5.0) 08/10/25 21:41
Physical Exam
-
Vital Signs:
Vital Signs
Temp Pulse Resp BP Pulse Ox
97.5 F 60 16 143/55 93
08/24/25 07:00 08/24/25 07:57 08/24/25 07:57 08/24/25 07:00 08/24/25 07:57
Cardiovascular:: Regular rate and rhythm
Respiratory:: Bilateral: CTA
Lung Excursion:: Normal
Abdomen:: Nontender and Soft
Bowel Sounds:: Normal
Extremity Edema:: +1: Bilateral:
Montejo Catheter: Yes
[2025-08-24] MEDS: NSS 1000 IV (14:01)
--- NOTE | 2025-08-24 14:11 | W.PN.HOSP.TC ---
Today's Communication/Plan
-
continue Montejo
start IVF
follow BMP
Abx switched to Invanz from Ancef due to ESBL UTI
d/w ID and Nephrology. d/w Family
Assessment / Plan
Assessment / Plan
Assessment:
RLE cellulitis
RLE ulcer
PAD right leg
- MRI: Nonenhancing soft tissue tract extending off the plantar and lateral aspect of the base of the fifth metatarsal bone, compatible with the given history of necrotic wound in this region. There is mild enhancement of the marrow of the base of
the fifth metatarsal bone adjacent to this soft tissue tract, suspicious for osteomyelitis.
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
- Full-thickness excisional debridement of right lateral foot ulcer with bone culture 08/19/25
- Podiatry following; PT/OT (no activity restrictions)
- Follow wound culture
- continue Invanz per ID x 14 days; then Ancef for remainder of 6 week course
Acute confusional state
- Multifactorial with primarily delirium and underlying dementia
- CT head unremarkable for acute findings upon admission
- ESBL UTI found; continue Invanz per ID x 14 days
DYANA on chronic kidney disease stage III:
- Creatinine improved to 1.2 but now bumped up to 2.0. Could be post operative/contrast administration. Baseline creatinine 1.5-1.6
- Holding diuretics
- Avoid nephrotoxic
- Nephrology following
- continue to monitor renal function
- Montejo placed 08/22/25 by Nephrology
- start IVF 08/24
- follow BMP
COPD:
- no active flare
- continue on Spiriva and Striverdi
Chronic HFrEF
- continue GDMT with beta-blockers
- holding diuretics and cardiology following
Paroxysmal A-fib
- continue Amiodarone/Coreg
- not on anticoagulation due to GI bleed and falls and patient and family apparently not interested in Watchman procedure
- continue cardiac monitoring
- cardiology input appreciated
Diabetes mellitus type 2
- continue Diabetic diet
- continue sliding scale
Aortic regurgitation, moderate
History of bioprosthetic AVR
Hyperlipidemia
- statin
Hyperthyroidism
- continue methimazole
BPH
- continue Flomax
Hyponatremia
- monitor BMP
DVT prophylaxis: SC Heparin
Code: Full
Anticipated Discharge: > 48 hours
Subjective/Interval History
-
Date of Service: August 24, 2025
no overnight events
found to have ESBL in UTI - Ertapenem started per ID
Cr 2.0
IVF started by Nephrology
Objective Data
-
Labs:
Laboratory Results
08/24/25
07:37
WBC 7.8
Hgb 10.6 L
Hct 33.5 L
Plt Count 165
Sodium 133 L
Potassium 4.2
Chloride 102
Carbon Dioxide 26
BUN 52 H
Creatinine 2.0 H
Glucose 134 H
Calcium 8.9
Vital Signs:
Vital Signs
Temp Pulse Resp BP Pulse Ox
97.5 F 60 16 143/55 93
08/24/25 07:00 08/24/25 07:57 08/24/25 07:57 08/24/25 07:00 08/24/25 07:57
I&O
08/23/25 08/24/25 08/25/25
06:59 06:59 06:59
Intake Total 490 / 490 600 / 600
Output Total 250 / 250 550 / 550
Balance 240 / 240 50 / 50
Physical Exam
-
General: No Apparent Distress
HEENT: Normocephalic and Atraumatic
Respiratory: Negative Wheezes
Cardiac: Regular Rhythm and S1/S2
GI: Soft and Nontender
Genito-urinary: Montejo
Neuro: Awake
Psych: Calm and Confused
Data Reviewed
-
Total Time Spent with Patient (in minutes): 41
Labs: Labs Reviewed by me
[2025-08-24 14:43] VITALS: BP 127/48; PULSE 62
[2025-08-24 14:59] VITALS: BP 127/48; PULSE 61; O2SAT 93
[2025-08-24 15:00] VITALS: BP 136/52
[2025-08-24 16:43] LABS: Glucose - Point of Care 157 mg/dl (70-99)
[2025-08-24] MEDS: XALATAN OPHTHALMIC SOLUTION 1 DROP BOTH EYES (16:54)
[2025-08-24] MEDS: COLACE PO ×2 (20:29→20:55)
[2025-08-24 22:15] LABS: Glucose - Point of Care 145 mg/dl (70-99)
[2025-08-24] MEDS: ULTRAM 25 MG PO (23:06)
[2025-08-24 23:38] VITALS: BP 170/70
[2025-08-25] MEDS: NSS 1000 IV ×3 (01:09→21:33)
[2025-08-25 02:17] VITALS: BP 132/54
[2025-08-25 05:13] VITALS: BMI 24.8
[2025-08-25 06:19] VITALS: BP 132/57
[2025-08-25 07:00] VITALS: BP 117/52
[2025-08-25] MEDS: SPIRIVA RESPIMAT 2.5 MCG 2 PUFF INH (07:29)
[2025-08-25] MEDS: STRIVERDI RESPIMAT 2 PUFF INH (07:29)
[2025-08-25 08:13] LABS: Glucose - Point of Care 131 mg/dl (70-99)
[2025-08-25 08:19] LABS: Hematocrit 32.4 % (39.0-52.0); Hemoglobin 10.2 g/dL (13.0-18.0); Mean Corp Hgb Conc. 31.5 g/dL (33.0-37.0); Mean Corpuscular Volume 100.0 fL (80.0-94.0); Platelet Count 171 10^3/uL (130-400); Red Cell Dist. Width 15.9 % (11.5-14.5)
[2025-08-25] MEDS: NOVOLOG FLEXPEN-LOW RESISTANCE SC ×2 (08:31→18:04)
[2025-08-25] MEDS: ASPIR LOW (ENTERIC COATED) 81 MG PO (09:21)
[2025-08-25] MEDS: NEURONTIN 200 MG PO (09:21)
[2025-08-25] MEDS: FLOMAX 0.8 MG PO (09:22)
[2025-08-25] MEDS: PROTONIX 40 MG PO (09:22)
[2025-08-25] MEDS: SENOKOT 8.6 MG PO ×2 (09:22→21:30)
[2025-08-25] MEDS: LEXAPRO 20 MG PO (09:22)
[2025-08-25] MEDS: LIPITOR 20 MG PO (09:22)
[2025-08-25] MEDS: PACERONE 200 MG PO (09:22)
[2025-08-25] MEDS: COREG 25 MG PO ×2 (09:22→21:45)
[2025-08-25] MEDS: PLAVIX 75 MG PO (09:23)
[2025-08-25] MEDS: TAPAZOLE 2.5 MG PO (09:23)
[2025-08-25] MEDS: SANTYL OINTMENT 1 APPLIC TOPICAL (09:24)
[2025-08-25] MEDS: COLACE 100 MG PO (09:24)
[2025-08-25] MEDS: INVANZ 55 MG IV (09:24)
[2025-08-25 09:29] LABS: Blood Urea Nitrogen 46 mg/dl (9-20); Calcium 8.8 mg/dl (8.4-10.2); Carbon Dioxide 24 mmol/L (22-30); Chloride 106 mmol/L (98-107); Estimated Creatinine Clearance 32 ml/min; Glucose 124 mg/dl (70-99); Potassium 4.0 mmol/L (3.5-5.1); Sodium 131 mmol/L (135-145); eGFR 45.91
[2025-08-25 11:50] LABS: Glucose - Point of Care 172 mg/dl (70-99)
[2025-08-25] MEDS: NOVOLOG FLEXPEN-LOW RESISTANCE 1 UNITS SC (12:44)
--- NOTE | 2025-08-25 13:08 | W.PN.HOSP.TC ---
Today's Communication/Plan
-
Cr 1.5; IVF and Montejo per Nephrology
continue Abx per ID
DC planning to SNF
Assessment / Plan
Assessment / Plan
Assessment:
RLE cellulitis
RLE ulcer
PAD right leg
- MRI: Nonenhancing soft tissue tract extending off the plantar and lateral aspect of the base of the fifth metatarsal bone, compatible with the given history of necrotic wound in this region. There is mild enhancement of the marrow of the base of
the fifth metatarsal bone adjacent to this soft tissue tract, suspicious for osteomyelitis.
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
- Full-thickness excisional debridement of right lateral foot ulcer with bone culture 08/19/25
- Podiatry following; PT/OT (no activity restrictions)
- Follow wound culture
- continue Invanz per ID x 14 days; then Ancef for remainder of 6 week course
Acute confusional state
- Multifactorial with primarily delirium and underlying dementia
- CT head unremarkable for acute findings upon admission
- ESBL UTI found; continue Invanz per ID x 14 days
DYANA on chronic kidney disease stage III:
- Creatinine improved to 1.2 but now bumped up to 2.0. Could be post operative/contrast administration. Baseline creatinine 1.5-1.6
- Holding diuretics
- Avoid nephrotoxic
- Nephrology following
- continue to monitor renal function
- Montejo placed 08/22/25 by Nephrology
- start IVF 08/24
- follow BMP, Cr now down to 1.5
COPD:
- no active flare
- continue on Spiriva and Striverdi
Chronic HFrEF
- continue GDMT with beta-blockers
- holding diuretics and cardiology following
Paroxysmal A-fib
- continue Amiodarone/Coreg
- not on anticoagulation due to GI bleed and falls and patient and family apparently not interested in Watchman procedure
- continue cardiac monitoring
- cardiology input appreciated
Diabetes mellitus type 2
- continue Diabetic diet
- continue sliding scale
Aortic regurgitation, moderate
History of bioprosthetic AVR
Hyperlipidemia
- statin
Hyperthyroidism
- continue methimazole
BPH
- continue Flomax
Hyponatremia
- monitor BMP
DVT prophylaxis: SC Heparin
Code: Full
Anticipated Discharge: 24 - 48 hours
Subjective/Interval History
-
Date of Service: August 25, 2025
more alert today
Cr to 1.5 today
Objective Data
-
Labs:
Laboratory Results
08/25/25
07:15
WBC 7.3
Hgb 10.2 L
Hct 32.4 L
Plt Count 171
Sodium 131 L
Potassium 4.0
Chloride 106
Carbon Dioxide 24
BUN 46 H
Creatinine 1.5 H
Glucose 124 H
Calcium 8.8
Vital Signs:
Vital Signs
Temp Pulse Resp BP Pulse Ox
97.4 F 60 16 117/52 97
08/25/25 07:00 08/25/25 07:43 08/25/25 07:43 08/25/25 07:00 08/25/25 07:43
I&O
08/24/25 08/25/25 08/26/25
06:59 06:59 06:59
Intake Total 600 / 600 320 / 320
Output Total 550 / 550 1300 / 1300
Balance 50 / 50 -980 / -980
Physical Exam
-
General: No Apparent Distress
HEENT: Normocephalic and Atraumatic
Respiratory: Negative Wheezes
Cardiac: Regular Rhythm and S1/S2
GI: Soft
Genito-urinary: No Costovertebral Tender
Neuro: AO x 3
Psych: Calm
Data Reviewed
-
Total Time Spent with Patient (in minutes): 42
Labs: Labs Reviewed by me
--- NOTE | 2025-08-25 13:32 | W.PN.ID1 ---
Date of Service
Date of Service: August 25, 2025
Today's Communication
Continue antibiotics. See below�
Assessment / Plan
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
# Right foot non-healing wound, 5th metatarsal
- s/p debridement
# PAD
# DYANA on CKD3, improving
# DM
- MRI : (+) osteo
- S/P wound debridement & bone/tissue cx (08/19)
- Foot Cx with S. aures (MSSA)
- Urine culture now with ESBL E. coli.
- Continue ertapenem d#2 of 14. (through 09/06/25)
- on 09/07/25 transition back to cefazolin to complete a 6-week course of therapy (through 10/04/25)
- Given underlying PAD, patient remains at risk for limb loss.
Conditions present on admission:
Diabetes mellitus
Hypertension
Dementia
COPD
CKD 3
Paroxysmal atrial fibrillation
Aortic stenosis status post bioprosthetic aortic valve replacement
Pacemaker placement (2018)
HFrEF
BPH
Cholecystectomy
Squamous cell carcinoma excision from right upper abdominal wall
R CEA
Chief Complaint
-: UTI, Cellulitis and Other (foot wound / osteomyelitis)
Subjective / Review of Systems
Review of Systems: No Fever and No Chills
Vital Signs / Physical Exam
Vital Signs
Vital Signs
Temp Pulse Resp BP Pulse Ox
97.4 F 60 16 117/52 97
08/25/25 07:00 08/25/25 07:43 08/25/25 07:43 08/25/25 07:00 08/25/25 07:43
Physical Exam
Constitutional: No Acute Distress and Comfortable
Eyes: Sclera Anicteric
Cardiovascular: Regular Rate and S1/S2
Pulmonary: Clear
Gastrointestinal: Soft, Non Tender, Non Distended and Normal Bowel Sounds
Genito-Urinary: Montejo and Clear Urine; Negative Turbid Urine or Hematuria
Extremities: Edema (right foot)
Wound: Other (right lateral foot wound dressed. Wound with minimal slough. Minimal drainage.)
Neurological: Awake and Alert
Psychological: Calm
Objective Data
Lab Data
Lab Results
08/25/25 07:15
08/25/25 07:15
ESR 17 mm/hour (0-20) 08/12/25 07:46
Estimated Creat Clear 32 ml/min 08/25/25 07:15
Lactic Acid 0.9 mmol/L (0.7-2.0) 08/10/25 21:41
Total Bilirubin 0.8 mg/dl (0.2-1.3) 08/10/25 21:41
AST 155 U/L (17-59) H 08/10/25 21:41
ALT 138 U/L (0-50) H 08/10/25 21:41
Alkaline Phosphatase 116 U/L (38-126) 08/10/25 21:41
C-Reactive Protein 9.20 mg/L (0.0-10.00) 08/12/25 07:46
Most recent labs reviewed.
Micro Results:
08/19/25 18:25 Tissue Culture - Final
Foot - Right S aureus-Methicillin Sensitive
Gram Stain - Final
08/19/25 18:25 Anaerobic Culture - Final
Foot - Right NO ANAEROBES ISOLATED
08/22/25 17:02 Urine Culture - Final
Urine Klebsiella pneumoniae-ESBL
08/10/25 21:41 Blood Culture - Final
Blood/Venous No Growth - Final Report
08/11/25 02:03 Wound Culture - Final
Foot - Right Klebsiella pneumoniae-ESBL
S aureus-Methicillin Sensitive
Enterococcus faecalis
Gram Stain - Final
Imaging:
08/12/25 MRI R foot: Nonenhancing soft tissue tract extending off the plantar and lateral aspect of the base of the fifth metatarsal bone, compatible with the given history of necrotic wound in this region. There is mild enhancement of the marrow of
the base of the fifth metatarsal bone adjacent to this soft tissue tract, suspicious for osteomyelitis.
08/11/25 CXR: Mild cardiomegaly. Mild pulmonary edema. Linear opacity at the posterior lung base, suggestive of scarring or subsegmental atelectasis.
08/11/25 Foot XRAY: Possible cortical destruction at the base of the fifth metatarsal, with overlying soft tissue wound. Findings are suggestive of osteomyelitis, although MRI would be a more sensitive and specific test
[2025-08-25 15:03] VITALS: BP 122/50
--- NOTE | 2025-08-25 15:16 | CM ---
Pt is cleared for discharge when bed is available. referral placed with [facility], [facility]. No beds available. Additional referrals sent to [facility] and [facility]. Selections provided by lina Bolden. Pt on IV ABX, PICC
line being placed.
Plan: DC to SNF once bed is available and auth obtained
--- NOTE | 2025-08-25 15:57 | W.PN.NEPH.PH ---
Today's Communication / Plan
-
Okay for discharge from renal standpoint
Assessment/Plan
-
IMP:
Right foot cellulitis, possible OM right 5th toe
Confusion -TME possible
DYANA with CKD 3-baseline cr1.5-1.6
CHF
AFIB
Hyperthyroid
DM II
BPH
Plan:
DYANA with modest improvement with creatinine down to 2(likely related to intravascular lithotripsy of right popliteal artery and superficial femoral artery with PCI on 08/19/2025 of right lower extremity)
Montejo catheter placed last night due to gross incontinence and contaminated urine specimens only 250 cc of urine output
E. coli UTI antibiotics escalated per ID
Echocardiogram reviewed showed normal biventricular size and function
Status post right lower extremity bypass 08/19
Hemodynamically stable
Creatinine better at 1.5 status post IV fluids
-
-
Date of Service: August 25, 2025
CC / HPI / ROS
-
Chief Complaint:
DYANA
History of Present Illness:
DYANA with modest improvement with creatinine down to 1 point
BP stable
Now on Ancef for gram-negative bacilli UTI
Review of Systems:
no CP/SOB
Montejo cath
550 out
Labs
-
Labs:
WBC 7.3 10^3/uL (4.8-10.8) 08/25/25 07:15
RBC 3.24 10^6/uL (4.70-6.10) L 08/25/25 07:15
Hgb 10.2 g/dL (13.0-18.0) L 08/25/25 07:15
Hct 32.4 % (39.0-52.0) L 08/25/25 07:15
Plt Count 171 10^3/uL (130-400) 08/25/25 07:15
Sodium 131 mmol/L (135-145) L 08/25/25 07:15
Potassium 4.0 mmol/L (3.5-5.1) 08/25/25 07:15
Chloride 106 mmol/L (98-107) 08/25/25 07:15
Carbon Dioxide 24 mmol/L (22-30) 08/25/25 07:15
BUN 46 mg/dl (9-20) H 08/25/25 07:15
Creatinine 1.5 mg/dL (0.7-1.3) H 08/25/25 07:15
eGFR 45.91 08/25/25 07:15
Glucose 124 mg/dl (70-99) H 08/25/25 07:15
Calcium 8.8 mg/dl (8.4-10.2) 08/25/25 07:15
Sjx-B-Qkvejpkajef Pept 83412 pg/ml 08/12/25 07:46
Albumin 4.0 g/dl (3.5-5.0) 08/10/25 21:41
Physical Exam
-
Vital Signs:
Vital Signs
Temp Pulse Resp BP Pulse Ox
97.4 F 60 16 117/52 97
08/25/25 07:00 08/25/25 07:43 08/25/25 07:43 08/25/25 07:00 08/25/25 07:43
Cardiovascular:: Regular rate and rhythm
Respiratory:: Bilateral: CTA
Lung Excursion:: Normal
Abdomen:: Nontender and Soft
Bowel Sounds:: Normal
Extremity Edema:: +1: Bilateral:
Montejo Catheter: Yes
[2025-08-25 17:15] LABS: Glucose - Point of Care 140 mg/dl (70-99)
[2025-08-25] MEDS: XALATAN OPHTHALMIC SOLUTION 1 DROP BOTH EYES (18:04)
[2025-08-25 20:58] LABS: Glucose - Point of Care 151 mg/dl (70-99)
[2025-08-25] MEDS: COLACE PO (21:53)
--- NOTE | 2025-08-25 22:36 | VATNOTE ---
R Upper Arm DL PICC dressing rechecked after pressure dressing applied @1830. Currently dressing is clean dry and intact no signs f increased bleeding noted. Both lumens flushed easily. Advised PCN to call [facility] with any further issues.
[2025-08-25 23:45] VITALS: BP 111/40
--- NOTE | 2025-08-26 00:15 | VATNOTE ---
SHELDON PICC DRSG REMAINS C/D/I WITH NO EVIDENCE OF ANY BLEEDING NOTED AT THIS TIME. WILL CONTINUE TO MONITOR . PCN AWARE OF INTERVENTION AND OUTCOME.
[2025-08-26 05:09] LABS: Hematocrit 31.6 % (39.0-52.0); Hemoglobin 10.0 g/dL (13.0-18.0); Mean Corp Hgb Conc. 31.6 g/dL (33.0-37.0); Mean Corpuscular Volume 96.3 fL (80.0-94.0); Platelet Count 175 10^3/uL (130-400); Red Cell Dist. Width 16.3 % (11.5-14.5)
[2025-08-26 05:31] LABS: Blood Urea Nitrogen 39 mg/dl (9-20); Calcium 8.6 mg/dl (8.4-10.2); Carbon Dioxide 25 mmol/L (22-30); Chloride 111 mmol/L (98-107); Estimated Creatinine Clearance 37 ml/min; Glucose 152 mg/dl (70-99); Potassium 3.9 mmol/L (3.5-5.1); Sodium 134 mmol/L (135-145); eGFR 54.51
--- NOTE | 2025-08-26 05:33 | VATNOTE ---
RUE 5FR DL PICC DRSG C/D/I. NO EVIDENCE OF ANY FURTHER BLEEDING. ORDERED AM LABS OBTAINED PER PROTOCOL. BOTH LUMENS ARE PATENT AND HAVE A BRISK BLOOD RETURN.
[2025-08-26 06:00] VITALS: BMI 25.5
[2025-08-26 07:00] VITALS: BP 125/45
[2025-08-26 07:10] LABS: Glucose - Point of Care 141 mg/dl (70-99)
[2025-08-26] MEDS: NOVOLOG FLEXPEN-LOW RESISTANCE SC (08:13)
[2025-08-26] MEDS: LIPITOR 20 MG PO (08:14)
[2025-08-26] MEDS: PLAVIX 75 MG PO (08:14)
[2025-08-26] MEDS: NEURONTIN 200 MG PO (08:14)
[2025-08-26] MEDS: SENOKOT 8.6 MG PO (08:14)
[2025-08-26] MEDS: ASPIR LOW (ENTERIC COATED) 81 MG PO (08:15)
[2025-08-26] MEDS: TAPAZOLE 2.5 MG PO (08:15)
[2025-08-26] MEDS: FLOMAX 0.8 MG PO (08:15)
[2025-08-26] MEDS: LEXAPRO 20 MG PO (08:15)
[2025-08-26] MEDS: SANTYL OINTMENT 1 APPLIC TOPICAL (08:15)
[2025-08-26] MEDS: PROTONIX 40 MG PO (08:16)
[2025-08-26] MEDS: COLACE 100 MG PO (08:16)
[2025-08-26] MEDS: PACERONE 200 MG PO (08:16)
[2025-08-26] MEDS: COREG 25 MG PO (08:18)
[2025-08-26] MEDS: STRIVERDI RESPIMAT 2 PUFF INH (08:22)
[2025-08-26] MEDS: SPIRIVA RESPIMAT 2.5 MCG 2 PUFF INH (08:22)
[2025-08-26] MEDS: NSS 1000 IV (08:43)
[2025-08-26] MEDS: INVANZ 55 MG IV (08:46)
[2025-08-26 11:55] LABS: Glucose - Point of Care 210 mg/dl (70-99)
--- NOTE | 2025-08-26 12:03 | W.PN.NEPH.PH ---
Today's Communication / Plan
-
Discontinue IV fluid
Assessment/Plan
-
IMP:
Right foot cellulitis, possible OM right 5th toe
Confusion -TME possible
DYANA with CKD 3-baseline cr1.5-1.6
CHF
AFIB
Hyperthyroid
DM II
BPH
Plan:
DYANA with modest improvement with creatinine down to 2(likely related to intravascular lithotripsy of right popliteal artery and superficial femoral artery with PCI on 08/19/2025 of right lower extremity)
Montejo catheter placed last night due to gross incontinence and contaminated urine specimens only 250 cc of urine output
E. coli UTI antibiotics escalated per ID
Echocardiogram reviewed showed normal biventricular size and function
Status post right lower extremity bypass 08/19
Hemodynamically stable
Creatinine better at 1.2 with IV fluids
Will discontinue
-
-
Date of Service: August 26, 2025
CC / HPI / ROS
-
Chief Complaint:
DYANA
History of Present Illness:
DYANA with modest improvement with creatinine down to 1 point
BP stable
Now on Ancef for gram-negative bacilli UTI
Review of Systems:
no CP/SOB
Nonoliguric
Labs
-
Labs:
WBC 7.2 10^3/uL (4.8-10.8) 08/26/25 04:49
RBC 3.28 10^6/uL (4.70-6.10) L 08/26/25 04:49
Hgb 10.0 g/dL (13.0-18.0) L 08/26/25 04:49
Hct 31.6 % (39.0-52.0) L 08/26/25 04:49
Plt Count 175 10^3/uL (130-400) 08/26/25 04:49
Sodium 134 mmol/L (135-145) L 08/26/25 04:49
Potassium 3.9 mmol/L (3.5-5.1) 08/26/25 04:49
Chloride 111 mmol/L (98-107) H 08/26/25 04:49
Carbon Dioxide 25 mmol/L (22-30) 08/26/25 04:49
BUN 39 mg/dl (9-20) H 08/26/25 04:49
Creatinine 1.3 mg/dL (0.7-1.3) 08/26/25 04:49
eGFR 54.51 08/26/25 04:49
Glucose 152 mg/dl (70-99) H 08/26/25 04:49
Calcium 8.6 mg/dl (8.4-10.2) 08/26/25 04:49
Gwq-Q-Mmzmhnthivc Pept 97511 pg/ml 08/12/25 07:46
Albumin 4.0 g/dl (3.5-5.0) 08/10/25 21:41
Physical Exam
-
Vital Signs:
Vital Signs
Temp Pulse Resp BP Pulse Ox
97.3 F 62 16 125/45 96
08/26/25 07:00 08/26/25 08:23 08/26/25 08:23 08/26/25 07:00 08/26/25 08:23
Cardiovascular:: Regular rate and rhythm
Respiratory:: Bilateral: CTA
Lung Excursion:: Normal
Abdomen:: Nontender and Soft
Bowel Sounds:: Normal
Extremity Edema:: +1: Bilateral:
Montejo Catheter: Yes
--- NOTE | 2025-08-26 12:28 | W.PN.ID1 ---
Date of Service
Date of Service: August 26, 2025
Today's Communication
Continue current course of antibiotics.
Assessment / Plan
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
# Right foot non-healing wound, 5th metatarsal
- s/p debridement
# PAD
# DYANA on CKD3, improving
# DM
- MRI : (+) osteo
- S/P wound debridement & bone/tissue cx (08/19)
- Foot Cx with S. aures (MSSA)
- Urine culture now with ESBL E. coli.
- Continue ertapenem d#3 of 14. (continue through 09/06/25)
- on 09/07/25 transition back to cefazolin to complete a 6-week course of therapy (through 10/04/25)
- Will follow outpatient labs.
- Given underlying PAD, patient remains at risk for limb loss.
- Will see again at your request.
Conditions present on admission:
Diabetes mellitus
Hypertension
Dementia
COPD
CKD 3
Paroxysmal atrial fibrillation
Aortic stenosis status post bioprosthetic aortic valve replacement
Pacemaker placement (2018)
HFrEF
BPH
Cholecystectomy
Squamous cell carcinoma excision from right upper abdominal wall
R CEA
Chief Complaint
-: UTI, Cellulitis and Other (foot wound / osteomyelitis)
Subjective / Review of Systems
Review of Systems: No Fever and No Chills
Vital Signs / Physical Exam
Vital Signs
Vital Signs
Temp Pulse Resp BP Pulse Ox
97.3 F 62 16 125/45 96
08/26/25 07:00 08/26/25 08:23 08/26/25 08:23 08/26/25 07:00 08/26/25 08:23
Physical Exam
Constitutional: No Acute Distress, Comfortable and Chronically Ill
Cardiovascular: Regular Rate and S1/S2
Pulmonary: Clear
Gastrointestinal: Soft, Non Tender, Non Distended and Normal Bowel Sounds
Genito-Urinary: Montejo and Clear Urine; Negative Turbid Urine or Hematuria
Extremities: Edema (right foot)
Wound: Other (right lateral foot wound dressed. Wound with minimal slough. Minimal drainage.)
Neurological: Awake and Alert
Psychological: Calm
Objective Data
Lab Data
Lab Results
08/26/25 04:49
08/26/25 04:49
ESR 17 mm/hour (0-20) 08/12/25 07:46
Estimated Creat Clear 37 ml/min 08/26/25 04:49
Lactic Acid 0.9 mmol/L (0.7-2.0) 08/10/25 21:41
Total Bilirubin 0.8 mg/dl (0.2-1.3) 08/10/25 21:41
AST 155 U/L (17-59) H 08/10/25 21:41
ALT 138 U/L (0-50) H 08/10/25 21:41
Alkaline Phosphatase 116 U/L (38-126) 08/10/25 21:41
C-Reactive Protein 9.20 mg/L (0.0-10.00) 08/12/25 07:46
Most recent labs reviewed.
Micro Results:
08/19/25 18:25 Tissue Culture - Final
Foot - Right S aureus-Methicillin Sensitive
Gram Stain - Final
08/19/25 18:25 Anaerobic Culture - Final
Foot - Right NO ANAEROBES ISOLATED
08/22/25 17:02 Urine Culture - Final
Urine Klebsiella pneumoniae-ESBL
08/10/25 21:41 Blood Culture - Final
Blood/Venous No Growth - Final Report
08/11/25 02:03 Wound Culture - Final
Foot - Right Klebsiella pneumoniae-ESBL
S aureus-Methicillin Sensitive
Enterococcus faecalis
Gram Stain - Final
Imaging:
08/12/25 MRI R foot: Nonenhancing soft tissue tract extending off the plantar and lateral aspect of the base of the fifth metatarsal bone, compatible with the given history of necrotic wound in this region. There is mild enhancement of the marrow of
the base of the fifth metatarsal bone adjacent to this soft tissue tract, suspicious for osteomyelitis.
08/11/25 CXR: Mild cardiomegaly. Mild pulmonary edema. Linear opacity at the posterior lung base, suggestive of scarring or subsegmental atelectasis.
08/11/25 Foot XRAY: Possible cortical destruction at the base of the fifth metatarsal, with overlying soft tissue wound. Findings are suggestive of osteomyelitis, although MRI would be a more sensitive and specific test
--- NOTE | 2025-08-26 12:40 | CM ---
Addendum entered by Pretty Lai 08/26/25 14:19:
Patient scheduled for 6:00 p.m. ambulance, daughter Kimi updated.
Original Note:
CM reviewed chart, patient medically stable for d/c.
CM spoke with Blank, liaison at [facility] ([phone]), confirmed bed availability.
Auth approved via IBC- 08/26-08/30, NRD 08/30, call for review [phone], auth #[id number], ambulance auth approved 08/26-08/28, auth #[id number].
Updates to Blank at [facility].
Daughter Kimi in agreement with [facility], IMM verbally reviewed, placed in chart.
CM will continue to follow for all d/c planning needs.
Plan; [facility], ambulance transport
[facility]
Report: [phone]
[2025-08-26] MEDS: NOVOLOG FLEXPEN-LOW RESISTANCE 2 UNITS SC (13:06)
--- NOTE | 2025-08-26 13:49 | W.DCSUMMARY ---
Discharge Summary
Discharge Data
Date of Admission: 08/11/25
Date of Discharge: 08/26/25
-
Pending Results: No
Hospital Course
84 y/o M, hx of Afib, Type 2 DM, HLD, Hyperthyroidism, BPH, Chronic HFrEF, COPD presented to ER for R foot ulcer and cellulitis. Patient has a history of PAD and underwent RLE angiogram and stenting on 08/19/25. Patient also had bone culture by
Podiatry on 08/19/25 which grew MSSA. Patient was placed on Invanz x 2 weeks for ESBL UTI (then will switch to Ancef for 4 weeks). A PICC was placed. He will follow up with Vascular and Podiatry.
He was also seen by Nephrology for DYANA on CKD which improved with IVF.
He briefly required a Montejo for retention in setting of UTI.
He was discharged to SNF on 08/26/25.
Discharge Plan
-
Patient Disposition: Fpc/SNF
Discharge Diagnosis/Procedures: Osteomyelitis s/p bone culture showing MSSA - on IV antibiotics. ESBL UTI. s/p RLE angiogram, IVL sfa/pop, investigation division captain/stent SFA/pop (left fem access and retrograde pedal access right foot) 08/19/25 for PAD
Condition: Fair
Diet: Low Cholesterol and Diabetic, Carb Controlled
Activity: As tolerated
Bathing Restrictions: None
Blood Work: CBC/BMP in 1 week.
Others Tests: Your repeat arterial ultrasound is scheduled on 09/26/2025 at 10am here at [facility]
Other Services: PT and OT
Stand Alone Forms: Vascular Surg Discharge Instr
Referrals:
Kathrine Livingston PA-C [Specified Professional Personl, Vascular Surgery] - 09/28/25 10:00 am
Berenice Vital DPM [Active, Podiatry] - in two to three weeks
Patrick Garcia DO [Family Provider, Internal Medicine] - in one week
Prescriptions:
New
Ertapenem [Invanz] 500 MG
0.9% Sodium Chloride [Nss] 50 ML
100 mls/hr IV Q24H
until 09/06/25
Ordered By: Dileep Combs MD
Last Taken: 08/26/25 08:46 55 mls
cefazolin 1 gram recon soln
1 g IM Q8H Qty: 100 0RF
Rx Instructions:
start 09/07
clopidogrel 75 mg Tablet
75 mg PO DAILY Qty: 30 0RF
tramadol 50 mg Tablet
25 mg PO Q6HPRN PRN (Reason: MODERATE PAIN) Qty: 10 0RF
pantoprazole 40 mg Tablet,Delayed Release (Dr/Ec)
40 mg PO DAILY Qty: 30 0RF
Santyl 250 unit/gram Ointment
1 applic topical DAILY Qty: 90 0RF
Continued
latanoprost 0.005 % Drops
1 drp OPHTHALMIC (EYE) QPM
Rx Instructions:
both eyes
carvedilol 25 mg Tablet
25 mg PO BID
atorvastatin 20 mg Tablet
20 mg PO DAILY
umeclidinium-vilanterol [Anoro Ellipta] 62.5-25 mcg/actuation Blister With Device
1 inh INHALATION R DAILY
aspirin 81 mg Tablet,Delayed Release (Dr/Ec)
81 mg PO DAILY
methimazole 5 mg tablet
2.5 mg PO DAILY
amiodarone 200 mg Tablet
200 mg PO DAILY Qty: 0 0RF
risperidone 0.5 mg Tablet,Disintegrating
0.25 mg PO [id number] PRN (Reason: agitation severe) Qty: 0 0RF
tamsulosin [Flomax] 0.4 mg Capsule
0.4 mg PO DAILY
gabapentin 100 mg Capsule
200 mg PO TID
escitalopram oxalate [Lexapro] 20 mg Tablet
20 mg PO DAILY
No Action
furosemide 40 mg Tablet
40 mg PO DAILY Qty: 0 0RF
nitroglycerin 0.4 mg Tablet, Sublingual
0.4 mg sublingual [id number] PRN (Reason: chest pain) Qty: 0 0RF
Discharge Orders:
Discharge Patient (As Directed); Ordered 08/26/25
Ordered By: Dileep Combs
Discharge Date and Time
Print Language: BRITISH
--- NOTE | 2025-08-26 13:59 | W.PN.HOSP.TC ---
Today's Communication/Plan
-
dc to SNF
Assessment / Plan
Assessment / Plan
Assessment:
RLE cellulitis
RLE ulcer
PAD right leg
- MRI: Nonenhancing soft tissue tract extending off the plantar and lateral aspect of the base of the fifth metatarsal bone, compatible with the given history of necrotic wound in this region. There is mild enhancement of the marrow of the base of
the fifth metatarsal bone adjacent to this soft tissue tract, suspicious for osteomyelitis.
- s/p RLE angiogram, IVL sfa/pop, kidney puller/stent SFA/pop (left fem access and retrograde pedal access right foot) 08/19/25
- Full-thickness excisional debridement of right lateral foot ulcer with bone culture 08/19/25
- Podiatry following; PT/OT (no activity restrictions)
- Follow wound culture
- continue Invanz per ID x 14 days; then Ancef for remainder of 6 week course
Acute confusional state
- Multifactorial with primarily delirium and underlying dementia
- CT head unremarkable for acute findings upon admission
- ESBL UTI found; continue Invanz per ID x 14 days
DYANA on chronic kidney disease stage III:
- Creatinine improved to 1.2 but now bumped up to 2.0. Could be post operative/contrast administration. Baseline creatinine 1.5-1.6
- Holding diuretics
- Avoid nephrotoxic
- Nephrology following
- continue to monitor renal function
- Montejo removed
- s/p IVF
- follow BMP, Cr now down to 1.3
COPD:
- no active flare
- continue on Spiriva and Striverdi
Chronic HFrEF
- continue GDMT with beta-blockers
- resume diuretics at discharge
- OP Cards f/u
Paroxysmal A-fib
- continue Amiodarone/Coreg
- not on anticoagulation due to GI bleed and falls and patient and family apparently not interested in Watchman procedure
- continue cardiac monitoring
- cardiology input appreciated
Diabetes mellitus type 2
- continue Diabetic diet
- continue sliding scale
Aortic regurgitation, moderate
History of bioprosthetic AVR
Hyperlipidemia
- statin
Hyperthyroidism
- continue methimazole
BPH
- continue Flomax
Hyponatremia
- monitor BMP
DVT prophylaxis: SC Heparin
Code: Full
More than 30 minutes spent in discharge including
Final examination of the patient
Summarizing hospital stay
Instructions for continuing care to all relevant caregivers
Preparation of discharge records, prescriptions, and referral forms
Total time spent (in minutes): 41
Anticipated Discharge: Today
Subjective/Interval History
-
Date of Service: August 26, 2025
resting comfortably, no complaints
Objective Data
-
Labs:
Laboratory Results
08/26/25
04:49
WBC 7.2
Hgb 10.0 L
Hct 31.6 L
Plt Count 175
Sodium 134 L
Potassium 3.9
Chloride 111 H
Carbon Dioxide 25
BUN 39 H
Creatinine 1.3
Glucose 152 H
Calcium 8.6
Vital Signs:
Vital Signs
Temp Pulse Resp BP Pulse Ox
97.3 F 62 16 125/45 96
08/26/25 07:00 08/26/25 08:23 08/26/25 08:23 08/26/25 07:00 08/26/25 08:23
I&O
08/25/25 08/26/25 08/27/25
06:59 06:59 06:59
Intake Total 320 / 320 300 / 300
Output Total 1300 / 1300 350 / 350
Balance -980 / -980 -50 / -50
Physical Exam
-
General: No Apparent Distress
HEENT: Normocephalic and Atraumatic
Respiratory: Negative Wheezes
Cardiac: Regular Rhythm and S1/S2
GI: Soft and Nontender
Genito-urinary: No Costovertebral Tender
Neuro: AO x 3
Psych: Calm
Data Reviewed
-
Total Time Spent with Patient (in minutes): 41
Labs: Labs Reviewed by me
[2025-08-26 15:00] VITALS: BP 137/58
--- NOTE | 2025-08-26 15:45 | W.PN.POD ---
Today's Communication
Today's Communication
Wound right foot cleansed and redressed. Continue present wound care w/santyl upon DC to SNF
Offload and protect while in bed.
Assessment / Plan
-
DM2 with PAD- PAD w/arteriocclusive disease -Dr Montejo following, S/P revasc RLE
POD #7 S/P wound debridement and bone bx
Osteomyelitis right foot -confirme by bx +MSSA, continue IV abt per ID
Stage 4 right lateral foot- continue w/santyl ointment to the wound qd
Continue to offload and protect.
Subjective
Chief Complaint
Cellulitis/OM right foot
Subjective
Patient seen in bed, resting comfortably
POD #7 S/p Debrideent of wound and bone cx
Objective
Temp Pulse Resp BP Pulse Ox
97.4 F 65 22 137/58 98
08/26/25 15:00 08/26/25 15:00 08/26/25 15:00 08/26/25 15:00 08/26/25 15:00
08/26/25 04:49
08/26/25 04:49
Vital Signs and Lab results were reviewed.
Inspection: Cellulitis (none) and Ulcer (stage 4 pressure complicated by PAD)
Review of Systems
Review of Systems
Review of Systems: No Fever, No Chills and No Nausea
Physical Exam
Physical Exam
General: No Apparent Distress, Comfortable and Appears Chronically Ill (+)
Skin: Warm, Dry and Pressure Ulcer - Stage IV (wound bed is clean and granular with small amount of exposed tendon. Wound measures 1cm x 1.5cm x cm deep. There is no erythema, edema or drainage or malodor)
Neuro: Awake, Alert and Protective Sensation Diminished
Vascular: Pedal Hair Absent and Skin Temperature Warm to Cool
Dorsalis Pedis: Diminished
Posterior Tibialis: Absent
[2025-08-26] MEDS: NSS IV (15:57)
[2025-08-26 16:29] LABS: Glucose - Point of Care 172 mg/dl (70-99)
[2025-08-26] MEDS: XALATAN OPHTHALMIC SOLUTION 1 DROP BOTH EYES (17:27)
[2025-08-26] MEDS: NOVOLOG FLEXPEN-LOW RESISTANCE 1 UNITS SC (17:28)
== END 2025-08-26 18:38 | DRG 278 ==
LOC: 4 WEST ACU 04:30
PROVIDERS: Hospitalist; Internal Medicine; Radiology Diagnostic Radiology; Specialist; Student in an Organized Health Care Education/Training Program; ADMITTING PHYSICIAN Internal Medicine; ATTENDING PHYSICIAN Internal Medicine; CONSULT PHYSICIAN Internal Medicine; CONSULT PHYSICIAN Internal Medicine Cardiovascular Disease; CONSULT PHYSICIAN Internal Medicine Infectious Disease; CONSULT PHYSICIAN Podiatrist Foot & Ankle Surgery; CONSULT PHYSICIAN Surgery Vascular Surgery; EMERGENCY PHYSICIAN Emergency Medicine; FAMILY PHYSICIAN Internal Medicine
PROC: 0JBQ0ZZ Excision of Right Foot Subcutaneous Tissue and Fascia, Open Approach (ICD-10-PCS; 2025-08-19)
PROC: 04FM3ZZ Fragmentation of Right Popliteal Artery, Percutaneous Approach (ICD-10-PCS; 2025-08-19)
PROC: 0QBN0ZX Excision of Right Metatarsal, Open Approach, Diagnostic (ICD-10-PCS; 2025-08-19)
PROC: 047M3D1 Dilation of Right Popliteal Artery with Intraluminal Device, using Drug-Coated Balloon, Percutaneous Approach (ICD-10-PCS; 2025-08-19)
PROC: B41F1ZZ Fluoroscopy of Right Lower Extremity Arteries using Low Osmolar Contrast (ICD-10-PCS; 2025-08-19)
PROC: B41C1ZZ Fluoroscopy of Pelvic Arteries using Low Osmolar Contrast (ICD-10-PCS; 2025-08-19)
PROC: B4101ZZ Fluoroscopy of Abdominal Aorta using Low Osmolar Contrast (ICD-10-PCS; 2025-08-19)
PROC: 047K3D1 Dilation of Right Femoral Artery with Intraluminal Device, using Drug-Coated Balloon, Percutaneous Approach (ICD-10-PCS; 2025-08-19)
PROC: 04FK3ZZ Fragmentation of Right Femoral Artery, Percutaneous Approach (ICD-10-PCS; 2025-08-19)
PROC: 02HV33Z Insertion of Infusion Device into Superior Vena Cava, Percutaneous Approach (ICD-10-PCS; 2025-08-25)
DX: E11.51 Type 2 diabetes mellitus with diabetic peripheral angiopathy without gangrene (principal); L89.614 Pressure ulcer of right heel, stage 4; I50.22 Chronic systolic (congestive) heart failure; I13.0 Hypertensive heart and chronic kidney disease with heart failure and stage 1 through stage 4 chronic kidney disease, or unspecified chronic kidney disease; N17.9 Acute kidney failure, unspecified; L03.115 Cellulitis of right lower limb; F05 Delirium due to known physiological condition; E87.1 Hypo-osmolality and hyponatremia; N39.0 Urinary tract infection, site not specified; Z16.12 Extended spectrum beta lactamase (ESBL) resistance; M86.8X7 Other osteomyelitis, ankle and foot; F03.90 Unspecified dementia, unspecified severity, without behavioral disturbance, psychotic disturbance, mood disturbance, and anxiety; N18.30 Chronic kidney disease, stage 3 unspecified; K21.9 Gastro-esophageal reflux disease without esophagitis; E11.22 Type 2 diabetes mellitus with diabetic chronic kidney disease; E11.621 Type 2 diabetes mellitus with foot ulcer; L97.519 Non-pressure chronic ulcer of other part of right foot with unspecified severity; I70.235 Atherosclerosis of native arteries of right leg with ulceration of other part of foot; E78.00 Pure hypercholesterolemia, unspecified; I35.1 Nonrheumatic aortic (valve) insufficiency; I48.0 Paroxysmal atrial fibrillation; E11.69 Type 2 diabetes mellitus with other specified complication; I35.0 Nonrheumatic aortic (valve) stenosis; N40.0 Benign prostatic hyperplasia without lower urinary tract symptoms; E05.90 Thyrotoxicosis, unspecified without thyrotoxic crisis or storm; B95.61 Methicillin susceptible Staphylococcus aureus infection as the cause of diseases classified elsewhere; B96.1 Klebsiella pneumoniae [K. pneumoniae] as the cause of diseases classified elsewhere; Z90.49 Acquired absence of other specified parts of digestive tract; Z95.3 Presence of xenogenic heart valve; Z85.828 Personal history of other malignant neoplasm of skin; Z95.0 Presence of cardiac pacemaker; Z87.891 Personal history of nicotine dependence; Z88.8 Allergy status to other drugs, medicaments and biological substances; Z79.82 Long term (current) use of aspirin; Z79.4 Long term (current) use of insulin; Z79.84 Long term (current) use of oral hypoglycemic drugs; Z79.899 Other long term (current) drug therapy; Z11.52 Encounter for screening for COVID-19
CPT/HCPCS: 70450; 71045; 71046; 73630; 73723; 75625; 75710; 76770; 80048; 80053; 81003; 81015; 82962; 83605; 83735; 83880; 84443; 85025; 85027; 85652; 86140; 87040; 87070; 87075; 87077; 87086; 87147; 87176; 87186; 87205; 87811; 92526; 92610; 92612; 93005; 93306; 93922; 93925; 94640; 97163; 97167; 97530; 97535; A9575; C1725; C1769; C1876; C1894; C2623; C9765; J1335; Q9967